=== PATIENT | female | born 1940 | race Caucasian/White ===

== ENCOUNTER → 2017-01-19 | Outpatient (CLI) | payer OTHER ==
[2016-07-16 15:19] VITALS: BP 112/56
[2017-01-19 09:59] LABS: BASOPHILS # (AUTO) 0.1 X10^3/uL (0.0-0.1); EOSINOPHILS # (AUTO) 0.2 x10^3/uL (0.0-0.2); EOSINOPHILS % (AUTO) 4.1 % (0.9-2.9); HEMATOCRIT 30.6 % (36.0-47.0); HEMOGLOBIN 10.1 g/dL (12.0-16.0); LYMPHOCYTES % (AUTO) 19.1 % (21.0-51.0); MEAN CORPUSCULAR HGB CONC 33.1 g/dL (33.0-35.0); MEAN CORPUSCULAR VOLUME 84.4 fL (80.0-100.0); MEAN PLATELET VOLUME 8.7 fL (7.4-11.0); MONOCYTES # (AUTO) 0.4 x10^3/uL (0.3-0.8); MONOCYTES % (AUTO) 8.5 % (0.0-13.0); NEUTROPHILS # (AUTO) 3.4 x10^3/uL (2.2-4.8); NEUTROPHILS % (AUTO) 67.3 % (42.0-75.0); PLATELET COUNT 241 X10^3/uL (150.0-450.0); RED BLOOD COUNT 3.62 X10^6/uL (3.5-5.4); RED CELL DISTRIBUTION WIDTH 13.2 % (11.6-16.5)
[2017-01-19 10:09] LABS: ALANINE AMINOTRANSFERASE 18 Units/L (12-78); ALBUMIN 3.9 g/dL (3.4-5.0); ALKALINE PHOSPHATASE 75 Units/L (46-116); ASPARTATE AMINO TRANSFERASE 23 Units/L (15-37); BLOOD UREA NITROGEN 26 mg/dL (7-18); CALCIUM 8.2 mg/dL (8.5-10.1); CARBON DIOXIDE 22.6 mmol/L (21-32); CHLORIDE 102 mmol/L (98-107); CHOLESTEROL 188 mg/dL (0-200); CREATININE 1.39 mg/dL (0.55-1.02); FREE T4 (FREE THYROXINE) 1.31 ng/dL (0.76-1.46); GLUCOSE 94 mg/dL (65-99); HDL CHOLESTEROL 62 mg/dL (40-60); SODIUM 135 mmol/L (136-145); TRIGLYCERIDES 146 mg/dL (0-150); TSH (3RD GENERATION) 2.003 uIU/mL (0.358-3.74); eGFR BLACK RACES 47 (>60); eGFR NON BLACK RACES 39 (>60)
== END ==
LOC: LAB 09:16
PROVIDERS: ATTEND Internal Medicine
DX: I10 Essential (primary) hypertension (principal); E78.4 Other hyperlipidemia; E03.8 Other specified hypothyroidism; E55.9 Vitamin D deficiency, unspecified; D51.8 Other vitamin B12 deficiency anemias
CPT/HCPCS: 36415; 80053; 80061; 82306; 82607; 84439; 84443; 85025

== ENCOUNTER → 2017-04-15 | Outpatient (CLI) | payer OTHER ==
[2016-07-16 15:19] VITALS: BP 112/56
--- NOTE | 2017-04-15 08:29 | RAD ---
HISTORY: Right arm pain Study: Right forearm two view Comparison: None Findings: Visible only on the AP view is a radial neck fracture. The remainder of the radius and ulna appear i ntact. IMPRESSION: Fracture radial neck Reported By:
== END ==
LOC: RAD 08:02
PROVIDERS: ATTEND Specialist
DX: M79.631 Pain in right forearm (principal); S52.134A Nondisplaced fracture of neck of right radius, initial encounter for closed fracture; X58.XXXA Exposure to other specified factors, initial encounter
CPT/HCPCS: 73090

== ENCOUNTER → 2017-04-22 | Outpatient (CLI) | payer OTHER ==
[2016-07-16 15:19] VITALS: BP 112/56
--- NOTE | 2017-04-22 09:30 | RAD ---
HISTORY: Follow up fracture Study: Right forearm two views Comparison: April 15, 2017 Findings: The ulna is intact. Once again noted is a radial neck fracture. The remainder of the radius is intac t. There is an elbow joint effusion present. IMPRESSION: No change radial neck fracture and small joint effusion Reported By:
== END | disposition home or self-care (01) ==
LOC: RAD 09:09
PROVIDERS: ATTEND Specialist
DX: M79.631 Pain in right forearm (principal); S52.134A Nondisplaced fracture of neck of right radius, initial encounter for closed fracture; X58.XXXA Exposure to other specified factors, initial encounter
CPT/HCPCS: 73090

== ENCOUNTER → 2017-08-11 | Outpatient (CLI) | payer OTHER ==
[2016-07-16 15:19] VITALS: BP 112/56
[2017-08-11 13:22] LABS: CREATININE 1.53 mg/dL (0.55-1.02)
== END | disposition home or self-care (01) | DRG 812 ==
LOC: RAD 12:54
DX: D63.8 Anemia in other chronic diseases classified elsewhere (principal); E79.0 Hyperuricemia without signs of inflammatory arthritis and tophaceous disease; G47.8 Other sleep disorders; H16.223 Keratoconjunctivitis sicca, not specified as Sjogren's, bilateral; K11.7 Disturbances of salivary secretion; R06.09 Other forms of dyspnea; I34.0 Nonrheumatic mitral (valve) insufficiency; I50.30 Unspecified diastolic (congestive) heart failure; I27.0 Primary pulmonary hypertension
CPT/HCPCS: 36415; 82565; 84295; 93306

== ENCOUNTER → 2017-08-17 | Outpatient (CLI) | payer OTHER ==
[2016-07-16 15:19] VITALS: BP 112/56
[2017-08-17 14:18] LABS: BILIRUBIN,URINE NEGATIVE (NEGATIVE); BLOOD/HEMOGLOBIN,URINE NEGATIVE (NEGATIVE); COLOR,URINE YELLOW (YELLOW); GLUCOSE, URINE NEGATIVE (NEGATIVE); KETONES,URINE NEGATIVE (NEGATIVE); LEUKOCYTE ESTERASE ,URINE 1+ (NEGATIVE); NITRITES,URINE NEGATIVE (NEGATIVE); PROTEIN,URINE NEGATIVE (NEGATIVE); UROBILINOGEN,URINE NORMAL (NORMAL)
[2017-08-17 14:19] LABS: APPEARANCE,URINE CLEAR (CLEAR); BACTERIA,URINE TRACE /HPF (NEGATIVE); SQUAMOUS EPITHELIAL CELL,UR FEW /HPF (NEGATIVE)
== END ==
LOC: LAB 13:49
PROVIDERS: ATTEND Neurological Surgery
DX: D63.8 Anemia in other chronic diseases classified elsewhere (principal); E79.0 Hyperuricemia without signs of inflammatory arthritis and tophaceous disease; G47.8 Other sleep disorders; H16.223 Keratoconjunctivitis sicca, not specified as Sjogren's, bilateral; K11.7 Disturbances of salivary secretion
CPT/HCPCS: 81001; 87086

== ENCOUNTER 2017-08-19 00:35 | Inpatient (IN) | payer OTHER ==
--- NOTE | 2017-08-19 00:43 | DR.GENAD ---
HPI - HPI Comment HPI Comment: PATIENT STARTED HAVING INCREASE SOB AND CHEST PAIN TONIGHT. TOOK S/ L NTG TIMES 2 WITHOUT RELIEF. NO FEVER. CURRENTLY ON MEDICATION FOR BRONCHITIS. - Complaint/Symptoms Chief Complaint Doctors Comments: SOB, CHEST PAIN. - Nurses notes reviewed Nurses Notes Review: Yes - Source History Provided: Patient - Mode of Arrival Mode of Arrival: Stretcher - Timing Came on: Suddenly - Duration Duration: Constant Duration: Hours - Severity Severity: Moderate PMH - PMH Past Surgical History: Yes Surgical History: Appendectomy, Cholecystectomy, Hysterectomy, Joint Replacement , Tonsillectomy - Family History Family Medical History: Cancer, [place], Hypertension ROS - Review of Systems Constitutional: No Symptoms Reported, Weakness, Fatigue. negative: Chills, Fever Eyes: negative: Eye Pain, Discharge ENTM: Nose Congestion. negative: Ear Pain, Nose Discharge, Throat Pain Respiratoy: Productive Cough, Short of Breath, Wheezing. negative: Hemoptysis Cardiovascular: Chest Pain Gastrointestinal/Abdominal: Nausea. negative: Abdominal Pain Genitourinary: negative: Dysuria, Frequency, Hematuria Neurological: Headache, Weakness, Dizziness Musculoskeletal: Muscle Pain Hematologic/Lymphatic: No Symptoms Reported Endocrine: No Symptoms Reported PE - Vital Signs Vitals: Pulse Rate [Apical] 58 Pulse Rate 67 Respiratory Rate 20 Blood Pressure [Left Arm] 127/58 Blood Pressure [Right Arm] 159/72 Blood Pressure 226/93 O2 Sat by Pulse Oximetry 99 - General Limitations: No Limitations General Appearance: Alert, In Distress (ACUTE RESP DISTRESS.) - Head Head Exam: Normal Inspection - Eyes Eye exam: Normal Appearance, PERRL, EOMI. negative: Scleral Icterus, Conjunctival Injection - ENT ENT Exam: Normal External Ear Exam External Ear Exam: Normal External Inspection TM/Canal Exam: Bilateral Normal Nose Exam: Normal Nose Exam Mouth Exam: Normal Inspection Throat Exam: Normal Inspection - Neck Neck Exam: Normal Inspection - Chest Chest Inspection: Symmetric Chest Wall Rise - Respiratory Respiratory Exam: Normal Lung Sounds Bilat Respiratory Exam: Bilateral Wheezing, Bilateral Rhonchi, Upper Wheezing, Upper Rhonchi, Lower Wheezing, Lower Rhonchi - Cardiovascular Cardiovascular Exam: Regular Rate, Normal Rhythm, Normal Heart Sounds - Abdominal Exam Abdominal Exam: Normal Bowel Sounds, Soft. negative: Tenderness - Extremities Extremities Exam: Normal Inspection - Back Back Exam: Normal Inspection - Neurologic Neurological Exam: Alert, Oriented X3, CN II-XII Intact. negative: Motor Sensory Deficit - Psychiatric Psychiatric Exam: Normal Affect, Normal Mood - Skin Skin Exam: Erythema MDM - Additional Information Additional Information Obtained From: Family - Differential Diagnosis Differential Diagnosis: RESP DISTRESS, CHF, PNEUMOIA, BRONCHITIS, UTI Course - Treatment Treatment: SEE ORDERS. NRB RX IN ED. SOB IMPROVING. - Consultation Consultation Comments: DISCUSS PATIENT WITH DR. JENKINS. HE WILL ADMIT PATIENT. - Education/Counseling Education/Counseling: Patient, Family, Education Educated On: Treatment, Diagnosis ROR - Labs Reviewed Laboratory Results Reviewed?: Yes Result Diagrams: 08/19/17 00:40 08/19/17 00:40 Laboratory: WBC 4.4 X10^3/uL (3.6-10.0) 08/19/17 00:40 RBC 3.48 X10^6/uL (3.5-5.4) L 08/19/17 00:40 Hgb 10.1 g/dL (12.0-16.0) L 08/19/17 00:40 Hct 29.6 % (36.0-47.0) L 08/19/17 00:40 MCV 85.0 fL (80.0-100.0) 08/19/17 00:40 MCH 29.0 pg (27.0-34.0) 08/19/17 00:40 MCHC 34.1 g/dL (33.0-35.0) 08/19/17 00:40 RDW 12.9 % (11.6-16.5) 08/19/17 00:40 Plt Count 254 X10^3/uL (150.0-450.0) 08/19/17 00:40 MPV 8.7 fL (7.4-11.0) 08/19/17 00:40 Neut % 51.3 % (42.0-75.0) 08/19/17 00:40 Lymph % 27.1 % (21.0-51.0) 08/19/17 00:40 [place] % 12.6 % (0.0-13.0) 08/19/17 00:40 Eos % 7.7 % (0.9-2.9) H 10 00:40 Baso % 1.3 % (0.2-1.0) H 08/19/17 00:40 Neut # 2.3 x10^3/uL (2.2-4.8) 10 00:40 Lymph # 1.2 X10^3/uL (1.3-2.9) L 10 00:40 [place] # 0.6 x10^3/uL (0.3-0.8) 08/19/17 00:40 Eos # 0.3 x10^3/uL (0.0-0.2) H 08/19/17 00:40 Baso # 0.1 X10^3/uL (0.0-0.1) 08/19/17 00:40 Absolute Nucleated RBC 0.0 /100WBC 08/19/17 00:40 Sodium 136 mmol/L (136-145) 08/19/17 00:40 Corrected Sodium TNP 08/19/17 00:40 Potassium 4.4 mmol/L (3.5-5.1) 08/19/17 00:40 Chloride 104 mmol/L (98-107) 08/19/17 00:40 Carbon Dioxide 22.8 mmol/L (21-32) 08/19/17 00:40 BUN 18 mg/dL (7-18) 08/19/17 00:40 Creatinine 1.49 mg/dL (0.55-1.02) H 08/19/17 00:40 Est GFR (MDRD) Af Amer 44 (>60) L 08/19/17 00:40 Est GFR (MDRD) Non-Af 36 (>60) L 08/19/17 00:40 Glucose 103 mg/dL (65-99) H 08/19/17 00:40 Calcium 8.6 mg/dL (8.5-10.1) 08/19/17 00:40 Corrected Calcium TNP 08/19/17 00:40 Total Bilirubin 0.20 mg/dL (0.2-1.0) 08/19/17 00:40 AST 20 Units/L (15-37) 08/19/17 00:40 ALT 12 Units/L (12-78) 08/19/17 00:40 Alkaline Phosphatase 87 Units/L (46-116) 08/19/17 00:40 Creatine Kinase 81 Units/L (26-192) 08/19/17 00:40 CK-MB (CK-2) < 1.0 ng/mL (0-4.0) 08/19/17 00:40 CK/CKMB % Calc 1.2 % (<4) 08/19/17 00:40 Troponin I < 0.02 ng/mL (0-1.5) 08/19/17 00:40 B-Natriuretic Peptide 929 pg/mL (0-79) H* 08/19/17 00:40 Total Protein 7.6 g/dL (6.4-8.2) 08/19/17 00:40 Albumin 3.8 g/dL (3.4-5.0) 08/19/17 00:40 Globulin 3.8 g/dL (2.5-4.5) 08/19/17 00:40 Albumin/Globulin Ratio 1.0 Ratio (1.1-2.1) L 08/19/17 00:40 - XRAY XRAY Interpreted by: Radiologist XRAY Findings: REPORT DISCUSS WITH PATIENT. - EKG Rhythm: NSR (EKG NOTED.) - Diagnosis Discharge Problem: Respiratory distress, Bronchitis CHF (congestive heart failure) Qualifiers: Congestive heart failure type: combined Congestive heart failure chronicity: acute on chronic Qualified Code(s): I50.43 - Acute on chronic combined systolic (congestive) and diastolic (congestive) heart failure Hypertension Qualifiers: Hypertension type: essential hypertension Qualified Code(s): I10 - Essential ( primary) hypertension - Discharge Plan Disposition: ADMITTED INPATIENT Condition: Stable - Follow ups/Referrals - Instructions
[2017-08-19] MEDS ORDERED: DUONEB 0.5 MG/3 MG ONE (00:56)
[2017-08-19] MEDS ORDERED: SOLU-Medrol 125 MG VIAL IVP ONE (00:59)
[2017-08-19] MEDS ORDERED: SOLU-Medrol 125 MG VIAL ONE (01:00)
[2017-08-19] MEDS ORDERED: DUONEB 0.5 MG/3 MG NEB ONE (01:00)
[2017-08-19 01:04] LABS: BASOPHILS # (AUTO) 0.1 X10^3/uL (0.0-0.1); BASOPHILS % (AUTO) 1.3 % (0.2-1.0); EOSINOPHILS # (AUTO) 0.3 x10^3/uL (0.0-0.2); EOSINOPHILS % (AUTO) 7.7 % (0.9-2.9); HEMATOCRIT 29.6 % (36.0-47.0); HEMOGLOBIN 10.1 g/dL (12.0-16.0); LYMPHOCYTES # (AUTO) 1.2 X10^3/uL (1.3-2.9); LYMPHOCYTES % (AUTO) 27.1 % (21.0-51.0); MEAN CORPUSCULAR HGB CONC 34.1 g/dL (33.0-35.0); MEAN PLATELET VOLUME 8.7 fL (7.4-11.0); MONOCYTES # (AUTO) 0.6 x10^3/uL (0.3-0.8); MONOCYTES % (AUTO) 12.6 % (0.0-13.0); NEUTROPHILS # (AUTO) 2.3 x10^3/uL (2.2-4.8); NEUTROPHILS % (AUTO) 51.3 % (42.0-75.0); PLATELET COUNT 254 X10^3/uL (150.0-450.0); RED BLOOD COUNT 3.48 X10^6/uL (3.5-5.4); RED CELL DISTRIBUTION WIDTH 12.9 % (11.6-16.5); WHITE BLOOD COUNT 4.4 X10^3/uL (3.6-10.0)
[2017-08-19] MEDS ORDERED: NIFEDIPINE CAP 10 MG PO ONE (01:07)
[2017-08-19] MEDS ORDERED: NIFEDIPINE CAP 10 MG ONE (01:10)
[2017-08-19 01:18] LABS: BLOOD UREA NITROGEN 18 mg/dL (7-18); CALCIUM 8.6 mg/dL (8.5-10.1); CARBON DIOXIDE 22.8 mmol/L (21-32); CHLORIDE 104 mmol/L (98-107); CREATININE 1.49 mg/dL (0.55-1.02); SODIUM 136 mmol/L (136-145); TROPONIN I < 0.02 ng/mL (0-1.5); eGFR BLACK RACES 44 (>60); eGFR NON BLACK RACES 36 (>60)
[2017-08-19 01:22] LABS: ALANINE AMINOTRANSFERASE 12 Units/L (12-78); ALBUMIN 3.8 g/dL (3.4-5.0); ALKALINE PHOSPHATASE 87 Units/L (46-116); ASPARTATE AMINO TRANSFERASE 20 Units/L (15-37); CKMB % 1.2 % (<4); CREATINE KINASE 81 Units/L (26-192); CREATINE KINASE MB < 1.0 ng/mL (0-4.0); TOTAL PROTEIN 7.6 g/dL (6.4-8.2)
[2017-08-19] MEDS ORDERED: ROCEPHIN VIAL 1 GM 1 GM in NS 50 ML IV + SPIKE MINIBAG* 50 ML IV ONE (01:33)
[2017-08-19] MEDS ORDERED: ROCEPHIN VIAL 1 GM ONE (01:39)
[2017-08-19] MEDS ORDERED: NS 50 ML IV + SPIKE MINIBAG* 50 ML IV ONE (01:39)
[2017-08-19] MEDS ORDERED: NS 250 ML IV 250 ML IV ONE ×2 (01:43→01:52)
--- NOTE | 2017-08-19 02:25 | RAD ---
Chest AP portable Indication: Cough. Findings: There is no pneumothorax or effusion. There is cardiomegaly. Mild increased interstitial ma rkings noted. Impression: Cardiomegaly and borderline edema suggesting CHF. Reported By:
[2017-08-19 03:29] LABS: BILIRUBIN,URINE NEGATIVE (NEGATIVE); BLOOD/HEMOGLOBIN,URINE NEGATIVE (NEGATIVE); GLUCOSE, URINE NEGATIVE (NEGATIVE); KETONES,URINE NEGATIVE (NEGATIVE); LEUKOCYTE ESTERASE ,URINE NEGATIVE (NEGATIVE); NITRITES,URINE NEGATIVE (NEGATIVE); PROTEIN,URINE 1+ (NEGATIVE); UROBILINOGEN,URINE NORMAL (NORMAL)
[2017-08-19 03:32] VITALS: BMI 42.7
[2017-08-19] MEDS ORDERED: FLUVIRIN IM ONE ×2 (03:32→11:20)
[2017-08-19 03:38] LABS: APPEARANCE,URINE CLEAR (CLEAR); BACTERIA,URINE NEGATIVE /HPF (NEGATIVE); COLOR,URINE YELLOW (YELLOW); RBC,URINE 0-3 /HPF (NEGATIVE); SQUAMOUS EPITHELIAL CELL,UR RARE /HPF (NEGATIVE)
[2017-08-19] MEDS: DUONEB 0.5 MG/3 MG NEB SCH ×5 (05:09→21:32)
[2017-08-19 05:34] LABS: BASOPHILS % (AUTO) 0.9 % (0.2-1.0); EOSINOPHILS # (AUTO) 0.1 x10^3/uL (0.0-0.2); EOSINOPHILS % (AUTO) 1.3 % (0.9-2.9); HEMATOCRIT 28.5 % (36.0-47.0); HEMOGLOBIN 9.8 g/dL (12.0-16.0); LYMPHOCYTES # (AUTO) 0.7 X10^3/uL (1.3-2.9); LYMPHOCYTES % (AUTO) 14.3 % (21.0-51.0); MEAN CORPUSCULAR HEMOGLOBIN 29.2 pg (27.0-34.0); MEAN CORPUSCULAR HGB CONC 34.5 g/dL (33.0-35.0); MEAN CORPUSCULAR VOLUME 84.6 fL (80.0-100.0); MONOCYTES # (AUTO) 0.2 x10^3/uL (0.3-0.8); MONOCYTES % (AUTO) 3.5 % (0.0-13.0); NEUTROPHILS # (AUTO) 3.7 x10^3/uL (2.2-4.8); PLATELET COUNT 219 X10^3/uL (150.0-450.0); RED BLOOD COUNT 3.38 X10^6/uL (3.5-5.4); RED CELL DISTRIBUTION WIDTH 13.1 % (11.6-16.5); WHITE BLOOD COUNT 4.7 X10^3/uL (3.6-10.0)
[2017-08-19 05:41] LABS: ALANINE AMINOTRANSFERASE 10 Units/L (12-78); ALBUMIN 3.9 g/dL (3.4-5.0); ALKALINE PHOSPHATASE 76 Units/L (46-116); ASPARTATE AMINO TRANSFERASE 19 Units/L (15-37); BLOOD UREA NITROGEN 18 mg/dL (7-18); CALCIUM 8.9 mg/dL (8.5-10.1); CARBON DIOXIDE 24.3 mmol/L (21-32); CHLORIDE 103 mmol/L (98-107); COR NA(FOR HYPERGLY) 137 mmol/L (136-145); MAGNESIUM 1.9 mg/dL (1.7-2.9); SODIUM 137 mmol/L (136-145); TOTAL PROTEIN 7.3 g/dL (6.4-8.2); eGFR BLACK RACES 43 (>60); eGFR NON BLACK RACES 36 (>60)
[2017-08-19 05:49] LABS: CKMB % 1.5 % (<4); CREATINE KINASE 67 Units/L (26-192); CREATINE KINASE MB < 1.0 ng/mL (0-4.0); TROPONIN I < 0.02 ng/mL (0-1.5)
[2017-08-19] MEDS ORDERED: PATIENT'S HOME MEDICATION EACHEYE PRN (08:26)
[2017-08-19] MEDS ORDERED: CIPRO IV 200 MG PREMIX* 200 MG/100 ML BAG IV SCH (09:00)
[2017-08-19] MEDS ORDERED: ROCEPHIN VIAL 1 GM 1 GM in NS 50 ML IV + SPIKE MINIBAG* 50 ML IV SCH (09:00)
[2017-08-19] MEDS: LASIX IVP SCH ×2 (11:26→21:12)
[2017-08-19] MEDS: LEVAQUIN PREMIX IV 750 MG 750 MG/150 ML BAG IV SCH (11:26)
[2017-08-19] MEDS: MUCINEX DM PO SCH ×2 (11:26→21:10)
[2017-08-19] MEDS: TESSALON PERLES PO SCH ×3 (11:26→21:09)
[2017-08-19] MEDS: FORTAZ or TAZICEF INJ 1 GM in NS 50 ML IV + SPIKE MINIBAG* 50 ML IV SCH ×3 (11:27→21:10)
[2017-08-19] MEDS ORDERED: ATARAX TAB 25 MG PO PRN (11:33)
[2017-08-19] MEDS ORDERED: ONDANSETRON 8 MG PO PRN (11:33)
[2017-08-19] MEDS ORDERED: PILOCARPINE HCL 5 MG PO PRN (11:33)
[2017-08-19] MEDS ORDERED: PATIENT'S HOME MEDICATION (Meclizine Hcl [Meclizine Hcl] 12.5 MG) PO PRN (11:33)
[2017-08-19] MEDS ORDERED: LEVOCETIRIZINE DIHYDROCHLORIDE 5 MG PO PRN (11:33)
[2017-08-19] MEDS ORDERED: NITROSTAT SL PRN (11:33)
[2017-08-19] MEDS ORDERED: DICYCLOMINE HCL 20 MG PO PRN (11:33)
[2017-08-19] MEDS ORDERED: LIBRIUM PO PRN (11:33)
[2017-08-19] MEDS: COREG TAB 25 MG PO SCH ×2 (11:42→21:09)
[2017-08-19] MEDS ORDERED: FOLIC ACID PO SCH (11:45)
[2017-08-19] MEDS ORDERED: TIZANIDINE HCL PO SCH (11:45)
[2017-08-19] MEDS ORDERED: HYDROXYCHLOROQUINE SULFATE 200 MG PO SCH (11:45)
[2017-08-19 11:46] LABS: CKMB % 1.6 % (<4); CREATINE KINASE 61 Units/L (26-192); CREATINE KINASE MB < 1.0 ng/mL (0-4.0); TROPONIN I < 0.02 ng/mL (0-1.5)
[2017-08-19] MEDS ORDERED: NEURONTIN CAP 100 MG PO SCH (12:00)
[2017-08-19] MEDS ORDERED: COZAAR PO SCH (12:00)
[2017-08-19] MEDS ORDERED: BENTYL CAP 10 MG PO PRN (12:04)
[2017-08-19] MEDS ORDERED: ANTIVERT TAB 25 MG PO PRN (12:06)
[2017-08-19] MEDS: PROTONIX TAB 40 MG PO SCH ×2 (12:45→21:10)
[2017-08-19] MEDS: SYNTHROID 137 mcg TAB PO SCH (12:45)
[2017-08-19] MEDS: SINGULAIR TAB 10 MG PO SCH (12:45)
[2017-08-19] MEDS: PEPCID TAB 20 MG PO SCH ×2 (12:45→21:09)
[2017-08-19] MEDS: PLAVIX PO SCH (12:46)
[2017-08-19] MEDS: FOLIC ACID TAB 1 MG PO SCH (12:46)
[2017-08-19] MEDS: ZANTAC PO SCH (12:46)
[2017-08-19] MEDS ORDERED: MORPHINE SULFATE INJ 2 MG INJ ONE (13:23)
[2017-08-19] MEDS: MORPHINE SULFATE INJ 2 MG INJ IVP PRN (13:35)
[2017-08-19] MEDS: TEMOVATE SOLN TOP SCH ×2 (14:07→21:27)
[2017-08-19] MEDS: SOLU-Medrol 40 MG VIAL IVP SCH ×2 (14:08→21:12)
[2017-08-19] MEDS: MAGIC MOUTHWASH MT SCH ×3 (14:08→21:26)
[2017-08-19] MEDS: DIOVAN TAB 160 MG PO SCH (14:45)
[2017-08-19] MEDS ORDERED: CATAPRES-TTS-3 TD SCH (15:00)
[2017-08-19] MEDS ORDERED: APRESOLINE INJ 20 MG VIAL IVP PRN (18:05)
[2017-08-19] MEDS: TYLENOL 325 MG TAB PO PRN (18:18)
[2017-08-19] MEDS: NORVASC TAB 5 MG PO SCH (18:18)
[2017-08-19] MEDS: ZOFRAN TAB 4 MG PO PRN (19:45)
--- NOTE | 2017-08-19 20:48 | DR.H&P ---
H&P - History & Physical for Day of: H&P Date: 08/19/17 - Chief Complaint Chief Complaint: SHORT OF BREATH - Allergies Allergies/Adverse Reactions: Allergies Allergy/AdvReac Type Severity Reaction Status Date / Time hydrocodone Allergy Intermediate CONFUSION Verified 08/19/17 00:53 - History of Present Illness History of Present Illness: IS A 76 YEAR OLD PATIENT OF OURS WHO PRESENTED TO THE EMERGENCY ROOM WITH COMPLAINTS OF SHORTNESS OF BREATH AND CHEST PAIN. PATIENT REPORTS CURRENTLY BEING TREATED FOR BRONCHITIS WITH CEFDINIR AND TESSALON PERLES SINCE 08/11/17. SHE STATES THAT THE SHORTNESS OF BREATH HAS STEADILY INCREASED SINCE THEN. PATIENT REPORTS TAKING TWO SUBLINGUAL NITROGLYCERIN TABLET WITHOUT RELIEF OF PAIN. SHE DENIES FEVER. ASSOCIATED SYMPTOMS ARE PRODUCTIVE COUGH, NASAL CONGESTION, WEAKNESS, NAUSEA, HEADACHE, DIZZINESS, AND MUSCLE PAIN. ON EXAMINATION, LUNGS ARE NOTED WITH WHEEZING AND RHONCHI BILATERALLY TO AUSCULTATION. ABDOMEN IN SOFT, ROUND, AND NON-TENDER WITH NORMAL BOWEL SOUNDS NOTED IN ALL QUADRANTS. ON ARRIVAL TO ER, VITALS WERE 98.2-69-17-97%-226-93. LABS AND XRAYS WERE OBTAINED. ABNORMAL LAB VALUES INCLUDE THE FOLLOWING: RBC 3.48, HGB 10.1, HCT 29.6, CREATININE 1.49, GFR 36, GLUCOSE 103, BNP 929. CHEST XRAY REPORTED CARDIOMEGALY AND BORDERLINE EDEMA SUGGESTING CHF. SHE WAS GIVEN SOLU-MEDROL 125MG IV X 1, DUONEB X 1, ROCEPHIN 1GM IV, AND NIFEDIPINE X 1 IN THE ER. A DECREASE IN BLOOD PRESSURE WAS NOTED AT 159/72. WE ADMITTED PATIENT FOR FURTHER EVALUATION AND TREATMENT OF CHF AND ACUTE BRONCHITIS. WE PLAN TO FOLLOW UP WITH AM LABS AND CONTINUE TO MONITOR PATIENT. - Past Medical History Past Medical History: Angina, Arthritis, CHF, Coronary Artery Disease, Dyslipidemia, Hypertension - Past Surgical History Surgical History: Appendectomy, Cholecystectomy, Hysterectomy, Joint Replacement , Tonsillectomy - Family History Family Medical History: Cancer, [place], Hypertension - Social History Does patient currently use any type of tobacco product: No Have you used tobacco products in the last 12 months: No Type of Tobacco Use: None Does any household member use tobacco: No Alcohol Use: None Drug Use: None - Review of Systems Constitutional: Weakness Eyes: No Symptoms Reported ENT: Nose Discharge Respiratory: Cough, Shortness of Breath, SOB with Excertion, Sputum, Wheezing Cardiovascular: Chest Pain Gastrointestinal: Nausea Genitourinary: No Symptoms Reported Musculoskeletal: No Symptoms Reported Skin: No Symptoms Reported Neurological: Weakness - Physical Exam Vital Signs: Temperature 97.7 F Pulse Rate [Right Brachial] 62 Pulse Rate [Apical] 71 Pulse Rate 63 Respiratory Rate 20 Blood Pressure [Left Arm] 127/58 Blood Pressure [Right Arm] 191/74 Blood Pressure 226/93 O2 Sat by Pulse Oximetry 97 Oriented: Normal Eyes: Normal Ear: Normal Nose: Normal Throat: Normal Respiratory: Rhonchi Throughout, Wheezes Throughout Cardiovascular: Normal : Normal Auscultation: Bowel Sounds: Normal Palpation: Normal Tenderness: Normal Skin: Normal Musculoskeletal: Normal Psychiatric: Normal Mood Description: Calm Affect: Normal Speech Pattern: Clear - Assessment/Plan (1) Bronchitis Status: Acute (2) CHF (congestive heart failure) Qualifiers: Congestive heart failure type: combined Congestive heart failure chronicity : acute on chronic Qualified Code(s): I50.43 - Acute on chronic combined systolic (congestive) and diastolic (congestive) heart failure Status: Acute (3) Respiratory distress Status: Acute
[2017-08-19] MEDS ORDERED: ESTRADIOL 1 MG PO SCH (21:00)
[2017-08-19] MEDS: CRESTOR TAB 10 MG PO SCH (21:08)
[2017-08-19] MEDS: ESTRACE PO SCH (21:08)
[2017-08-19] MEDS: PLAQUENIL PO SCH (21:09)
[2017-08-19] MEDS: NEURONTIN CAP 300 MG PO SCH (21:10)
[2017-08-19] MEDS: LEVSIN/MAALOX/LIDOC VISC PO PRN (21:32)
[2017-08-19] MEDS: COLACE CAP 100 MG PO SCH (22:02)
[2017-08-20] MEDS: DUONEB 0.5 MG/3 MG NEB SCH ×6 (00:40→21:01)
[2017-08-20] MEDS: SOLU-Medrol 40 MG VIAL IVP SCH ×3 (05:24→21:22)
[2017-08-20] MEDS: FORTAZ or TAZICEF INJ 1 GM in NS 50 ML IV + SPIKE MINIBAG* 50 ML IV SCH ×3 (05:24→21:14)
[2017-08-20] MEDS: TESSALON PERLES PO SCH ×3 (05:24→21:13)
[2017-08-20 06:09] LABS: ALANINE AMINOTRANSFERASE 11 Units/L (12-78); ALBUMIN 3.5 g/dL (3.4-5.0); ALKALINE PHOSPHATASE 68 Units/L (46-116); ASPARTATE AMINO TRANSFERASE 17 Units/L (15-37); BLOOD UREA NITROGEN 20 mg/dL (7-18); CALCIUM 8.3 mg/dL (8.5-10.1); CARBON DIOXIDE 24.5 mmol/L (21-32); CHLORIDE 96 mmol/L (98-107); COR NA(FOR HYPERGLY) 133 mmol/L (136-145); CREATININE 1.51 mg/dL (0.55-1.02); SODIUM 132 mmol/L (136-145); TOTAL PROTEIN 7.5 g/dL (6.4-8.2); eGFR BLACK RACES 43 (>60); eGFR NON BLACK RACES 35 (>60)
[2017-08-20 06:12] LABS: BASOPHILS % (AUTO) 0.1 % (0.2-1.0); HEMATOCRIT 28.6 % (36.0-47.0); HEMOGLOBIN 9.9 g/dL (12.0-16.0); LYMPHOCYTES # (AUTO) 0.5 X10^3/uL (1.3-2.9); LYMPHOCYTES % (AUTO) 7.4 % (21.0-51.0); MEAN CORPUSCULAR HEMOGLOBIN 29.3 pg (27.0-34.0); MEAN CORPUSCULAR HGB CONC 34.6 g/dL (33.0-35.0); MEAN CORPUSCULAR VOLUME 84.7 fL (80.0-100.0); MEAN PLATELET VOLUME 9.5 fL (7.4-11.0); MONOCYTES # (AUTO) 0.1 x10^3/uL (0.3-0.8); NEUTROPHILS # (AUTO) 5.5 x10^3/uL (2.2-4.8); NEUTROPHILS % (AUTO) 90.5 % (42.0-75.0); PLATELET COUNT 234 X10^3/uL (150.0-450.0); RED BLOOD COUNT 3.37 X10^6/uL (3.5-5.4); RED CELL DISTRIBUTION WIDTH 12.7 % (11.6-16.5); WHITE BLOOD COUNT 6.1 X10^3/uL (3.6-10.0)
[2017-08-20 07:29] LABS: BAND NEUTROPHILS % 3 % (0-10)
[2017-08-20 07:30] LABS: PLATELET MORPHOLOGY COMMENT NORMAL (NORMAL)
[2017-08-20] MEDS: FOLIC ACID TAB 1 MG PO SCH (08:44)
[2017-08-20] MEDS: PLAQUENIL PO SCH ×2 (08:44→21:12)
[2017-08-20] MEDS: MUCINEX DM PO SCH ×2 (08:44→21:13)
[2017-08-20] MEDS: SINGULAIR TAB 10 MG PO SCH (08:45)
[2017-08-20] MEDS: ZANAFLEX PO SCH (08:45)
[2017-08-20] MEDS: DIOVAN TAB 160 MG PO SCH (08:45)
[2017-08-20] MEDS: NORVASC TAB 5 MG PO SCH (08:45)
[2017-08-20] MEDS: ZANTAC PO SCH (08:45)
[2017-08-20] MEDS: COREG TAB 25 MG PO SCH ×2 (08:45→21:12)
[2017-08-20] MEDS: PROTONIX TAB 40 MG PO SCH ×2 (08:46→21:12)
[2017-08-20] MEDS: PEPCID TAB 20 MG PO SCH ×2 (08:46→21:12)
[2017-08-20] MEDS: MAGIC MOUTHWASH MT SCH ×4 (08:47→21:14)
[2017-08-20] MEDS: TEMOVATE SOLN TOP SCH ×2 (08:47→21:14)
[2017-08-20] MEDS: PLAVIX PO SCH (08:47)
[2017-08-20] MEDS: SYNTHROID 137 mcg TAB PO SCH (08:47)
[2017-08-20] MEDS: LEVAQUIN PREMIX IV 750 MG 750 MG/150 ML BAG IV SCH (08:48)
[2017-08-20] MEDS ORDERED: SOLU-Medrol 40 MG VIAL IVP SCH (09:00)
[2017-08-20] MEDS: TYLENOL 325 MG TAB PO PRN (11:38)
[2017-08-20] MEDS: PILOCARPINE HCL 5 MG PO SCH ×2 (14:31→21:15)
[2017-08-20] MEDS ORDERED: CATAPRES TAB 0.1 MG PO PRN (16:49)
[2017-08-20] MEDS: LASIX IVP SCH (17:05)
[2017-08-20] MEDS: NEURONTIN CAP 300 MG PO SCH (21:12)
[2017-08-20] MEDS: CRESTOR TAB 10 MG PO SCH (21:12)
[2017-08-20] MEDS: ESTRACE PO SCH (21:13)
[2017-08-20] MEDS: COLACE CAP 100 MG PO SCH (21:13)
--- NOTE | 2017-08-20 22:22 | PCM.PROG ---
Progress Note - Progress Note for Day of Date: 08/20/17 - Subjective Subjective: IS A 76 YEAR OLD PATIENT WHO PRESENTED TO THE EMERGENCY ROOM WITH COMPLAINTS OF SHORTNESS OF BREATH AND CHEST PAIN. PATIENT REPORTS CURRENTLY BEING TREATED FOR BRONCHITIS WITH CEFDINIR AND TESSALON PERLES SINCE 08/11/17. PATIENT CONTINUES TO BE DYSPNEIC WITH ACTIVITY OR CONVERSATION. DENIES PRODUCTIVE COUGH. - Past Medical Family Social History Past Med/Fam/Surg Hx: No changes since H&P Allergies: Allergies hydrocodone Allergy (Intermediate, Verified 08/19/17 00:53) CONFUSION - Review of Systems ROS: No change since H&P - Vital Signs and I&O's Vital Signs: Temperature 97.4 F Pulse Rate [Right Brachial] 68 Pulse Rate [Apical] 71 Pulse Rate 68 Respiratory Rate 20 Blood Pressure [Left Arm] 127/58 Blood Pressure [Right Arm] 180/74 Blood Pressure 226/93 O2 Sat by Pulse Oximetry 97 Intake and Output: Intake & Output 08/18/17 08/19/17 08/20/17 08/21/17 11:59 11:59 11:59 11:59 Intake Total 1368 1030 Balance 1368 1030 - Physical Exam Oriented: Normal Eyes: Normal Ear: Normal Nose: Normal Throat: Normal Respiratory: Diminished, [place] Cardiovascular: Normal : Normal Auscultation: Bowel Sounds: Normal Palpation: Normal Tenderness: Normal Skin: Normal Musculoskeletal: Normal Psychiatric: Normal Mood Description: Calm Affect: Normal Speech Pattern: Clear, Appropriate - Laboratory and Diagnostics Result Diagrams: 08/20/17 03:10 08/20/17 03:10 Labs: 08/19/17 14:18 Sputum - Expectorated Sputum Sputum Culture - Preliminary 08/19/17 14:18 Sputum - Expectorated Sputum - Final Laboratory WBC 6.1 X10^3/uL (3.6-10.0) 08/20/17 03:10 RBC 3.37 X10^6/uL (3.5-5.4) L 08/20/17 03:10 Hgb 9.9 g/dL (12.0-16.0) L 08/20/17 03:10 Hct 28.6 % (36.0-47.0) L 08/20/17 03:10 MCV 84.7 fL (80.0-100.0) 08/20/17 03:10 MCH 29.3 pg (27.0-34.0) 08/20/17 03:10 MCHC 34.6 g/dL (33.0-35.0) 08/20/17 03:10 RDW 12.7 % (11.6-16.5) 08/20/17 03:10 Plt Count 234 X10^3/uL (150.0-450.0) 08/20/17 03:10 Plt Count Comment Adequate (ADEQUATE) 08/20/17 03:10 MPV 9.5 fL (7.4-11.0) 08/20/17 03:10 Neut % 90.5 % (42.0-75.0) H 08/20/17 03:10 Lymph % 7.4 % (21.0-51.0) L 08/20/17 03:10 [place] % 2.0 % (0.0-13.0) 08/20/17 03:10 Eos % 0.0 % (0.9-2.9) L 08/20/17 03:10 Baso % 0.1 % (0.2-1.0) L 08/20/17 03:10 Neut # 5.5 x10^3/uL (2.2-4.8) H 08/20/17 03:10 Lymph # 0.5 X10^3/uL (1.3-2.9) L 08/20/17 03:10 [place] # 0.1 x10^3/uL (0.3-0.8) L 08/20/17 03:10 Eos # 0.0 x10^3/uL (0.0-0.2) 08/20/17 03:10 Baso # 0.0 X10^3/uL (0.0-0.1) 08/20/17 03:10 Absolute Nucleated RBC 0.0 /100WBC 08/20/17 03:10 Total Counted 100 08/20/17 03:10 Neutrophils % (Manual) 88 % (39-76) H 08/20/17 03:10 Band Neutrophils % 3 % (0-10) 08/20/17 03:10 Lymphocytes % (Manual) 6 % (13-43) L 08/20/17 03:10 Monocytes % (Manual) 3 % (4-9) L 08/20/17 03:10 Plt Morphology Comment Normal (NORMAL) 08/20/17 03:10 RBC Morphology Normal (NORMAL) 08/20/17 03:10 Sodium 132 mmol/L (136-145) L 08/20/17 03:10 Corrected Sodium 133 mmol/L (136-145) L 08/20/17 03:10 Potassium 4.4 mmol/L (3.5-5.1) 08/20/17 03:10 Chloride 96 mmol/L (98-107) L 08/20/17 03:10 Carbon Dioxide 24.5 mmol/L (21-32) 08/20/17 03:10 BUN 20 mg/dL (7-18) H 08/20/17 03:10 Creatinine 1.51 mg/dL (0.55-1.02) H 08/20/17 03:10 Est GFR (MDRD) Af Amer 43 (>60) L 08/20/17 03:10 Est GFR (MDRD) Non-Af 35 (>60) L 08/20/17 03:10 Glucose 129 mg/dL (65-99) H 08/20/17 03:10 Lactic Acid 1.7 mmol/L (0.4-2.0) 08/19/17 01:46 Calcium 8.3 mg/dL (8.5-10.1) L 08/20/17 03:10 Corrected Calcium TNP 08/20/17 03:10 Magnesium 1.9 mg/dL (1.7-2.9) 08/19/17 04:40 Total Bilirubin 0.30 mg/dL (0.2-1.0) 08/20/17 03:10 AST 17 Units/L (15-37) 08/20/17 03:10 ALT 11 Units/L (12-78) L 08/20/17 03:10 Alkaline Phosphatase 68 Units/L (46-116) 08/20/17 03:10 Creatine Kinase 61 Units/L (26-192) 08/19/17 10:51 CK-MB (CK-2) < 1.0 ng/mL (0-4.0) 08/19/17 10:51 CK/CKMB % Calc 1.6 % (<4) 08/19/17 10:51 Troponin I < 0.02 ng/mL (0-1.5) 08/19/17 10:51 B-Natriuretic Peptide 1180 pg/mL (0-79) H* 08/20/17 05:10 Total Protein 7.5 g/dL (6.4-8.2) 08/20/17 03:10 Albumin 3.5 g/dL (3.4-5.0) 08/20/17 03:10 Globulin 4.0 g/dL (2.5-4.5) 08/20/17 03:10 Albumin/Globulin Ratio 0.9 Ratio (1.1-2.1) L 08/20/17 03:10 Specimen Type Random urine 08/19/17 03:12 Urine Color Yellow (YELLOW) 08/19/17 03:12 Urine Appearance Clear (CLEAR) 08/19/17 03:12 Urine pH 5.0 (5.0 - 8.0) 08/19/17 03:12 Ur Specific [place] 1.020 (1.000-1.030) 08/19/17 03:12 Urine Protein 1+ (NEGATIVE) 08/19/17 03:12 Urine Glucose (UA) Negative (NEGATIVE) 08/19/17 03:12 Urine Ketones Negative (NEGATIVE) 08/19/17 03:12 Urine Occult Blood Negative (NEGATIVE) 08/19/17 03:12 Urine Nitrite Negative (NEGATIVE) 08/19/17 03:12 Urine Bilirubin Negative (NEGATIVE) 08/19/17 03:12 Urine Urobilinogen Normal (NORMAL) 08/19/17 03:12 Ur Leukocyte Esterase Negative (NEGATIVE) 08/19/17 03:12 Urine RBC 0-3 /HPF (NEGATIVE) 08/19/17 03:12 Urine WBC 0-3 /HPF (NEGATIVE) 08/19/17 03:12 Ur Squamous Epith Cells Rare /HPF (NEGATIVE) 08/19/17 03:12 Urine Bacteria Negative /HPF (NEGATIVE) 08/19/17 03:12 Ur Culture Indicated? No/not indicated 08/19/17 03:12 Radiology Reviewed: Yes - Plan (1) Bronchitis Status: Acute Plan: IV ANTIBIOTICS, NEBS, OXYGEN (2) CHF (congestive heart failure) Status: Acute Qualifiers: Congestive heart failure type: combined Congestive heart failure chronicity : acute on chronic Qualified Code(s): I50.43 - Acute on chronic combined systolic (congestive) and diastolic (congestive) heart failure Plan: LASIX 20MG IV Q 12 HRS X 3 DOSES. MONITOR CXR. (3) Hypertension Status: Acute Qualifiers: Hypertension type: essential hypertension Qualified Code(s): I10 - Essential (primary) hypertension Plan: CLONIDINE 0.1MG PRN, MONITOR BP. (4) Chest discomfort Status: Acute Plan: MONITOR S/S. PLEURITIC IN ORIGIN (5) Chronic renal disease Status: Chronic Plan: MONITOR BUN.CR.GFR. (6) Essential hypertension Status: Chronic
[2017-08-21] MEDS: DUONEB 0.5 MG/3 MG NEB SCH ×6 (00:48→21:00)
[2017-08-21] MEDS: FORTAZ or TAZICEF INJ 1 GM in NS 50 ML IV + SPIKE MINIBAG* 50 ML IV SCH ×3 (05:13→22:14)
[2017-08-21] MEDS: TESSALON PERLES PO SCH ×3 (05:14→21:07)
[2017-08-21] MEDS: PILOCARPINE HCL 5 MG PO SCH ×3 (05:14→21:07)
[2017-08-21 05:23] LABS: BASOPHILS % (AUTO) 0.1 % (0.2-1.0); HEMATOCRIT 27.2 % (36.0-47.0); HEMOGLOBIN 9.5 g/dL (12.0-16.0); LYMPHOCYTES # (AUTO) 0.7 X10^3/uL (1.3-2.9); LYMPHOCYTES % (AUTO) 10.3 % (21.0-51.0); MEAN CORPUSCULAR HEMOGLOBIN 29.4 pg (27.0-34.0); MEAN CORPUSCULAR VOLUME 84.1 fL (80.0-100.0); MEAN PLATELET VOLUME 9.5 fL (7.4-11.0); MONOCYTES # (AUTO) 0.4 x10^3/uL (0.3-0.8); MONOCYTES % (AUTO) 6.5 % (0.0-13.0); NEUTROPHILS # (AUTO) 5.6 x10^3/uL (2.2-4.8); NEUTROPHILS % (AUTO) 83.1 % (42.0-75.0); PLATELET COUNT 212 X10^3/uL (150.0-450.0); RED BLOOD COUNT 3.24 X10^6/uL (3.5-5.4); RED CELL DISTRIBUTION WIDTH 12.9 % (11.6-16.5); WHITE BLOOD COUNT 6.7 X10^3/uL (3.6-10.0)
[2017-08-21 05:30] LABS: ALANINE AMINOTRANSFERASE 10 Units/L (12-78); ALBUMIN 3.3 g/dL (3.4-5.0); ALKALINE PHOSPHATASE 62 Units/L (46-116); ASPARTATE AMINO TRANSFERASE 16 Units/L (15-37); BLOOD UREA NITROGEN 23 mg/dL (7-18); CALCIUM 8.2 mg/dL (8.5-10.1); CARBON DIOXIDE 27.1 mmol/L (21-32); CHLORIDE 93 mmol/L (98-107); COR CA(FOR HYPOALB) 8.8 mg/dL (8.5-10.1); CREATININE 1.61 mg/dL (0.55-1.02); SODIUM 129 mmol/L (136-145); TOTAL PROTEIN 6.9 g/dL (6.4-8.2); eGFR BLACK RACES 40 (>60); eGFR NON BLACK RACES 33 (>60)
[2017-08-21 05:34] LABS: B-TYPE NATRIURETIC PEPTIDE 436 pg/mL (0-79)
[2017-08-21] MEDS: LEVAQUIN PREMIX IV 750 MG 750 MG/150 ML BAG IV SCH (08:31)
[2017-08-21] MEDS: NORVASC TAB 5 MG PO SCH (08:32)
[2017-08-21] MEDS: ZANTAC PO SCH (08:32)
[2017-08-21] MEDS: DIOVAN TAB 160 MG PO SCH (08:32)
[2017-08-21] MEDS: PROTONIX TAB 40 MG PO SCH ×2 (08:32→20:52)
[2017-08-21] MEDS: MUCINEX DM PO SCH ×2 (08:32→20:51)
[2017-08-21] MEDS: SYNTHROID 137 mcg TAB PO SCH (08:32)
[2017-08-21] MEDS: ZANAFLEX PO SCH (08:33)
[2017-08-21] MEDS: COREG TAB 25 MG PO SCH ×2 (08:33→22:13)
[2017-08-21] MEDS: FOLIC ACID TAB 1 MG PO SCH (08:33)
[2017-08-21] MEDS: PEPCID TAB 20 MG PO SCH ×2 (08:33→20:52)
[2017-08-21] MEDS: SINGULAIR TAB 10 MG PO SCH (08:34)
[2017-08-21] MEDS: PLAQUENIL PO SCH ×2 (08:34→20:52)
[2017-08-21] MEDS: LASIX IVP SCH (08:34)
[2017-08-21] MEDS: PLAVIX PO SCH (08:35)
[2017-08-21] MEDS: TEMOVATE SOLN TOP SCH ×2 (08:37→20:53)
[2017-08-21] MEDS: MAGIC MOUTHWASH MT SCH ×4 (08:37→20:52)
[2017-08-21] MEDS: ZOFRAN TAB 4 MG PO PRN (20:04)
[2017-08-21] MEDS: COLACE CAP 100 MG PO SCH (20:50)
[2017-08-21] MEDS: CRESTOR TAB 10 MG PO SCH (20:51)
[2017-08-21] MEDS: NEURONTIN CAP 300 MG PO SCH (20:51)
[2017-08-21] MEDS: ESTRACE PO SCH (20:52)
--- NOTE | 2017-08-21 21:49 | PCM.PROG ---
Progress Note - Progress Note for Day of Date: 08/21/17 - Subjective Subjective: IS A 76 YEAR OLD PATIENT WHO PRESENTED TO THE EMERGENCY ROOM WITH COMPLAINTS OF SHORTNESS OF BREATH AND CHEST PAIN. PATIENT REPORTS CURRENTLY BEING TREATED FOR BRONCHITIS WITH CEFDINIR AND TESSALON PERLES SINCE 08/11/17. PATIENT DYSPNEA HAS IMPROVED. CR MILD INCREASE TO 1.61. STATES SHE FELT LIKE SHE WAS ABOUT TO PASS OUT WHEN SHE GOT UP THIS AM. SBP 119. AM BP MEDS WERE HELD. - Past Medical Family Social History Past Med/Fam/Surg Hx: No changes since H&P Allergies: Allergies hydrocodone Allergy (Intermediate, Verified 08/19/17 00:53) CONFUSION - Review of Systems ROS: No change since H&P - Vital Signs and I&O's Vital Signs: Temperature 96.2 F Pulse Rate [Right Brachial] 54 Pulse Rate [Apical] 71 Pulse Rate 58 Respiratory Rate 18 Blood Pressure [Left Arm] 127/58 Blood Pressure [Right Arm] 127/59 Blood Pressure 226/93 O2 Sat by Pulse Oximetry 98 Intake and Output: Intake & Output 08/19/17 08/20/17 08/21/17 08/22/17 11:59 11:59 11:59 11:59 Intake Total 1368 2060 680 Balance 1368 2060 680 - Physical Exam Oriented: Normal Eyes: Normal Ear: Normal Nose: Normal Throat: Normal Respiratory: Diminished Cardiovascular: Normal : Normal Auscultation: Bowel Sounds: Normal Palpation: Normal Tenderness: Normal Skin: Normal Musculoskeletal: Normal Psychiatric: Normal Mood Description: Calm Affect: Normal Speech Pattern: Clear, Appropriate - Laboratory and Diagnostics Result Diagrams: 08/21/17 03:10 08/21/17 03:10 Labs: 08/19/17 14:18 Sputum - Expectorated Sputum Sputum Culture - Preliminary 08/19/17 14:18 Sputum - Expectorated Sputum - Final 08/19/17 01:46 Blood Blood Culture - Preliminary 08/19/17 01:46 Blood Blood Culture - Preliminary Laboratory WBC 6.7 X10^3/uL (3.6-10.0) 08/21/17 03:10 RBC 3.24 X10^6/uL (3.5-5.4) L 08/21/17 03:10 Hgb 9.5 g/dL (12.0-16.0) L 08/21/17 03:10 Hct 27.2 % (36.0-47.0) L 08/21/17 03:10 MCV 84.1 fL (80.0-100.0) 08/21/17 03:10 MCH 29.4 pg (27.0-34.0) 08/21/17 03:10 MCHC 35.0 g/dL (33.0-35.0) 08/21/17 03:10 RDW 12.9 % (11.6-16.5) 08/21/17 03:10 Plt Count 212 X10^3/uL (150.0-450.0) 08/21/17 03:10 Plt Count Comment Adequate (ADEQUATE) 08/20/17 03:10 MPV 9.5 fL (7.4-11.0) 08/21/17 03:10 Neut % 83.1 % (42.0-75.0) H 08/21/17 03:10 Lymph % 10.3 % (21.0-51.0) L 08/21/17 03:10 [place] % 6.5 % (0.0-13.0) 08/21/17 03:10 Eos % 0.0 % (0.9-2.9) L 08/21/17 03:10 Baso % 0.1 % (0.2-1.0) L 08/21/17 03:10 Neut # 5.6 x10^3/uL (2.2-4.8) H 08/21/17 03:10 Lymph # 0.7 X10^3/uL (1.3-2.9) L 08/21/17 03:10 [place] # 0.4 x10^3/uL (0.3-0.8) 08/21/17 03:10 Eos # 0.0 x10^3/uL (0.0-0.2) 08/21/17 03:10 Baso # 0.0 X10^3/uL (0.0-0.1) 08/21/17 03:10 Absolute Nucleated RBC 0.0 /100WBC 08/21/17 03:10 Total Counted 100 08/20/17 03:10 Neutrophils % (Manual) 88 % (39-76) H 08/20/17 03:10 Band Neutrophils % 3 % (0-10) 08/20/17 03:10 Lymphocytes % (Manual) 6 % (13-43) L 08/20/17 03:10 Monocytes % (Manual) 3 % (4-9) L 08/20/17 03:10 Plt Morphology Comment Normal (NORMAL) 08/20/17 03:10 RBC Morphology Normal (NORMAL) 08/20/17 03:10 Sodium 129 mmol/L (136-145) L 08/21/17 03:10 Corrected Sodium TNP 08/21/17 03:10 Potassium 4.1 mmol/L (3.5-5.1) 08/21/17 03:10 Chloride 93 mmol/L (98-107) L 08/21/17 03:10 Carbon Dioxide 27.1 mmol/L (21-32) 08/21/17 03:10 BUN 23 mg/dL (7-18) H 08/21/17 03:10 Creatinine 1.61 mg/dL (0.55-1.02) H 08/21/17 03:10 Est GFR (MDRD) Af Amer 40 (>60) L 08/21/17 03:10 Est GFR (MDRD) Non-Af 33 (>60) L 08/21/17 03:10 Glucose 110 mg/dL (65-99) H 08/21/17 03:10 Lactic Acid 1.7 mmol/L (0.4-2.0) 08/19/17 01:46 Calcium 8.2 mg/dL (8.5-10.1) L 08/21/17 03:10 Corrected Calcium 8.8 mg/dL (8.5-10.1) 08/21/17 03:10 Magnesium 1.9 mg/dL (1.7-2.9) 08/19/17 04:40 Total Bilirubin 0.30 mg/dL (0.2-1.0) 08/21/17 03:10 AST 16 Units/L (15-37) 08/21/17 03:10 ALT 10 Units/L (12-78) L 08/21/17 03:10 Alkaline Phosphatase 62 Units/L (46-116) 08/21/17 03:10 Creatine Kinase 61 Units/L (26-192) 08/19/17 10:51 CK-MB (CK-2) < 1.0 ng/mL (0-4.0) 08/19/17 10:51 CK/CKMB % Calc 1.6 % (<4) 08/19/17 10:51 Troponin I < 0.02 ng/mL (0-1.5) 08/19/17 10:51 B-Natriuretic Peptide 436 pg/mL (0-79) H 08/21/17 03:10 Total Protein 6.9 g/dL (6.4-8.2) 08/21/17 03:10 Albumin 3.3 g/dL (3.4-5.0) L 08/21/17 03:10 Globulin 3.6 g/dL (2.5-4.5) 08/21/17 03:10 Albumin/Globulin Ratio 0.9 Ratio (1.1-2.1) L 08/21/17 03:10 Specimen Type Random urine 08/19/17 03:12 Urine Color Yellow (YELLOW) 08/19/17 03:12 Urine Appearance Clear (CLEAR) 08/19/17 03:12 Urine pH 5.0 (5.0 - 8.0) 08/19/17 03:12 Ur Specific [place] 1.020 (1.000-1.030) 08/19/17 03:12 Urine Protein 1+ (NEGATIVE) 08/19/17 03:12 Urine Glucose (UA) Negative (NEGATIVE) 08/19/17 03:12 Urine Ketones Negative (NEGATIVE) 08/19/17 03:12 Urine Occult Blood Negative (NEGATIVE) 08/19/17 03:12 Urine Nitrite Negative (NEGATIVE) 08/19/17 03:12 Urine Bilirubin Negative (NEGATIVE) 08/19/17 03:12 Urine Urobilinogen Normal (NORMAL) 08/19/17 03:12 Ur Leukocyte Esterase Negative (NEGATIVE) 08/19/17 03:12 Urine RBC 0-3 /HPF (NEGATIVE) 08/19/17 03:12 Urine WBC 0-3 /HPF (NEGATIVE) 08/19/17 03:12 Ur Squamous Epith Cells Rare /HPF (NEGATIVE) 08/19/17 03:12 Urine Bacteria Negative /HPF (NEGATIVE) 08/19/17 03:12 Ur Culture Indicated? No/not indicated 08/19/17 03:12 - Plan (1) Bronchitis Status: Acute Plan: IV ANTIBIOTICS, NEBS, OXYGEN (2) CHF (congestive heart failure) Status: Acute Qualifiers: Congestive heart failure type: combined Congestive heart failure chronicity : acute on chronic Qualified Code(s): I50.43 - Acute on chronic combined systolic (congestive) and diastolic (congestive) heart failure Plan: LASIX 20MG IV Q 12 HRS X 3 DOSES. MONITOR CXR. (3) Hypertension Status: Acute Qualifiers: Hypertension type: essential hypertension Qualified Code(s): I10 - Essential (primary) hypertension Plan: CLONIDINE 0.1MG PRN, MONITOR BP. (4) Chest discomfort Status: Acute Plan: MONITOR S/S. PLEURITIC IN ORIGIN (5) Chronic renal disease Status: Chronic Plan: MONITOR BUN.CR.GFR. (6) Essential hypertension Status: Chronic (7) Hyponatremia Status: Acute Plan: MONITOR SODIUM. DECREASE H2O INTAKE.
[2017-08-22] MEDS: DUONEB 0.5 MG/3 MG NEB SCH ×5 (01:17→20:45)
[2017-08-22] MEDS: FORTAZ or TAZICEF INJ 1 GM in NS 50 ML IV + SPIKE MINIBAG* 50 ML IV SCH (05:13)
[2017-08-22] MEDS: TESSALON PERLES PO SCH ×4 (05:13→22:22)
[2017-08-22 05:15] LABS: BASOPHILS % (AUTO) 0.1 % (0.2-1.0); EOSINOPHILS # (AUTO) 0.1 x10^3/uL (0.0-0.2); EOSINOPHILS % (AUTO) 2.1 % (0.9-2.9); HEMATOCRIT 26.8 % (36.0-47.0); HEMOGLOBIN 9.4 g/dL (12.0-16.0); LYMPHOCYTES # (AUTO) 1.2 X10^3/uL (1.3-2.9); LYMPHOCYTES % (AUTO) 20.9 % (21.0-51.0); MEAN CORPUSCULAR HEMOGLOBIN 29.1 pg (27.0-34.0); MEAN CORPUSCULAR HGB CONC 34.9 g/dL (33.0-35.0); MEAN CORPUSCULAR VOLUME 83.5 fL (80.0-100.0); MEAN PLATELET VOLUME 9.3 fL (7.4-11.0); MONOCYTES # (AUTO) 0.7 x10^3/uL (0.3-0.8); MONOCYTES % (AUTO) 11.9 % (0.0-13.0); NEUTROPHILS # (AUTO) 3.8 x10^3/uL (2.2-4.8); PLATELET COUNT 207 X10^3/uL (150.0-450.0); RED BLOOD COUNT 3.21 X10^6/uL (3.5-5.4); RED CELL DISTRIBUTION WIDTH 12.9 % (11.6-16.5); WHITE BLOOD COUNT 5.9 X10^3/uL (3.6-10.0)
[2017-08-22] MEDS: PILOCARPINE HCL 5 MG PO SCH ×3 (05:35→22:22)
[2017-08-22 05:37] LABS: ALANINE AMINOTRANSFERASE 7 Units/L (12-78); ALKALINE PHOSPHATASE 56 Units/L (46-116); ASPARTATE AMINO TRANSFERASE 14 Units/L (15-37); BLOOD UREA NITROGEN 30 mg/dL (7-18); CALCIUM 7.5 mg/dL (8.5-10.1); CARBON DIOXIDE 26.2 mmol/L (21-32); CHLORIDE 88 mmol/L (98-107); COR CA(FOR HYPOALB) 8.3 mg/dL (8.5-10.1); CREATININE 1.86 mg/dL (0.55-1.02); TOTAL PROTEIN 6.4 g/dL (6.4-8.2); eGFR BLACK RACES 34 (>60); eGFR NON BLACK RACES 28 (>60)
[2017-08-22 05:41] LABS: SODIUM 123 mmol/L (136-145)
[2017-08-22] MEDS ORDERED: LEVAQUIN PREMIX IV 500 MG 500 MG/100 ML BAG IV SCH (08:00)
[2017-08-22] MEDS ORDERED: FORTAZ or TAZICEF INJ 1 GM in NS 50 ML IV + SPIKE MINIBAG* 50 ML IV SCH (09:00)
[2017-08-22] MEDS ORDERED: FORTAZ or TAZICEF INJ 1 GM in NS 50 ML IV 50 ML IV SCH (09:00)
[2017-08-22] MEDS: SINGULAIR TAB 10 MG PO SCH (09:15)
[2017-08-22] MEDS: PLAVIX PO SCH (09:16)
[2017-08-22] MEDS: NORVASC TAB 5 MG PO SCH (09:16)
[2017-08-22] MEDS: MUCINEX DM PO SCH ×2 (09:16→22:21)
[2017-08-22] MEDS: FOLIC ACID TAB 1 MG PO SCH (09:16)
[2017-08-22] MEDS: PROTONIX TAB 40 MG PO SCH ×2 (09:17→22:21)
[2017-08-22] MEDS: COREG TAB 25 MG PO SCH ×2 (09:17→20:49)
[2017-08-22] MEDS: SYNTHROID 137 mcg TAB PO SCH (09:17)
[2017-08-22] MEDS: PLAQUENIL PO SCH ×2 (09:18→22:21)
[2017-08-22] MEDS: PEPCID TAB 20 MG PO SCH (09:18)
[2017-08-22] MEDS: ZANAFLEX PO SCH (09:18)
[2017-08-22] MEDS: MAGIC MOUTHWASH MT SCH ×4 (09:50→22:20)
[2017-08-22] MEDS: TEMOVATE SOLN TOP SCH ×2 (09:51→22:22)
[2017-08-22] MEDS: MILK OF MAGNESIA PO SCH ×2 (09:51→22:21)
[2017-08-22] MEDS ORDERED: ANTIVERT TAB 25 MG PO PRN (10:00)
[2017-08-22] MEDS: MUCOMYST 20% 200 MG/ML NEB SCH ×2 (10:06→20:45)
[2017-08-22] MEDS: NS 1000 ML 1,000 ML IV SCH (11:15)
[2017-08-22] MEDS: PROCALAMINE 3 % 1,000 ML with MVI INJ (ADULT) 10 ML IV SCH ×2 (11:15)
[2017-08-22] MEDS: ZOSYN VIAL 2.25 GM 2.25 GM in NS 100 ML IV + SPIKE MINIBAG* 100 ML IV SCH ×2 (11:15→20:54)
[2017-08-22] MEDS ORDERED: CATAPRES-TTS-1 TD SCH (12:00)
[2017-08-22] MEDS: ZOFRAN TAB 4 MG PO PRN ×2 (12:42→19:36)
[2017-08-22 14:44] LABS: FREE T4 (FREE THYROXINE) 1.24 ng/dL (0.76-1.46); TSH (3RD GENERATION) 1.249 uIU/mL (0.358-3.74)
[2017-08-22] MEDS: LEVSIN/MAALOX/LIDOC VISC PO PRN (15:13)
[2017-08-22] MEDS: DIOVAN TAB 160 MG PO SCH (16:47)
[2017-08-22] MEDS: COLACE CAP 100 MG PO SCH (20:47)
[2017-08-22] MEDS: CRESTOR TAB 10 MG PO SCH (20:49)
[2017-08-22] MEDS: ESTRACE PO SCH (20:50)
[2017-08-22] MEDS: NEURONTIN CAP 300 MG PO SCH (20:51)
--- NOTE | 2017-08-22 21:13 | PCM.PROG ---
Progress Note - Progress Note for Day of Date: 08/22/17 - Subjective Subjective: IS A 76 YEAR OLD PATIENT WHO PRESENTED TO THE EMERGENCY ROOM WITH COMPLAINTS OF SHORTNESS OF BREATH AND CHEST PAIN. SHE WAS ADMITTED FOR FURTHER TREATMENT AND EVALUATION OF ACUTE BRONCHITIS, CHF, AND HTN. TODAY, SHE IS ALERT AND ORIENTED, LYING IN BED ON MORNING ROUNDS. PATIENTS DAUGHTER IS AT BEDSIDE. ON MORNING ROUNDS, SHE IS NOTED WITH COMPLAINTS OF SHORTNESS OF BREATH AND COUGH. SHE ALSO REPORTS DECREASE IN APPETITE. ON EXAMINATION, LUNG SOUNDS ARE DIMINISHED. ABDOMEN IS ROUND, SOFT, AND NON-TENDER WITH NORMAL BOWEL SOUNDS NOTED IN ALL QUADRANTS. PATIENT REPORTS WEAKNESS SINCE YESTERDAY, BUT SHORTNESS OF BREATH IMPROVING SINCE ADMISSION. HER VITAL SIGNS THIS MORNING ARE 97.5-62-18-99%-156/65. A CBC, CMP, AND CHEST XRAY WERE OBTAINED. ABNORMAL LAB VALUES INCLUDE THE FOLLOWING: RBC 3.21, HGB 9.4, HCT 26.8, SODIUM 123, CHLORIDE 88, BUN 30, CREATININE 1.86, CALCIUM 7.5, AST 14, ALT 7, ALBUMIN 3.0. TODAYS CHEST XRAY REPORTE MODERATE CARDIOMEGALY WITHOUT CHF. BLOOD CULTURES ARE PENDING. SPUTUM CULTURE REPORTS GROWTH OF STAPHYLOCOCCUS AUREUS. IT IS NOT SENSITIVE TO THE LEVAQUIN THAT SHE IS ON. TODAY WE WILL START PERIPHERAL TPN AT 40ML/HR AND NS AT 40ML/HR. WE WILL DISCONTINUE THE FORTAZ AND LEVAQUIN AND START ZOSYN TID. WE WILL ALSO ADD MUCOMYST TO NEB TREATMENTS. OTHERWISE, WE PLAN TO FOLLOW UP WITH AM LABS AND CONTINUE TO MONITOR PATIENT. - Past Medical Family Social History Past Med/Fam/Surg Hx: No changes since H&P Allergies: Allergies hydrocodone Allergy (Intermediate, Verified 08/19/17 00:53) CONFUSION - Review of Systems ROS: No change since H&P - Vital Signs and I&O's Vital Signs: Temperature 97.4 F Pulse Rate [Right Brachial] 54 Pulse Rate [Apical] 71 Pulse Rate 58 Respiratory Rate 18 Blood Pressure [Left Arm] 127/58 Blood Pressure [Right Arm] 158/60 Blood Pressure 226/93 O2 Sat by Pulse Oximetry 100 Intake and Output: Intake & Output 08/20/17 08/21/17 08/22/17 08/23/17 11:59 11:59 11:59 11:59 Intake Total 1368 2060 1270 955 Balance 1368 2060 1270 955 - Physical Exam Oriented: Normal Eyes: Normal Ear: Normal Nose: Normal Throat: Normal Respiratory: Diminished Cardiovascular: Normal : Normal Auscultation: Bowel Sounds: Normal Palpation: Normal Tenderness: Normal Skin: Normal Musculoskeletal: Normal Psychiatric: Normal Mood Description: Calm Affect: Normal Speech Pattern: Clear, Appropriate - Laboratory and Diagnostics Result Diagrams: 08/23/17 03:35 08/23/17 03:35 Labs: 08/19/17 14:18 Sputum - Expectorated Sputum Sputum Culture - Preliminary Staphylococcus Aureus 08/19/17 14:18 Sputum - Expectorated Sputum - Final 08/19/17 01:46 Blood Blood Culture - Preliminary 08/19/17 01:46 Blood Blood Culture - Preliminary Laboratory WBC 5.9 X10^3/uL (3.6-10.0) 08/22/17 03:50 RBC 3.21 X10^6/uL (3.5-5.4) L 08/22/17 03:50 Hgb 9.4 g/dL (12.0-16.0) L 08/22/17 03:50 Hct 26.8 % (36.0-47.0) L 08/22/17 03:50 MCV 83.5 fL (80.0-100.0) 08/22/17 03:50 MCH 29.1 pg (27.0-34.0) 08/22/17 03:50 MCHC 34.9 g/dL (33.0-35.0) 08/22/17 03:50 RDW 12.9 % (11.6-16.5) 08/22/17 03:50 Plt Count 207 X10^3/uL (150.0-450.0) 08/22/17 03:50 Plt Count Comment Adequate (ADEQUATE) 08/20/17 03:10 MPV 9.3 fL (7.4-11.0) 08/22/17 03:50 Neut % 65.0 % (42.0-75.0) 08/22/17 03:50 Lymph % 20.9 % (21.0-51.0) L 08/22/17 03:50 [place] % 11.9 % (0.0-13.0) 08/22/17 03:50 Eos % 2.1 % (0.9-2.9) 08/22/17 03:50 Baso % 0.1 % (0.2-1.0) L 08/22/17 03:50 Neut # 3.8 x10^3/uL (2.2-4.8) 08/22/17 03:50 Lymph # 1.2 X10^3/uL (1.3-2.9) L 08/22/17 03:50 [place] # 0.7 x10^3/uL (0.3-0.8) 08/22/17 03:50 Eos # 0.1 x10^3/uL (0.0-0.2) 08/22/17 03:50 Baso # 0.0 X10^3/uL (0.0-0.1) 08/22/17 03:50 Absolute Nucleated RBC 0.0 /100WBC 08/22/17 03:50 Total Counted 100 08/20/17 03:10 Neutrophils % (Manual) 88 % (39-76) H 08/20/17 03:10 Band Neutrophils % 3 % (0-10) 08/20/17 03:10 Lymphocytes % (Manual) 6 % (13-43) L 08/20/17 03:10 Monocytes % (Manual) 3 % (4-9) L 08/20/17 03:10 Plt Morphology Comment Normal (NORMAL) 08/20/17 03:10 RBC Morphology Normal (NORMAL) 08/20/17 03:10 Sodium 123 mmol/L (136-145) L* 08/22/17 03:50 Corrected Sodium TNP 08/22/17 03:50 Potassium 4.0 mmol/L (3.5-5.1) 08/22/17 03:50 Chloride 88 mmol/L (98-107) L 08/22/17 03:50 Carbon Dioxide 26.2 mmol/L (21-32) 08/22/17 03:50 BUN 30 mg/dL (7-18) H 08/22/17 03:50 Creatinine 1.86 mg/dL (0.55-1.02) H 08/22/17 03:50 Est GFR (MDRD) Af Amer 34 (>60) L 08/22/17 03:50 Est GFR (MDRD) Non-Af 28 (>60) L 08/22/17 03:50 Glucose 87 mg/dL (65-99) 08/22/17 03:50 Lactic Acid 1.7 mmol/L (0.4-2.0) 08/19/17 01:46 Calcium 7.5 mg/dL (8.5-10.1) L 08/22/17 03:50 Corrected Calcium 8.3 mg/dL (8.5-10.1) L 08/22/17 03:50 Magnesium 1.9 mg/dL (1.7-2.9) 08/19/17 04:40 Total Bilirubin 0.20 mg/dL (0.2-1.0) 08/22/17 03:50 AST 14 Units/L (15-37) L 08/22/17 03:50 ALT 7 Units/L (12-78) L 08/22/17 03:50 Alkaline Phosphatase 56 Units/L (46-116) 08/22/17 03:50 Creatine Kinase 61 Units/L (26-192) 08/19/17 10:51 CK-MB (CK-2) < 1.0 ng/mL (0-4.0) 08/19/17 10:51 CK/CKMB % Calc 1.6 % (<4) 08/19/17 10:51 Troponin I < 0.02 ng/mL (0-1.5) 08/19/17 10:51 B-Natriuretic Peptide 436 pg/mL (0-79) H 08/21/17 03:10 Total Protein 6.4 g/dL (6.4-8.2) 08/22/17 03:50 Albumin 3.0 g/dL (3.4-5.0) L 08/22/17 03:50 Globulin 3.4 g/dL (2.5-4.5) 08/22/17 03:50 Albumin/Globulin Ratio 0.9 Ratio (1.1-2.1) L 08/22/17 03:50 Prealbumin 28.4 mg/dL (18-35.7) 08/22/17 03:50 Free T4 1.24 ng/dL (0.76-1.46) 08/22/17 03:50 TSH 3rd Generation 1.249 uIU/mL (0.358-3.74) 08/22/17 03:50 Specimen Type Random urine 08/19/17 03:12 Urine Color Yellow (YELLOW) 08/19/17 03:12 Urine Appearance Clear (CLEAR) 08/19/17 03:12 Urine pH 5.0 (5.0 - 8.0) 08/19/17 03:12 Ur Specific [place] 1.020 (1.000-1.030) 08/19/17 03:12 Urine Protein 1+ (NEGATIVE) 08/19/17 03:12 Urine Glucose (UA) Negative (NEGATIVE) 08/19/17 03:12 Urine Ketones Negative (NEGATIVE) 08/19/17 03:12 Urine Occult Blood Negative (NEGATIVE) 08/19/17 03:12 Urine Nitrite Negative (NEGATIVE) 08/19/17 03:12 Urine Bilirubin Negative (NEGATIVE) 08/19/17 03:12 Urine Urobilinogen Normal (NORMAL) 08/19/17 03:12 Ur Leukocyte Esterase Negative (NEGATIVE) 08/19/17 03:12 Urine RBC 0-3 /HPF (NEGATIVE) 08/19/17 03:12 Urine WBC 0-3 /HPF (NEGATIVE) 08/19/17 03:12 Ur Squamous Epith Cells Rare /HPF (NEGATIVE) 08/19/17 03:12 Urine Bacteria Negative /HPF (NEGATIVE) 08/19/17 03:12 Ur Culture Indicated? No/not indicated 08/19/17 03:12 - Plan (1) Bronchitis Status: Acute Plan: IV ANTIBIOTICS, NEBS, OXYGEN (2) CHF (congestive heart failure) Status: Acute Qualifiers: Congestive heart failure type: combined Congestive heart failure chronicity : acute on chronic Qualified Code(s): I50.43 - Acute on chronic combined systolic (congestive) and diastolic (congestive) heart failure Plan: MONITOR CXR. (3) Respiratory distress Status: Acute Plan: DUONEBS, SUPPLEMENTAL OXYGEN, CONTINUE TO MONITOR
[2017-08-23] MEDS: DUONEB 0.5 MG/3 MG NEB SCH ×6 (01:17→21:02)
[2017-08-23] MEDS: ZOFRAN TAB 4 MG PO PRN ×2 (01:49→23:36)
[2017-08-23] MEDS ORDERED: NS 50 ML IV 0 ML IV ONE (02:56)
[2017-08-23 05:19] LABS: ALBUMIN 2.6 g/dL (3.4-5.0); ALKALINE PHOSPHATASE 53 Units/L (46-116); ASPARTATE AMINO TRANSFERASE 12 Units/L (15-37); BLOOD UREA NITROGEN 27 mg/dL (7-18); CALCIUM 7.2 mg/dL (8.5-10.1); CARBON DIOXIDE 25.1 mmol/L (21-32); CHLORIDE 90 mmol/L (98-107); COR CA(FOR HYPOALB) 8.3 mg/dL (8.5-10.1); CREATININE 1.48 mg/dL (0.55-1.02); TOTAL PROTEIN 5.7 g/dL (6.4-8.2); eGFR BLACK RACES 44 (>60); eGFR NON BLACK RACES 36 (>60)
[2017-08-23 05:25] LABS: BASOPHILS % (AUTO) 0.2 % (0.2-1.0); EOSINOPHILS # (AUTO) 0.2 x10^3/uL (0.0-0.2); EOSINOPHILS % (AUTO) 2.7 % (0.9-2.9); HEMATOCRIT 25.3 % (36.0-47.0); HEMOGLOBIN 8.9 g/dL (12.0-16.0); LYMPHOCYTES # (AUTO) 0.9 X10^3/uL (1.3-2.9); LYMPHOCYTES % (AUTO) 13.3 % (21.0-51.0); MEAN CORPUSCULAR HEMOGLOBIN 29.3 pg (27.0-34.0); MEAN CORPUSCULAR HGB CONC 35.3 g/dL (33.0-35.0); MEAN PLATELET VOLUME 9.3 fL (7.4-11.0); MONOCYTES # (AUTO) 0.6 x10^3/uL (0.3-0.8); MONOCYTES % (AUTO) 9.1 % (0.0-13.0); NEUTROPHILS % (AUTO) 74.7 % (42.0-75.0); PLATELET COUNT 185 X10^3/uL (150.0-450.0); RED BLOOD COUNT 3.05 X10^6/uL (3.5-5.4); RED CELL DISTRIBUTION WIDTH 12.7 % (11.6-16.5); WHITE BLOOD COUNT 6.7 X10^3/uL (3.6-10.0)
[2017-08-23 05:37] LABS: ALANINE AMINOTRANSFERASE 8 Units/L (12-78)
[2017-08-23 05:39] LABS: SODIUM 123 mmol/L (136-145)
[2017-08-23 06:18] LABS: ERYTHROCYTE SEDIMENTATION RATE 12 MM/HOUR (0-20)
[2017-08-23] MEDS: TESSALON PERLES PO SCH ×3 (08:06→22:24)
[2017-08-23] MEDS: MUCINEX DM PO SCH ×2 (09:10→20:54)
[2017-08-23] MEDS: PILOCARPINE HCL 5 MG PO SCH ×3 (09:10→22:24)
[2017-08-23] MEDS: FOLIC ACID TAB 1 MG PO SCH (09:10)
[2017-08-23] MEDS: PLAQUENIL PO SCH ×2 (09:11→20:53)
[2017-08-23] MEDS: PLAVIX PO SCH (09:12)
[2017-08-23] MEDS: COREG TAB 25 MG PO SCH ×3 (09:12→20:53)
[2017-08-23] MEDS: PROTONIX TAB 40 MG PO SCH ×2 (09:13→20:52)
[2017-08-23] MEDS: SINGULAIR TAB 10 MG PO SCH (09:13)
[2017-08-23] MEDS: ZOSYN VIAL 2.25 GM 2.25 GM in NS 100 ML IV + SPIKE MINIBAG* 100 ML IV SCH (09:13)
[2017-08-23] MEDS: SYNTHROID 137 mcg TAB PO SCH (09:13)
[2017-08-23] MEDS: NORVASC TAB 5 MG PO SCH (09:13)
[2017-08-23] MEDS: ZANAFLEX PO SCH (09:13)
[2017-08-23] MEDS: MAGIC MOUTHWASH MT SCH ×4 (09:15→22:23)
[2017-08-23] MEDS: MILK OF MAGNESIA PO SCH (09:15)
[2017-08-23] MEDS: NS 1000 ML 1,000 ML IV SCH (09:16)
[2017-08-23] MEDS: TEMOVATE SOLN TOP SCH ×2 (09:16→22:24)
[2017-08-23] MEDS: DIOVAN TAB 160 MG PO SCH (09:40)
--- NOTE | 2017-08-23 09:41 | PCM.PROG ---
Progress Note - Progress Note for Day of Date: 08/23/17 - Subjective Subjective: IS A 76 YEAR OLD PATIENT WHO PRESENTED TO THE EMERGENCY ROOM WITH COMPLAINTS OF SHORTNESS OF BREATH AND CHEST PAIN. SHE WAS ADMITTED FOR FURTHER TREATMENT AND EVALUATION OF ACUTE BRONCHITIS, CHF, AND HTN. TODAY, SHE IS LYING IN BED WITH EYES CLOSED. SHE AWAKENS AND RESPONDS TO VERBAL STIMULI. ON MORNING ROUNDS, SHE CONTINUES WITH COMPLAINTS OF SHORTNESS OF BREATH AND COUGH. ON EXAMINATION, LUNG SOUNDS ARE DIMINISHED. ABDOMEN IS ROUND, SOFT, AND NON-TENDER WITH NORMAL BOWEL SOUNDS NOTED IN ALL QUADRANTS. PATIENT CONTINUES WITH WEAKNESS. HER VITAL SIGNS THIS MORNING ARE 97.9-61-18-98%-136/ 53. A CBC, CMP, AND CHEST XRAY WERE OBTAINED. ABNORMAL LAB VALUES INCLUDE THE FOLLOWING: RBC 3.05, HGB 8.9, HCT 25.3, SODIUM 123, CHLORIDE 90, BUN 27, CREATININE 1.48, CALCIUM 7.2, AST 12, ALT 8, CRP 4.10, TOTAL PROTEIN 5.7, ALBUMIN 2.6. TODAYS CHEST XRAY REPORTS MODERATE CARDIOMEGALY WITHOU CHF, LUNGS CLEAR. PRELIMINARY BLOOD CULTURES REPORT NO GROWTH AT DAY 2. WE WILL CONTINUE WITH CURRENT PLAN OF CARE AND TREAT STAPHYLOCOCCUS AUREUS IN SPUTUM. OTHERWISE, WE PLAN TO FOLLOW UP WITH AM LABS AND CONTINUE TO MONITOR PATIENT. - Past Medical Family Social History Past Med/Fam/Surg Hx: No changes since H&P Allergies: Allergies hydrocodone Allergy (Intermediate, Verified 08/19/17 00:53) CONFUSION - Review of Systems ROS: No change since H&P - Vital Signs and I&O's Vital Signs: Temperature 97.9 F Pulse Rate [Right Brachial] 61 Pulse Rate [Apical] 71 Pulse Rate 58 Respiratory Rate 18 Blood Pressure [Left Arm] 127/58 Blood Pressure [Right Arm] 136/53 Blood Pressure 226/93 O2 Sat by Pulse Oximetry 98 Intake and Output: Intake & Output 08/20/17 08/21/17 08/22/17 08/23/17 11:59 11:59 11:59 11:59 Intake Total 1368 2060 1270 2735 Balance 1368 2060 1270 2735 - Physical Exam Oriented: Normal Eyes: Normal Ear: Normal Nose: Normal Throat: Normal Respiratory: Diminished Cardiovascular: Normal : Normal Auscultation: Bowel Sounds: Normal Palpation: Normal Tenderness: Normal Skin: Normal Musculoskeletal: Normal Psychiatric: Normal Mood Description: Calm Affect: Normal Speech Pattern: Clear, Appropriate - Laboratory and Diagnostics Result Diagrams: 08/23/17 03:35 08/23/17 03:35 Labs: 08/19/17 14:18 Sputum - Expectorated Sputum Sputum Culture - Preliminary Staphylococcus Aureus 08/19/17 14:18 Sputum - Expectorated Sputum - Final 08/19/17 01:46 Blood Blood Culture - Preliminary 08/19/17 01:46 Blood Blood Culture - Preliminary Laboratory WBC 6.7 X10^3/uL (3.6-10.0) 08/23/17 03:35 RBC 3.05 X10^6/uL (3.5-5.4) L 08/23/17 03:35 Hgb 8.9 g/dL (12.0-16.0) L 08/23/17 03:35 Hct 25.3 % (36.0-47.0) L 08/23/17 03:35 MCV 83.0 fL (80.0-100.0) 08/23/17 03:35 MCH 29.3 pg (27.0-34.0) 08/23/17 03:35 MCHC 35.3 g/dL (33.0-35.0) H 08/23/17 03:35 RDW 12.7 % (11.6-16.5) 08/23/17 03:35 Plt Count 185 X10^3/uL (150.0-450.0) 08/23/17 03:35 Plt Count Comment Adequate (ADEQUATE) 08/20/17 03:10 MPV 9.3 fL (7.4-11.0) 08/23/17 03:35 Neut % 74.7 % (42.0-75.0) 08/23/17 03:35 Lymph % 13.3 % (21.0-51.0) L 08/23/17 03:35 [place] % 9.1 % (0.0-13.0) 08/23/17 03:35 Eos % 2.7 % (0.9-2.9) 08/23/17 03:35 Baso % 0.2 % (0.2-1.0) 08/23/17 03:35 Neut # 5.0 x10^3/uL (2.2-4.8) H 08/23/17 03:35 Lymph # 0.9 X10^3/uL (1.3-2.9) L 08/23/17 03:35 [place] # 0.6 x10^3/uL (0.3-0.8) 08/23/17 03:35 Eos # 0.2 x10^3/uL (0.0-0.2) 08/23/17 03:35 Baso # 0.0 X10^3/uL (0.0-0.1) 08/23/17 03:35 Absolute Nucleated RBC 0.0 /100WBC 08/23/17 03:35 Total Counted 100 08/20/17 03:10 Neutrophils % (Manual) 88 % (39-76) H 08/20/17 03:10 Band Neutrophils % 3 % (0-10) 08/20/17 03:10 Lymphocytes % (Manual) 6 % (13-43) L 08/20/17 03:10 Monocytes % (Manual) 3 % (4-9) L 08/20/17 03:10 Plt Morphology Comment Normal (NORMAL) 08/20/17 03:10 RBC Morphology Normal (NORMAL) 08/20/17 03:10 ESR 12 MM/HOUR (0-20) 08/23/17 03:35 Sodium 123 mmol/L (136-145) L* 08/23/17 03:35 Corrected Sodium TNP 08/23/17 03:35 Potassium 4.1 mmol/L (3.5-5.1) 08/23/17 03:35 Chloride 90 mmol/L (98-107) L 08/23/17 03:35 Carbon Dioxide 25.1 mmol/L (21-32) 08/23/17 03:35 BUN 27 mg/dL (7-18) H 08/23/17 03:35 Creatinine 1.48 mg/dL (0.55-1.02) H 08/23/17 03:35 Est GFR (MDRD) Af Amer 44 (>60) L 08/23/17 03:35 Est GFR (MDRD) Non-Af 36 (>60) L 08/23/17 03:35 Glucose 89 mg/dL (65-99) 08/23/17 03:35 Lactic Acid 1.7 mmol/L (0.4-2.0) 08/19/17 01:46 Calcium 7.2 mg/dL (8.5-10.1) L 08/23/17 03:35 Corrected Calcium 8.3 mg/dL (8.5-10.1) L 08/23/17 03:35 Magnesium 1.9 mg/dL (1.7-2.9) 08/19/17 04:40 Total Bilirubin 0.20 mg/dL (0.2-1.0) 08/23/17 03:35 AST 12 Units/L (15-37) L 08/23/17 03:35 ALT 8 Units/L (12-78) L 08/23/17 03:35 Alkaline Phosphatase 53 Units/L (46-116) 08/23/17 03:35 Creatine Kinase 61 Units/L (26-192) 08/19/17 10:51 CK-MB (CK-2) < 1.0 ng/mL (0-4.0) 08/19/17 10:51 CK/CKMB % Calc 1.6 % (<4) 08/19/17 10:51 Troponin I < 0.02 ng/mL (0-1.5) 08/19/17 10:51 C-Reactive Protein 4.10 mg/L (0-3.0) H 08/23/17 03:35 B-Natriuretic Peptide 436 pg/mL (0-79) H 08/21/17 03:10 Total Protein 5.7 g/dL (6.4-8.2) L 08/23/17 03:35 Albumin 2.6 g/dL (3.4-5.0) L 08/23/17 03:35 Globulin 3.1 g/dL (2.5-4.5) 08/23/17 03:35 Albumin/Globulin Ratio 0.8 Ratio (1.1-2.1) L 08/23/17 03:35 Prealbumin 28.4 mg/dL (18-35.7) 08/22/17 03:50 Free T4 1.24 ng/dL (0.76-1.46) 08/22/17 03:50 TSH 3rd Generation 1.249 uIU/mL (0.358-3.74) 08/22/17 03:50 Specimen Type Random urine 08/19/17 03:12 Urine Color Yellow (YELLOW) 08/19/17 03:12 Urine Appearance Clear (CLEAR) 08/19/17 03:12 Urine pH 5.0 (5.0 - 8.0) 08/19/17 03:12 Ur Specific [place] 1.020 (1.000-1.030) 08/19/17 03:12 Urine Protein 1+ (NEGATIVE) 08/19/17 03:12 Urine Glucose (UA) Negative (NEGATIVE) 08/19/17 03:12 Urine Ketones Negative (NEGATIVE) 08/19/17 03:12 Urine Occult Blood Negative (NEGATIVE) 08/19/17 03:12 Urine Nitrite Negative (NEGATIVE) 08/19/17 03:12 Urine Bilirubin Negative (NEGATIVE) 08/19/17 03:12 Urine Urobilinogen Normal (NORMAL) 08/19/17 03:12 Ur Leukocyte Esterase Negative (NEGATIVE) 08/19/17 03:12 Urine RBC 0-3 /HPF (NEGATIVE) 08/19/17 03:12 Urine WBC 0-3 /HPF (NEGATIVE) 08/19/17 03:12 Ur Squamous Epith Cells Rare /HPF (NEGATIVE) 08/19/17 03:12 Urine Bacteria Negative /HPF (NEGATIVE) 08/19/17 03:12 Ur Culture Indicated? No/not indicated 08/19/17 03:12 - Plan (1) Bronchitis Status: Acute Plan: IV ANTIBIOTICS, NEBS, OXYGEN (2) CHF (congestive heart failure) Status: Acute Qualifiers: Qualified Code(s): I50.43 - Acute on chronic combined systolic (congestive) and diastolic (congestive) heart failure Plan: MONITOR CXR. (3) Respiratory distress Status: Acute Plan: DUONEBS, SUPPLEMENTAL OXYGEN, CONTINUE TO MONITOR
[2017-08-23] MEDS: MUCOMYST 20% 200 MG/ML NEB SCH ×2 (09:54→21:03)
[2017-08-23] MEDS: PROCALAMINE 3 % 1,000 ML with MVI INJ (ADULT) 10 ML IV SCH ×2 (12:26)
[2017-08-23] MEDS: LEVAQUIN PREMIX IV 500 MG 500 MG/100 ML BAG IV SCH (13:46)
[2017-08-23] MEDS ORDERED: MILK OF MAGNESIA PO PRN (15:08)
[2017-08-23] MEDS: COLACE CAP 100 MG PO SCH (20:52)
[2017-08-23] MEDS: CRESTOR TAB 10 MG PO SCH (20:52)
[2017-08-23] MEDS: NEURONTIN CAP 300 MG PO SCH (20:52)
[2017-08-23] MEDS: ESTRACE PO SCH (20:54)
[2017-08-23] MEDS: ZYVOX 600MG IV 600 MG/300 ML BAG IV SCH (20:55)
[2017-08-24] MEDS: DUONEB 0.5 MG/3 MG NEB SCH ×6 (00:22→20:46)
[2017-08-24] MEDS: LIBRIUM PO PRN ×2 (01:54→21:34)
[2017-08-24 05:14] LABS: BASOPHILS % (AUTO) 0.2 % (0.2-1.0); EOSINOPHILS # (AUTO) 0.2 x10^3/uL (0.0-0.2); EOSINOPHILS % (AUTO) 4.4 % (0.9-2.9); HEMATOCRIT 26.2 % (36.0-47.0); LYMPHOCYTES # (AUTO) 0.7 X10^3/uL (1.3-2.9); LYMPHOCYTES % (AUTO) 14.8 % (21.0-51.0); MEAN CORPUSCULAR HEMOGLOBIN 28.7 pg (27.0-34.0); MEAN CORPUSCULAR HGB CONC 34.2 g/dL (33.0-35.0); MEAN CORPUSCULAR VOLUME 83.9 fL (80.0-100.0); MEAN PLATELET VOLUME 9.2 fL (7.4-11.0); MONOCYTES # (AUTO) 0.6 x10^3/uL (0.3-0.8); NEUTROPHILS # (AUTO) 3.5 x10^3/uL (2.2-4.8); NEUTROPHILS % (AUTO) 68.6 % (42.0-75.0); PLATELET COUNT 181 X10^3/uL (150.0-450.0); RED BLOOD COUNT 3.12 X10^6/uL (3.5-5.4); RED CELL DISTRIBUTION WIDTH 12.6 % (11.6-16.5)
[2017-08-24 05:28] LABS: ALANINE AMINOTRANSFERASE 6 Units/L (12-78); ALBUMIN 2.6 g/dL (3.4-5.0); ALKALINE PHOSPHATASE 54 Units/L (46-116); ASPARTATE AMINO TRANSFERASE 13 Units/L (15-37); BLOOD UREA NITROGEN 23 mg/dL (7-18); CALCIUM 7.9 mg/dL (8.5-10.1); CARBON DIOXIDE 26.7 mmol/L (21-32); CHLORIDE 95 mmol/L (98-107); CREATININE 1.38 mg/dL (0.55-1.02); SODIUM 127 mmol/L (136-145); TOTAL PROTEIN 5.8 g/dL (6.4-8.2); eGFR BLACK RACES 48 (>60); eGFR NON BLACK RACES 39 (>60)
[2017-08-24] MEDS: PILOCARPINE HCL 5 MG PO SCH ×3 (05:38→21:39)
[2017-08-24] MEDS: TESSALON PERLES PO SCH ×3 (05:38→21:28)
[2017-08-24 06:25] LABS: ERYTHROCYTE SEDIMENTATION RATE 20 MM/HOUR (0-20)
[2017-08-24] MEDS: ZYVOX 600MG IV 600 MG/300 ML BAG IV SCH ×2 (08:43→21:29)
[2017-08-24] MEDS: SYNTHROID 137 mcg TAB PO SCH (08:44)
[2017-08-24] MEDS: COREG TAB 25 MG PO SCH ×2 (08:44→21:28)
[2017-08-24] MEDS: MUCINEX DM PO SCH ×2 (08:44→21:28)
[2017-08-24] MEDS: NORVASC TAB 5 MG PO SCH (08:44)
[2017-08-24] MEDS: PEPCID TAB 20 MG PO SCH (08:44)
[2017-08-24] MEDS: FOLIC ACID TAB 1 MG PO SCH (08:44)
[2017-08-24] MEDS: ZANAFLEX PO SCH (08:45)
[2017-08-24] MEDS: PLAVIX PO SCH (08:45)
[2017-08-24] MEDS: PLAQUENIL PO SCH ×2 (08:45→21:27)
[2017-08-24] MEDS: DIOVAN TAB 160 MG PO SCH (08:45)
[2017-08-24] MEDS: PROTONIX TAB 40 MG PO SCH ×2 (08:46→21:28)
[2017-08-24] MEDS: SINGULAIR TAB 10 MG PO SCH (08:47)
[2017-08-24] MEDS: MAGIC MOUTHWASH MT SCH ×4 (08:50→21:39)
[2017-08-24] MEDS: TEMOVATE SOLN TOP SCH ×2 (08:50→21:39)
[2017-08-24] MEDS: MUCOMYST 20% 200 MG/ML NEB SCH ×2 (09:05→20:46)
[2017-08-24] MEDS ORDERED: CIPRO IV 400 MG PREMIX* 400 MG/200 ML IV.SOLN. IV SCH (10:00)
--- NOTE | 2017-08-24 11:49 | PCM.PROG ---
Progress Note - Progress Note for Day of Date: 08/24/17 - Subjective Subjective: IS A 76 YEAR OLD PATIENT WHO PRESENTED TO THE EMERGENCY ROOM WITH COMPLAINTS OF SHORTNESS OF BREATH AND CHEST PAIN. SHE WAS ADMITTED FOR FURTHER TREATMENT AND EVALUATION OF ACUTE BRONCHITIS, CHF, AND HTN. TODAY, SHE IS ALERT AND ORIENTED, SITTING UP IN BED ON MORNING ROUNDS. SHE IS CURRENTLY EATING BREAKFAST AND REPORTS IMPROVEMENT IN LOSS OF APPETITE. PATIENT S FAMILY MEMBER IS AT BEDSIDE. SHE CONTINUES WITH COMPLAINTS OF SHORTNESS OF BREATH AND COUGH. ON EXAMINATION, LUNG SOUNDS ARE DIMINISHED. ABDOMEN IS ROUND, SOFT, AND NON-TENDER WITH NORMAL BOWEL SOUNDS NOTED IN ALL QUADRANTS. HER VITAL SIGNS THIS MORNING ARE 98.7-66-17-97%-144/65. A CBC, CMP, AND CHEST XRAY WERE OBTAINED. ABNORMAL LAB VALUES INCLUDE THE FOLLOWING: RBC 3.12, HGB 9.0, HCT 26.2 , SODIUM 127, CHLORIDE 95, BUN 23, CREATININE 1.38, CALCIUM 7.9, AST 13, ALT 6, CRP 10.90, TOTAL PROTEIN 5.8, ALBUMIN 2.6. CHEST XRAY REPORT IS PENDING. PRELIMINARY BLOOD CULTURES REPORT NO GROWTH AT DAY 3. TODAY, SPUTUM CULTURE REPORTED GROWTH OF SERRATIA MARCESCENS IN ADDITION TO STAPHYLOCOCCUS AUREUS. ANTIBIOTICS WERE CHANGED TO LEVAQUIN AND ZYVOXX. TODAY, WE WILL CONTINUE WITH CURRENT PLAN OF CARE. WE PLAN TO FOLLOW UP WITH AM LABS AND CONTINUE TO MONITOR PATIENT. - Past Medical Family Social History Past Med/Fam/Surg Hx: No changes since H&P Allergies: Allergies hydrocodone Allergy (Intermediate, Verified 08/19/17 00:53) CONFUSION - Review of Systems ROS: No change since H&P - Vital Signs and I&O's Vital Signs: Temperature 98.1 F Pulse Rate [Right Brachial] 63 Pulse Rate [Apical] 71 Pulse Rate 78 Respiratory Rate 20 Blood Pressure [Left Arm] 127/58 Blood Pressure [Right Arm] 162/68 Blood Pressure 226/93 O2 Sat by Pulse Oximetry 97 Intake and Output: Intake & Output 08/21/17 08/22/17 08/23/17 08/24/17 11:59 11:59 11:59 11:59 Intake Total 2059 1270 2735 2455 Balance 2059 1270 2735 2455 - Physical Exam Oriented: Normal Eyes: Normal Ear: Normal Nose: Normal Throat: Normal Respiratory: Diminished Cardiovascular: Normal : Normal Auscultation: Bowel Sounds: Normal Palpation: Normal Tenderness: Normal Skin: Normal Musculoskeletal: Normal Psychiatric: Normal Mood Description: Calm Affect: Normal Speech Pattern: Clear, Appropriate - Laboratory and Diagnostics Result Diagrams: 08/24/17 04:10 08/24/17 04:10 Labs: 08/19/17 01:46 Blood Blood Culture - Final 08/19/17 01:46 Blood Blood Culture - Final 08/19/17 14:18 Sputum - Expectorated Sputum Sputum Culture - Final Staphylococcus Aureus Serratia Marcescens 08/19/17 14:18 Sputum - Expectorated Sputum - Final Laboratory WBC 5.0 X10^3/uL (3.6-10.0) 08/24/17 04:10 RBC 3.12 X10^6/uL (3.5-5.4) L 08/24/17 04:10 Hgb 9.0 g/dL (12.0-16.0) L 08/24/17 04:10 Hct 26.2 % (36.0-47.0) L 08/24/17 04:10 MCV 83.9 fL (80.0-100.0) 08/24/17 04:10 MCH 28.7 pg (27.0-34.0) 08/24/17 04:10 MCHC 34.2 g/dL (33.0-35.0) 08/24/17 04:10 RDW 12.6 % (11.6-16.5) 08/24/17 04:10 Plt Count 181 X10^3/uL (150.0-450.0) 08/24/17 04:10 Plt Count Comment Adequate (ADEQUATE) 08/20/17 03:10 MPV 9.2 fL (7.4-11.0) 08/24/17 04:10 Neut % 68.6 % (42.0-75.0) 08/24/17 04:10 Lymph % 14.8 % (21.0-51.0) L 08/24/17 04:10 [place] % 12.0 % (0.0-13.0) 08/24/17 04:10 Eos % 4.4 % (0.9-2.9) H 08/24/17 04:10 Baso % 0.2 % (0.2-1.0) 08/24/17 04:10 Neut # 3.5 x10^3/uL (2.2-4.8) 08/24/17 04:10 Lymph # 0.7 X10^3/uL (1.3-2.9) L 08/24/17 04:10 [place] # 0.6 x10^3/uL (0.3-0.8) 08/24/17 04:10 Eos # 0.2 x10^3/uL (0.0-0.2) 08/24/17 04:10 Baso # 0.0 X10^3/uL (0.0-0.1) 08/24/17 04:10 Absolute Nucleated RBC 0.1 /100WBC 08/24/17 04:10 Total Counted 100 08/20/17 03:10 Neutrophils % (Manual) 88 % (39-76) H 08/20/17 03:10 Band Neutrophils % 3 % (0-10) 08/20/17 03:10 Lymphocytes % (Manual) 6 % (13-43) L 08/20/17 03:10 Monocytes % (Manual) 3 % (4-9) L 08/20/17 03:10 Plt Morphology Comment Normal (NORMAL) 08/20/17 03:10 RBC Morphology Normal (NORMAL) 08/20/17 03:10 ESR 20 MM/HOUR (0-20) 08/24/17 04:10 Sodium 127 mmol/L (136-145) L 08/24/17 04:10 Corrected Sodium TNP 08/24/17 04:10 Potassium 4.3 mmol/L (3.5-5.1) 08/24/17 04:10 Chloride 95 mmol/L (98-107) L 08/24/17 04:10 Carbon Dioxide 26.7 mmol/L (21-32) 08/24/17 04:10 BUN 23 mg/dL (7-18) H 08/24/17 04:10 Creatinine 1.38 mg/dL (0.55-1.02) H 08/24/17 04:10 Est GFR (MDRD) Af Amer 48 (>60) L 08/24/17 04:10 Est GFR (MDRD) Non-Af 39 (>60) L 08/24/17 04:10 Glucose 97 mg/dL (65-99) 08/24/17 04:10 Lactic Acid 1.7 mmol/L (0.4-2.0) 08/19/17 01:46 Calcium 7.9 mg/dL (8.5-10.1) L 08/24/17 04:10 Corrected Calcium 9.0 mg/dL (8.5-10.1) 08/24/17 04:10 Magnesium 1.9 mg/dL (1.7-2.9) 08/19/17 04:40 Total Bilirubin 0.20 mg/dL (0.2-1.0) 08/24/17 04:10 AST 13 Units/L (15-37) L 08/24/17 04:10 ALT 6 Units/L (12-78) L 08/24/17 04:10 Alkaline Phosphatase 54 Units/L (46-116) 08/24/17 04:10 Creatine Kinase 61 Units/L (26-192) 08/19/17 10:51 CK-MB (CK-2) < 1.0 ng/mL (0-4.0) 08/19/17 10:51 CK/CKMB % Calc 1.6 % (<4) 08/19/17 10:51 Troponin I < 0.02 ng/mL (0-1.5) 08/19/17 10:51 C-Reactive Protein 10.90 mg/L (0-3.0) H 08/24/17 04:10 B-Natriuretic Peptide 436 pg/mL (0-79) H 08/21/17 03:10 Total Protein 5.8 g/dL (6.4-8.2) L 08/24/17 04:10 Albumin 2.6 g/dL (3.4-5.0) L 08/24/17 04:10 Globulin 3.2 g/dL (2.5-4.5) 08/24/17 04:10 Albumin/Globulin Ratio 0.8 Ratio (1.1-2.1) L 08/24/17 04:10 Prealbumin 28.4 mg/dL (18-35.7) 08/22/17 03:50 Free T4 1.24 ng/dL (0.76-1.46) 08/22/17 03:50 TSH 3rd Generation 1.249 uIU/mL (0.358-3.74) 08/22/17 03:50 Specimen Type Random urine 08/19/17 03:12 Urine Color Yellow (YELLOW) 08/19/17 03:12 Urine Appearance Clear (CLEAR) 08/19/17 03:12 Urine pH 5.0 (5.0 - 8.0) 08/19/17 03:12 Ur Specific [place] 1.020 (1.000-1.030) 08/19/17 03:12 Urine Protein 1+ (NEGATIVE) 08/19/17 03:12 Urine Glucose (UA) Negative (NEGATIVE) 08/19/17 03:12 Urine Ketones Negative (NEGATIVE) 08/19/17 03:12 Urine Occult Blood Negative (NEGATIVE) 08/19/17 03:12 Urine Nitrite Negative (NEGATIVE) 08/19/17 03:12 Urine Bilirubin Negative (NEGATIVE) 08/19/17 03:12 Urine Urobilinogen Normal (NORMAL) 08/19/17 03:12 Ur Leukocyte Esterase Negative (NEGATIVE) 08/19/17 03:12 Urine RBC 0-3 /HPF (NEGATIVE) 08/19/17 03:12 Urine WBC 0-3 /HPF (NEGATIVE) 08/19/17 03:12 Ur Squamous Epith Cells Rare /HPF (NEGATIVE) 08/19/17 03:12 Urine Bacteria Negative /HPF (NEGATIVE) 08/19/17 03:12 Ur Culture Indicated? No/not indicated 08/19/17 03:12 - Plan (1) Bronchitis Status: Acute Plan: IV ANTIBIOTICS, NEBS, OXYGEN (2) CHF (congestive heart failure) Status: Acute Qualifiers: Congestive heart failure type: combined Congestive heart failure chronicity : acute on chronic Qualified Code(s): I50.43 - Acute on chronic combined systolic (congestive) and diastolic (congestive) heart failure Plan: MONITOR CXR. (3) Respiratory distress Status: Acute Plan: DUONEBS, SUPPLEMENTAL OXYGEN, CONTINUE TO MONITOR (4) Infection due to Serratia marcescens Status: Acute Plan: LEVAQUIN 500MG IV DAILY, ZYVOX 600MG IV Q12H, CONTINUE TO MONITOR (5) Infection due to Staphylococcus aureus Status: Acute Plan: LEVAQUIN 500MG IV DAILY, ZYVOX 600MG IV Q12H, CONTINUE TO MONITOR
[2017-08-24] MEDS ORDERED: ZOFRAN INJ 4 MG VIAL IVP PRN (12:37)
[2017-08-24] MEDS ORDERED: PHENERGAN INJ 25 MG IVP PRN (12:46)
[2017-08-24] MEDS: PROCALAMINE 3 % 1,000 ML with MVI INJ (ADULT) 10 ML IV SCH ×2 (14:20)
[2017-08-24] MEDS: REGLAN TAB 5 MG PO SCH ×2 (17:29→21:28)
[2017-08-24] MEDS: CRESTOR TAB 10 MG PO SCH (21:28)
[2017-08-24] MEDS: NEURONTIN CAP 300 MG PO SCH (21:28)
[2017-08-24] MEDS: ESTRACE PO SCH (21:28)
[2017-08-24] MEDS: COLACE CAP 100 MG PO SCH (21:28)
[2017-08-24] MEDS: NS 1000 ML 1,000 ML IV SCH (22:44)
[2017-08-25] MEDS: DUONEB 0.5 MG/3 MG NEB SCH ×6 (01:03→20:01)
[2017-08-25 05:15] LABS: BASOPHILS % (AUTO) 0.4 % (0.2-1.0); EOSINOPHILS # (AUTO) 0.3 x10^3/uL (0.0-0.2); EOSINOPHILS % (AUTO) 4.2 % (0.9-2.9); HEMATOCRIT 25.1 % (36.0-47.0); HEMOGLOBIN 8.8 g/dL (12.0-16.0); MEAN CORPUSCULAR HEMOGLOBIN 29.4 pg (27.0-34.0); MEAN CORPUSCULAR HGB CONC 35.1 g/dL (33.0-35.0); MEAN CORPUSCULAR VOLUME 83.7 fL (80.0-100.0); MEAN PLATELET VOLUME 9.4 fL (7.4-11.0); MONOCYTES # (AUTO) 0.8 x10^3/uL (0.3-0.8); MONOCYTES % (AUTO) 12.4 % (0.0-13.0); NEUTROPHILS # (AUTO) 4.3 x10^3/uL (2.2-4.8); PLATELET COUNT 161 X10^3/uL (150.0-450.0); RED CELL DISTRIBUTION WIDTH 12.6 % (11.6-16.5); WHITE BLOOD COUNT 6.4 X10^3/uL (3.6-10.0)
[2017-08-25 05:30] LABS: ALANINE AMINOTRANSFERASE 7 Units/L (12-78); ALBUMIN 2.7 g/dL (3.4-5.0); ALKALINE PHOSPHATASE 58 Units/L (46-116); ASPARTATE AMINO TRANSFERASE 15 Units/L (15-37); BLOOD UREA NITROGEN 19 mg/dL (7-18); CALCIUM 8.1 mg/dL (8.5-10.1); CARBON DIOXIDE 26.5 mmol/L (21-32); CHLORIDE 99 mmol/L (98-107); COR CA(FOR HYPOALB) 9.1 mg/dL (8.5-10.1); SODIUM 129 mmol/L (136-145); eGFR BLACK RACES 51 (>60); eGFR NON BLACK RACES 42 (>60)
[2017-08-25] MEDS: TESSALON PERLES PO SCH ×3 (05:35→21:42)
[2017-08-25] MEDS: PILOCARPINE HCL 5 MG PO SCH ×3 (05:35→21:52)
[2017-08-25] MEDS: REGLAN TAB 5 MG PO SCH ×4 (05:35→21:41)
[2017-08-25 06:05] LABS: ERYTHROCYTE SEDIMENTATION RATE 28 MM/HOUR (0-20)
[2017-08-25] MEDS ORDERED: BENADRYL CAP 50 MG PO PRN (07:38)
[2017-08-25] MEDS: MUCOMYST 20% 200 MG/ML NEB SCH ×2 (08:26→20:01)
[2017-08-25] MEDS: ZYVOX 600MG IV 600 MG/300 ML BAG IV SCH ×2 (09:43→21:43)
[2017-08-25] MEDS: MUCINEX DM PO SCH ×2 (09:45→21:42)
[2017-08-25] MEDS: SYNTHROID 137 mcg TAB PO SCH (09:45)
[2017-08-25] MEDS: ZANAFLEX PO SCH (09:45)
[2017-08-25] MEDS: FOLIC ACID TAB 1 MG PO SCH (09:45)
[2017-08-25] MEDS: PLAVIX PO SCH (09:47)
[2017-08-25] MEDS: SINGULAIR TAB 10 MG PO SCH (09:48)
[2017-08-25] MEDS: PROTONIX TAB 40 MG PO SCH ×2 (09:48→21:42)
[2017-08-25] MEDS: DIOVAN TAB 160 MG PO SCH (09:48)
[2017-08-25] MEDS: PLAQUENIL PO SCH ×2 (09:48→21:42)
[2017-08-25] MEDS: COREG TAB 25 MG PO SCH ×2 (09:48→21:42)
[2017-08-25] MEDS: NORVASC TAB 5 MG PO SCH (09:49)
[2017-08-25] MEDS: MAGIC MOUTHWASH MT SCH ×4 (09:55→21:42)
--- NOTE | 2017-08-25 10:46 | PCM.PROG ---
Progress Note - Progress Note for Day of Date: 08/25/17 - Subjective Subjective: IS A 76 YEAR OLD PATIENT WHO PRESENTED TO THE EMERGENCY ROOM WITH COMPLAINTS OF SHORTNESS OF BREATH AND CHEST PAIN. SHE WAS ADMITTED FOR FURTHER TREATMENT AND EVALUATION OF ACUTE BRONCHITIS, CHF, AND HTN. TODAY, SHE IS ALERT AND ORIENTED, SITTING UP IN BED ON MORNING ROUNDS. PATIENTS DAUGHTER AND SON ARE AT BEDSIDE. SHE CONTINUES WITH COMPLAINTS OF SHORTNESS OF BREATH AND COUGH. ON EXAMINATION, LUNG SOUNDS ARE DIMINISHED. ABDOMEN IS ROUND, SOFT, AND NON-TENDER WITH NORMAL BOWEL SOUNDS NOTED IN ALL QUADRANTS. HER VITAL SIGNS THIS MORNING ARE 98.0-64-12-96%-187/75. A CBC, CMP, AND CHEST XRAY WERE OBTAINED. ABNORMAL LAB VALUES INCLUDE THE FOLLOWING: RBC 3.00, HGB 8.8, HCT 25.1 , SODIUM 129, BUN 19, CREATININE 1.30, CALCIUM 8.1, ALT 7, CRP 16.50, TOTAL PROTEIN 6.0, ALBUMIN 2.7. CHEST XRAY REPORTED CARDIOMEGALY WITHOUT CHF, LUNGS CLEAR. BLOOD CULTURES REPORT NO GROWTH. PATIENTS HGB/HCT CONTINUES TO TREND LOW. TODAY, WE WILL START HEMOCYTE PLUS 1 CAPSULE DAILY. OTHERWISE, WE WILL CONTINUE WITH CURRENT PLAN OF CARE. WE PLAN TO FOLLOW UP WITH AM LABS AND CONTINUE TO MONITOR PATIENT. - Past Medical Family Social History Past Med/Fam/Surg Hx: No changes since H&P Allergies: Allergies hydrocodone Allergy (Intermediate, Verified 08/19/17 00:53) CONFUSION - Review of Systems ROS: No change since H&P - Vital Signs and I&O's Vital Signs: Temperature 97.9 F Pulse Rate [Right Brachial] 64 Pulse Rate [Apical] 71 Pulse Rate 70 Respiratory Rate 20 Blood Pressure [Left Arm] 127/58 Blood Pressure [Right Arm] 144/78 Blood Pressure 226/93 O2 Sat by Pulse Oximetry 97 Intake and Output: Intake & Output 08/22/17 08/23/17 08/24/17 08/25/17 11:59 11:59 11:59 11:59 Intake Total 1270 2735 2455 2860 Balance 1270 2735 2455 2860 - Physical Exam Oriented: Normal Eyes: Normal Ear: Normal Nose: Normal Throat: Normal Respiratory: Diminished Cardiovascular: Normal : Normal Auscultation: Bowel Sounds: Normal Palpation: Normal Tenderness: Normal Skin: Normal Musculoskeletal: Normal Psychiatric: Normal Mood Description: Calm Affect: Normal Speech Pattern: Clear, Appropriate - Laboratory and Diagnostics Result Diagrams: 08/25/17 04:05 08/25/17 04:05 Labs: 08/19/17 01:46 Blood Blood Culture - Final 08/19/17 01:46 Blood Blood Culture - Final 08/19/17 14:18 Sputum - Expectorated Sputum Sputum Culture - Final Staphylococcus Aureus Serratia Marcescens 08/19/17 14:18 Sputum - Expectorated Sputum - Final Laboratory WBC 6.4 X10^3/uL (3.6-10.0) 08/25/17 04:05 RBC 3.00 X10^6/uL (3.5-5.4) L 08/25/17 04:05 Hgb 8.8 g/dL (12.0-16.0) L 08/25/17 04:05 Hct 25.1 % (36.0-47.0) L 08/25/17 04:05 MCV 83.7 fL (80.0-100.0) 08/25/17 04:05 MCH 29.4 pg (27.0-34.0) 08/25/17 04:05 MCHC 35.1 g/dL (33.0-35.0) H 08/25/17 04:05 RDW 12.6 % (11.6-16.5) 08/25/17 04:05 Plt Count 161 X10^3/uL (150.0-450.0) 08/25/17 04:05 Plt Count Comment Adequate (ADEQUATE) 08/20/17 03:10 MPV 9.4 fL (7.4-11.0) 08/25/17 04:05 Neut % 68.0 % (42.0-75.0) 08/25/17 04:05 Lymph % 15.0 % (21.0-51.0) L 08/25/17 04:05 [place] % 12.4 % (0.0-13.0) 08/25/17 04:05 Eos % 4.2 % (0.9-2.9) H 08/25/17 04:05 Baso % 0.4 % (0.2-1.0) 08/25/17 04:05 Neut # 4.3 x10^3/uL (2.2-4.8) 08/25/17 04:05 Lymph # 1.0 X10^3/uL (1.3-2.9) L 08/25/17 04:05 [place] # 0.8 x10^3/uL (0.3-0.8) 08/25/17 04:05 Eos # 0.3 x10^3/uL (0.0-0.2) H 08/25/17 04:05 Baso # 0.0 X10^3/uL (0.0-0.1) 08/25/17 04:05 Absolute Nucleated RBC 0.0 /100WBC 08/25/17 04:05 Total Counted 100 08/20/17 03:10 Neutrophils % (Manual) 88 % (39-76) H 08/20/17 03:10 Band Neutrophils % 3 % (0-10) 08/20/17 03:10 Lymphocytes % (Manual) 6 % (13-43) L 08/20/17 03:10 Monocytes % (Manual) 3 % (4-9) L 08/20/17 03:10 Plt Morphology Comment Normal (NORMAL) 08/20/17 03:10 RBC Morphology Normal (NORMAL) 08/20/17 03:10 ESR 28 MM/HOUR (0-20) H 08/25/17 04:05 Sodium 129 mmol/L (136-145) L 08/25/17 04:05 Corrected Sodium TNP 08/25/17 04:05 Potassium 4.8 mmol/L (3.5-5.1) 08/25/17 04:05 Chloride 99 mmol/L (98-107) 08/25/17 04:05 Carbon Dioxide 26.5 mmol/L (21-32) 08/25/17 04:05 BUN 19 mg/dL (7-18) H 08/25/17 04:05 Creatinine 1.30 mg/dL (0.55-1.02) H 08/25/17 04:05 Est GFR (MDRD) Af Amer 51 (>60) L 08/25/17 04:05 Est GFR (MDRD) Non-Af 42 (>60) L 08/25/17 04:05 Glucose 86 mg/dL (65-99) 08/25/17 04:05 Lactic Acid 1.7 mmol/L (0.4-2.0) 08/19/17 01:46 Calcium 8.1 mg/dL (8.5-10.1) L 08/25/17 04:05 Corrected Calcium 9.1 mg/dL (8.5-10.1) 08/25/17 04:05 Magnesium 1.9 mg/dL (1.7-2.9) 08/19/17 04:40 Total Bilirubin 0.30 mg/dL (0.2-1.0) 08/25/17 04:05 AST 15 Units/L (15-37) 08/25/17 04:05 ALT 7 Units/L (12-78) L 08/25/17 04:05 Alkaline Phosphatase 58 Units/L (46-116) 08/25/17 04:05 Creatine Kinase 61 Units/L (26-192) 08/19/17 10:51 CK-MB (CK-2) < 1.0 ng/mL (0-4.0) 08/19/17 10:51 CK/CKMB % Calc 1.6 % (<4) 08/19/17 10:51 Troponin I < 0.02 ng/mL (0-1.5) 08/19/17 10:51 C-Reactive Protein 16.50 mg/L (0-3.0) H 08/25/17 04:05 B-Natriuretic Peptide 436 pg/mL (0-79) H 08/21/17 03:10 Total Protein 6.0 g/dL (6.4-8.2) L 08/25/17 04:05 Albumin 2.7 g/dL (3.4-5.0) L 08/25/17 04:05 Globulin 3.3 g/dL (2.5-4.5) 08/25/17 04:05 Albumin/Globulin Ratio 0.8 Ratio (1.1-2.1) L 08/25/17 04:05 Prealbumin 28.4 mg/dL (18-35.7) 08/22/17 03:50 Free T4 1.24 ng/dL (0.76-1.46) 08/22/17 03:50 TSH 3rd Generation 1.249 uIU/mL (0.358-3.74) 08/22/17 03:50 Specimen Type Random urine 08/19/17 03:12 Urine Color Yellow (YELLOW) 08/19/17 03:12 Urine Appearance Clear (CLEAR) 08/19/17 03:12 Urine pH 5.0 (5.0 - 8.0) 08/19/17 03:12 Ur Specific [place] 1.020 (1.000-1.030) 08/19/17 03:12 Urine Protein 1+ (NEGATIVE) 08/19/17 03:12 Urine Glucose (UA) Negative (NEGATIVE) 08/19/17 03:12 Urine Ketones Negative (NEGATIVE) 08/19/17 03:12 Urine Occult Blood Negative (NEGATIVE) 08/19/17 03:12 Urine Nitrite Negative (NEGATIVE) 08/19/17 03:12 Urine Bilirubin Negative (NEGATIVE) 08/19/17 03:12 Urine Urobilinogen Normal (NORMAL) 08/19/17 03:12 Ur Leukocyte Esterase Negative (NEGATIVE) 08/19/17 03:12 Urine RBC 0-3 /HPF (NEGATIVE) 08/19/17 03:12 Urine WBC 0-3 /HPF (NEGATIVE) 08/19/17 03:12 Ur Squamous Epith Cells Rare /HPF (NEGATIVE) 08/19/17 03:12 Urine Bacteria Negative /HPF (NEGATIVE) 08/19/17 03:12 Ur Culture Indicated? No/not indicated 08/19/17 03:12 - Plan (1) Bronchitis Status: Acute Plan: IV ANTIBIOTICS, NEBS, OXYGEN (2) CHF (congestive heart failure) Status: Acute Qualifiers: Congestive heart failure type: combined Congestive heart failure chronicity : acute on chronic Qualified Code(s): I50.43 - Acute on chronic combined systolic (congestive) and diastolic (congestive) heart failure Plan: MONITOR CXR. (3) Respiratory distress Status: Acute Plan: DUONEBS, SUPPLEMENTAL OXYGEN, CONTINUE TO MONITOR (4) Infection due to Serratia marcescens Status: Acute Plan: LEVAQUIN 500MG IV DAILY, ZYVOX 600MG IV Q12H, CONTINUE TO MONITOR (5) Infection due to Staphylococcus aureus Status: Acute Plan: LEVAQUIN 500MG IV DAILY, ZYVOX 600MG IV Q12H, CONTINUE TO MONITOR (6) Anemia Status: Chronic Qualifiers: Anemia type: iron deficiency Iron deficiency anemia type: unspecified iron deficiency Qualified Code(s): D50.9 - Iron deficiency anemia, unspecified Plan: HEMOCYTE PLUS DAILY, CONTINUE TO MONITOR
[2017-08-25] MEDS: NS 1000 ML 1,000 ML IV SCH (11:32)
[2017-08-25] MEDS: PROCALAMINE 3 % 1,000 ML with MVI INJ (ADULT) 10 ML IV SCH ×4 (11:32→16:22)
[2017-08-25] MEDS: HEMOCYTE-PLUS PO SCH (11:34)
[2017-08-25] MEDS: LEVAQUIN PREMIX IV 500 MG 500 MG/100 ML BAG IV SCH (13:05)
[2017-08-25] MEDS: TEMOVATE SOLN TOP SCH ×2 (13:05→21:43)
[2017-08-25] MEDS: TYLENOL 325 MG TAB PO PRN (17:55)
[2017-08-25] MEDS: MORPHINE SULFATE INJ 2 MG INJ IVP PRN (19:15)
[2017-08-25] MEDS: CRESTOR TAB 10 MG PO SCH (21:41)
[2017-08-25] MEDS: COLACE CAP 100 MG PO SCH (21:41)
[2017-08-25] MEDS: ESTRACE PO SCH (21:41)
[2017-08-25] MEDS: NEURONTIN CAP 300 MG PO SCH (21:41)
[2017-08-25] MEDS: LIBRIUM PO PRN (21:52)
[2017-08-26] MEDS: DUONEB 0.5 MG/3 MG NEB SCH ×3 (01:00→09:03)
[2017-08-26] MEDS: TESSALON PERLES PO SCH (05:38)
[2017-08-26] MEDS: REGLAN TAB 5 MG PO SCH (05:38)
[2017-08-26 05:48] LABS: BASOPHILS % (AUTO) 0.3 % (0.2-1.0); EOSINOPHILS # (AUTO) 0.3 x10^3/uL (0.0-0.2); EOSINOPHILS % (AUTO) 5.3 % (0.9-2.9); HEMATOCRIT 25.4 % (36.0-47.0); HEMOGLOBIN 8.8 g/dL (12.0-16.0); LYMPHOCYTES % (AUTO) 18.3 % (21.0-51.0); MEAN CORPUSCULAR HEMOGLOBIN 29.2 pg (27.0-34.0); MEAN CORPUSCULAR HGB CONC 34.5 g/dL (33.0-35.0); MEAN CORPUSCULAR VOLUME 84.5 fL (80.0-100.0); MEAN PLATELET VOLUME 9.4 fL (7.4-11.0); MONOCYTES # (AUTO) 0.8 x10^3/uL (0.3-0.8); MONOCYTES % (AUTO) 14.4 % (0.0-13.0); NEUTROPHILS # (AUTO) 3.3 x10^3/uL (2.2-4.8); NEUTROPHILS % (AUTO) 61.7 % (42.0-75.0); PLATELET COUNT 173 X10^3/uL (150.0-450.0); RED CELL DISTRIBUTION WIDTH 12.8 % (11.6-16.5); WHITE BLOOD COUNT 5.3 X10^3/uL (3.6-10.0)
[2017-08-26] MEDS: NS 1000 ML 1,000 ML IV SCH (05:51)
[2017-08-26] MEDS: PILOCARPINE HCL 5 MG PO SCH (06:15)
[2017-08-26 06:33] LABS: ERYTHROCYTE SEDIMENTATION RATE 40 MM/HOUR (0-20)
[2017-08-26 07:14] LABS: ALANINE AMINOTRANSFERASE 8 Units/L (12-78); ALBUMIN 2.7 g/dL (3.4-5.0); ALKALINE PHOSPHATASE 59 Units/L (46-116); ASPARTATE AMINO TRANSFERASE 15 Units/L (15-37); BLOOD UREA NITROGEN 17 mg/dL (7-18); CALCIUM 7.9 mg/dL (8.5-10.1); CARBON DIOXIDE 24.9 mmol/L (21-32); CHLORIDE 97 mmol/L (98-107); COR CA(FOR HYPOALB) 8.9 mg/dL (8.5-10.1); CREATININE 1.34 mg/dL (0.55-1.02); SODIUM 127 mmol/L (136-145); eGFR BLACK RACES 49 (>60); eGFR NON BLACK RACES 41 (>60)
[2017-08-26] MEDS ORDERED: DEXFERRUM or INFED 25 MG in NS 100 ML IV 100 ML IV ONE ×2 (07:54→09:00)
[2017-08-26] MEDS: SYNTHROID 137 mcg TAB PO SCH ×2 (07:54→08:04)
[2017-08-26] MEDS ORDERED: SOLU-Cortef INJ IVP PRN (07:55)
[2017-08-26] MEDS ORDERED: BENADRYL CAP 50 MG PO PRN (07:56)
[2017-08-26] MEDS: FOLIC ACID TAB 1 MG PO SCH (08:00)
[2017-08-26] MEDS: MUCINEX DM PO SCH (08:00)
[2017-08-26] MEDS: ZANAFLEX PO SCH (08:00)
[2017-08-26] MEDS: COREG TAB 25 MG PO SCH (08:01)
[2017-08-26] MEDS: PLAQUENIL PO SCH (08:01)
[2017-08-26] MEDS: SINGULAIR TAB 10 MG PO SCH (08:01)
[2017-08-26] MEDS: PLAVIX PO SCH (08:02)
[2017-08-26] MEDS: NORVASC TAB 5 MG PO SCH (08:02)
[2017-08-26] MEDS: DIOVAN TAB 160 MG PO SCH (08:02)
[2017-08-26] MEDS: PEPCID TAB 20 MG PO SCH (08:03)
[2017-08-26] MEDS: HEMOCYTE-PLUS PO SCH (08:03)
[2017-08-26] MEDS: PROTONIX TAB 40 MG PO SCH (08:03)
[2017-08-26] MEDS: ZYVOX 600MG IV 600 MG/300 ML BAG IV SCH (08:04)
[2017-08-26] MEDS: MAGIC MOUTHWASH MT SCH (08:05)
[2017-08-26] MEDS: TEMOVATE SOLN TOP SCH (08:05)
[2017-08-26] MEDS ORDERED: DEXFERRUM or INFED 1,000 MG in NS 500 ML IV 500 ML IV ONE (09:00)
[2017-08-26] MEDS ORDERED: NS 100 ML IV 100 ML with VENOFER 200 MG IV NR ×2 (09:00)
[2017-08-26] MEDS: MUCOMYST 20% 200 MG/ML NEB SCH (09:03)
[2017-08-26 12:29] VITALS: BP 106/70
== END 2017-08-26 13:05 | disposition home or self-care (01) | DRG 202 ==
LOC: ER 00:35 → MED/SURG 02:14 → OBSVTOIN 08-22 09:00
PROVIDERS: ADMIT Internal Medicine; ATTEND Internal Medicine
DX: J20.8 Acute bronchitis due to other specified organisms (principal); I50.43 Acute on chronic combined systolic (congestive) and diastolic (congestive) heart failure; B95.62 Methicillin resistant Staphylococcus aureus infection as the cause of diseases classified elsewhere; B96.89 Other specified bacterial agents as the cause of diseases classified elsewhere; R06.03 Acute respiratory distress; R06.02 Shortness of breath; R07.89 Other chest pain; I12.9 Hypertensive chronic kidney disease with stage 1 through stage 4 chronic kidney disease, or unspecified chronic kidney disease; R94.31 Abnormal electrocardiogram [ECG] [EKG]; I51.7 Cardiomegaly; M13.89 Other specified arthritis, multiple sites; E78.2 Mixed hyperlipidemia; N18.9 Chronic kidney disease, unspecified; E87.6 Hypokalemia; D50.9 Iron deficiency anemia, unspecified; R26.89 Other abnormalities of gait and mobility
CPT/HCPCS: 36415; 71010; 80053; 81001; 82550; 82553; 83605; 83735; 83880; 84134; 84439; 84443; 84484; 85025; 85652; 86140; 87040; 87070; 87077; 87186; 87205; 90686; 93005; 94640; 94760; 96365; 96374; 96375; 97535; 99284; A4222; B5200; S0181; G0378; J0360; J0696; J0713; J0744; J1940; J1956; J2020; J2270; J2405; J2543; J2550; J2920; J2930; J7608; J7620

== ENCOUNTER → 2017-12-05 | Outpatient (CLI) | payer OTHER ==
--- NOTE | 2017-12-06 16:03 | MG ---
HISTORY: SCREENING Comparison: November 27, 2015 and December 02, 2016 FINDINGS: Bilateral CC and MLO projections of the right and left breast were obtained. Heterogeneously dense f ibroglandular tissue is seen to be present without significant interval change. No suspicious niraj ectural distortion, mass or clustered microcalcifications can be observed to suggest malignancy. No skin thickening or nipple retraction is appreciated. No pathological lymphadenopathy can be identif ied. Benign-appearing calcifications are noted within the right and left breast. IMPRESSION: NO RADIOGRAPHIC EVIDENCE OF MALIGNANCY. ACR CATEGORY 2 - benign findings. FOLLOW-UP EXAM 1 YEAR. Diagnostic CAD was utilized and reviewed. * 0 (ZERO) - ASSESSMENT INCOMPLETE; ADDITIONAL IMAGING IS NEEDED. * 1/1 (ONE) - NEGATIVE. * 2/II (TWO) - BENIGN FINDINGS. * 3/III (THREE) - PROBABLY BENIGN FINDING; SHORT INTERVAL FOLLOW-UP SUGGESTED. * 4/IV (FOUR) - SUSPICIOUS ABNORMALITY; BIOPSY SHOULD BE CONSIDERED. * 5/V - HIGHLY SUSPICIOUS OF MALIGNANCY; BIOPSY SHOULD BE PERFORMED. A NEGATIVE X-RAY REPORT SHOULD NOT DELAY BIOPSY IF A DOMINANT OR CLINICALLY SUSPICIOUS MASS IS PRESENT; 4 TO 8 PERCENT OF CANCERS ARE NOT IDENTIFIED BY X-RAY. A NEGA TIVE REPORT MAY REINFORCE THE CLINICAL IMPRESSION. ADENOSIS AND DENSE BREASTS MAY OBSCURE AN UNDERLY ING NEOPLASM. Reported By:
== END ==
LOC: RAD 10:52
PROVIDERS: ATTEND Specialist
DX: Z12.31 Encounter for screening mammogram for malignant neoplasm of breast (principal)
CPT/HCPCS: 77067

== ENCOUNTER 2019-04-12 09:20 | Observation (INO) ==
--- NOTE | 2019-04-12 09:30 | DR.GENAD ---
HPI Time Seen Time Seen by Provider: 04/12/19 09:29 PCP Primary Care Physician: JOSÉ MIGUEL HPI Comment HPI Comment: PATIENT IS 78YR OLD FEMALE HERE IN ED WITH INCREASING GENERALIZE WEAKNESS, SOB AND NEAR SYNCOPAL EPISODES. NON PRODUCTIVE COUGH, NO FEVER OR DYSURIA. PATIENT DENIES CHEST PAIN. HAVE HAD DIZZINESS ON AND OFF. TAKES MECLIZINE NEEDED. TODAY, BEFORE COMING TO ED, ALMOST PASS OUT. EXERTIONAL DYSPNEA STARTED FEW DAYS AGO AND IS GETTING WORSE. Complaint/Symptoms Chief Complaint Doctors Comments: GENERALIZE WEAKNESS, NEAR SYNCOPAL EPISODES AND SOB. Chief Complaint:: PT. HAD A NEAR SYNCOPAL EPISODE AT HOME PRIOR TO ARRIVAL. PT. ALSO C/O SHORTNESS OF BREATH AND GENERALIZED WEAKNESS. Nurses notes reviewed Nurses Notes Review: Yes Source History Provided: Patient and Family Member Mode of Arrival Mode of Arrival: Wheelchair Timing Onset of Chief Complaint: 04/11/19 Came on: Suddenly Duration Duration: Intermittent Duration: Days Severity Severity: Moderate Modifying Factors Worsens:: EXERTION Improves:: LYING STILL. Associated Signs and Symptoms Associated Signs and Symptoms: SOB. Other History Other History: CHF. PMH PMH Past Medical History: Yes Past Medical History: Anemia, Angina, Arthritis, CHF, Coronary Artery Disease, Dyslipidemia and Hypertension Past Surgical History: Yes Surgical History: Appendectomy, Cholecystectomy, Hysterectomy, Joint Replacement and Tonsillectomy Family History History of Family Medical Conditions: Yes Family Medical History: Cancer, [place] and Hypertension Social History Does patient currently use any type of tobacco product: No Have you used tobacco products in the last 12 months: No Type of Tobacco Use: None Does any household member use tobacco: No Alcohol Use: None Do you use any recreational Drugs:: No Lives With: Family Lives Where: Home infectious screening In the last 2 months have you had wt loss of >10#?: NO Have you had fever, night sweats or hemotysis?: No Have you traveled outside the country in the last 6 months?: No Isolation: Standard ROS Review of Systems Constitutional: See HPI, Weakness and Fatigue; negative Chills, Diaphoresis, Fever and Loss of Appetite Eyes: See HPI; negative Eye Pain, Tearing and Discharge ENTM: No Symptoms Reported, See HPI and Pulling on Ears; negative Ear Pain, Ear Discharge, Hearing Loss, Nose Pain, Nose Discharge, Epistaxis, Nose Congestion, Throat Pain and Throat Swelling Respiratoy: Non-Productive Cough and Short of Breath; negative See HPI and Wheezing Cardiovascular: See HPI; negative Chest Pain, Edema, Palpitations and Syncope (NEAR SYNCOPAL EPISODES.) Gastrointestinal/Abdominal: No Symptoms Reported and See HPI; negative Abdominal Pain, Constipation, Diarrhea, Nausea and Vomiting Genitourinary: No Symptoms Reported and See HPI; negative Dysuria, Frequency and Hematuria Neurological: See HPI, Weakness and Dizziness; negative Headache Musculoskeletal: See HPI, Back Pain and Muscle Pain Integumentary: No Symptoms Reported and See HPI; negative Change in Color, Rash, Itching, Bruises and Juandice Hematologic/Lymphatic: See HPI, Anemia, Easy Bleeding and Easy Bruising; negative Swollen Glands and Lymphadenopathy Endocrine: No Symptoms Reported and See HPI; negative Increased Thirst, Increased Urine and Decreased Appetite Psychiatric: No Symptoms Reported and See HPI All Other Systems: Reviewed and Negative PE Vital Signs Vitals: Temperature 97.5 F Pulse Rate [Apical] 60 Pulse Rate 66 Respiratory Rate 24 Blood Pressure [Left Arm] 157/65 Blood Pressure [Right Arm] 178/62 Blood Pressure 174/74 O2 Sat by Pulse Oximetry 98 General Limitations: No Limitations General Appearance: Alert and In No Apparent Distress Head Head Exam: Normal Inspection, Atraumatic and Normocephalic Eyes Eye exam: Normal Appearance, PERRL and EOMI; negative Scleral Icterus and Conjunctival Injection ENT ENT Exam: Normal Exam, Normal Oropharynx, Normal External Ear Exam, Mucous Membranes Moist and TM's Normal Bilaterally External Ear Exam: Normal External Inspection; negative Mastoid Tenderness, Pain with Movement and External Tenderness TM/Canal Exam: Bilateral: Normal Nose Exam: Normal Nose Exam; negative Sinus Tenderness, Nasal Deviation and Septal Hematoma Mouth Exam: Normal Inspection; negative Trismus, Lip Swelling and Tongue Swelling Throat Exam: negative Tonsillar Erythema, Tonsillomegaly and Tonsillar Exudate Neck Neck Exam: Normal Inspection and Trachea Midline; negative Tenderness and Lymphadenopathy Chest Chest Inspection: Normal Inspection and Symmetric Chest Wall Rise; negative Tenderness Respiratory Respiratory Exam: Normal Lung Sounds Bilat; negative Accessory Muscle Use, Chest Wall Tenderness and Respiratory Distress Respiratory Exam: Bilateral: Rhonchi and Lower: Rhonchi Cardiovascular Cardiovascular Exam: Regular Rate and Normal Rhythm; negative Systolic Murmur, Diastolic Murmur, Rubs and Gallop Abdominal Exam Abdominal Exam: Normal Inspection, Normal Bowel Sounds and Soft; negative Tenderness Extremities Extremities Exam: Normal Inspection, Normal Capillary Refill and Joint Swelling; negative Tenderness, Edema and Calf Tenderness Back Back Exam: Paraspinal Tenderness; negative Tenderness, (R) CVA Tenderness, (L) CVA Tenderness and Vertebral Tenderness Neurologic Neurological Exam: Alert, Oriented X3 and CN II-XII Intact; negative Motor Sensory Deficit Psychiatric Psychiatric Exam: Normal Affect and Normal Mood Skin Skin Exam: Warm, Dry, Intact and Normal Color MDM Additional Information Additional Information Obtained From: Family Differential Diagnosis Differential Diagnosis: NEAR SYNCOPAL EPISODES, ANEMIA, LUPUS, UTI, PNEUMONIA, LA, COURSE Treatment Treatment: SEE ORDERS. Consultation Consultation Comments: DR. VALDEZ WILL ADMIT PATIENT FOR OBSERVATION PER HIS NURSE JOSE DANIEL. ADM ORDERS DONE. Education/Counseling Education/Counseling: Patient and Family Educated On: Diagnosis ROR Labs Reviewed Laboratory Results Reviewed?: Yes Result Diagrams: 04/12/19 09:47 04/12/19 09:47 Laboratory: WBC 3.5 X10^3/uL (3.6-10.0) L 04/12/19 09:47 RBC 3.98 X10^6/uL (3.5-5.4) 04/12/19 09:47 Hgb 10.6 g/dL (12.0-16.0) L 04/12/19 09:47 Hct 32.5 % (36.0-47.0) L 04/12/19 09:47 MCV 81.7 fL (80.0-100.0) 04/12/19 09:47 MCH 26.6 pg (27.0-34.0) L 04/12/19 09:47 MCHC 32.5 g/dL (33.0-35.0) L 04/12/19 09:47 RDW 15.6 % (11.6-16.5) 04/12/19 09:47 Plt Count 198 X10^3/uL (150.0-450.0) 04/12/19 09:47 MPV 8.3 fL (7.4-11.0) 04/12/19 09:47 Neut % (Auto) 63.9 % (42.0-75.0) 04/12/19 09:47 Lymph % (Auto) 14.3 % (21.0-51.0) L 04/12/19 09:47 [place] % (Auto) 16.4 % (0.0-13.0) H 04/12/19 09:47 Eos % (Auto) 4.2 % (0.9-2.9) H 04/12/19 09:47 Baso % (Auto) 1.2 % (0.2-1.0) H 04/12/19 09:47 Neut # (Auto) 2.2 x10^3/uL (2.2-4.8) 04/12/19 09:47 Lymph # (Auto) 0.5 X10^3/uL (1.3-2.9) L 04/12/19 09:47 [place] # (Auto) 0.6 x10^3/uL (0.3-0.8) 04/12/19 09:47 Eos # (Auto) 0.1 x10^3/uL (0.0-0.2) 04/12/19 09:47 Baso # (Auto) 0.0 X10^3/uL (0.0-0.1) 04/12/19 09:47 Absolute Nucleated RBC 0.0 /100WBC 04/12/19 09:47 Sodium 138 mmol/L (136-145) 04/12/19 09:47 Corrected Sodium TNP 04/12/19 09:47 Potassium 4.3 mmol/L (3.5-5.1) 04/12/19 09:47 Chloride 107 mmol/L (98-107) 04/12/19 09:47 Carbon Dioxide 18.0 mmol/L (21-32) L 04/12/19 09:47 BUN 31 mg/dL (7-18) H 04/12/19 09:47 Creatinine 1.90 mg/dL (0.55-1.02) H 04/12/19 09:47 Est GFR (MDRD) Af Amer 33 (>60) L 04/12/19 09:47 Est GFR (MDRD) Non-Af 27 (>60) L 04/12/19 09:47 Glucose 107 mg/dL (65-99) H 04/12/19 09:47 Calcium 8.7 mg/dL (8.5-10.1) 04/12/19 09:47 Corrected Calcium 9.3 mg/dL (8.5-10.1) 04/12/19 09:47 Total Bilirubin 0.40 mg/dL (0.2-1.0) 04/12/19 09:47 AST 21 Units/L (15-37) 04/12/19 09:47 ALT 15 Units/L (12-78) 04/12/19 09:47 Alkaline Phosphatase 67 Units/L (46-116) 04/12/19 09:47 Creatine Kinase 39 Units/L (26-192) 04/12/19 09:47 CK-MB (CK-2) 1.5 ng/mL (0-4.0) 04/12/19 09:47 CK/CKMB % Calc 3.9 % (<4) 04/12/19 09:47 Troponin I 0.03 ng/mL (0-1.5) 04/12/19 09:47 Total Protein 6.9 g/dL (6.4-8.2) 04/12/19 09:47 Albumin 3.3 g/dL (3.4-5.0) L 04/12/19 09:47 Globulin 3.6 g/dL (2.5-4.5) 04/12/19 09:47 Albumin/Globulin Ratio 0.9 Ratio (1.1-2.1) L 04/12/19 09:47 Blood Type O POSITIVE 04/12/19 09:47 Antibody Screen Negative 04/12/19 09:47 XRAY XRAY Interpreted by: Radiologist XRAY Findings: REPORT ON RECORD NOTED AND DISCUSS WITH PATIENT AND FAMILY. EKG Rate: 63 [place]: Normal Rhythm: NSR Block: LBBB (LAFB) Hypertrophy: None ST: Nonsp Opioid Opioid Risk Tool Total: 0 Total Score Risk Category: Low Risk Copyright: [facility] predicting aberrant behaviors Diagnosis Discharge Problem: Weakness, Near syncope Instructions Forms: Excuse From Work or School
--- NOTE | 2019-04-12 09:50 | RAD ---
HISTORY: Shortness of breath Study: Chest AP portable Comparison: 08/24/2017 Findings: The heart is upper limits normal in size. No congestive heart failure is noted. The lungs are well inflated and free of acute infiltrates. No pleural effusions are identified. The bony thorax is unremarkable. IMPRESSION: Lungs clear Reported By:
[2019-04-12 10:03] LABS: BASOPHILS % (AUTO) 1.2 % (0.2-1.0); EOSINOPHILS # (AUTO) 0.1 x10^3/uL (0.0-0.2); EOSINOPHILS % (AUTO) 4.2 % (0.9-2.9); HEMATOCRIT 32.5 % (36.0-47.0); HEMOGLOBIN 10.6 g/dL (12.0-16.0); LYMPHOCYTES # (AUTO) 0.5 X10^3/uL (1.3-2.9); LYMPHOCYTES % (AUTO) 14.3 % (21.0-51.0); MEAN CORPUSCULAR HEMOGLOBIN 26.6 pg (27.0-34.0); MEAN CORPUSCULAR HGB CONC 32.5 g/dL (33.0-35.0); MEAN CORPUSCULAR VOLUME 81.7 fL (80.0-100.0); MEAN PLATELET VOLUME 8.3 fL (7.4-11.0); MONOCYTES # (AUTO) 0.6 x10^3/uL (0.3-0.8); MONOCYTES % (AUTO) 16.4 % (0.0-13.0); NEUTROPHILS # (AUTO) 2.2 x10^3/uL (2.2-4.8); NEUTROPHILS % (AUTO) 63.9 % (42.0-75.0); PLATELET COUNT 198 X10^3/uL (150.0-450.0); RED BLOOD COUNT 3.98 X10^6/uL (3.5-5.4); RED CELL DISTRIBUTION WIDTH 15.6 % (11.6-16.5); WHITE BLOOD COUNT 3.5 X10^3/uL (3.6-10.0)
[2019-04-12 10:21] LABS: BLOOD UREA NITROGEN 31 mg/dL (7-18); CALCIUM 8.7 mg/dL (8.5-10.1); CHLORIDE 107 mmol/L (98-107); SODIUM 138 mmol/L (136-145); TROPONIN I 0.03 ng/mL (0-1.5); eGFR NON BLACK RACES 27 (>60)
[2019-04-12 10:26] LABS: ALANINE AMINOTRANSFERASE 15 Units/L (12-78); ALBUMIN 3.3 g/dL (3.4-5.0); ALKALINE PHOSPHATASE 67 Units/L (46-116); ASPARTATE AMINO TRANSFERASE 21 Units/L (15-37); CKMB % 3.9 % (<4); COR CA(FOR HYPOALB) 9.3 mg/dL (8.5-10.1); CREATINE KINASE 39 Units/L (26-192); CREATINE KINASE MB 1.5 ng/mL (0-4.0); TOTAL PROTEIN 6.9 g/dL (6.4-8.2)
[2019-04-12] MEDS: NS 1000 ML 1,000 ML IV SCH (10:49)
[2019-04-12 11:33] VITALS: BMI 30.8
[2019-04-12 13:27] LABS: BILIRUBIN,URINE NEGATIVE (NEGATIVE); BLOOD/HEMOGLOBIN,URINE NEGATIVE (NEGATIVE); GLUCOSE, URINE NEGATIVE (NEGATIVE); KETONES,URINE NEGATIVE (NEGATIVE); LEUKOCYTE ESTERASE ,URINE NEGATIVE (NEGATIVE); NITRITES,URINE NEGATIVE (NEGATIVE); PROTEIN,URINE 1+ (NEGATIVE); UROBILINOGEN,URINE NORMAL (NORMAL)
[2019-04-12 13:32] LABS: APPEARANCE,URINE CLEAR (CLEAR); BACTERIA,URINE NEGATIVE /HPF (NEGATIVE); COLOR,URINE YELLOW (YELLOW); MUCUS,URINE FEW /HPF (NEGATIVE); RBC,URINE NONE SEEN /HPF (NONE SEEN); SQUAMOUS EPITHELIAL CELL,UR FEW /HPF (NEGATIVE)
[2019-04-12] MEDS: NORVASC TAB 5 MG PO SCH (15:30)
[2019-04-12] MEDS ORDERED: NORVASC TAB 5 MG ONE (15:32)
[2019-04-12] MEDS ORDERED: TYLENOL 325 MG TAB PO ONE (15:43)
[2019-04-12] MEDS: TYLENOL 325 MG TAB PO PRN (15:50)
[2019-04-12 16:24] LABS: CKMB % 3.7 % (<4); CREATINE KINASE 41 Units/L (26-192); CREATINE KINASE MB 1.5 ng/mL (0-4.0); TROPONIN I < 0.02 ng/mL (0-1.5)
[2019-04-12] MEDS: XOPENEX 1.25 MG/3 ML NEBULE NEB PRN (21:03)
[2019-04-12] MEDS ORDERED: ANTIVERT TAB 25 MG PO PRN ×2 (21:35→22:19)
[2019-04-12] MEDS ORDERED: ULTRAM PO PRN (21:35)
[2019-04-12] MEDS ORDERED: ATARAX TAB 25 MG PO PRN (21:35)
[2019-04-12] MEDS ORDERED: PATIENT'S HOME MEDICATION (Cyclosporine [Restasis] 1 DROP) OP SCH (21:45)
[2019-04-12] MEDS ORDERED: PILOCARPINE HCL 5 MG PO SCH (21:45)
[2019-04-12] MEDS ORDERED: CARBOXYMETHYLCELLULOSE SODIUM OP SCH (21:45)
[2019-04-12] MEDS ORDERED: KENALOG CREAM TOP SCH ×2 (22:00→22:19)
[2019-04-12] MEDS ORDERED: LIBRIUM PO SCH (22:00)
[2019-04-12] MEDS ORDERED: NIZORAL CREAM TOP SCH (22:00)
[2019-04-12] MEDS ORDERED: CATAPRES-TTS-1 TD SCH (22:00)
[2019-04-12] MEDS ORDERED: COREG TAB 25 MG PO SCH (22:00)
[2019-04-12] MEDS ORDERED: PATIENT'S HOME MEDICATION (Levocetirizine [Levocetirizine] 5 MG) PO SCH (22:19)
[2019-04-12] MEDS ORDERED: LEVALBUTEROL HCL IN PRN (22:19)
[2019-04-12 22:31] LABS: CKMB % 3.3 % (<4); CREATINE KINASE MB 1.3 ng/mL (0-4.0); TROPONIN I 0.02 ng/mL (0-1.5)
[2019-04-12] MEDS: LIBRIUM PO SCH (22:45)
[2019-04-12] MEDS: COREG TAB 25 MG PO SCH (22:46)
[2019-04-12] MEDS: NEURONTIN CAP 300 MG PO SCH (22:46)
[2019-04-12] MEDS: MEGACE PO SCH (22:47)
[2019-04-12] MEDS: ZANAFLEX PO PRN (22:47)
[2019-04-12] MEDS: VITAMIN D3 PO SCH (22:52)
[2019-04-12] MEDS: BENADRYL CAP/TAB 25 MG PO SCH (22:52)
[2019-04-12] MEDS: BIOTIN 5000 MCG PO SCH (22:57)
[2019-04-12] MEDS: PLAQUENIL PO SCH (23:02)
[2019-04-12] MEDS: ZyrTEC TAB 10 MG PO SCH (23:02)
[2019-04-13] MEDS: ULTRAM PO PRN (03:50)
[2019-04-13 05:23] LABS: BASOPHILS % (AUTO) 1.3 % (0.2-1.0); EOSINOPHILS # (AUTO) 0.2 x10^3/uL (0.0-0.2); EOSINOPHILS % (AUTO) 4.8 % (0.9-2.9); HEMATOCRIT 31.4 % (36.0-47.0); HEMOGLOBIN 10.3 g/dL (12.0-16.0); LYMPHOCYTES # (AUTO) 0.8 X10^3/uL (1.3-2.9); LYMPHOCYTES % (AUTO) 21.9 % (21.0-51.0); MEAN CORPUSCULAR HEMOGLOBIN 27.2 pg (27.0-34.0); MEAN CORPUSCULAR HGB CONC 32.7 g/dL (33.0-35.0); MEAN CORPUSCULAR VOLUME 83.1 fL (80.0-100.0); MEAN PLATELET VOLUME 8.6 fL (7.4-11.0); MONOCYTES # (AUTO) 0.7 x10^3/uL (0.3-0.8); MONOCYTES % (AUTO) 19.5 % (0.0-13.0); NEUTROPHILS # (AUTO) 1.8 x10^3/uL (2.2-4.8); NEUTROPHILS % (AUTO) 52.5 % (42.0-75.0); PLATELET COUNT 187 X10^3/uL (150.0-450.0); RED BLOOD COUNT 3.78 X10^6/uL (3.5-5.4); RED CELL DISTRIBUTION WIDTH 15.5 % (11.6-16.5); WHITE BLOOD COUNT 3.5 X10^3/uL (3.6-10.0)
[2019-04-13 05:29] LABS: ALANINE AMINOTRANSFERASE 13 Units/L (12-78); ALKALINE PHOSPHATASE 62 Units/L (46-116); ASPARTATE AMINO TRANSFERASE 20 Units/L (15-37); BLOOD UREA NITROGEN 27 mg/dL (7-18); CALCIUM 8.3 mg/dL (8.5-10.1); CARBON DIOXIDE 19.6 mmol/L (21-32); CHLORIDE 109 mmol/L (98-107); COR CA(FOR HYPOALB) 9.1 mg/dL (8.5-10.1); CREATININE 1.62 mg/dL (0.55-1.02); MAGNESIUM 1.9 mg/dL (1.7-2.9); SODIUM 140 mmol/L (136-145); TOTAL PROTEIN 6.4 g/dL (6.4-8.2); eGFR NON BLACK RACES 32 (>60)
[2019-04-13] MEDS: NS 1000 ML 1,000 ML IV SCH ×3 (06:46→15:48)
[2019-04-13] MEDS: NEURONTIN CAP 100 MG PO SCH ×2 (06:46→12:37)
[2019-04-13] MEDS: SYNTHROID 137 mcg TAB PO SCH (06:47)
[2019-04-13] MEDS: PATIENT'S HOME MEDICATION (Cyclosporine [Restasis] 1 DROP) OP SCH ×3 (08:44→22:00)
[2019-04-13] MEDS: COREG TAB 25 MG PO SCH ×2 (08:45→21:57)
[2019-04-13] MEDS: MEGACE PO SCH ×2 (08:45→21:55)
[2019-04-13] MEDS: ESTRACE PO SCH (08:45)
[2019-04-13] MEDS: PLAVIX PO SCH (08:46)
[2019-04-13] MEDS: PROTONIX TAB 40 MG PO SCH (08:46)
[2019-04-13] MEDS: NORVASC TAB 5 MG PO SCH (08:46)
[2019-04-13] MEDS ORDERED: MEGACE PO SCH (09:00)
[2019-04-13] MEDS ORDERED: ESTRADIOL 2 MG PO SCH (09:00)
[2019-04-13] MEDS ORDERED: LEFLUNOMIDE 20 MG PO SCH (09:00)
[2019-04-13] MEDS ORDERED: ALDACTONE TAB 25 MG PO SCH ×2 (09:00)
[2019-04-13] MEDS ORDERED: MINOCYCLINE 50 MG PO SCH (09:00)
[2019-04-13] MEDS ORDERED: PROTONIX TAB 40 MG PO SCH (09:00)
[2019-04-13] MEDS ORDERED: CATAPRES-TTS-1 TD SCH (09:00)
[2019-04-13] MEDS ORDERED: PHARMACY CONSULT - DOSE _____ XX SCH (09:00)
[2019-04-13] MEDS ORDERED: FIORICET TAB ONE (09:27)
[2019-04-13] MEDS ORDERED: APRESOLINE TAB 25 MG ONE (09:27)
[2019-04-13] MEDS: LIBRIUM PO SCH ×2 (09:31→21:55)
[2019-04-13] MEDS: NIZORAL CREAM TOP SCH ×4 (09:51→21:58)
[2019-04-13] MEDS: CARBOXYMETHYLCELLULOSE SODIUM OP SCH ×3 (09:52→22:00)
[2019-04-13] MEDS: MINOCYCLINE 50 MG PO SCH ×3 (09:52→22:00)
[2019-04-13] MEDS: PILOCARPINE HCL 5 MG PO SCH ×3 (09:52→22:00)
[2019-04-13] MEDS ORDERED: FIORICET TAB PO PRN (10:20)
[2019-04-13] MEDS ORDERED: PERIACTIN TAB 4 MG PO PRN (10:20)
[2019-04-13] MEDS ORDERED: CATAPRES-TTS-2 TD SCH (11:00)
[2019-04-13] MEDS ORDERED: NORMODYNE INJ 100 MG VIAL ONE ×2 (11:02→11:40)
[2019-04-13] MEDS: LASIX IVP SCH ×2 (11:32→21:57)
[2019-04-13] MEDS: APRESOLINE TAB 25 MG PO SCH ×4 (11:32→21:57)
[2019-04-13] MEDS: PLAQUENIL PO SCH ×2 (11:47→21:55)
[2019-04-13] MEDS: NORMODYNE INJ 20 MG VIAL IVP PRN ×2 (11:58→18:28)
[2019-04-13] MEDS: LOVENOX INJ 30 MG SYR SC SCH (13:20)
[2019-04-13] MEDS: LEFLUNOMIDE 20 MG PO SCH (13:48)
[2019-04-13] MEDS: VIT C E ZINC CIT LUTEIN ZEAXAN PO SCH (13:50)
[2019-04-13] MEDS ORDERED: PROCRIT or EPOGEN SC NR (16:00)
[2019-04-13] MEDS: PATIENT'S HOME MEDICATION PO SCH ×2 (17:50→21:50)
[2019-04-13] MEDS ORDERED: ZOFRAN INJ 4 MG VIAL IVP PRN (19:36)
[2019-04-13 19:49] LABS: STOOL FOR WBC NEGATIVE (NEGATIVE)
[2019-04-13] MEDS ORDERED: CHOLECALCIFEROL 1000 UNIT PO SCH (21:00)
[2019-04-13] MEDS ORDERED: PATIENT'S HOME MEDICATION (Levocetirizine [Levocetirizine] 5 MG) PO SCH (21:00)
[2019-04-13] MEDS ORDERED: BENADRYL CAP/TAB 25 MG PO SCH (21:00)
[2019-04-13] MEDS ORDERED: BIOTIN 5000 MCG PO SCH (21:00)
[2019-04-13] MEDS: VITAMIN D3 PO SCH (21:55)
[2019-04-13] MEDS: BENADRYL CAP/TAB 25 MG PO SCH (21:56)
[2019-04-13] MEDS: NEURONTIN CAP 300 MG PO SCH (21:58)
[2019-04-13] MEDS: BIOTIN 5000 MCG PO SCH (21:59)
[2019-04-13] MEDS: ZyrTEC TAB 10 MG PO SCH (22:00)
[2019-04-13] MEDS: ZANAFLEX PO PRN (22:16)
[2019-04-13] MEDS: ATARAX TAB 25 MG PO PRN (22:17)
[2019-04-14] MEDS: NS 1000 ML 1,000 ML IV SCH ×2 (00:12→20:48)
[2019-04-14 06:13] LABS: BASOPHILS % (AUTO) 0.9 % (0.2-1.0); EOSINOPHILS # (AUTO) 0.2 x10^3/uL (0.0-0.2); EOSINOPHILS % (AUTO) 4.4 % (0.9-2.9); HEMATOCRIT 32.9 % (36.0-47.0); HEMOGLOBIN 10.7 g/dL (12.0-16.0); LYMPHOCYTES # (AUTO) 0.6 X10^3/uL (1.3-2.9); LYMPHOCYTES % (AUTO) 13.4 % (21.0-51.0); MEAN CORPUSCULAR HEMOGLOBIN 27.1 pg (27.0-34.0); MEAN CORPUSCULAR HGB CONC 32.6 g/dL (33.0-35.0); MEAN CORPUSCULAR VOLUME 83.2 fL (80.0-100.0); MEAN PLATELET VOLUME 9.5 fL (7.4-11.0); MONOCYTES # (AUTO) 0.8 x10^3/uL (0.3-0.8); MONOCYTES % (AUTO) 17.8 % (0.0-13.0); NEUTROPHILS % (AUTO) 63.5 % (42.0-75.0); PLATELET COUNT 194 X10^3/uL (150.0-450.0); RED BLOOD COUNT 3.96 X10^6/uL (3.5-5.4); RED CELL DISTRIBUTION WIDTH 15.6 % (11.6-16.5); WHITE BLOOD COUNT 4.7 X10^3/uL (3.6-10.0)
[2019-04-14 06:19] LABS: ALANINE AMINOTRANSFERASE 13 Units/L (12-78); ALBUMIN 3.1 g/dL (3.4-5.0); ALKALINE PHOSPHATASE 67 Units/L (46-116); ASPARTATE AMINO TRANSFERASE 20 Units/L (15-37); BLOOD UREA NITROGEN 31 mg/dL (7-18); CALCIUM 8.3 mg/dL (8.5-10.1); CHLORIDE 106 mmol/L (98-107); CREATININE 1.69 mg/dL (0.55-1.02); SODIUM 138 mmol/L (136-145); TOTAL PROTEIN 6.6 g/dL (6.4-8.2); eGFR NON BLACK RACES 31 (>60)
[2019-04-14] MEDS: NEURONTIN CAP 100 MG PO SCH ×2 (06:21→12:46)
[2019-04-14] MEDS: APRESOLINE TAB 25 MG PO SCH ×3 (06:21→21:22)
[2019-04-14] MEDS: SYNTHROID 137 mcg TAB PO SCH (06:22)
[2019-04-14] MEDS: CARBOXYMETHYLCELLULOSE SODIUM OP SCH ×2 (08:16→21:30)
[2019-04-14] MEDS: LEFLUNOMIDE 20 MG PO SCH (08:17)
[2019-04-14] MEDS: COREG TAB 25 MG PO SCH ×2 (08:17→08:25)
[2019-04-14] MEDS: PATIENT'S HOME MEDICATION (Cyclosporine [Restasis] 1 DROP) OP SCH ×2 (08:17→21:30)
[2019-04-14] MEDS: ESTRACE PO SCH (08:17)
[2019-04-14] MEDS: MEGACE PO SCH ×2 (08:18→21:22)
[2019-04-14] MEDS: LIBRIUM PO SCH ×2 (08:18→21:22)
[2019-04-14] MEDS: NIZORAL CREAM TOP SCH ×2 (08:19→21:29)
[2019-04-14] MEDS: MINOCYCLINE 50 MG PO SCH ×2 (08:19→21:23)
[2019-04-14] MEDS: LOVENOX INJ 30 MG SYR SC SCH (08:19)
[2019-04-14] MEDS: PILOCARPINE HCL 5 MG PO SCH ×2 (08:20→21:24)
[2019-04-14] MEDS: VIT C E ZINC CIT LUTEIN ZEAXAN PO SCH (08:21)
[2019-04-14] MEDS: PLAQUENIL PO SCH ×2 (08:24→21:22)
[2019-04-14] MEDS: NORVASC TAB 5 MG PO SCH (08:25)
[2019-04-14] MEDS: PROTONIX TAB 40 MG PO SCH (08:26)
[2019-04-14] MEDS: PATIENT'S HOME MEDICATION PO SCH ×2 (08:30→21:29)
[2019-04-14] MEDS: PLAVIX PO SCH (08:38)
[2019-04-14] MEDS ORDERED: TOPROL XL ONE (08:56)
[2019-04-14] MEDS: TOPROL XL PO SCH (09:00)
[2019-04-14] MEDS ORDERED: VIT C E ZINC CIT LUTEIN ZEAXAN PO SCH (09:00)
[2019-04-14] MEDS ORDERED: NYSTATIN POWDER ONE (10:20)
[2019-04-14] MEDS: NYSTATIN POWDER TOP SCH ×2 (11:15→21:29)
[2019-04-14] MEDS: BENADRYL CAP/TAB 25 MG PO SCH (21:21)
[2019-04-14] MEDS: NEURONTIN CAP 300 MG PO SCH (21:22)
[2019-04-14] MEDS: ZyrTEC TAB 10 MG PO SCH (21:22)
[2019-04-14] MEDS: VITAMIN D3 PO SCH (21:23)
[2019-04-14] MEDS: BIOTIN 5000 MCG PO SCH (21:30)
--- NOTE | 2019-04-14 21:58 | DR.H&P ---
H&P - History & Physical for Day of: H&P Date: 04/12/19 - Chief Complaint Chief Complaint: WEAKNESS, SHORTNESS OF BREATH, NEAR SYNCOPE - History of Present Illness History of Present Illness: IS A 78 YEAR OLD PATIENT OF OURS WHO PRES ENTED TO THE ER WITH COMPLAINTS OF WEAKNESS, SHORTNESS OF BREATH, NEAR SYNCOPE. SHE ALSO REPORTS A NON-PRODUCTIVE COUGH. ON ARRIVAL, VITALS WERE 97.5-66-16-99%-174/74. LABS WERE OBTAINED. ABNORMAL LAB VALUES INCLUDE THE FOLLOWING: WBC 3.5, HGB 10.6, HCT 32.5, CARBON DIOXIDE 18.0, BUN 31, CREATININE 1.90, GLUCOSE 107, ALBUMIN 3.3. CARDIAC ENZYMES WITHIN NORMAL LIMITS. AN EKG WAS OBTAINED AND REVEALED: SINUS RHYTHM WITH HR 63. A CHEST XRAY WAS OBTAINED AND REVEALED: LUNGS CLEAR. SHE WAS ADMITTED FOR FURTHER EVALUATION AND TREATMENT OF NEAR SYNCOPE, WEAKNESS, AND HYPERTENSION. SHE WAS STARTED ON NORMAL SALINE AT 50ML/HR AND HOME MEDICATIONS WERE RESUMED. WE PLAN TO FOLLOW UP WITH AM LABS AND CONTINUE TO MONITOR. - Past Medical History Past Medical History: Angina, Coronary Artery Disease, Hypertension, Dyslipidemia, Anemia, Arthritis, CHF - Past Surgical History Surgical History: Appendectomy, Cholecystectomy, Hysterectomy, Joint Replacement, Tonsillectomy - Family History Family Medical History: Cancer, [place], Hypertension - Social History Does patient currently use any type of tobacco product: No Have you used tobacco products in the last 12 months: No Type of Tobacco Use: None Does any household member use tobacco: No Alcohol Use: None Drug Use: None - Medications Home Medications: hydrocodone Allergy (Intermediate, Verified 04/12/19 09:23) CONFUSION CONTINUE taking the following medications biotin 5,000 mcg PO HS 04/12/19 [History] carboxymethylcellulose sodium 1 drp OPHTHALMIC (EYE) BID 04/12/19 [History] carvedilol 25 mg PO BID 04/12/19 [History] cholecalciferol (vitamin D3) [Vitamin D3] 1,000 units PO HS 04/12/19 [History] cyclosporine [Restasis] 1 drp OPHTHALMIC (EYE) BID 04/12/19 [History] diphenhydramine HCl [Benadryl] 25 mg PO HS 04/12/19 [History] ketoconazole 1 applic TOPICAL BID 04/12/19 [History] leflunomide 20 mg PO DAILY 04/12/19 [History] levalbuterol HCl 1 inh INHALATION PRN PRN 04/12/19 [History] levocetirizine 5 mg PO HS 04/12/19 [History] megestrol 40 mg PO BID 04/12/19 [History] minocycline 50 mg PO BID 04/12/19 [History] pantoprazole 40 mg PO DAILY 04/12/19 [History] spironolactone 25 mg PO DAILY 04/12/19 [History] tramadol 50 mg PO Q8H PRN 04/12/19 [History] triamcinolone acetonide 1 applic TOPICAL PRN 04/12/19 [History] vit C-E-zinc [id number] [StudyBlue] 1 tab PO DAILY 04/12/19 [History] - Review of Systems Constitutional: Weakness Eyes: No Symptoms Reported ENT: No Symptoms Reported Respiratory: Cough, Shortness of Breath Cardiovascular: Light Headedness Gastrointestinal: No Symptoms Reported Genitourinary: No Symptoms Reported Musculoskeletal: No Symptoms Reported Skin: No Symptoms Reported Neurological: Weakness - Physical Exam Vital Signs: Temperature 98.6 F Pulse Rate [Apical] 60 Pulse Rate 76 Respiratory Rate 14 Blood Pressure [Left Arm] 157/65 Blood Pressure [Right Arm] 178/62 Blood Pressure 187/77 O2 Sat by Pulse Oximetry 99 Oriented: Normal Eyes: Normal Ear: Normal Nose: Normal Throat: Normal Respiratory: Diminished Throughout Cardiovascular: Normal. negative: S3, S4, Murmur : Normal Auscultation: Bowel Sounds: Normal Palpation: Normal Tenderness: Normal Skin: Normal Musculoskeletal: Normal Psychiatric: Normal Mood Description: Calm Affect: Normal Speech Pattern: Clear - Assessment/Plan (1) Near syncope Status: Acute Plan: ADMIT, NORMAL SALINE AT 50ML/HR, CONTINUE TO MONITOR (2) Weakness Status: Acute (3) Hypertension Qualifiers: Hypertension type: essential hypertension Qualified Code(s): I10 - Essential (primary) hypertension Status: Acute Plan: CONTINUE HOME MEDS, CONTINUE TO MONITOR - Allergies Allergies/Adverse Reactions: Allergies Allergy/AdvReac Type Severity Reaction Status Date / Time hydrocodone Allergy Intermediate CONFUSION Verified 04/12/19 09:23
[2019-04-14] MEDS: ATARAX TAB 25 MG PO PRN (22:08)
[2019-04-15] MEDS: APRESOLINE TAB 25 MG PO SCH ×3 (06:07→21:00)
[2019-04-15] MEDS: SYNTHROID 137 mcg TAB PO SCH (06:07)
[2019-04-15] MEDS: NEURONTIN CAP 100 MG PO SCH ×2 (06:07→14:15)
[2019-04-15] MEDS: XOPENEX 1.25 MG/3 ML NEBULE NEB PRN ×3 (06:30→20:25)
[2019-04-15 07:46] LABS: ALANINE AMINOTRANSFERASE 8 Units/L (12-78); ALBUMIN 3.1 g/dL (3.4-5.0); ALKALINE PHOSPHATASE 79 Units/L (46-116); ASPARTATE AMINO TRANSFERASE 21 Units/L (15-37); BLOOD UREA NITROGEN 29 mg/dL (7-18); CALCIUM 8.3 mg/dL (8.5-10.1); CARBON DIOXIDE 16.8 mmol/L (21-32); CHLORIDE 110 mmol/L (98-107); SODIUM 139 mmol/L (136-145); TOTAL PROTEIN 6.7 g/dL (6.4-8.2); eGFR NON BLACK RACES 36 (>60)
[2019-04-15 07:50] LABS: BASOPHILS # (AUTO) 0.1 X10^3/uL (0.0-0.1); EOSINOPHILS # (AUTO) 0.4 x10^3/uL (0.0-0.2); MONOCYTES % (AUTO) 14.8 % (0.0-13.0); RED BLOOD COUNT 4.02 X10^6/uL (3.5-5.4)
[2019-04-15 07:58] LABS: BASOPHILS % (AUTO) 1.1 % (0.2-1.0); EOSINOPHILS % (AUTO) 6.1 % (0.9-2.9); HEMATOCRIT 33.1 % (36.0-47.0); HEMOGLOBIN 11.2 g/dL (12.0-16.0); LYMPHOCYTES # (AUTO) 1.4 X10^3/uL (1.3-2.9); LYMPHOCYTES % (AUTO) 21.9 % (21.0-51.0); MEAN CORPUSCULAR HEMOGLOBIN 27.8 pg (27.0-34.0); MEAN CORPUSCULAR HGB CONC 33.8 g/dL (33.0-35.0); MEAN CORPUSCULAR VOLUME 82.2 fL (80.0-100.0); MEAN PLATELET VOLUME 9.1 fL (7.4-11.0); NEUTROPHILS # (AUTO) 3.7 x10^3/uL (2.2-4.8); NEUTROPHILS % (AUTO) 56.1 % (42.0-75.0); PLATELET COUNT 167 X10^3/uL (150.0-450.0); RED CELL DISTRIBUTION WIDTH 15.6 % (11.6-16.5)
[2019-04-15] MEDS ORDERED: CATAPRES-TTS-2 TD SCH (08:00)
[2019-04-15 08:05] LABS: WHITE BLOOD COUNT 7.3 X10^3/uL (3.6-10.0)
[2019-04-15 08:10] LABS: BAND NEUTROPHILS % 5 % (0-10)
[2019-04-15 08:11] LABS: GIANT PLATELET FEW; PLATELET MORPHOLOGY COMMENT ABNORMAL (NORMAL)
[2019-04-15] MEDS: TOPROL XL PO SCH (08:27)
[2019-04-15] MEDS: CARBOXYMETHYLCELLULOSE SODIUM OP SCH ×2 (08:27→20:36)
[2019-04-15] MEDS: PATIENT'S HOME MEDICATION (Cyclosporine [Restasis] 1 DROP) OP SCH ×2 (08:27→20:36)
[2019-04-15] MEDS: VIT C E ZINC CIT LUTEIN ZEAXAN PO SCH (08:27)
[2019-04-15] MEDS: CHECK PATCH XX SCH ×2 (08:27→20:30)
[2019-04-15] MEDS: PROTONIX TAB 40 MG PO SCH (08:28)
[2019-04-15] MEDS: PLAVIX PO SCH (08:28)
[2019-04-15] MEDS: PLAQUENIL PO SCH ×2 (08:28→20:31)
[2019-04-15] MEDS: PATIENT'S HOME MEDICATION PO SCH ×2 (08:29→20:55)
[2019-04-15] MEDS: NYSTATIN POWDER TOP SCH ×2 (08:29→20:37)
[2019-04-15] MEDS: NORVASC TAB 5 MG PO SCH (08:29)
[2019-04-15] MEDS: PILOCARPINE HCL 5 MG PO SCH ×2 (08:29→20:35)
[2019-04-15] MEDS: NIZORAL CREAM TOP SCH ×2 (08:30→20:36)
[2019-04-15] MEDS: LOVENOX INJ 30 MG SYR SC SCH (08:30)
[2019-04-15] MEDS: MEGACE PO SCH ×2 (08:30→20:30)
[2019-04-15] MEDS: MINOCYCLINE 50 MG PO SCH ×2 (08:30→20:34)
[2019-04-15] MEDS: ESTRACE PO SCH (08:31)
[2019-04-15] MEDS: LIBRIUM PO SCH ×2 (08:31→20:30)
[2019-04-15] MEDS: LEFLUNOMIDE 20 MG PO SCH (08:31)
[2019-04-15] MEDS: ATARAX TAB 25 MG PO PRN (14:20)
[2019-04-15] MEDS: NS 1000 ML 1,000 ML IV SCH ×3 (15:57→23:32)
[2019-04-15] MEDS: ULTRAM PO PRN (15:58)
[2019-04-15] MEDS: MILK OF MAGNESIA PO SCH (18:09)
[2019-04-15] MEDS: COLACE CAP 100 MG PO SCH (18:09)
[2019-04-15] MEDS: ZyrTEC TAB 10 MG PO SCH (20:30)
[2019-04-15] MEDS: VITAMIN D3 PO SCH (20:30)
[2019-04-15] MEDS: BENADRYL CAP/TAB 25 MG PO SCH (20:30)
[2019-04-15] MEDS: NEURONTIN CAP 300 MG PO SCH (20:30)
--- NOTE | 2019-04-15 20:30 | PCM.PROG ---
Progress Note - Progress Note for Day of Date of Exam: 04/13/19 - Subjective Subjective: WAS ADMITTED FOR NEAR SYNCOPE, WEAKNESS, AND HYPERTENSION. TODAY, SHE IS ALERT AND ORIENTED, LYING IN BED ON MORNING ROUNDS. SHE COMPLAINS OF A SEVERE HEADACHE, DECREASED APPETITE, DIARRHEA, AND INCREASED BLOOD PRESSURE. STAFF REPORTS THAT BLOOD PRESSURE HAS BEEN ELEVATED THROUGHOUT THE NIGHT DESPITE TAKING HER HOME MEDICATIONS. ON MORNING ROUNDS, VITALS ARE 98.1-70-22-100%-224/93. LABS WERE OBTAINED. ABNORMAL LAB VALUES INCLUDE THE FOLLOWING: WBC 3.5, HGB 10.3, HCT 31.4, CHLORIDE 109, CARBON DIOXIDE 19.6, BUN 27, CREATININE 1.62, CALCIUM 8.3, ALBUMIN 3.0. TODAY, WE WILL HOLD HER ALDACTONE. WE WILL INCREASE HER CLONIDINE PATCH TO 0.2MG/HR PATCH, START PERIACTIN, HYDRALAZINE 50MG PO TID, FIORCET 1 TAB QID PRN, AND START THE LABETALOL PROTOCOL NEEDED. WE WILL OBTAIN AN ECHO. OTHERWISE, WE WILL CONTINUE TO MONITOR NIBP. WE WILL OBTAIN STOOL STUDIES AND FOLLOW UP WITH AM LABS. - Past Medical Family Social History Past Med/Fam/Surg Hx: No changes since H&P Allergies: Allergies hydrocodone Allergy (Intermediate, Verified 04/12/19 09:23) CONFUSION - Review of Systems ROS: No change since H&P - Vital Signs and I&O's Vital Signs: Temperature 97.9 F Pulse Rate [Left Brachial] 81 Pulse Rate [Apical] 79 Pulse Rate 75 Respiratory Rate 18 Blood Pressure [Left Arm] 197/76 Blood Pressure [Right Arm] 182/95 Blood Pressure 146/76 O2 Sat by Pulse Oximetry 95 Intake and Output: Intake & Output 04/13/19 04/14/19 04/15/19 04/16/19 11:59 11:59 11:59 11:59 Intake Total 1655 / 1655 2400 / 2400 2280 / 2280 480 / 480 Output Total 1350 / 1350 0 / 0 Balance 305 / 305 2400 / 2400 2280 / 2280 480 / 480 - Physical Exam Oriented: Normal Eyes: Normal Ear: Normal Nose: Normal Throat: Normal Cardiovascular: Normal. negative: S3, S4, Murmur : Normal Auscultation: Bowel Sounds: Normal Palpation: Normal Tenderness: Normal Skin: Normal Musculoskeletal: Normal Psychiatric: Normal Mood Description: Calm Affect: Normal Speech Pattern: Clear, Appropriate - Laboratory and Diagnostics Result Diagrams: 04/15/19 07:21 04/15/19 07:21 Labs: 04/13/19 18:00 Stool Stool Culture - Preliminary 04/13/19 18:00 Stool - Final Laboratory WBC 7.3 X10^3/uL (3.6-10.0) 04/15/19 07:21 RBC 4.02 X10^6/uL (3.5-5.4) 04/15/19 07:21 Hgb 11.2 g/dL (12.0-16.0) L 04/15/19 07:21 Hct 33.1 % (36.0-47.0) L 04/15/19 07:21 MCV 82.2 fL (80.0-100.0) 04/15/19 07:21 MCH 27.8 pg (27.0-34.0) 04/15/19 07:21 MCHC 33.8 g/dL (33.0-35.0) 04/15/19 07:21 RDW 15.6 % (11.6-16.5) 04/15/19 07:21 Plt Count 167 X10^3/uL (150.0-450.0) 04/15/19 07:21 Plt Count Comment Adequate (ADEQUATE) 04/15/19 07:21 MPV 9.1 fL (7.4-11.0) 04/15/19 07:21 Neut % (Auto) 56.1 % (42.0-75.0) 04/15/19 07:21 Lymph % (Auto) 21.9 % (21.0-51.0) 04/15/19 07:21 [place] % (Auto) 14.8 % (0.0-13.0) H 04/15/19 07:21 Eos % (Auto) 6.1 % (0.9-2.9) H 04/15/19 07:21 Baso % (Auto) 1.1 % (0.2-1.0) H 04/15/19 07:21 Neut # (Auto) 3.7 x10^3/uL (2.2-4.8) 04/15/19 07:21 Lymph # (Auto) 1.4 X10^3/uL (1.3-2.9) 04/15/19 07:21 [place] # (Auto) 1.0 x10^3/uL (0.3-0.8) H 04/15/19 07:21 Eos # (Auto) 0.4 x10^3/uL (0.0-0.2) H 04/15/19 07:21 Baso # (Auto) 0.1 X10^3/uL (0.0-0.1) 04/15/19 07:21 Absolute Nucleated RBC 0.8 /100WBC 04/15/19 07:21 Total Counted 100 04/15/19 07:21 Neutrophils % (Manual) 55 % (39-76) 04/15/19 07:21 Band Neutrophils % 5 % (0-10) 04/15/19 07:21 Lymphocytes % (Manual) 21 % (13-43) 04/15/19 07:21 Monocytes % (Manual) 8 % (4-9) 04/15/19 07:21 Eosinophils % (Manual) 10 % (0-6) H 04/15/19 07:21 Atypical Lymphocytes 1 04/15/19 07:21 Giant Platelets Few 04/15/19 07:21 Plt Morphology Comment Abnormal (NORMAL) A 04/15/19 07:21 RBC Morphology Normal (NORMAL) 04/15/19 07:21 INR Target Range - 04/13/19 04:27 INR 1.07 (0.8-1.3) 04/13/19 04:27 APTT 29.8 SECONDS (22.9-36.5) 04/13/19 04:27 PTT Comment - 04/13/19 04:27 Sodium 139 mmol/L (136-145) 04/15/19 07:21 Corrected Sodium TNP 04/15/19 07:21 Potassium 3.9 mmol/L (3.5-5.1) 04/15/19 07:21 Chloride 110 mmol/L (98-107) H 04/15/19 07:21 Carbon Dioxide 16.8 mmol/L (21-32) L 04/15/19 07:21 BUN 29 mg/dL (7-18) H 04/15/19 07:21 Creatinine 1.50 mg/dL (0.55-1.02) H 04/15/19 07:21 Est GFR (MDRD) Af Amer 43 (>60) L 04/15/19 07:21 Est GFR (MDRD) Non-Af 36 (>60) L 04/15/19 07:21 Glucose 101 mg/dL (65-99) H 04/15/19 07:21 Calcium 8.3 mg/dL (8.5-10.1) L 04/15/19 07:21 Corrected Calcium 9.0 mg/dL (8.5-10.1) 04/15/19 07:21 Magnesium 1.9 mg/dL (1.7-2.9) 04/13/19 04:27 Total Bilirubin 0.20 mg/dL (0.2-1.0) 04/15/19 07:21 AST 21 Units/L (15-37) 04/15/19 07:21 ALT 8 Units/L (12-78) L 04/15/19 07:21 Alkaline Phosphatase 79 Units/L (46-116) 04/15/19 07:21 Creatine Kinase 39 Units/L (26-192) 04/12/19 22:01 CK-MB (CK-2) 1.3 ng/mL (0-4.0) 04/12/19 22:01 CK/CKMB % Calc 3.3 % (<4) 04/12/19 22:01 Troponin I 0.02 ng/mL (0-1.5) 04/12/19 22:01 Total Protein 6.7 g/dL (6.4-8.2) 04/15/19 07:21 Albumin 3.1 g/dL (3.4-5.0) L 04/15/19 07:21 Globulin 3.6 g/dL (2.5-4.5) 04/15/19 07:21 Albumin/Globulin Ratio 0.9 Ratio (1.1-2.1) L 04/15/19 07:21 Specimen Type Clean catch urine 04/12/19 13:08 Urine Color Yellow (YELLOW) 04/12/19 13:08 Urine Appearance Clear (CLEAR) 04/12/19 13:08 Urine pH 5.0 (5.0 - 8.0) 04/12/19 13:08 Ur Specific [place] 1.015 (1.000-1.030) 04/12/19 13:08 Urine Protein 1+ (NEGATIVE) 04/12/19 13:08 Urine Glucose (UA) Negative (NEGATIVE) 04/12/19 13:08 Urine Ketones Negative (NEGATIVE) 04/12/19 13:08 Urine Occult Blood Negative (NEGATIVE) 04/12/19 13:08 Urine Nitrite Negative (NEGATIVE) 04/12/19 13:08 Urine Bilirubin Negative (NEGATIVE) 04/12/19 13:08 Urine Urobilinogen Normal (NORMAL) 04/12/19 13:08 Ur Leukocyte Esterase Negative (NEGATIVE) 04/12/19 13:08 Urine RBC None seen /HPF (NONE SEEN) 04/12/19 13:08 Urine WBC None seen /HPF (NONE SEEN) 04/12/19 13:08 Ur Squamous Epith Cells Few /HPF (NEGATIVE) 04/12/19 13:08 Urine Bacteria Negative /HPF (NEGATIVE) 04/12/19 13:08 Urine Mucus Few /HPF (NEGATIVE) 04/12/19 13:08 Ur Culture Indicated? No/not indicated 04/12/19 13:08 Stool Description 40g.unformed/brown 04/13/19 18:00 Stl Occult Blood (IFOB) Negative (NEGATIVE) 04/13/19 18:00 Stool for White Cells Negative (NEGATIVE) 04/13/19 18:00 Stl C. diff Tox B Gene Negative (NEGATIVE) 04/13/19 18:00 Stl C. diff [id number] Negative (NEGATIVE) 04/13/19 18:00 Blood Type O POSITIVE 04/12/19 09:47 Antibody Screen Negative 04/12/19 09:47 - Plan (1) Near syncope Status: Acute Plan: ADMIT, NORMAL SALINE AT 50ML/HR, CONTINUE TO MONITOR (2) Weakness Status: Acute (3) Hypertension Status: Acute Qualifiers: Hypertension type: essential hypertension Qualified Code(s): I10 - Essential (primary) hypertension Plan: CONTINUE HOME MEDS, HYDRALAZINE 50MG PO TID, LABETALOL PROTOCOL, CLONIDINE 0.2MG/HR TD PATCH, CONTINUE TO MONITOR
[2019-04-15] MEDS: BIOTIN 5000 MCG PO SCH (20:33)
[2019-04-16 05:20] LABS: BASOPHILS # (AUTO) 0.1 X10^3/uL (0.0-0.1); BASOPHILS % (AUTO) 1.3 % (0.2-1.0); EOSINOPHILS # (AUTO) 0.2 x10^3/uL (0.0-0.2); HEMATOCRIT 30.5 % (36.0-47.0); LYMPHOCYTES # (AUTO) 0.7 X10^3/uL (1.3-2.9); LYMPHOCYTES % (AUTO) 18.4 % (21.0-51.0); MEAN CORPUSCULAR HEMOGLOBIN 27.2 pg (27.0-34.0); MEAN CORPUSCULAR HGB CONC 32.7 g/dL (33.0-35.0); MEAN CORPUSCULAR VOLUME 83.1 fL (80.0-100.0); MEAN PLATELET VOLUME 9.5 fL (7.4-11.0); MONOCYTES # (AUTO) 0.7 x10^3/uL (0.3-0.8); MONOCYTES % (AUTO) 18.4 % (0.0-13.0); NEUTROPHILS # (AUTO) 2.3 x10^3/uL (2.2-4.8); NEUTROPHILS % (AUTO) 56.9 % (42.0-75.0); PLATELET COUNT 184 X10^3/uL (150.0-450.0); RED BLOOD COUNT 3.67 X10^6/uL (3.5-5.4); WHITE BLOOD COUNT 4.1 X10^3/uL (3.6-10.0)
[2019-04-16 05:33] LABS: ALANINE AMINOTRANSFERASE 13 Units/L (12-78); ALBUMIN 2.7 g/dL (3.4-5.0); ALKALINE PHOSPHATASE 67 Units/L (46-116); ASPARTATE AMINO TRANSFERASE 19 Units/L (15-37); BLOOD UREA NITROGEN 27 mg/dL (7-18); CALCIUM 8.2 mg/dL (8.5-10.1); CARBON DIOXIDE 19.6 mmol/L (21-32); CHLORIDE 110 mmol/L (98-107); COR CA(FOR HYPOALB) 9.2 mg/dL (8.5-10.1); CREATININE 1.43 mg/dL (0.55-1.02); SODIUM 141 mmol/L (136-145); TOTAL PROTEIN 6.2 g/dL (6.4-8.2); eGFR NON BLACK RACES 38 (>60)
[2019-04-16] MEDS: APRESOLINE TAB 25 MG PO SCH ×3 (06:12→21:29)
[2019-04-16] MEDS: COLACE CAP 100 MG PO SCH ×2 (06:12→21:29)
[2019-04-16] MEDS: NEURONTIN CAP 100 MG PO SCH ×2 (06:13→12:06)
[2019-04-16] MEDS: SYNTHROID 137 mcg TAB PO SCH (06:13)
[2019-04-16] MEDS: MILK OF MAGNESIA PO SCH (06:13)
[2019-04-16] MEDS: LOVENOX INJ 30 MG SYR SC SCH (08:48)
[2019-04-16] MEDS: PLAVIX PO SCH (08:48)
[2019-04-16] MEDS: MEGACE PO SCH ×2 (08:48→21:29)
[2019-04-16] MEDS: ESTRACE PO SCH (08:48)
[2019-04-16] MEDS: TOPROL XL PO SCH ×2 (08:49→10:41)
[2019-04-16] MEDS: PROTONIX TAB 40 MG PO SCH (08:49)
[2019-04-16] MEDS: PLAQUENIL PO SCH ×2 (08:49→21:30)
[2019-04-16] MEDS: LIBRIUM PO SCH ×2 (08:49→21:30)
[2019-04-16] MEDS: NORVASC TAB 5 MG PO SCH (08:49)
[2019-04-16] MEDS: CARBOXYMETHYLCELLULOSE SODIUM OP SCH ×2 (08:50→21:34)
[2019-04-16] MEDS: VIT C E ZINC CIT LUTEIN ZEAXAN PO SCH (08:51)
[2019-04-16] MEDS: NIZORAL CREAM TOP SCH ×2 (08:51→21:32)
[2019-04-16] MEDS: PILOCARPINE HCL 5 MG PO SCH ×2 (08:51→21:32)
[2019-04-16] MEDS: PATIENT'S HOME MEDICATION (Cyclosporine [Restasis] 1 DROP) OP SCH ×2 (08:52→21:34)
[2019-04-16] MEDS: MINOCYCLINE 50 MG PO SCH ×2 (08:52→21:33)
[2019-04-16] MEDS: LEFLUNOMIDE 20 MG PO SCH (08:52)
[2019-04-16] MEDS: PATIENT'S HOME MEDICATION PO SCH ×2 (08:52→21:35)
[2019-04-16] MEDS: CHECK PATCH XX SCH ×2 (08:53→21:33)
[2019-04-16] MEDS: NYSTATIN POWDER TOP SCH (08:53)
[2019-04-16] MEDS ORDERED: CATAPRES-TTS-3 TD SCH (10:00)
[2019-04-16] MEDS: TYLENOL 325 MG TAB PO PRN (10:30)
[2019-04-16] MEDS: XOPENEX 1.25 MG/3 ML NEBULE NEB PRN (12:05)
[2019-04-16] MEDS ORDERED: NYSTATIN POWDER TOP PRN (17:50)
--- NOTE | 2019-04-16 18:55 | PCM.PROG ---
Progress Note - Progress Note for Day of Date of Exam: 04/14/19 - Subjective Subjective: WAS ADMITTED FOR NEAR SYNCOPE, WEAKNESS, AND HYPERTENSION. TODAY, SHE IS ALERT AND ORIENTED, LYING IN BED ON MORNING ROUNDS. SHE CONTINUES WITH WEAKNESS, BUT DENIES HEADACHE TODAY. SHE CONTINUES TO BE HYPERTENSIVE TODAY DESPITE CHANGES IN HER MEDICATIONS. ON EXAMINATION, HEART REGULAR IN RATE AND RHYTHM. BILATERAL LUNGS NOTED WITH DIMINISHED LUNG SOUNDS THROUGHOUT. ABDOMEN IS ROUND, SOFT, AND NON-TENDER WITH NORMAL BOWEL SOUNDS NOTED IN ALL QUADRANTS. HER VITALS THIS MORNING ARE 98.4-84-25-100%-121/87. LABS WERE OBTAINED. ABNORMAL LAB VALUES INCLUDE THE FOLLOWING: HGB 10.7, HCT 32.9, CARBON DIOXIDE 18.0, BUN 31, CREATININE 1.69, CALCIUM 8.3, ALBUMIN 3.1. STOOL STUDIES WERE NEGATIVE. WE WILL INCREASE HER CLONIDINE PATCH TO 0.2MG/HR PATCH, START PERIACTIN, HYDRALAZINE 50MG PO TID, FIORCET 1 TAB QID PRN, AND START THE LABETALOL PROTOCOL NEEDED. ECHO REVEALED SEVERE CONCENTRIC HYPERTROPHY OF THE LEFT VENTRICLE. EJECTION FRACTION OF 57%. MILD AORTIC VALVE LEAFLET THICKENING WITH MILD CALCIFICATION. TODAY, WE WILL DISCONTINUE HER COREG AND START METOPROLOL XL 50MG PO DAILY. OTHERWISE, WE WILL CONTINUE TO MONITOR NIBP. WE WILL OBTAIN STOOL STUDIES AND FOLLOW UP WITH AM LABS. - Past Medical Family Social History Past Med/Fam/Surg Hx: No changes since H&P Allergies: Allergies hydrocodone Allergy (Intermediate, Verified 04/12/19 09:23) CONFUSION - Review of Systems ROS: No change since H&P - Vital Signs and I&O's Vital Signs: Temperature 98.6 F Pulse Rate [Right] 76 Pulse Rate [Left Brachial] 79 Pulse Rate [Apical] 79 Pulse Rate 75 Respiratory Rate 18 Blood Pressure [Left Arm] 175/79 Blood Pressure [Right Arm] 184/72 Blood Pressure 146/76 O2 Sat by Pulse Oximetry 99 Intake and Output: Intake & Output 04/14/19 04/15/19 04/16/19 04/17/19 11:59 11:59 11:59 11:59 Intake Total 2400 / 2400 2280 / 2280 1645 / 1645 720 / 720 Output Total 0 / 0 Balance 2400 / 2400 2280 / 2280 1645 / 1645 720 / 720 - Physical Exam Oriented: Normal Eyes: Normal Ear: Normal Nose: Normal Throat: Normal Respiratory: Generalized, Diminished Cardiovascular: Normal. negative: S3, S4, Murmur : Normal Auscultation: Bowel Sounds: Normal Palpation: Normal Tenderness: Normal Skin: Normal Musculoskeletal: Normal Psychiatric: Normal Mood Description: Calm Affect: Normal Speech Pattern: Clear, Appropriate - Laboratory and Diagnostics Result Diagrams: 04/16/19 04:11 04/16/19 04:11 Labs: 04/13/19 18:00 Stool Stool Culture - Final 04/13/19 18:00 Stool - Final Laboratory WBC 4.1 X10^3/uL (3.6-10.0) 04/16/19 04:11 RBC 3.67 X10^6/uL (3.5-5.4) 04/16/19 04:11 Hgb 10.0 g/dL (12.0-16.0) L 04/16/19 04:11 Hct 30.5 % (36.0-47.0) L 04/16/19 04:11 MCV 83.1 fL (80.0-100.0) 04/16/19 04:11 MCH 27.2 pg (27.0-34.0) 04/16/19 04:11 MCHC 32.7 g/dL (33.0-35.0) L 04/16/19 04:11 RDW 16.0 % (11.6-16.5) 04/16/19 04:11 Plt Count 184 X10^3/uL (150.0-450.0) 04/16/19 04:11 Plt Count Comment Adequate (ADEQUATE) 04/15/19 07:21 MPV 9.5 fL (7.4-11.0) 04/16/19 04:11 Neut % (Auto) 56.9 % (42.0-75.0) 04/16/19 04:11 Lymph % (Auto) 18.4 % (21.0-51.0) L 04/16/19 04:11 [place] % (Auto) 18.4 % (0.0-13.0) H 04/16/19 04:11 Eos % (Auto) 5.0 % (0.9-2.9) H 04/16/19 04:11 Baso % (Auto) 1.3 % (0.2-1.0) H 04/16/19 04:11 Neut # (Auto) 2.3 x10^3/uL (2.2-4.8) 04/16/19 04:11 Lymph # (Auto) 0.7 X10^3/uL (1.3-2.9) L 04/16/19 04:11 [place] # (Auto) 0.7 x10^3/uL (0.3-0.8) 04/16/19 04:11 Eos # (Auto) 0.2 x10^3/uL (0.0-0.2) 04/16/19 04:11 Baso # (Auto) 0.1 X10^3/uL (0.0-0.1) 04/16/19 04:11 Absolute Nucleated RBC 0.0 /100WBC 04/16/19 04:11 Total Counted 100 04/15/19 07:21 Neutrophils % (Manual) 55 % (39-76) 04/15/19 07:21 Band Neutrophils % 5 % (0-10) 04/15/19 07:21 Lymphocytes % (Manual) 21 % (13-43) 04/15/19 07:21 Monocytes % (Manual) 8 % (4-9) 04/15/19 07:21 Eosinophils % (Manual) 10 % (0-6) H 04/15/19 07:21 Atypical Lymphocytes 1 04/15/19 07:21 Giant Platelets Few 04/15/19 07:21 Plt Morphology Comment Abnormal (NORMAL) A 04/15/19 07:21 RBC Morphology Normal (NORMAL) 04/15/19 07:21 INR Target Range - 04/13/19 04:27 INR 1.07 (0.8-1.3) 04/13/19 04:27 APTT 29.8 SECONDS (22.9-36.5) 04/13/19 04:27 PTT Comment - 04/13/19 04:27 Sodium 141 mmol/L (136-145) 04/16/19 04:11 Corrected Sodium TNP 04/16/19 04:11 Potassium 4.2 mmol/L (3.5-5.1) 04/16/19 04:11 Chloride 110 mmol/L (98-107) H 04/16/19 04:11 Carbon Dioxide 19.6 mmol/L (21-32) L 04/16/19 04:11 BUN 27 mg/dL (7-18) H 04/16/19 04:11 Creatinine 1.43 mg/dL (0.55-1.02) H 04/16/19 04:11 Est GFR (MDRD) Af Amer 45 (>60) L 04/16/19 04:11 Est GFR (MDRD) Non-Af 38 (>60) L 04/16/19 04:11 Glucose 89 mg/dL (65-99) 04/16/19 04:11 Calcium 8.2 mg/dL (8.5-10.1) L 04/16/19 04:11 Corrected Calcium 9.2 mg/dL (8.5-10.1) 04/16/19 04:11 Magnesium 1.9 mg/dL (1.7-2.9) 04/13/19 04:27 Total Bilirubin 0.20 mg/dL (0.2-1.0) 04/16/19 04:11 AST 19 Units/L (15-37) 04/16/19 04:11 ALT 13 Units/L (12-78) 04/16/19 04:11 Alkaline Phosphatase 67 Units/L (46-116) 04/16/19 04:11 Creatine Kinase 39 Units/L (26-192) 04/12/19 22:01 CK-MB (CK-2) 1.3 ng/mL (0-4.0) 04/12/19 22:01 CK/CKMB % Calc 3.3 % (<4) 04/12/19 22:01 Troponin I 0.02 ng/mL (0-1.5) 04/12/19 22:01 Total Protein 6.2 g/dL (6.4-8.2) L 04/16/19 04:11 Albumin 2.7 g/dL (3.4-5.0) L 04/16/19 04:11 Globulin 3.5 g/dL (2.5-4.5) 04/16/19 04:11 Albumin/Globulin Ratio 0.8 Ratio (1.1-2.1) L 04/16/19 04:11 Specimen Type Clean catch urine 04/12/19 13:08 Urine Color Yellow (YELLOW) 04/12/19 13:08 Urine Appearance Clear (CLEAR) 04/12/19 13:08 Urine pH 5.0 (5.0 - 8.0) 04/12/19 13:08 Ur Specific [place] 1.015 (1.000-1.030) 04/12/19 13:08 Urine Protein 1+ (NEGATIVE) 04/12/19 13:08 Urine Glucose (UA) Negative (NEGATIVE) 04/12/19 13:08 Urine Ketones Negative (NEGATIVE) 04/12/19 13:08 Urine Occult Blood Negative (NEGATIVE) 04/12/19 13:08 Urine Nitrite Negative (NEGATIVE) 04/12/19 13:08 Urine Bilirubin Negative (NEGATIVE) 04/12/19 13:08 Urine Urobilinogen Normal (NORMAL) 04/12/19 13:08 Ur Leukocyte Esterase Negative (NEGATIVE) 04/12/19 13:08 Urine RBC None seen /HPF (NONE SEEN) 04/12/19 13:08 Urine WBC None seen /HPF (NONE SEEN) 04/12/19 13:08 Ur Squamous Epith Cells Few /HPF (NEGATIVE) 04/12/19 13:08 Urine Bacteria Negative /HPF (NEGATIVE) 04/12/19 13:08 Urine Mucus Few /HPF (NEGATIVE) 04/12/19 13:08 Ur Culture Indicated? No/not indicated 04/12/19 13:08 Stool Description 40g.unformed/brown 04/13/19 18:00 Stl Occult Blood (IFOB) Negative (NEGATIVE) 04/13/19 18:00 Stool for White Cells Negative (NEGATIVE) 04/13/19 18:00 Stl C. diff Tox B Gene Negative (NEGATIVE) 04/13/19 18:00 Stl C. diff [id number]-BI Negative (NEGATIVE) 04/13/19 18:00 Blood Type O POSITIVE 04/12/19 09:47 Antibody Screen Negative 04/12/19 09:47 - Plan (1) Near syncope Status: Acute Plan: ADMIT, NORMAL SALINE AT 50ML/HR, CONTINUE TO MONITOR (2) Weakness Status: Acute (3) Hypertension Status: Acute Qualifiers: Hypertension type: essential hypertension Qualified Code(s): I10 - Essent ial (primary) hypertension Plan: D/C COREG, START METOPROLOL XL 25MG PO DAILY, HYDRALAZINE 50MG PO TID, LABETALOL PROTOCOL, CLONIDINE 0.2MG/HR TD PATCH, CONTINUE TO MONITOR
--- NOTE | 2019-04-16 19:01 | PCM.PROG ---
Progress Note - Progress Note for Day of Date of Exam: 04/15/19 - Subjective Subjective: WAS ADMITTED FOR NEAR SYNCOPE, WEAKNESS, AND HYPERTENSION. TODAY, SHE IS ALERT AND ORIENTED, LYING IN BED ON MORNING ROUNDS. SHE CONTINUES WITH WEAKNESS, BUT DENIES HEADACHE TODAY. HER BLOOD PRESSURE HAS BEEN STABLE THROUGHOUT THE NIGHT. ON EXAMINATION, HEART REGULAR IN RATE AND RHYTHM. BILATERAL LUNGS NOTED WITH DIMINISHED LUNG SOUNDS THROUGHOUT. ABDOMEN IS ROUND, SOFT, AND NON-TENDER WITH NORMAL BOWEL SOUNDS NOTED IN ALL QUADRANTS. HER VITALS THIS MORNING ARE 99.0-74-26-98%-155/90. LABS WERE OBTAINED. ABNORMAL LAB VALUES INCLUDE THE FOLLOWING: HGB 11.2, HCT 33.1, CHLORIDE 110, CARBON DIOXIDE 16.8, BUN 29, CREATININE 1.50, CALCIUM 8.2, TOTAL PROTEIN 6.2, ALBUMIN 2.7. WE WILL CONTINUE WITH CURRENT PLAN OF CARE TODAY AND CONTINUE TO MONITOR NIBP. OTHERWISE, WE WILL FOLLOW UP WITH AM LABS. - Past Medical Family Social History Past Med/Fam/Surg Hx: No changes since H&P Allergies: Allergies hydrocodone Allergy (Intermediate, Verified 04/12/19 09:23) CONFUSION - Review of Systems ROS: No change since H&P - Vital Signs and I&O's Vital Signs: Temperature 98.6 F Pulse Rate [Right] 76 Pulse Rate [Left Brachial] 79 Pulse Rate [Apical] 79 Pulse Rate 75 Respiratory Rate 18 Blood Pressure [Left Arm] 175/79 Blood Pressure [Right Arm] 184/72 Blood Pressure 146/76 O2 Sat by Pulse Oximetry 99 Intake and Output: Intake & Output 04/14/19 04/15/19 04/16/19 04/17/19 11:59 11:59 11:59 11:59 Intake Total 2400 / 2400 2280 / 2280 1645 / 1645 720 / 720 Output Total 0 / 0 Balance 2400 / 2400 2280 / 2280 1645 / 1645 720 / 720 - Physical Exam Oriented: Normal Eyes: Normal Ear: Normal Nose: Normal Throat: Normal Respiratory: Generalized, Diminished Cardiovascular: Normal. negative: S3, S4, Murmur : Normal Auscultation: Bowel Sounds: Normal Palpation: Normal Tenderness: Normal Skin: Normal Musculoskeletal: Normal Psychiatric: Normal Mood Description: Calm Affect: Normal Speech Pattern: Clear, Appropriate - Laboratory and Diagnostics Result Diagrams: 04/16/19 04:11 06/10/19 04:11 Labs: 04/13/19 18:00 Stool Stool Culture - Final 04/13/19 18:00 Stool - Final Laboratory WBC 4.1 X10^3/uL (3.6-10.0) 04/16/19 04:11 RBC 3.67 X10^6/uL (3.5-5.4) 04/16/19 04:11 Hgb 10.0 g/dL (12.0-16.0) L 04/16/19 04:11 Hct 30.5 % (36.0-47.0) L 04/16/19 04:11 MCV 83.1 fL (80.0-100.0) 04/16/19 04:11 MCH 27.2 pg (27.0-34.0) 04/16/19 04:11 MCHC 32.7 g/dL (33.0-35.0) L 04/16/19 04:11 RDW 16.0 % (11.6-16.5) 04/16/19 04:11 Plt Count 184 X10^3/uL (150.0-450.0) 04/16/19 04:11 Plt Count Comment Adequate (ADEQUATE) 04/15/19 07:21 MPV 9.5 fL (7.4-11.0) 04/16/19 04:11 Neut % (Auto) 56.9 % (42.0-75.0) 04/16/19 04:11 Lymph % (Auto) 18.4 % (21.0-51.0) L 04/16/19 04:11 [place] % (Auto) 18.4 % (0.0-13.0) H 04/16/19 04:11 Eos % (Auto) 5.0 % (0.9-2.9) H 04/16/19 04:11 Baso % (Auto) 1.3 % (0.2-1.0) H 04/16/19 04:11 Neut # (Auto) 2.3 x10^3/uL (2.2-4.8) 04/16/19 04:11 Lymph # (Auto) 0.7 X10^3/uL (1.3-2.9) L 04/16/19 04:11 [place] # (Auto) 0.7 x10^3/uL (0.3-0.8) 04/16/19 04:11 Eos # (Auto) 0.2 x10^3/uL (0.0-0.2) 04/16/19 04:11 Baso # (Auto) 0.1 X10^3/uL (0.0-0.1) 04/16/19 04:11 Absolute Nucleated RBC 0.0 /100WBC 04/16/19 04:11 Total Counted 100 04/15/19 07:21 Neutrophils % (Manual) 55 % (39-76) 04/15/19 07:21 Band Neutrophils % 5 % (0-10) 04/15/19 07:21 Lymphocytes % (Manual) 21 % (13-43) 04/15/19 07:21 Monocytes % (Manual) 8 % (4-9) 04/15/19 07:21 Eosinophils % (Manual) 10 % (0-6) H 04/15/19 07:21 Atypical Lymphocytes 1 04/15/19 07:21 Giant Platelets Few 04/15/19 07:21 Plt Morphology Comment Abnormal (NORMAL) A 04/15/19 07:21 RBC Morphology Normal (NORMAL) 04/15/19 07:21 INR Target Range - 04/13/19 04:27 INR 1.07 (0.8-1.3) 04/13/19 04:27 APTT 29.8 SECONDS (22.9-36.5) 04/13/19 04:27 PTT Comment - 04/13/19 04:27 Sodium 141 mmol/L (136-145) 04/16/19 04:11 Corrected Sodium TNP 04/16/19 04:11 Potassium 4.2 mmol/L (3.5-5.1) 04/16/19 04:11 Chloride 110 mmol/L (98-107) H 04/16/19 04:11 Carbon Dioxide 19.6 mmol/L (21-32) L 04/16/19 04:11 BUN 27 mg/dL (7-18) H 04/16/19 04:11 Creatinine 1.43 mg/dL (0.55-1.02) H 04/16/19 04:11 Est GFR (MDRD) Af Amer 45 (>60) L 04/16/19 04:11 Est GFR (MDRD) Non-Af 38 (>60) L 04/16/19 04:11 Glucose 89 mg/dL (65-99) 04/16/19 04:11 Calcium 8.2 mg/dL (8.5-10.1) L 04/16/19 04:11 Corrected Calcium 9.2 mg/dL (8.5-10.1) 04/16/19 04:11 Magnesium 1.9 mg/dL (1.7-2.9) 04/13/19 04:27 Total Bilirubin 0.20 mg/dL (0.2-1.0) 04/16/19 04:11 AST 19 Units/L (15-37) 04/16/19 04:11 ALT 13 Units/L (12-78) 04/16/19 04:11 Alkaline Phosphatase 67 Units/L (46-116) 04/16/19 04:11 Creatine Kinase 39 Units/L (26-192) 04/12/19 22:01 CK-MB (CK-2) 1.3 ng/mL (0-4.0) 04/12/19 22:01 CK/CKMB % Calc 3.3 % (<4) 04/12/19 22:01 Troponin I 0.02 ng/mL (0-1.5) 04/12/19 22:01 Total Protein 6.2 g/dL (6.4-8.2) L 04/16/19 04:11 Albumin 2.7 g/dL (3.4-5.0) L 04/16/19 04:11 Globulin 3.5 g/dL (2.5-4.5) 04/16/19 04:11 Albumin/Globulin Ratio 0.8 Ratio (1.1-2.1) L 04/16/19 04:11 Specimen Type Clean catch urine 04/12/19 13:08 Urine Color Yellow (YELLOW) 04/12/19 13:08 Urine Appearance Clear (CLEAR) 04/12/19 13:08 Urine pH 5.0 (5.0 - 8.0) 04/12/19 13:08 Ur Specific Dickens 1.015 (1.000-1.030) 04/12/19 13:08 Urine Protein 1+ (NEGATIVE) 04/12/19 13:08 Urine Glucose (UA) Negative (NEGATIVE) 04/12/19 13:08 Urine Ketones Negative (NEGATIVE) 04/12/19 13:08 Urine Occult Blood Negative (NEGATIVE) 04/12/19 13:08 Urine Nitrite Negative (NEGATIVE) 04/12/19 13:08 Urine Bilirubin Negative (NEGATIVE) 04/12/19 13:08 Urine Urobilinogen Normal (NORMAL) 04/12/19 13:08 Ur Leukocyte Esterase Negative (NEGATIVE) 04/12/19 13:08 Urine RBC None seen /HPF (NONE SEEN) 04/12/19 13:08 Urine WBC None seen /HPF (NONE SEEN) 04/12/19 13:08 Ur Squamous Epith Cells Few /HPF (NEGATIVE) 04/12/19 13:08 Urine Bacteria Negative /HPF (NEGATIVE) 04/12/19 13:08 Urine Mucus Few /HPF (NEGATIVE) 04/12/19 13:08 Ur Culture Indicated? No/not indicated 04/12/19 13:08 Stool Description 40g.unformed/brown 04/13/19 18:00 Stl Occult Blood (IFOB) Negative (NEGATIVE) 04/13/19 18:00 Stool for White Cells Negative (NEGATIVE) 04/13/19 18:00 Stl C. diff Tox B Gene Negative (NEGATIVE) 04/13/19 18:00 Stl C. diff [id number] Negative (NEGATIVE) 04/13/19 18:00 Blood Type O POSITIVE 04/12/19 09:47 Antibody Screen Negative 04/12/19 09:47 - Plan (1) Near syncope Status: Acute Plan: ADMIT, NORMAL SALINE AT 50ML/HR, CONTINUE TO MONITOR (2) Weakness Status: Acute (3) Hypertension Status: Acute Qualifiers: Hypertension type: essential hypertension Qualified Code(s): I10 - Essential (primary) hypertension Plan: METOPROLOL XL 25MG PO DAILY, HYDRALAZINE 50MG PO TID, LABETALOL PROTOCOL, CLONIDINE 0.2MG/HR TD PATCH, CONTINUE TO MONITOR
[2019-04-16] MEDS: BENADRYL CAP/TAB 25 MG PO SCH (21:29)
[2019-04-16] MEDS: VITAMIN D3 PO SCH (21:30)
[2019-04-16] MEDS: NEURONTIN CAP 300 MG PO SCH (21:30)
[2019-04-16] MEDS: ZyrTEC TAB 10 MG PO SCH (21:30)
[2019-04-16] MEDS: BIOTIN 5000 MCG PO SCH (21:31)
[2019-04-17 05:18] LABS: BASOPHILS % (AUTO) 1.3 % (0.2-1.0); EOSINOPHILS # (AUTO) 0.2 x10^3/uL (0.0-0.2); EOSINOPHILS % (AUTO) 6.9 % (0.9-2.9); HEMATOCRIT 27.4 % (36.0-47.0); HEMOGLOBIN 8.9 g/dL (12.0-16.0); LYMPHOCYTES # (AUTO) 0.6 X10^3/uL (1.3-2.9); LYMPHOCYTES % (AUTO) 19.3 % (21.0-51.0); MEAN CORPUSCULAR HEMOGLOBIN 27.1 pg (27.0-34.0); MEAN CORPUSCULAR HGB CONC 32.5 g/dL (33.0-35.0); MEAN CORPUSCULAR VOLUME 83.4 fL (80.0-100.0); MEAN PLATELET VOLUME 9.3 fL (7.4-11.0); MONOCYTES # (AUTO) 0.5 x10^3/uL (0.3-0.8); MONOCYTES % (AUTO) 15.6 % (0.0-13.0); NEUTROPHILS # (AUTO) 1.9 x10^3/uL (2.2-4.8); NEUTROPHILS % (AUTO) 56.9 % (42.0-75.0); PLATELET COUNT 157 X10^3/uL (150.0-450.0); RED BLOOD COUNT 3.29 X10^6/uL (3.5-5.4); RED CELL DISTRIBUTION WIDTH 15.9 % (11.6-16.5); WHITE BLOOD COUNT 3.3 X10^3/uL (3.6-10.0)
[2019-04-17] MEDS: APRESOLINE TAB 25 MG PO SCH (05:26)
[2019-04-17] MEDS: MILK OF MAGNESIA PO SCH ×2 (05:26→11:10)
[2019-04-17] MEDS: NS 1000 ML 1,000 ML IV SCH (05:26)
[2019-04-17] MEDS: NEURONTIN CAP 100 MG PO SCH ×2 (05:27→11:16)
[2019-04-17] MEDS: COLACE CAP 100 MG PO SCH (05:27)
[2019-04-17 05:32] LABS: ALANINE AMINOTRANSFERASE 12 Units/L (12-78); ALBUMIN 2.4 g/dL (3.4-5.0); ALKALINE PHOSPHATASE 62 Units/L (46-116); ASPARTATE AMINO TRANSFERASE 18 Units/L (15-37); BLOOD UREA NITROGEN 21 mg/dL (7-18); CALCIUM 7.8 mg/dL (8.5-10.1); CARBON DIOXIDE 18.7 mmol/L (21-32); CHLORIDE 110 mmol/L (98-107); COR CA(FOR HYPOALB) 9.1 mg/dL (8.5-10.1); CREATININE 1.29 mg/dL (0.55-1.02); SODIUM 140 mmol/L (136-145); TOTAL PROTEIN 5.4 g/dL (6.4-8.2); eGFR NON BLACK RACES 42 (>60)
[2019-04-17] MEDS: SYNTHROID 137 mcg TAB PO SCH (06:14)
[2019-04-17] MEDS: ESTRACE PO SCH (08:29)
[2019-04-17] MEDS: ATARAX TAB 25 MG PO PRN (08:30)
[2019-04-17] MEDS: MEGACE PO SCH (08:30)
[2019-04-17] MEDS: LEFLUNOMIDE 20 MG PO SCH (08:30)
[2019-04-17] MEDS: PILOCARPINE HCL 5 MG PO SCH (08:30)
[2019-04-17] MEDS: PLAVIX PO SCH (08:30)
[2019-04-17] MEDS: TOPROL XL PO SCH (08:30)
[2019-04-17] MEDS: LIBRIUM PO SCH (08:30)
[2019-04-17] MEDS: CARBOXYMETHYLCELLULOSE SODIUM OP SCH (08:31)
[2019-04-17] MEDS: PROTONIX TAB 40 MG PO SCH (08:31)
[2019-04-17] MEDS: PLAQUENIL PO SCH (08:31)
[2019-04-17] MEDS: LOVENOX INJ 30 MG SYR SC SCH (08:31)
[2019-04-17] MEDS: NORVASC TAB 5 MG PO SCH (08:31)
[2019-04-17] MEDS: VIT C E ZINC CIT LUTEIN ZEAXAN PO SCH (08:37)
[2019-04-17] MEDS: CHECK PATCH XX SCH (08:37)
[2019-04-17] MEDS: PATIENT'S HOME MEDICATION (Cyclosporine [Restasis] 1 DROP) OP SCH (08:41)
[2019-04-17] MEDS: NIZORAL CREAM TOP SCH (08:42)
[2019-04-17] MEDS: MINOCYCLINE 50 MG PO SCH (08:42)
[2019-04-17] MEDS ORDERED: TOPROL XL PO SCH (09:00)
[2019-04-17 11:10] VITALS: BP 128/63
[2019-04-17] MEDS: PATIENT'S HOME MEDICATION PO SCH (11:11)
== END 2019-04-17 12:00 | disposition home health service (06) ==
LOC: ER 09:20 → ICU 09:20 → MED/SURG 04-15 09:40
PROVIDERS: ADMIT Internal Medicine; ATTEND Internal Medicine
DX: Z79.01 Long term (current) use of anticoagulants; R55 Syncope and collapse; R06.02 Shortness of breath; I10 Essential (primary) hypertension; R53.1 Weakness
CPT/HCPCS: 36415; 71010; 71045; 80053; 81001; 82270; 82550; 82553; 83630; 83735; 84484; 85025; 85610; 85730; 86850; 86900; 86901; 87045; 87427; 87449; 87493; 87899; 93005; 93306; 94640; 96365; 96367; 96372; 96374; 97162; 97166; 99284; A4222; S0179; G0378; J0885; J1650; J1940; J2405; J3490; J7030

== ENCOUNTER 2019-06-09 10:12 | Inpatient (IN) ==
[2019-06-09] MEDS ORDERED: NS 1000 ML 1,000 ML ONE (10:52)
--- NOTE | 2019-06-09 11:05 | DR.GENAD ---
HPI - Complaint/Symptoms Chief Complaint Doctors Comments: Patient is complaining of vomiting with stomach pain since last night with patient being so weak she can hardly set up. She took a dose of Phenergan at 5pm last night and 8 am today with little improvement. She is complaining of a severe headache on the left side and occipital area for several days getting worst today. She denies chest pain, SOB, wheezing, cold or cough. States she has breathing treatments she takes at home when she gets SOB. Family states she has had problems with constipation for seven days. She denies dysuria, hematuria or zoraida. States she took a half Percocet today before leaving home and the pain has improved. She denies any recent trauma. Family states she has Lupus and her skin rash is due to her lupus and she is seeing a urban anthropologist for that. Family states the patient has not had any medicines today. She is a patient of Dr. Zafar. - Nurses notes reviewed Nurses Notes Review: Yes - Source History Provided: Patient, Family Member - Mode of Arrival Mode of Arrival: Wheelchair - Timing Came on: Gradually - Duration Duration: Intermittent Duration: Days - Location Location: left pariental and occipital pain - Severity Severity: Moderate - Modifying Factors Worsens:: nothing Improves:: nothing PMH - PMH Past Medical History: Angina, Coronary Artery Disease, Hypertension, Dyslip idemia, Anemia, Arthritis, CHF Past Surgical History: Yes Surgical History: Appendectomy, Cholecystectomy, Hysterectomy, Joint Replacement, Tonsillectomy - Family History Family Medical History: Cancer, [place], Hypertension - Social History Do you use any recreational Drugs:: No ROS - Review of Systems Constitutional: No Symptoms Reported, Weakness. negative: See HPI, Chills, Diaphoresis, Fever, Malaise, Irritable, Fatigue, Loss of Appetite, Other Eyes: No Symptoms Reported ENTM: No Symptoms Reported, Mouth Pain (sores on her tongue and mouth that she i s using medicine for presently) Respiratoy: No Symptoms Reported. negative: See HPI, Productive Cough, Non- Productive Cough, Moist Cough, Dry Cough, Hacking Cough, Barking Cough, Brassy Cough, Orthopnea, Short of Breath, Stridor, Wheezing, Hemoptysis, Other Cardiovascular: No Symptoms Reported Gastrointestinal/Abdominal: No Symptoms Reported, Abdominal Pain, Constipation, Nausea, Vomiting Genitourinary: No Symptoms Reported. negative: See HPI, Discharge, Dysuria, Frequency, Hematuria, Pain, Bleeding, Other Neurological: No Symptoms Reported Musculoskeletal: No Symptoms Reported Integumentary: No Symptoms Reported, Change in Color (dark macular area arms and legs), Rash (macular hyperpigmented rash on all extremities) Hematologic/Lymphatic: No Symptoms Reported. negative: See HPI, Anemia, Blood Clots, Easy Bleeding, Easy Bruising, Swollen Glands, Lymphadenopathy, Other Endocrine: No Symptoms Reported Psychiatric: No Symptoms Reported. negative: See HPI, Anxiety, Depression, Hallucinations, Excessive crying, Suicidal, Other PE - General Limitations: No Limitations General Appearance: Alert, In Distress (moderate) - Head Head Exam: Normal Inspection, Atraumatic, Normocephalic - Eyes Eye exam: Normal Appearance, PERRL, EOMI. negative: Scleral Icterus, Conjunct ival Injection, Nystagmus, Miosis, Mydrasis, Periorbital Swelling, Periorbital Tenderness, Other - ENT ENT Exam: Normal Exam, Normal Oropharynx, Normal External Ear Exam, Mucous Membranes Moist, TM's Normal Bilaterally External Ear Exam: Normal External Inspection TM/Canal Exam: Bilateral Normal Nose Exam: Normal Nose Exam Mouth Exam: Normal Inspection. negative: Drooling (few red macular areas on the tongue with no swelling or bleeding), Trismus, Lip Swelling, Tongue Elevation, Tongue Swelling, Laceration, Other Throat Exam: Normal Inspection. negative: Tonsillar Erythema, Tonsillomegaly, Tonsillar Exudate, R Peritonsillar Mass, L Peritonsillar Mass, Muffled Voice, Other - Neck Neck Exam: Normal Inspection, Full ROM, Trachea Midline. negative: Tenderness, Meningismus, Lymphadenopathy, Thyromegaly, Other - Chest Chest Inspection: Normal Inspection, Symmetric Chest Wall Rise. negative: Tenderness, Rash, Abscess, Other - Respiratory Respiratory Exam: Normal Lung Sounds Bilat Respiratory Exam: Bilateral Clear to Auscultation - Cardiovascular Cardiovascular Exam: Regular Rate, Normal Rhythm, Normal Heart Sounds, Systolic Murmur - Abdominal Exam Abdominal Exam: Normal Inspection, Normal Bowel Sounds, Soft, Distention, Guarding, Rebound, Dimnished Bowel Sounds Abdominal Tenderness: RLQ, Suprapubic, Moderate - Extremities Extremities Exam: Normal Inspection, Full ROM, Normal Capillary Refill. negative: Tenderness, Edema, Joint Swelling, Calf Tenderness, Other - Back Back Exam: Normal Inspection, Full ROM. negative: Tenderness, (R) CVA Tenderness, (L) CVA Tenderness, Muscle Spasm, Paraspinal Tenderness, Vertebral Tenderness, Rashes, (R) Sciatic Notch Tenderness, (L) Sciatic Notch Tendern, (R) Straight Leg Raise, (L) Straight Leg Raise, Other - Neurologic Neurological Exam: Alert, Oriented X3, CN II-XII Intact, Reflexes Normal. negative: Normal Gait (gait not tested) - Psychiatric Psychiatric Exam: Normal Affect, Normal Mood. negative: Depressed, Agitated, Anxious, Flat Affect, Manic, Homicidal Ideation, Suicidal Ideation, Other - Skin Skin Exam: Warm, Dry, Intact, Normal Color, Rash (macular hyperpigmented rash arms and legs). negative: Cyanosis, Diaphoresis, Erythema, Pallor, Mottled, Other - Vital Signs Vitals: Temperature 98.6 F Pulse Rate 79 Respiratory Rate 31 Blood Pressure [Left Arm] 179/79 Blood Pressure [Right Arm] 216/87 Blood Pressure 156/69 O2 Sat by Pulse Oximetry 96 Course - Consultation Called: 13:32 Call Returned: 13:32 (Dr. Zafar to admit) - Education/Counseling Education/Counseling: Patient, Family, Education Educated On: Treatment, Diagnosis, Needs for Follow Up ROR - Labs Reviewed Laboratory Results Reviewed?: Yes (All labs and x-ray results reviewed and discussed with patient and family) Result Diagrams: 06/09/19 11:03 06/09/19 11:03 - XRAY XRAY Interpreted by: Radiologist (CXR: Left mid lung infiltrate consistent with pneumonia.), Both (CT abdomen and pelvis: No evidence of acute abdominal or pelvic abnormality. Focal airspace disease lingular segment.) XRAY Findings: CT head: No evidence of acute intracranial abnormality. Nonsp ecific white m - EKG Rate: 80 Partridge: Normal Rhythm: NSR Block: None Hypertrophy: None ST: Old, Inf, Infarct - Labs Reviewed Laboratory: WBC 18.4 X10^3/uL (3.6-10.0) H 06/09/19 11:03 RBC 4.07 X10^6/uL (3.5-5.4) 06/09/19 11:03 Hgb 10.8 g/dL (12.0-16.0) L 06/09/19 11:03 Hct 34.0 % (36.0-47.0) L 06/09/19 11:03 MCV 83.5 fL (80.0-100.0) 06/09/19 11:03 MCH 26.7 pg (27.0-34.0) L 06/09/19 11:03 MCHC 31.9 g/dL (33.0-35.0) L 06/09/19 11:03 RDW 16.0 % (11.6-16.5) 06/09/19 11:03 Plt Count 297 X10^3/uL (150.0-450.0) 06/09/19 11:03 Plt Count Comment Adequate (ADEQUATE) 06/09/19 11:03 MPV 8.1 fL (7.4-11.0) 06/09/19 11:03 Neut % (Auto) 89.1 % (42.0-75.0) H 06/09/19 11:03 Lymph % (Auto) 2.1 % (21.0-51.0) L 06/09/19 11:03 [place] % (Auto) 8.7 % (0.0-13.0) 06/09/19 11:03 Eos % (Auto) 0.1 % (0.9-2.9) L 06/09/19 11:03 Baso % (Auto) 0 % (0.2-1.0) L 06/09/19 11:03 Neut # (Auto) 16.4 x10^3/uL (2.2-4.8) H 06/09/19 11:03 Lymph # (Auto) 0.4 X10^3/uL (1.3-2.9) L 06/09/19 11:03 [place] # (Auto) 1.6 x10^3/uL (0.3-0.8) H 06/09/19 11:03 Eos # (Auto) 0.0 x10^3/uL (0.0-0.2) 06/09/19 11:03 Baso # (Auto) 0.0 X10^3/uL (0.0-0.1) 06/09/19 11:03 Absolute Nucleated RBC 0.0 /100WBC 06/09/19 11:03 Total Counted 100 06/09/19 11:03 Neutrophils % (Manual) 79 % (39-76) H 06/09/19 11:03 Band Neutrophils % 9 % (0-10) 06/09/19 11:03 Lymphocytes % (Manual) 3 % (13-43) L 06/09/19 11:03 Monocytes % (Manual) 9 % (4-9) 06/09/19 11:03 Plt Morphology Comment Normal (NORMAL) 06/09/19 11:03 RBC Morphology Normal (NORMAL) 06/09/19 11:03 INR Target Range - 06/09/19 11:03 INR 1.04 (0.8-1.3) 06/09/19 11:03 APTT 29.4 SECONDS (22.9-36.5) 06/09/19 11:03 PTT Comment - 06/09/19 11:03 Sodium 135 mmol/L (136-145) L 06/09/19 11:03 Corrected Sodium TNP 06/09/19 11:03 Potassium 4.7 mmol/L (3.5-5.1) 06/09/19 11:03 Chloride 103 mmol/L (98-107) 06/09/19 11:03 Carbon Dioxide 15.2 mmol/L (21-32) L 06/09/19 11:03 BUN 27 mg/dL (7-18) H 06/09/19 11:03 Creatinine 2.04 mg/dL (0.55-1.02) H 06/09/19 11:03 Est GFR (MDRD) Af Amer 30 (>60) L 06/09/19 11:03 Est GFR (MDRD) Non-Af 25 (>60) L 06/09/19 11:03 Glucose 103 mg/dL (65-99) H 06/09/19 11:03 Calcium 8.7 mg/dL (8.5-10.1) 06/09/19 11:03 Corrected Calcium 9.3 mg/dL (8.5-10.1) 06/09/19 11:03 Magnesium 1.8 mg/dL (1.7-2.9) 06/09/19 11:03 Total Bilirubin 0.50 mg/dL (0.2-1.0) 06/09/19 11:03 AST 28 Units/L (15-37) 06/09/19 11:03 ALT 25 Units/L (12-78) 06/09/19 11:03 Alkaline Phosphatase 136 Units/L (46-116) H 06/09/19 11:03 Creatine Kinase 33 Units/L (26-192) 06/09/19 11:03 CK-MB (CK-2) 1.0 ng/mL (0-4.0) 06/09/19 11:03 CK/CKMB % Calc 3.0 % (<4) 06/09/19 11:03 Troponin I < 0.02 ng/mL (0-1.5) 06/09/19 11:03 Total Protein 7.0 g/dL (6.4-8.2) 06/09/19 11:03 Albumin 3.2 g/dL (3.4-5.0) L 06/09/19 11:03 Globulin 3.8 g/dL (2.5-4.5) 06/09/19 11:03 Albumin/Globulin Ratio 0.8 Ratio (1.1-2.1) L 06/09/19 11:03 Amylase 15 Units/L (25-115) L 06/09/19 11:03 Lipase 153 Units/L (73-393) 06/09/19 11:03 Opioid - Opioid Risk Tool Total: 0 Total Score Risk Category: Low Risk - Diagnosis Discharge Problem: Acute pneumonia, Failure of outpatient treatment, Systemic lupus erythematosus Chronic kidney disease (CKD) Qualifiers: Chronic kidney disease stage: stage 3 (moderate) Qualified Code(s): N18.3 - Chronic kidney disease, stage 3 (moderate) Headache Qualifiers: Headache chronicity pattern: unspecified pattern Vomiting Qualifiers: Vomiting type: unspecified Vomiting Intractability: unspecified - Discharge Plan Disposition: ADMITTED INPATIENT Condition: Stable - Follow ups/Referrals Follow ups/Referrals: Carlito Zafar [Primary Care Provider] - 3 days - Instructions
[2019-06-09 11:17] LABS: BASOPHILS % (AUTO) 0 % (0.2-1.0); EOSINOPHILS % (AUTO) 0.1 % (0.9-2.9); HEMOGLOBIN 10.8 g/dL (12.0-16.0); LYMPHOCYTES # (AUTO) 0.4 X10^3/uL (1.3-2.9); LYMPHOCYTES % (AUTO) 2.1 % (21.0-51.0); MEAN CORPUSCULAR HEMOGLOBIN 26.7 pg (27.0-34.0); MEAN CORPUSCULAR HGB CONC 31.9 g/dL (33.0-35.0); MEAN CORPUSCULAR VOLUME 83.5 fL (80.0-100.0); MEAN PLATELET VOLUME 8.1 fL (7.4-11.0); MONOCYTES # (AUTO) 1.6 x10^3/uL (0.3-0.8); MONOCYTES % (AUTO) 8.7 % (0.0-13.0); NEUTROPHILS # (AUTO) 16.4 x10^3/uL (2.2-4.8); NEUTROPHILS % (AUTO) 89.1 % (42.0-75.0); PLATELET COUNT 297 X10^3/uL (150.0-450.0); RED BLOOD COUNT 4.07 X10^6/uL (3.5-5.4); WHITE BLOOD COUNT 18.4 X10^3/uL (3.6-10.0)
[2019-06-09 11:20] VITALS: BMI 31.4
[2019-06-09 11:27] LABS: BAND NEUTROPHILS % 9 % (0-10); PLATELET MORPHOLOGY COMMENT NORMAL (NORMAL)
[2019-06-09 11:32] LABS: BLOOD UREA NITROGEN 27 mg/dL (7-18); CALCIUM 8.7 mg/dL (8.5-10.1); CARBON DIOXIDE 15.2 mmol/L (21-32); CHLORIDE 103 mmol/L (98-107); CREATININE 2.04 mg/dL (0.55-1.02); SODIUM 135 mmol/L (136-145); TROPONIN I < 0.02 ng/mL (0-1.5); eGFR NON BLACK RACES 25 (>60)
[2019-06-09 11:36] LABS: ALANINE AMINOTRANSFERASE 25 Units/L (12-78); ALBUMIN 3.2 g/dL (3.4-5.0); ALKALINE PHOSPHATASE 136 Units/L (46-116); AMYLASE 15 Units/L (25-115); ASPARTATE AMINO TRANSFERASE 28 Units/L (15-37); COR CA(FOR HYPOALB) 9.3 mg/dL (8.5-10.1); CREATINE KINASE 33 Units/L (26-192); LIPASE 153 Units/L (73-393); MAGNESIUM 1.8 mg/dL (1.7-2.9)
[2019-06-09] MEDS ORDERED: NS 1000 ML 1,000 ML IV SCH (12:00)
[2019-06-09] MEDS ORDERED: ZOSYN VIAL 3.375 GRAMS 3.375 G in NS 100 ML IV + SPIKE MINIBAG* 100 ML IV ONE (12:41)
[2019-06-09] MEDS ORDERED: ZOSYN VIAL 3.375 GRAMS IV ONE (12:52)
[2019-06-09] MEDS ORDERED: NS 100 ML IV + SPIKE MINIBAG* 100 ML ONE (12:52)
[2019-06-09] MEDS ORDERED: TORADOL 30 MG VIAL IVP ONE (13:07)
[2019-06-09] MEDS ORDERED: TORADOL 30 MG VIAL ONE (13:09)
[2019-06-09] MEDS ORDERED: SALINE 3% 15 ML NEB TX NEB ONE (13:27)
[2019-06-09] MEDS ORDERED: SALINE 3% 15 ML NEB TX ONE (13:28)
[2019-06-09] MEDS ORDERED: TUSSIONEX PENNKINETIC SUSP PO PRN (13:36)
[2019-06-09 13:41] LABS: ABG BASE EXCESS -6.7 mmol/L (-2.0-2.0); ABG HCO3 16.7 mmol/L (22-26)
[2019-06-09] MEDS ORDERED: CATAPRES-TTS-3 TD SCH (14:00)
[2019-06-09] MEDS: ZOSYN VIAL 3.375 GRAMS 3.375 G in NS 100 ML IV + SPIKE MINIBAG* 100 ML IV SCH ×2 (15:37→22:03)
[2019-06-09] MEDS ORDERED: ROBITUSSIN DM ONE (15:41)
[2019-06-09] MEDS ORDERED: APRESOLINE TAB 25 MG ONE (15:41)
[2019-06-09] MEDS ORDERED: LEVAQUIN PREMIX IV 500 MG 500 MG/100 ML BAG ONE (15:41)
[2019-06-09] MEDS: APRESOLINE TAB 25 MG PO SCH ×2 (15:51→22:03)
[2019-06-09] MEDS: ROBITUSSIN DM PO SCH ×3 (15:51→22:03)
[2019-06-09] MEDS: LEVAQUIN PREMIX IV 500 MG 500 MG/100 ML BAG IV SCH (15:52)
[2019-06-09] MEDS: NS 1/2 1000 ML IV 1,000 ML IV SCH (15:55)
[2019-06-09] MEDS: XOPENEX 1.25 MG/3 ML NEBULE NEB SCH (16:11)
[2019-06-09] MEDS ORDERED: MAGIC MOUTHWASH ONE (18:21)
[2019-06-09] MEDS: MAGIC MOUTHWASH MT PRN ×2 (18:23→22:58)
[2019-06-09] MEDS ORDERED: ZOFRAN INJ 4 MG VIAL IVP PRN (19:06)
[2019-06-09] MEDS: PEPCID 20 MG IV PREMIX* 20 MG/50 ML BAG IV SCH ×2 (19:20→21:00)
[2019-06-09] MEDS: PATIENT'S HOME MEDICATION (Cyclosporine [Restasis] 1 DROP) OP SCH (21:00)
[2019-06-09] MEDS ORDERED: PEPCID 20 MG IV PREMIX* 50 ML IV SCH (21:00)
[2019-06-09] MEDS: ARTIFICIAL TEARS DROPS OP SCH (22:01)
[2019-06-09] MEDS: NEURONTIN CAP 300 MG PO SCH (22:02)
[2019-06-09 22:18] LABS: BILIRUBIN,URINE NEGATIVE (NEGATIVE); BLOOD/HEMOGLOBIN,URINE NEGATIVE (NEGATIVE); GLUCOSE, URINE NEGATIVE (NEGATIVE); KETONES,URINE NEGATIVE (NEGATIVE); LEUKOCYTE ESTERASE ,URINE 1+ (NEGATIVE); NITRITES,URINE NEGATIVE (NEGATIVE); PROTEIN,URINE 2+ (NEGATIVE); UROBILINOGEN,URINE NORMAL (NORMAL)
[2019-06-09 22:21] LABS: APPEARANCE,URINE CLEAR (CLEAR); BACTERIA,URINE NEGATIVE /HPF (NEGATIVE); COLOR,URINE YELLOW (YELLOW); RBC,URINE NONE SEEN /HPF (NONE SEEN); SQUAMOUS EPITHELIAL CELL,UR FEW /HPF (NEGATIVE)
[2019-06-10] MEDS: XOPENEX 1.25 MG/3 ML NEBULE NEB SCH ×4 (00:15→16:45)
[2019-06-10] MEDS: NS 1/2 1000 ML IV 1,000 ML IV SCH ×2 (05:07→17:46)
[2019-06-10] MEDS: ZOSYN VIAL 3.375 GRAMS 3.375 G in NS 100 ML IV + SPIKE MINIBAG* 100 ML IV SCH ×3 (05:25→21:06)
[2019-06-10] MEDS: APRESOLINE TAB 25 MG PO SCH ×3 (05:25→21:06)
[2019-06-10 05:38] LABS: BASOPHILS # (AUTO) 0.1 X10^3/uL (0.0-0.1); BASOPHILS % (AUTO) 0.5 % (0.2-1.0); EOSINOPHILS # (AUTO) 0.1 x10^3/uL (0.0-0.2); EOSINOPHILS % (AUTO) 0.6 % (0.9-2.9); HEMATOCRIT 27.7 % (36.0-47.0); LYMPHOCYTES # (AUTO) 0.6 X10^3/uL (1.3-2.9); LYMPHOCYTES % (AUTO) 4.8 % (21.0-51.0); MEAN CORPUSCULAR HGB CONC 31.8 g/dL (33.0-35.0); MEAN CORPUSCULAR VOLUME 84.9 fL (80.0-100.0); MEAN PLATELET VOLUME 7.9 fL (7.4-11.0); MONOCYTES # (AUTO) 1.1 x10^3/uL (0.3-0.8); MONOCYTES % (AUTO) 9.2 % (0.0-13.0); NEUTROPHILS # (AUTO) 10.4 x10^3/uL (2.2-4.8); NEUTROPHILS % (AUTO) 84.9 % (42.0-75.0); PLATELET COUNT 214 X10^3/uL (150.0-450.0); RED BLOOD COUNT 3.26 X10^6/uL (3.5-5.4); RED CELL DISTRIBUTION WIDTH 16.1 % (11.6-16.5); WHITE BLOOD COUNT 12.2 X10^3/uL (3.6-10.0)
[2019-06-10 05:53] LABS: ALANINE AMINOTRANSFERASE 21 Units/L (12-78); ALBUMIN 2.5 g/dL (3.4-5.0); ALKALINE PHOSPHATASE 96 Units/L (46-116); ASPARTATE AMINO TRANSFERASE 20 Units/L (15-37); BLOOD UREA NITROGEN 28 mg/dL (7-18); CALCIUM 7.9 mg/dL (8.5-10.1); CARBON DIOXIDE 16.9 mmol/L (21-32); CHLORIDE 105 mmol/L (98-107); COR CA(FOR HYPOALB) 9.1 mg/dL (8.5-10.1); CREATININE 2.03 mg/dL (0.55-1.02); SODIUM 134 mmol/L (136-145); TOTAL PROTEIN 5.9 g/dL (6.4-8.2); eGFR NON BLACK RACES 25 (>60)
[2019-06-10] MEDS ORDERED: NS 1/2 1000 ML IV 1,000 ML ONE (05:55)
[2019-06-10 06:07] LABS: HEMOGLOBIN 8.8 g/dL (12.0-16.0)
[2019-06-10] MEDS ORDERED: TOPROL XL ONE (08:26)
[2019-06-10] MEDS: PEPCID 20 MG IV PREMIX* 20 MG/50 ML BAG IV SCH ×2 (08:34→20:53)
[2019-06-10] MEDS: ROBITUSSIN DM PO SCH ×4 (08:34→20:53)
[2019-06-10] MEDS: TOPROL XL PO SCH (08:35)
[2019-06-10] MEDS: SYNTHROID 137 mcg TAB PO SCH (08:35)
[2019-06-10] MEDS: NORVASC TAB 5 MG PO SCH (08:36)
[2019-06-10] MEDS: VSL#3 PO SCH (08:36)
[2019-06-10] MEDS: PLAVIX PO SCH (08:41)
[2019-06-10] MEDS: MAGIC MOUTHWASH MT PRN ×3 (08:46→20:00)
[2019-06-10] MEDS: ARTIFICIAL TEARS DROPS OP SCH ×2 (08:50→20:52)
[2019-06-10] MEDS: PATIENT'S HOME MEDICATION (Cyclosporine [Restasis] 1 DROP) OP SCH ×2 (09:03→20:53)
--- NOTE | 2019-06-10 12:57 | DR.H&P ---
H&P - History & Physical for Day of: H&P Date: 06/09/19 - Chief Complaint Chief Complaint: N/V/ABDOMINAL PAIN, SOB, HEADACHE - History of Present Illness History of Present Illness: IS A 78 YEAR OLD PATIENT OF OURS WHO PRESENTED TO THE ER WITH COMPLAINTS OF NAUSEA, VOMITING, ABDOMINAL PAIN, SHORNTESS OF BREATH, AND HEADACHE. SHE REPORTS THAT SYMPTOMS STARTED AT APPROXIMATELY 5PM THE DAY BEFORE AND HAS PROGRESSIVELY GOTTEN WORSE. SHE REPORTS TAKING PHENERGAN, PERCOCET, AND BREATHING TREATMENTS AT HOME WITHOUT MUCH IMPROVEMENT. FAMILY MEMBERS REPORT THAT SHE HAS BEEN CONSTIPATED FOR THE PAST WEEK. ON ARRIVAL, VITALS WERE 98.6-79-16-90%-152/92. LABS WERE OBTAINED. ABNORMAL LAB VALUES INCLUDE THE FOLLOWING: WBC 18.4, HGB 10.8, HCT 34.0, SODIUM 135, CARBON DIOXIDE 15.2, BUN 27, CREATININE 2.04, GLUCOSE 103, ALK PHOS 136, ALBUMIN 3.2, AMYLASE 15. AN ABG WAS OBTAINED AND REVEALED: PH 7.400, PC02 27.0, P02 82.0, HC03 16.7, 02 SATURATION 96.0, BASE EXCESS -6.7. BLOOD CULTURES PENDING. EKG OBTAINED AND REVEALED: SINUS RHYTHM WITH HR 80. A CHEST XRAY WAS OBTAINED AND REVEALED A LEFT MID LUNG INFILTRATE CONSISTENT WITH PNEUMONIA. A BRAIN CT WAS OBTAINED AND REVEALED: NO EVIDENCE OF ACUTE INTRACRANIAL ABNORMALITY. AN ABDOMEN/PELVIS CT WAS OBTAINED AND REVEALED: NO EVIDENCE OF PELVIC ABNORMALITY. SMALL HIATAL HERNIA. SHE WAS GIVEN ZOSYN 3.375G IV X 1 AND TORADOL 30M IV X 1 IN THE ER. SHE WAS ADMITTED FOR FURTHER EVALUATION AND TREATMENT OF PNEUMONIA, CHRONIC KIDNEY DISEASE, HEADACHE, AND VOMITING. SHE WILL BE STARTED ON THE PNEUMONIA PROTOCOL WITH NS AT 75ML/HR, IV ZOSYN, IV LEVAQUIN, RESPIRATORY TX, AND SUPPLEMENTAL OXYGEN. WE WILL ALSO START PEPCID 20MG IV Q12H AND WILL RESUME HOME MEDICATIONS. OTHERWISE, WE PLAN TO FOLLOW UP WITH AM LABS AND CHEST XRAY AND CONTINUE TO MONITOR. - Past Medical History Past Medical History: Angina, Coronary Artery Disease, Hypertension, Dyslipidemia, Anemia, Arthritis, CHF - Past Surgical History Surgical History: Appendectomy, Cholecystectomy, Hysterectomy, Joint Replacement, Tonsillectomy - Family History Family Medical History: Cancer, [place], Hypertension - Social History Does patient currently use any type of tobacco product: No Have you used tobacco products in the last 12 months: No Type of Tobacco Use: None Does any household member use tobacco: No Alcohol Use: None - Medications Home Medications: hydrocodone Allergy (Intermediate, Verified 04/12/19 09:23) CONFUSION CONTINUE taking the following medications fluocinonide 1 applic TOPICAL BID 06/09/19 [History] hydralazine 25 mg PO TID 06/09/19 [History] metoprolol succinate 100 mg PO DAILY 06/09/19 [History] oxycodone-acetaminophen 1 tab PO QID PRN 06/09/19 [History] triamcinolone acetonide 1 applic TOPICAL DAILY 06/09/19 [History] - Review of Systems Constitutional: No Symptoms Reported, Weakness Eyes: No Symptoms Reported ENT: No Symptoms Reported Respiratory: Shortness of Breath Cardiovascular: No Symptoms Reported Gastrointestinal: See HPI, Nausea, Vomiting, Abdominal Pain, Constipation Genitourinary: No Symptoms Reported Musculoskeletal: No Symptoms Reported Skin: No Symptoms Reported Neurological: Weakness - Physical Exam Vital Signs: Temperature 97.9 F Pulse Rate 78 Respiratory Rate 31 Blood Pressure [Left Arm] 179/79 Blood Pressure [Right Arm] 216/87 Blood Pressure 162/70 O2 Sat by Pulse Oximetry 99 Oriented: Normal Eyes: Normal Ear: Normal Nose: Normal Throat: Normal Respiratory: Diminished Throughout Cardiovascular: Normal. negative: S3, S4, Murmur : Normal Auscultation: Bowel Sounds: Normal Palpation: Normal Tenderness: Normal Skin: Normal Musculoskeletal: Normal Psychiatric: Normal Mood Description: Calm Affect: Normal Speech Pattern: Clear - Assessment/Plan (1) Pneumonia Qualifiers: Pneumonia type: due to unspecified organism Lung location: unspecified part of lung Status: Acute Plan: IV ZOSYN, IV LEVAQUIN, RESPIRATORY TX, SUPPLEMENTAL OXYGEN, CONTINUE TO MONITOR (2) Nausea & vomiting Qualifiers: Vomiting Intractability: unspecified Status: Acute Plan: IV PEPCID, ZOFRAN, CONTINUE TO MONITOR (3) Anemia Qualifiers: Anemia type: iron deficiency Iron deficiency anemia type: unspecified iron deficiency Qualified Code(s): D50.9 - Iron deficiency anemia, unspecified Status: Chronic (4) History of CVA (cerebrovascular accident) Status: Chronic (5) GERD (gastroesophageal reflux disease) Qualifiers: Esophagitis presence: esophagitis presence not specified Qualified Code(s): K21.9 - Gastro-esophageal reflux disease without esophagitis Status: Chronic (6) Essential hypertension Status: Chronic (7) Chronic renal disease Qualifiers: Chronic kidney disease stage: stage 3 (moderate) Qualified Code(s): N18.3 - Chronic kidney disease, stage 3 (moderate) Status: Chronic (8) Systemic lupus erythematosus Qualifiers: Systemic lupus erythematosus type: unspecified Systemic lupus erythematosus organ involvement: unspecified Qualified Code(s): M32.9 - Systemic lupus erythematosus, unspecified Status: Chronic - Allergies Allergies/Adverse Reactions: Allergies Allergy/AdvReac Type Severity Reaction Status Date / Time hydrocodone Allergy Intermediate CONFUSION Verified 04/12/19 09:23
[2019-06-10] MEDS ORDERED: PHARMACY CONSULT - DOSE _____ XX SCH (13:00)
[2019-06-10] MEDS: FIORICET TAB PO PRN (14:06)
[2019-06-10] MEDS: LOVENOX INJ 30 MG SYR SC SCH (18:09)
[2019-06-10] MEDS: NEURONTIN CAP 300 MG PO SCH (20:53)
[2019-06-11] MEDS: XOPENEX 1.25 MG/3 ML NEBULE NEB SCH ×5 (00:31→23:53)
[2019-06-11] MEDS: FIORICET TAB PO PRN ×2 (01:41→09:53)
[2019-06-11] MEDS ORDERED: NS 1/2 1000 ML IV 1,000 ML ONE ×2 (03:02→18:31)
[2019-06-11] MEDS ORDERED: XANAX ONE (03:32)
[2019-06-11] MEDS: XANAX PO PRN ×2 (03:36→20:17)
[2019-06-11] MEDS: NS 1/2 1000 ML IV 1,000 ML IV SCH ×3 (05:02→22:05)
[2019-06-11] MEDS: ZOSYN VIAL 3.375 GRAMS 3.375 G in NS 100 ML IV + SPIKE MINIBAG* 100 ML IV SCH ×3 (05:02→21:01)
[2019-06-11] MEDS: APRESOLINE TAB 25 MG PO SCH ×3 (05:02→21:01)
[2019-06-11 06:23] LABS: BASOPHILS # (AUTO) 0.1 X10^3/uL (0.0-0.1); BASOPHILS % (AUTO) 0.7 % (0.2-1.0); EOSINOPHILS # (AUTO) 0.2 x10^3/uL (0.0-0.2); EOSINOPHILS % (AUTO) 1.9 % (0.9-2.9); HEMOGLOBIN 8.7 g/dL (12.0-16.0); LYMPHOCYTES # (AUTO) 0.7 X10^3/uL (1.3-2.9); LYMPHOCYTES % (AUTO) 8.7 % (21.0-51.0); MEAN CORPUSCULAR HGB CONC 32.2 g/dL (33.0-35.0); MEAN CORPUSCULAR VOLUME 83.8 fL (80.0-100.0); MEAN PLATELET VOLUME 8.3 fL (7.4-11.0); MONOCYTES % (AUTO) 12.5 % (0.0-13.0); NEUTROPHILS # (AUTO) 5.9 x10^3/uL (2.2-4.8); NEUTROPHILS % (AUTO) 76.2 % (42.0-75.0); PLATELET COUNT 235 X10^3/uL (150.0-450.0); RED BLOOD COUNT 3.23 X10^6/uL (3.5-5.4); RED CELL DISTRIBUTION WIDTH 16.5 % (11.6-16.5); WHITE BLOOD COUNT 7.8 X10^3/uL (3.6-10.0)
[2019-06-11 06:36] LABS: ALBUMIN 2.7 g/dL (3.4-5.0); CARBON DIOXIDE 15.3 mmol/L (21-32); CREATININE 1.75 mg/dL (0.55-1.02); TOTAL PROTEIN 6.2 g/dL (6.4-8.2)
[2019-06-11] MEDS ORDERED: TOPROL XL ONE (07:45)
[2019-06-11] MEDS: LOVENOX INJ 30 MG SYR SC SCH ×3 (07:55→08:17)
[2019-06-11] MEDS: NORVASC TAB 5 MG PO SCH ×2 (07:57→08:08)
[2019-06-11] MEDS: PEPCID 20 MG IV PREMIX* 20 MG/50 ML BAG IV SCH ×2 (08:08→20:14)
[2019-06-11] MEDS: ROBITUSSIN DM PO SCH ×4 (08:08→20:16)
[2019-06-11] MEDS: PLAVIX PO SCH (08:08)
[2019-06-11] MEDS: VSL#3 PO SCH (08:09)
[2019-06-11] MEDS: TOPROL XL PO SCH (08:09)
[2019-06-11] MEDS: ARTIFICIAL TEARS DROPS OP SCH ×2 (08:11→20:14)
[2019-06-11] MEDS: PATIENT'S HOME MEDICATION (Cyclosporine [Restasis] 1 DROP) OP SCH (08:12)
[2019-06-11] MEDS: SYNTHROID 137 mcg TAB PO SCH (08:12)
[2019-06-11] MEDS ORDERED: PROCRIT or EPOGEN SC ONE (10:51)
[2019-06-11] MEDS ORDERED: VALIUM PO ONE (10:52)
[2019-06-11] MEDS: NEURONTIN CAP 100 MG PO SCH (11:40)
[2019-06-11] MEDS: TORADOL 30 MG VIAL IVP SCH ×2 (11:40→20:16)
[2019-06-11] MEDS ORDERED: ANTIVERT TAB 25 MG PO PRN (12:00)
[2019-06-11] MEDS ORDERED: ULTRAM PO PRN (12:00)
[2019-06-11] MEDS ORDERED: ZANAFLEX PO PRN (12:00)
[2019-06-11] MEDS: VIT C E ZINC CIT LUTEIN ZEAXAN PO SCH (12:32)
[2019-06-11] MEDS ORDERED: KENALOG CREAM TOP SCH (13:00)
[2019-06-11] MEDS ORDERED: MEGACE PO SCH ×2 (13:00→17:00)
[2019-06-11] MEDS: ALDACTONE TAB 25 MG PO SCH (14:05)
[2019-06-11] MEDS: LEVAQUIN PREMIX IV 500 MG 500 MG/100 ML BAG IV SCH (14:06)
[2019-06-11] MEDS: PERIACTIN TAB 4 MG PO SCH ×2 (14:06→21:01)
[2019-06-11] MEDS: PROTONIX TAB 40 MG PO SCH (14:10)
[2019-06-11] MEDS ORDERED: COLACE CAP 100 MG PO PRN (19:54)
[2019-06-11] MEDS ORDERED: MILK OF MAGNESIA PO PRN (19:54)
[2019-06-11] MEDS: PILOCARPINE HCL 5 MG PO SCH (20:15)
[2019-06-11] MEDS: NEURONTIN CAP 300 MG PO SCH (20:18)
--- NOTE | 2019-06-11 20:52 | PCM.PROG ---
Progress Note - Progress Note for Day of Date of Exam: 06/10/19 - Subjective Subjective: WAS ADMITTED FOR LEFT LUNG PNEUMONIA, CHRONIC KIDNEY DISEASE, HEADACHE, NAUSEA, AND VOMITING. TODAY, SHE IS ALERT AND ORIENTED, LYING IN BED ON MORNING ROUNDS. SHE CONTINUES WITH SHORTNESS OF BREATH AND A SEVERE HEADACHE TODAY. ON EXAMINATION, HEART IS REGULAR IN RATE AND RHYTHM. BILATERAL LUNGS ARE NOTED WITH DIMINISHED LUNG SOUNDS. ABDOMEN IS ROUND, SOFT, AND NON- TENDER. NORMAL BOWEL SOUNDS NOTED IN ALL QUADRANTS. HER VITALS THIS MORNING ARE: 98.1-93-28-98%-132/60. LABS WERE OBTAINED. ABNORMAL LAB VALUES INCLUDE THE FOLLOWING: WBC 12.2, RBC 3.26, HGB 8.8, HCT 27.7, SODIUM 134, CARBON DIOXIDE 16.9, BUN 28, CREATININE 2.03, CALCIUM 7.9, TOTAL PROTEIN 5.9, ALBUMIN 2.5. AN ABG WAS OBTAINED AND REVEALED: PH 7.400, P02 82.0, HC03 16.7, 02 SATURATION 96.0, BASE EXCESS -6.7. BLOOD CULTURES ARE PENDING. A CHEST XRAY WAS OBTAINED AND REVEALED: NO SIGNIFICANT CHANGE IN LEFT MIDDLE LOBE INFILTRATE. WE WILL CONTINUE WITH IV FLUIDS, IV ANTIBIOTICS, AND RESPIRATORY TREATMENTS TODAY. WE WILL START FIORCET 1 TAB Q4H PRN PAIN. OTHERWISE, WE WILL FOLLOW UP WITH AM LABS AND CHEST XRAY AND CONTINUE TO MONITOR. - Past Medical Family Social History Past Med/Fam/Surg Hx: No changes since H&P Allergies: Allergies hydrocodone Allergy (Intermediate, Verified 04/12/19 09:23) CONFUSION - Review of Systems ROS: No change since H&P - Vital Signs and I&O's Vital Signs: Temperature 97.5 F Pulse Rate 84 Respiratory Rate 17 Blood Pressure [Left Arm] 179/79 Blood Pressure [Right Arm] 216/87 Blood Pressure 190/89 O2 Sat by Pulse Oximetry 99 Intake and Output: Intake & Output 06/09/19 06/10/19 06/11/19 06/12/19 11:59 11:59 11:59 11:59 Intake Total 1600 / 1600 3635 / 3635 1690 / 1690 Output Total 100 / 100 1250 / 1250 550 / 550 Balance 1500 / 1500 2385 / 2385 1140 / 1140 - Physical Exam Oriented: Normal Eyes: Normal Ear: Normal Nose: Normal Throat: Normal Respiratory: Generalized, Diminished Cardiovascular: Normal. negative: S3, S4, Murmur : Normal Auscultation: Bowel Sounds: Normal Palpation: Normal Tenderness: Normal Skin: Normal Musculoskeletal: Normal Psychiatric: Normal Mood Description: Calm Affect: Normal Speech Pattern: Clear, Appropriate - Laboratory and Diagnostics Result Diagrams: 06/11/19 06:00 06/11/19 06:00 Labs: 06/09/19 13:36 Blood Blood Culture - Preliminary 06/09/19 13:27 Blood Blood Culture - Preliminary Laboratory WBC 7.8 X10^3/uL (3.6-10.0) 06/11/19 06:00 RBC 3.23 X10^6/uL (3.5-5.4) L 06/11/19 06:00 Hgb 8.7 g/dL (12.0-16.0) L 06/11/19 06:00 Hct 27.0 % (36.0-47.0) L 06/11/19 06:00 MCV 83.8 fL (80.0-100.0) 06/11/19 06:00 MCH 27.0 pg (27.0-34.0) 06/11/19 06:00 MCHC 32.2 g/dL (33.0-35.0) L 06/11/19 06:00 RDW 16.5 % (11.6-16.5) 06/11/19 06:00 Plt Count 235 X10^3/uL (150.0-450.0) 06/11/19 06:00 Plt Count Comment Adequate (ADEQUATE) 06/09/19 11:03 MPV 8.3 fL (7.4-11.0) 06/11/19 06:00 Neut % (Auto) 76.2 % (42.0-75.0) H 06/11/19 06:00 Lymph % (Auto) 8.7 % (21.0-51.0) L 06/11/19 06:00 [place] % (Auto) 12.5 % (0.0-13.0) 06/11/19 06:00 Eos % (Auto) 1.9 % (0.9-2.9) 06/11/19 06:00 Baso % (Auto) 0.7 % (0.2-1.0) 06/11/19 06:00 Neut # (Auto) 5.9 x10^3/uL (2.2-4.8) H 06/11/19 06:00 Lymph # (Auto) 0.7 X10^3/uL (1.3-2.9) L 06/11/19 06:00 [place] # (Auto) 1.0 x10^3/uL (0.3-0.8) H 06/11/19 06:00 Eos # (Auto) 0.2 x10^3/uL (0.0-0.2) 06/11/19 06:00 Baso # (Auto) 0.1 X10^3/uL (0.0-0.1) 06/11/19 06:00 Absolute Nucleated RBC 0.0 /100WBC 06/11/19 06:00 Total Counted 100 06/09/19 11:03 Neutrophils % (Manual) 79 % (39-76) H 06/09/19 11:03 Band Neutrophils % 9 % (0-10) 06/09/19 11:03 Lymphocytes % (Manual) 3 % (13-43) L 06/09/19 11:03 Monocytes % (Manual) 9 % (4-9) 06/09/19 11:03 Plt Morphology Comment Normal (NORMAL) 06/09/19 11:03 RBC Morphology Normal (NORMAL) 06/09/19 11:03 INR Target Range - 06/09/19 11:03 INR 1.04 (0.8-1.3) 06/09/19 11:03 APTT 29.4 SECONDS (22.9-36.5) 06/09/19 11:03 PTT Comment - 06/09/19 11:03 Sample Site Lbr 06/09/19 13:31 ABG pH 7.400 (7.35-7.45) 06/09/19 13:31 ABG pCO2 27.0 mmHg (35.0-45.0) L 06/09/19 13:31 ABG pO2 82.0 mmHg (80.0-100.0) 06/09/19 13:31 ABG HCO3 16.7 mmol/L (22-26) L* 06/09/19 13:31 ABG O2 Saturation 96.0 % (90-100) 06/09/19 13:31 ABG Base Excess -6.7 mmol/L (-2.0-2.0) L 06/09/19 13:31 Issa Test N/a 06/09/19 13:31 A-a Gradient 34.0 mmHg 06/09/19 13:31 FiO2 21.0 06/09/19 13:31 Blood Gas Comments Pt tanvi well elj 06/09/19 13:31 Sodium 136 mmol/L (136-145) 06/11/19 06:00 Corrected Sodium 136 mmol/L (136-145) 06/11/19 06:00 Potassium 4.7 mmol/L (3.5-5.1) 06/11/19 06:00 Chloride 106 mmol/L (98-107) 06/11/19 06:00 Carbon Dioxide 15.3 mmol/L (21-32) L 06/11/19 06:00 BUN 23 mg/dL (7-18) H 06/11/19 06:00 Creatinine 1.75 mg/dL (0.55-1.02) H 06/11/19 06:00 Est GFR (MDRD) Af Amer 36 (>60) L 06/11/19 06:00 Est GFR (MDRD) Non-Af 30 (>60) L 06/11/19 06:00 Glucose 113 mg/dL (65-99) H 06/11/19 06:00 Calcium 8.0 mg/dL (8.5-10.1) L 06/11/19 06:00 Corrected Calcium 9.0 mg/dL (8.5-10.1) 06/11/19 06:00 Magnesium 1.8 mg/dL (1.7-2.9) 06/09/19 11:03 Total Bilirubin 0.30 mg/dL (0.2-1.0) 06/11/19 06:00 AST 21 Units/L (15-37) 06/11/19 06:00 ALT 15 Units/L (12-78) 06/11/19 06:00 Alkaline Phosphatase 97 Units/L (46-116) 06/11/19 06:00 Creatine Kinase 33 Units/L (26-192) 06/09/19 11:03 CK-MB (CK-2) 1.0 ng/mL (0-4.0) 06/09/19 11:03 CK/CKMB % Calc 3.0 % (<4) 06/09/19 11:03 Troponin I < 0.02 ng/mL (0-1.5) 06/09/19 11:03 Total Protein 6.2 g/dL (6.4-8.2) L 06/11/19 06:00 Albumin 2.7 g/dL (3.4-5.0) L 06/11/19 06:00 Globulin 3.5 g/dL (2.5-4.5) 06/11/19 06:00 Albumin/Globulin Ratio 0.8 Ratio (1.1-2.1) L 06/11/19 06:00 Amylase 15 Units/L (25-115) L 06/09/19 11:03 Lipase 153 Units/L (73-393) 06/09/19 11:03 Specimen Type Clean catch urine 06/09/19 21:57 Urine Color Yellow (YELLOW) 06/09/19 21:57 Urine Appearance Clear (CLEAR) 06/09/19 21:57 Urine pH 5.0 (5.0 - 8.0) 06/09/19 21:57 Ur Specific [place] 1.020 (1.000-1.030) 06/09/19 21:57 Urine Protein 2+ (NEGATIVE) 06/09/19 21:57 Urine Glucose (UA) Negative (NEGATIVE) 06/09/19 21:57 Urine Ketones Negative (NEGATIVE) 06/09/19 21:57 Urine Occult Blood Negative (NEGATIVE) 06/09/19 21:57 Urine Nitrite Negative (NEGATIVE) 06/09/19 21:57 Urine Bilirubin Negative (NEGATIVE) 06/09/19 21:57 Urine Urobilinogen Normal (NORMAL) 06/09/19 21:57 Ur Leukocyte Esterase 1+ (NEGATIVE) 06/09/19 21:57 Urine RBC None seen /HPF (NONE SEEN) 06/09/19 21:57 Urine WBC 0-2 /HPF (NONE SEEN) 06/09/19 21:57 Ur Squamous Epith Cells Few /HPF (NEGATIVE) 06/09/19 21:57 Urine Bacteria Negative /HPF (NEGATIVE) 06/09/19 21:57 Ur Culture Indicated? No/not indicated 06/09/19 21:57 - Plan (1) Pneumonia Status: Acute Qualifiers: Pneumonia type: due to unspecified organism Lung location: unspecified part of lung Plan: IV ZOSYN, IV LEVAQUIN, RESPIRATORY TX, SUPPLEMENTAL OXYGEN, CONTINUE TO MONITOR (2) Nausea & vomiting Status: Acute Qualifiers: Vomiting Intractability: unspecified Plan: IV PEPCID, ZOFRAN, CONTINUE TO MONITOR (3) Anemia Status: Chronic Qualifiers: Anemia type: iron deficiency Iron deficiency anemia type: unspecified iron deficiency Qualified Code(s): D50.9 - Iron deficiency anemia, unspecified (4) History of CVA (cerebrovascular accident) Status: Chronic (5) GERD (gastroesophageal reflux disease) Status: Chronic Qualifiers: Esophagitis presence: esophagitis presence not specified Qualified Code(s): K21.9 - Gastro-esophageal reflux disease without esophagitis (6) Essential hypertension Status: Chronic (7) Chronic renal disease Status: Chronic Qualifiers: Chronic kidney disease stage: stage 3 (moderate) Qualified Code(s): N18.3 - Chronic kidney disease, stage 3 (moderate) (8) Systemic lupus erythematosus Status: Chronic Qualifiers: Systemic lupus erythematosus type: unspecified Systemic lupus erythematosus organ involvement: unspecified Qualified Code(s): M32.9 - Systemic lupus erythematosus, unspecified
[2019-06-11] MEDS ORDERED: FLUOCINONIDE TP SCH (21:00)
[2019-06-11] MEDS ORDERED: ZyrTEC TAB 10 MG PO SCH (21:00)
[2019-06-11] MEDS ORDERED: PATIENT'S HOME MEDICATION (Levocetirizine [Levocetirizine] 5 MG) PO SCH (21:00)
[2019-06-11] MEDS ORDERED: BENADRYL CAP/TAB 25 MG PO SCH (21:00)
[2019-06-11] MEDS ORDERED: NORMODYNE INJ 100 MG VIAL ONE (21:16)
[2019-06-11] MEDS: NORMODYNE INJ 20 MG VIAL IVP PRN ×2 (21:25→21:49)
[2019-06-12] MEDS: APRESOLINE TAB 25 MG PO SCH (05:02)
[2019-06-12] MEDS: PERIACTIN TAB 4 MG PO SCH (05:02)
[2019-06-12] MEDS: ZOSYN VIAL 3.375 GRAMS 3.375 G in NS 100 ML IV + SPIKE MINIBAG* 100 ML IV SCH (05:03)
[2019-06-12] MEDS: XOPENEX 1.25 MG/3 ML NEBULE NEB SCH ×2 (05:45→12:06)
[2019-06-12] MEDS ORDERED: NS 1/2 1000 ML IV 1,000 ML ONE (06:25)
[2019-06-12] MEDS: NORMODYNE INJ 20 MG VIAL IVP PRN (06:29)
--- NOTE | 2019-06-12 06:35 | RAD ---
HISTORY: Chest pain Study: Chest AP portable Comparison: 06/11/2019 Findings: The heart remains enlarged. No congestive heart failure is noted. The yana are normal. The right lung is clear. There has been improvement in the left perihilar infiltrate being followed. Minimal residual infiltrate remains. No pleural effusions are identified. The bony thorax is unremarkable. IMPRESSION: Significant improvement left perihilar infiltrate Continued cardiomegaly without congestive heart failure Reported By:
[2019-06-12 06:41] LABS: ALANINE AMINOTRANSFERASE 18 Units/L (12-78); ALBUMIN 2.6 g/dL (3.4-5.0); ALKALINE PHOSPHATASE 117 Units/L (46-116); ASPARTATE AMINO TRANSFERASE 25 Units/L (15-37); BLOOD UREA NITROGEN 20 mg/dL (7-18); CALCIUM 7.6 mg/dL (8.5-10.1); CARBON DIOXIDE 16.6 mmol/L (21-32); CHLORIDE 109 mmol/L (98-107); COR CA(FOR HYPOALB) 8.7 mg/dL (8.5-10.1); CREATININE 1.59 mg/dL (0.55-1.02); SODIUM 138 mmol/L (136-145); TOTAL PROTEIN 6.3 g/dL (6.4-8.2); eGFR NON BLACK RACES 33 (>60)
[2019-06-12 06:47] LABS: BASOPHILS # (AUTO) 0.1 X10^3/uL (0.0-0.1); BASOPHILS % (AUTO) 1.3 % (0.2-1.0); EOSINOPHILS # (AUTO) 0.2 x10^3/uL (0.0-0.2); EOSINOPHILS % (AUTO) 3.1 % (0.9-2.9); HEMATOCRIT 27.5 % (36.0-47.0); HEMOGLOBIN 8.9 g/dL (12.0-16.0); LYMPHOCYTES # (AUTO) 0.4 X10^3/uL (1.3-2.9); MEAN CORPUSCULAR HEMOGLOBIN 27.1 pg (27.0-34.0); MEAN CORPUSCULAR HGB CONC 32.5 g/dL (33.0-35.0); MEAN CORPUSCULAR VOLUME 83.5 fL (80.0-100.0); MONOCYTES # (AUTO) 0.7 x10^3/uL (0.3-0.8); MONOCYTES % (AUTO) 13.3 % (0.0-13.0); NEUTROPHILS # (AUTO) 3.7 x10^3/uL (2.2-4.8); NEUTROPHILS % (AUTO) 74.3 % (42.0-75.0); PLATELET COUNT 253 X10^3/uL (150.0-450.0); RED BLOOD COUNT 3.29 X10^6/uL (3.5-5.4); RED CELL DISTRIBUTION WIDTH 16.6 % (11.6-16.5); WHITE BLOOD COUNT 4.9 X10^3/uL (3.6-10.0)
[2019-06-12] MEDS ORDERED: TOPROL XL ONE (08:17)
[2019-06-12] MEDS: ARTIFICIAL TEARS DROPS OP SCH (08:21)
[2019-06-12] MEDS: ALDACTONE TAB 25 MG PO SCH (08:21)
[2019-06-12] MEDS: NEURONTIN CAP 100 MG PO SCH ×2 (08:22→12:00)
[2019-06-12] MEDS: PILOCARPINE HCL 5 MG PO SCH (08:23)
[2019-06-12] MEDS: NORVASC TAB 5 MG PO SCH (08:23)
[2019-06-12] MEDS: PEPCID 20 MG IV PREMIX* 20 MG/50 ML BAG IV SCH (08:23)
[2019-06-12] MEDS: PROTONIX TAB 40 MG PO SCH (08:24)
[2019-06-12] MEDS: VSL#3 PO SCH (08:24)
[2019-06-12] MEDS: SYNTHROID 137 mcg TAB PO SCH (08:25)
[2019-06-12] MEDS: ROBITUSSIN DM PO SCH (08:25)
[2019-06-12] MEDS: TOPROL XL PO SCH (08:25)
[2019-06-12] MEDS: LOVENOX INJ 30 MG SYR SC SCH (08:58)
[2019-06-12] MEDS: PLAVIX PO SCH (09:00)
[2019-06-12] MEDS: TORADOL 30 MG VIAL IVP SCH (09:00)
[2019-06-12] MEDS ORDERED: PEPCID 20 MG IV PREMIX* 20 MG/50 ML BAG IV SCH (09:00)
[2019-06-12] MEDS ORDERED: ESTRACE PO SCH (09:00)
[2019-06-12] MEDS: VIT C E ZINC CIT LUTEIN ZEAXAN PO SCH (09:01)
[2019-06-12] MEDS ORDERED: DULCOLAX SUPPOSITORY 10 MG RECTAL NR (09:45)
[2019-06-12 10:04] VITALS: BP 175/75
[2019-06-12] MEDS ORDERED: PROCRIT or EPOGEN SC NR ×2 (10:18→11:00)
[2019-06-12] MEDS: NS 1/2 1000 ML IV 1,000 ML IV SCH (12:00)
== END 2019-06-12 12:42 | disposition home or self-care (01) | DRG 195 ==
LOC: ER 10:12 → ICU 13:33
PROVIDERS: ADMIT Internal Medicine; ATTEND Internal Medicine
DX: R11.10 Vomiting, unspecified; D50.9 Iron deficiency anemia, unspecified; M32.9 Systemic lupus erythematosus, unspecified; K59.09 Other constipation; N18.3 Chronic kidney disease, stage 3 (moderate); R94.31 Abnormal electrocardiogram [ECG] [EKG]; I25.10 Atherosclerotic heart disease of native coronary artery without angina pectoris; I11.9 Hypertensive heart disease without heart failure; Z86.73 Personal history of transient ischemic attack (TIA), and cerebral infarction without residual deficits; R26.89 Other abnormalities of gait and mobility; E78.2 Mixed hyperlipidemia; R51 Headache; R06.02 Shortness of breath; K21.9 Gastro-esophageal reflux disease without esophagitis; J18.9 Pneumonia, unspecified organism
CPT/HCPCS: 36415; 36600; 70450; 70551; 71010; 71020; 71045; 71046; 72141; 74176; 80053; 81001; 82150; 82550; 82553; 82803; 83690; 83735; 84484; 85025; 85610; 85730; 87040; 93005; 94640; 96365; 96367; 96374; 96375; 97162; 97166; 99284; A4222; S0028; S0179; J0885; J1650; J1885; J1956; J2405; J2543; J3490; J7030; J7050

== ENCOUNTER 2019-07-09 08:35 | Inpatient (IN) ==
--- NOTE | 2019-07-09 08:41 | DR.GENAD ---
HPI Time Seen Time Seen by Provider: 07/09/19 08:39 HPI Comment HPI Comment: PATIENT IS 78YR OLD FEMALE IN THE EMERGENY ROOM WITH AMS CONFUSION AND GENERALIZED WEAKNESS. PATIENT FELL AND INJURED LEFT INDEX FINGER, RIGHT SHOULDER AND RIGHT FOREARM. PATIENT HAVE HISTORY OF CAD AND HYPERTENSION. NO FEVER OR DYSURIAPA. Complaint/Symptoms Chief Complaint Doctors Comments: AMS, CONFUSION AND GENERALIZE WEAKNESS. Nurses notes reviewed Nurses Notes Review: Yes Source History Provided: Patient and Family Member Mode of Arrival Mode of Arrival: Wheelchair Timing Came on: Suddenly Duration Duration: Constant Duration: Days Severity Severity: Moderate Modifying Factors Worsens:: NONE. Improves:: NONE. Other History Other History: CAD. PMH PMH Past Medical History: Anemia, Angina, Arthritis, CHF, Coronary Artery Disease, Dyslipidemia and Hypertension Surgical History: Appendectomy, Cholecystectomy, Hysterectomy, Joint Replacement and Tonsillectomy Family History Family Medical History: Cancer, [place] and Hypertension Social History Do you use any recreational Drugs:: No infectious screening Isolation: Standard ROS Review of Systems Constitutional: See HPI, Weakness and Fatigue; negative Fever Eyes: No Symptoms Reported, See HPI and Eye Pain; negative Blurred Vision, Photophobia and Diplopia ENTM: See HPI and Nose Congestion; negative Ear Pain, Nose Discharge and Throat Pain Respiratoy: See HPI and Non-Productive Cough; negative Short of Breath and Wheezing Cardiovascular: No Symptoms Reported and See HPI; negative Chest Pain, Edema and Palpitations Gastrointestinal/Abdominal: See HPI; negative Abdominal Pain, Constipation, Diarrhea, Nausea and Vomiting Genitourinary: No Symptoms Reported and See HPI; negative Dysuria, Frequency and Hematuria Neurological: See HPI and Weakness; negative Headache and Dizziness Musculoskeletal: No Symptoms Reported and See HPI; negative Back Pain Integumentary: No Symptoms Reported and See HPI; negative Change in Color, Rash and Juandice Hematologic/Lymphatic: No Symptoms Reported and See HPI; negative Easy Bleeding, Easy Bruising and Swollen Glands Endocrine: No Symptoms Reported and See HPI; negative Increased Thirst and Increased Urine Psychiatric: No Symptoms Reported and See HPI All Other Systems: Reviewed and Negative PE Vital Signs Vitals: Temperature 98.6 F Pulse Rate [Right Brachial] 85 Pulse Rate 77 Respiratory Rate 18 Blood Pressure [Left Arm] 148/72 Blood Pressure [Right Arm] 172/71 Blood Pressure 154/70 O2 Sat by Pulse Oximetry 94 General Limitations: Altered Mental Status General Appearance: Alert and In No Apparent Distress Head Head Exam: Normal Inspection, Atraumatic and Normocephalic Eyes Eye exam: Normal Appearance, PERRL and EOMI; negative Scleral Icterus and Conjunctival Injection ENT ENT Exam: Normal Exam, Normal Oropharynx, Normal External Ear Exam and TM's Normal Bilaterally External Ear Exam: Normal External Inspection; negative Mastoid Tenderness, Pain with Movement and External Tenderness TM/Canal Exam: Bilateral: Normal Nose Exam: Normal Nose Exam; negative Sinus Tenderness, Nasal Deviation and Septal Hematoma Mouth Exam: Normal Inspection, Lip Swelling and Tongue Swelling Throat Exam: Normal Inspection; negative Tonsillar Erythema, Tonsillomegaly and Tonsillar Exudate Neck Neck Exam: Normal Inspection and Trachea Midline; negative Tenderness and Lymphadenopathy Chest Chest Inspection: Normal Inspection and Symmetric Chest Wall Rise; negative Tenderness Respiratory Respiratory Exam: Normal Lung Sounds Bilat; negative Accessory Muscle Use, Chest Wall Tenderness and Respiratory Distress Respiratory Exam: Bilateral: Rhonchi and Lower: Rhonchi Cardiovascular Cardiovascular Exam: Regular Rate, Normal Rhythm and Normal Heart Sounds; negative Systolic Murmur and Diastolic Murmur Abdominal Exam Abdominal Exam: Normal Inspection, Normal Bowel Sounds and Soft; negative Tenderness Extremities Extremities Exam: Normal Inspection and Normal Capillary Refill; negative Tenderness, Edema and Calf Tenderness Back Back Exam: Normal Inspection; negative Tenderness, (R) CVA Tenderness, (L) CVA Tenderness, Paraspinal Tenderness and Vertebral Tenderness Neurologic Neurological Exam: Alert, Oriented X3, CN II-XII Intact and Motor Sensory Deficit Psychiatric Psychiatric Exam: Normal Affect and Normal Mood Skin Skin Exam: Warm, Dry, Intact and Normal Color MDM Additional Information Additional Information Obtained From: Family Differential Diagnosis Differential Diagnosis: AMS, CVA, [place], PNEUMONIS, DEHYDRATION, ELECTROLYTE IMBALANCE. COURSE Treatment Treatment: SEE ORDERS. Education/Counseling Education/Counseling: Patient Educated On: Diagnosis ROR Labs Reviewed Laboratory Results Reviewed?: Yes Result Diagrams: 07/15/19 05:05 07/15/19 05:05 Laboratory: 07/09/19 10:12 Urine,Clean Catch Urine Culture - Final Escherichia Coli WBC 4.3 X10^3/uL (3.6-10.0) 07/15/19 05:05 RBC 4.01 X10^6/uL (3.5-5.4) 07/15/19 05:05 Hgb 9.9 g/dL (12.0-16.0) L 07/15/19 05:05 Hct 30.7 % (36.0-47.0) L 07/15/19 05:05 MCV 76.5 fL (80.0-100.0) L 07/15/19 05:05 MCH 24.6 pg (27.0-34.0) L 07/15/19 05:05 MCHC 32.2 g/dL (33.0-35.0) L 07/15/19 05:05 RDW 18.9 % (11.6-16.5) H 07/15/19 05:05 Plt Count 273 X10^3/uL (150.0-450.0) 07/15/19 05:05 Plt Count Comment Adequate (ADEQUATE) 07/15/19 05:05 MPV 7.2 fL (7.4-11.0) L 07/15/19 05:05 Neut % (Auto) 64.3 % (42.0-75.0) 07/15/19 05:05 Lymph % (Auto) 13.1 % (21.0-51.0) L 07/15/19 05:05 Woodson % (Auto) 17.0 % (0.0-13.0) H 07/15/19 05:05 Eos % (Auto) 4.1 % (0.9-2.9) H 07/15/19 05:05 Baso % (Auto) 1.5 % (0.2-1.0) H 07/15/19 05:05 Neut # (Auto) 2.8 x10^3/uL (2.2-4.8) 07/15/19 05:05 Lymph # (Auto) 0.6 X10^3/uL (1.3-2.9) L 07/15/19 05:05 Woodson # (Auto) 0.7 x10^3/uL (0.3-0.8) 07/15/19 05:05 Eos # (Auto) 0.2 x10^3/uL (0.0-0.2) 07/15/19 05:05 Baso # (Auto) 0.1 X10^3/uL (0.0-0.1) 07/15/19 05:05 Absolute Nucleated RBC 0.0 /100WBC 07/15/19 05:05 Total Counted 100 07/13/19 06:15 Neutrophils % (Manual) 62 % (39-76) 07/13/19 06:15 Band Neutrophils % 4 % (0-10) 07/13/19 06:15 Lymphocytes % (Manual) 22 % (13-43) 07/13/19 06:15 Monocytes % (Manual) 12 % (4-9) H 07/13/19 06:15 Giant Platelets N 07/12/19 06:30 Plt Morphology Comment Normal (NORMAL) 07/15/19 05:05 RBC Morphology Abnormal (NORMAL) A 07/15/19 05:05 Hypochromasia Slight A 07/15/19 05:05 Anisocytosis Slight A 07/15/19 05:05 Microcytosis Slight A 07/15/19 05:05 PT 12.8 SECONDS (11.8-14.3) 07/12/19 06:30 INR Target Range - 07/12/19 06:30 INR 1.00 (0.8-1.3) 07/12/19 06:30 APTT 43.8 SECONDS (22.9-36.5) H 07/10/19 04:00 PTT Comment - 07/10/19 04:00 Sodium 132 mmol/L (136-145) L 07/15/19 05:05 Corrected Sodium TNP 07/15/19 05:05 Potassium 4.4 mmol/L (3.5-5.1) 07/15/19 05:05 Chloride 102 mmol/L (98-107) 07/15/19 05:05 Carbon Dioxide 19.4 mmol/L (21-32) L 07/15/19 05:05 BUN 19 mg/dL (7-18) H 07/15/19 05:05 Creatinine 1.32 mg/dL (0.55-1.02) H 07/15/19 05:05 Est GFR (MDRD) Af Amer 50 (>60) L 07/15/19 05:05 Est GFR (MDRD) Non-Af 41 (>60) L 07/15/19 05:05 Glucose 106 mg/dL (65-99) H 07/15/19 05:05 Calcium 8.4 mg/dL (8.5-10.1) L 07/15/19 05:05 Corrected Calcium 9.1 mg/dL (8.5-10.1) 07/15/19 05:05 Magnesium 1.9 mg/dL (1.7-2.9) 07/10/19 04:00 Total Bilirubin 0.30 mg/dL (0.2-1.0) 07/15/19 05:05 AST 25 Units/L (15-37) 07/15/19 05:05 ALT 17 Units/L (12-78) 07/15/19 05:05 Alkaline Phosphatase 102 Units/L (46-116) 07/15/19 05:05 Creatine Kinase 12 Units/L (26-192) L 07/09/19 21:51 CK-MB (CK-2) < 1.0 ng/mL (0-4.0) 07/09/19 21:51 CK/CKMB % Calc 8.3 % (<4) 07/09/19 21:51 Troponin I < 0.02 ng/mL (0-1.5) 07/09/19 21:51 Total Protein 6.5 g/dL (6.4-8.2) 07/15/19 05:05 Albumin 3.1 g/dL (3.4-5.0) L 07/15/19 05:05 Globulin 3.4 g/dL (2.5-4.5) 07/15/19 05:05 Albumin/Globulin Ratio 0.9 Ratio (1.1-2.1) L 07/15/19 05:05 Triglycerides 75 mg/dL (0-150) 07/10/19 04:00 Cholesterol 115 mg/dL (0-200) 07/10/19 04:00 LDL Cholesterol, Calc 74 mg/dL (0-100) 07/10/19 04:00 HDL Cholesterol 26 mg/dL (40-60) L 07/10/19 04:00 Cholesterol/HDL Ratio 4.4 (0.0-5.0) 07/10/19 04:00 Specimen Type Clean catch urine 07/09/19 10:12 Urine Color Yellow (YELLOW) 07/09/19 10:12 Urine Appearance Cloudy (CLEAR) 07/09/19 10:12 Urine pH 5.0 (5.0 - 8.0) 07/09/19 10:12 Ur Specific [place] 1.025 (1.000-1.030) 07/09/19 10:12 Urine Protein 3+ (NEGATIVE) 07/09/19 10:12 Urine Glucose (UA) Negative (NEGATIVE) 07/09/19 10:12 Urine Ketones Negative (NEGATIVE) 07/09/19 10:12 Urine Occult Blood 3+ (NEGATIVE) 07/09/19 10:12 Urine Nitrite Positive (NEGATIVE) 07/09/19 10:12 Urine Bilirubin Negative (NEGATIVE) 07/09/19 10:12 Urine Urobilinogen Normal (NORMAL) 07/09/19 10:12 Ur Leukocyte Esterase 3+ (NEGATIVE) 07/09/19 10:12 Urine RBC 5-10 /HPF (0-3) A 07/09/19 10:12 Urine WBC 20-30 /HPF (0-5) A 07/09/19 10:12 Ur Squamous Epith Cells Rare /HPF (NEGATIVE) 07/09/19 10:12 Urine Bacteria 1+ /HPF (NEGATIVE) 07/09/19 10:12 Urine Mucus Few /HPF (NEGATIVE) 07/09/19 10:12 Ur Culture Indicated? Yes/culture set up 07/09/19 10:12 XRAY XRAY Interpreted by: Radiologist XRAY Findings: REPORT NOTED AND DISCUSSED WITH PATIENT AND FAMILY. EKG Rate: 87 [place]: Normal Rhythm: NSR Block: LBBB Hypertrophy: LVH ST: Nonsp Opioid Opioid Risk Tool Age (Flavio box if 16-45): No History of Preadolescent Sexual Abuse: No Total: 0 Total Score Risk Category: Low Risk Copyright: Hussein CALABRESE predicting aberrant behaviors Diagnosis Discharge Problem: Altered mental status, UTI (urinary tract infection), Acute dehydration Acute renal failure Qualifiers: Acute renal failure type: unspecified Qualified Code(s): N17.9 - Acute kidney failure, unspecified
[2019-07-09] MEDS ORDERED: CATAPRES TAB 0.2 MG PO ONE (09:05)
[2019-07-09] MEDS ORDERED: MORPHINE SULFATE INJ 2 MG INJ IVP ONE (09:07)
[2019-07-09] MEDS ORDERED: ZOFRAN INJ 4 MG VIAL IVP ONE (09:07)
[2019-07-09] MEDS ORDERED: ZOFRAN INJ 4 MG VIAL ONE (09:14)
[2019-07-09] MEDS ORDERED: CATAPRES TAB 0.2 MG ONE (09:14)
[2019-07-09] MEDS ORDERED: MORPHINE SULFATE INJ 2 MG INJ ONE (09:15)
[2019-07-09 09:57] LABS: BASOPHILS # (AUTO) 0.1 X10^3/uL (0.0-0.1); EOSINOPHILS # (AUTO) 0.1 x10^3/uL (0.0-0.2); EOSINOPHILS % (AUTO) 0.6 % (0.9-2.9); HEMATOCRIT 33.2 % (36.0-47.0); HEMOGLOBIN 10.5 g/dL (12.0-16.0); LYMPHOCYTES # (AUTO) 0.5 X10^3/uL (1.3-2.9); LYMPHOCYTES % (AUTO) 4.8 % (21.0-51.0); MEAN CORPUSCULAR HEMOGLOBIN 24.8 pg (27.0-34.0); MEAN CORPUSCULAR HGB CONC 31.7 g/dL (33.0-35.0); MEAN CORPUSCULAR VOLUME 78.1 fL (80.0-100.0); MEAN PLATELET VOLUME 7.6 fL (7.4-11.0); MONOCYTES % (AUTO) 9.3 % (0.0-13.0); NEUTROPHILS # (AUTO) 8.7 x10^3/uL (2.2-4.8); NEUTROPHILS % (AUTO) 84.3 % (42.0-75.0); PLATELET COUNT 252 X10^3/uL (150.0-450.0); RED BLOOD COUNT 4.25 X10^6/uL (3.5-5.4); RED CELL DISTRIBUTION WIDTH 18.2 % (11.6-16.5); WHITE BLOOD COUNT 10.3 X10^3/uL (3.6-10.0)
--- NOTE | 2019-07-09 10:01 | CT ---
HISTORY: Altered mental status Study: CT head without contrast Comparison: 06/11/2019 Technique: Axial noncontrast images with coronal and sagittal reformats. Dose reduction procedures were used with mA/kv adjusted for body size. Findings: The ventricles, cortical sulci, and other CSF spaces are mildly enlarged consistent with mild generalized atrophy likely age related. There is slight decreased attenuation in the periventricular white matter suggestive of small vessel vascular disease. There is no evidence for recent or remote CVA, hemorrhage, mass lesion, or extra-axial fluid collection. The visualized sinuses are clear. The calvarium is intact. IMPRESSION: No acute intracranial abnormality Generalized atrophy likely age related Small vessel disease Reported By:
--- NOTE | 2019-07-09 10:03 | CT ---
HISTORY: Fall, neck pain Study: CT cervical spine without contrast Comparison: None Technique: Axial noncontrast images with coronal and sagittal reformats. Dose reduction procedures were used with mA/kv adjusted for body size. Findings: The prevertebral soft tissues are normal. The alignment is normal with the exception of slight anterolisthesis C2 on C3. The vertebral bodies are of average height. Degenerative disc disease is present C4-5, C5-6, C6-7. The pedicles, spinous processes, and posterior elements are intact. Diffuse bilateral spondylitic foraminal narrowing is present. Spondylitic canal stenosis is present at C5-6. Diffuse bilateral facet and uncovertebral joint degenerative joint disease is present. There is no definite evidence for fracture or dislocation. Atlantoaxial degenerative joint disease is present. 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
[2019-07-09 10:05] LABS: HYPOCHROMASIA SLIGHT; MICROCYTOSIS SLIGHT; PLATELET MORPHOLOGY COMMENT NORMAL (NORMAL)
--- NOTE | 2019-07-09 10:06 | RAD ---
HISTORY: Shortness of breath Study: Chest AP portable Comparison: 06/12/2019 Findings: The heart is mildly enlarged. No congestive heart failure is noted. The lungs are well inflated and clear. No pleural effusions are identified. The bony thorax is unremarkable. IMPRESSION: Mild cardiomegaly without congestive heart failure Lungs clear Reported By:
[2019-07-09 10:14] LABS: BLOOD UREA NITROGEN 41 mg/dL (7-18); CALCIUM 8.9 mg/dL (8.5-10.1); CARBON DIOXIDE 16.3 mmol/L (21-32); CHLORIDE 100 mmol/L (98-107); COR NA(FOR HYPERGLY) 130 mmol/L (136-145); SODIUM 129 mmol/L (136-145); TROPONIN I < 0.02 ng/mL (0-1.5); eGFR NON BLACK RACES 18 (>60)
[2019-07-09 10:15] LABS: ALANINE AMINOTRANSFERASE 24 Units/L (12-78); ALBUMIN 3.2 g/dL (3.4-5.0); ALKALINE PHOSPHATASE 135 Units/L (46-116); ASPARTATE AMINO TRANSFERASE 25 Units/L (15-37); CKMB % 6.3 % (<4); COR CA(FOR HYPOALB) 9.5 mg/dL (8.5-10.1); CREATINE KINASE 16 Units/L (26-192); CREATINE KINASE MB < 1.0 ng/mL (0-4.0); TOTAL PROTEIN 7.2 g/dL (6.4-8.2)
[2019-07-09 10:19] LABS: BILIRUBIN,URINE NEGATIVE (NEGATIVE); BLOOD/HEMOGLOBIN,URINE 3+ (NEGATIVE); GLUCOSE, URINE NEGATIVE (NEGATIVE); KETONES,URINE NEGATIVE (NEGATIVE); LEUKOCYTE ESTERASE ,URINE 3+ (NEGATIVE); NITRITES,URINE POSITIVE (NEGATIVE); PROTEIN,URINE 3+ (NEGATIVE); UROBILINOGEN,URINE NORMAL (NORMAL)
[2019-07-09 10:21] LABS: APPEARANCE,URINE CLOUDY (CLEAR); COLOR,URINE YELLOW (YELLOW)
[2019-07-09 10:30] LABS: BACTERIA,URINE 1+ /HPF (NEGATIVE); MUCUS,URINE FEW /HPF (NEGATIVE); SQUAMOUS EPITHELIAL CELL,UR RARE /HPF (NEGATIVE)
[2019-07-09] MEDS ORDERED: PROCRIT or EPOGEN SC ONE (11:12)
[2019-07-09] MEDS ORDERED: PROCRIT or EPOGEN ONE (11:14)
[2019-07-09] MEDS ORDERED: INVANZ INJ 1 GM VIAL 1 GM in NS 100 ML IV + SPIKE MINIBAG* 100 ML IV ONE (12:04)
[2019-07-09] MEDS: XOPENEX 1.25 MG/3 ML NEBULE NEB SCH ×3 (12:44→20:41)
[2019-07-09] MEDS ORDERED: NS 1000 ML 1,000 ML IV SCH (13:00)
[2019-07-09] MEDS ORDERED: CATAPRES-TTS-3 TD SCH (13:02)
[2019-07-09] MEDS ORDERED: ULTRAM PO PRN (13:02)
[2019-07-09] MEDS ORDERED: ZANAFLEX PO PRN (13:02)
[2019-07-09] MEDS ORDERED: FIORICET TAB PO PRN (13:02)
[2019-07-09] MEDS ORDERED: ANTIVERT TAB 25 MG PO PRN (13:02)
[2019-07-09] MEDS ORDERED: LEVALBUTEROL HCL IN PRN (13:02)
[2019-07-09] MEDS ORDERED: KENALOG CREAM TOP SCH (13:02)
[2019-07-09] MEDS ORDERED: PERCOCET TAB 5/325 MG PO PRN (13:02)
[2019-07-09] MEDS ORDERED: XOPENEX 1.25 MG/3 ML NEBULE NEB SCH (14:00)
--- NOTE | 2019-07-09 14:21 | RAD ---
HISTORY: Pain status post fall. Study: Two views of the right forearm. Comparison: Right forearm series dated April 22, 2017. Findings: Study limited secondary to lack of true lateral. No acute cortical disruption or dislocation can be identified. No significant soft tissue swelling or injury can be seen. Previously seen radial head fracture appears healed. IMPRESSION: No acute osseous abnormality. Reported By:
--- NOTE | 2019-07-09 14:23 | RAD ---
HISTORY: Pain status post fall. Study: Three views of the right shoulder. Comparison: Chest x-ray cyst dated June 11, 2019. Findings: No acute cortical disruption or dislocation can be identified. No significant soft tissue swelling or injury can be seen. Mild osteoarthritis of the right acromioclavicular and glenohumeral joints. The visualized lung is clear. IMPRESSION: No acute osseous abnormality. Reported By:
--- NOTE | 2019-07-09 14:26 | RAD ---
HISTORY: Left index finger pain status post fall. Study: Three views of the left hand. Comparison: None. Findings: No acute cortical disruption or dislocation can be identified. No significant soft tissue swelling or injury can be seen. Degenerative changes are seen about the hand and wrist. IMPRESSION: No acute osseous abnormality. Reported By:
[2019-07-09] MEDS: APRESOLINE TAB 25 MG PO SCH ×2 (14:59→22:14)
[2019-07-09] MEDS: PERIACTIN TAB 4 MG PO SCH ×2 (15:00→22:15)
[2019-07-09 15:04] VITALS: BMI 30.2
[2019-07-09] MEDS: MIRALAX POWDER (255 GRAMS BTL) PO SCH (15:05)
[2019-07-09 16:46] LABS: CKMB % 8.3 % (<4); CREATINE KINASE 12 Units/L (26-192); CREATINE KINASE MB < 1.0 ng/mL (0-4.0); TROPONIN I < 0.02 ng/mL (0-1.5)
[2019-07-09] MEDS: PERCOCET TAB 5/325 MG PO PRN (19:05)
[2019-07-09] MEDS: COLACE CAP 100 MG PO SCH (21:00)
[2019-07-09] MEDS: XANAX PO PRN (21:00)
[2019-07-09] MEDS: ARTIFICIAL TEARS DROPS OP SCH (21:00)
[2019-07-09] MEDS ORDERED: NEURONTIN CAP 100 MG PO SCH (21:00)
[2019-07-09] MEDS: PLAQUENIL PO SCH (21:00)
[2019-07-09] MEDS ORDERED: NEURONTIN CAP 400 MG PO SCH (21:00)
[2019-07-09] MEDS ORDERED: PATIENT'S HOME MEDICATION (Levocetirizine [Levocetirizine] 5 MG) PO SCH (21:00)
[2019-07-09] MEDS: PILOCARPINE HCL 5 MG PO SCH (21:00)
[2019-07-09] MEDS: MEGACE PO SCH (21:00)
[2019-07-09] MEDS: PATIENT'S HOME MEDICATION (Cyclosporine [Restasis] 1 DROP) OP SCH (21:00)
[2019-07-09] MEDS: BENADRYL CAP/TAB 25 MG PO SCH (21:00)
[2019-07-09] MEDS: ZyrTEC TAB 10 MG PO SCH (21:36)
[2019-07-09] MEDS: FLUOCINONIDE TP SCH (22:09)
[2019-07-09 22:25] LABS: CKMB % 8.3 % (<4); CREATINE KINASE 12 Units/L (26-192); CREATINE KINASE MB < 1.0 ng/mL (0-4.0); TROPONIN I < 0.02 ng/mL (0-1.5)
[2019-07-09] MEDS: NS 1000 ML 1,000 ML IV SCH (23:45)
[2019-07-10] MEDS: XOPENEX 1.25 MG/3 ML NEBULE NEB SCH ×4 (04:56→20:44)
[2019-07-10] MEDS: APRESOLINE TAB 25 MG PO SCH ×3 (05:00→20:45)
[2019-07-10 05:22] LABS: BASOPHILS % (AUTO) 0.7 % (0.2-1.0); EOSINOPHILS # (AUTO) 0.1 x10^3/uL (0.0-0.2); EOSINOPHILS % (AUTO) 1.4 % (0.9-2.9); HEMATOCRIT 32.2 % (36.0-47.0); LYMPHOCYTES # (AUTO) 0.6 X10^3/uL (1.3-2.9); LYMPHOCYTES % (AUTO) 8.4 % (21.0-51.0); MEAN CORPUSCULAR HEMOGLOBIN 24.6 pg (27.0-34.0); MEAN CORPUSCULAR HGB CONC 31.1 g/dL (33.0-35.0); MEAN PLATELET VOLUME 8.2 fL (7.4-11.0); MONOCYTES # (AUTO) 1.2 x10^3/uL (0.3-0.8); MONOCYTES % (AUTO) 16.6 % (0.0-13.0); NEUTROPHILS # (AUTO) 5.1 x10^3/uL (2.2-4.8); NEUTROPHILS % (AUTO) 72.9 % (42.0-75.0); PLATELET COUNT 231 X10^3/uL (150.0-450.0); RED BLOOD COUNT 4.07 X10^6/uL (3.5-5.4); RED CELL DISTRIBUTION WIDTH 18.4 % (11.6-16.5)
[2019-07-10 05:39] LABS: ALANINE AMINOTRANSFERASE 21 Units/L (12-78); ALBUMIN 2.9 g/dL (3.4-5.0); ALKALINE PHOSPHATASE 124 Units/L (46-116); ASPARTATE AMINO TRANSFERASE 20 Units/L (15-37); BLOOD UREA NITROGEN 37 mg/dL (7-18); CALCIUM 8.5 mg/dL (8.5-10.1); CARBON DIOXIDE 16.8 mmol/L (21-32); CHLORIDE 101 mmol/L (98-107); CHOL/HDL RATIO 4.4 (0.0-5.0); CHOLESTEROL 115 mg/dL (0-200); COR CA(FOR HYPOALB) 9.4 mg/dL (8.5-10.1); CREATININE 2.21 mg/dL (0.55-1.02); HDL CHOLESTEROL 26 mg/dL (40-60); MAGNESIUM 1.9 mg/dL (1.7-2.9); SODIUM 131 mmol/L (136-145); TOTAL PROTEIN 6.8 g/dL (6.4-8.2); TRIGLYCERIDES 75 mg/dL (0-150); eGFR NON BLACK RACES 23 (>60)
[2019-07-10 05:51] LABS: HYPOCHROMASIA 1+; PLATELET MORPHOLOGY COMMENT NORMAL (NORMAL)
[2019-07-10 05:52] LABS: MICROCYTOSIS SLIGHT
[2019-07-10] MEDS: PERIACTIN TAB 4 MG PO SCH ×3 (06:00→20:45)
[2019-07-10] MEDS: NEURONTIN CAP 100 MG PO SCH ×4 (06:00→20:45)
[2019-07-10] MEDS ORDERED: TOPROL XL ONE (08:26)
[2019-07-10] MEDS: PERCOCET TAB 5/325 MG PO PRN (09:10)
[2019-07-10] MEDS: ESTRACE PO SCH (09:12)
[2019-07-10] MEDS: PLAVIX PO SCH (09:12)
[2019-07-10] MEDS: PLAQUENIL PO SCH ×2 (09:12→20:45)
[2019-07-10] MEDS: PROTONIX TAB 40 MG PO SCH (09:13)
[2019-07-10] MEDS: COLACE CAP 100 MG PO SCH ×2 (09:13→20:45)
[2019-07-10] MEDS: NORVASC TAB 5 MG PO SCH (09:13)
[2019-07-10] MEDS: TOPROL XL PO SCH (09:13)
[2019-07-10] MEDS: MEGACE PO SCH ×2 (09:13→20:45)
[2019-07-10] MEDS: VSL#3 PO SCH (09:13)
[2019-07-10] MEDS: SYNTHROID 137 mcg TAB PO SCH (09:14)
[2019-07-10] MEDS: ROCEPHIN VIAL 1 GRAM IVP SCH (09:16)
[2019-07-10] MEDS: KENALOG CREAM TOP SCH (09:16)
[2019-07-10] MEDS: LEFLUNOMIDE 20 MG PO SCH (09:18)
[2019-07-10] MEDS: PATIENT'S HOME MEDICATION (Cyclosporine [Restasis] 1 DROP) OP SCH ×2 (09:20→20:45)
[2019-07-10] MEDS: ARTIFICIAL TEARS DROPS OP SCH ×2 (09:20→20:45)
[2019-07-10] MEDS: MIRALAX POWDER (255 GRAMS BTL) PO SCH (09:21)
[2019-07-10] MEDS: PILOCARPINE HCL 5 MG PO SCH ×2 (09:21→20:45)
[2019-07-10] MEDS: VIT C E ZINC CIT LUTEIN ZEAXAN PO SCH (09:34)
[2019-07-10] MEDS: FLUOCINONIDE TP SCH ×2 (09:35→20:45)
[2019-07-10] MEDS ORDERED: PHARMACY CONSULT - DOSE _____ XX SCH (10:00)
[2019-07-10] MEDS: NS 1000 ML 1,000 ML IV SCH (11:35)
[2019-07-10] MEDS: LOVENOX INJ 30 MG SYR SC SCH (15:20)
[2019-07-10] MEDS: BENADRYL CAP/TAB 25 MG PO SCH (20:45)
[2019-07-10] MEDS: XANAX PO PRN (20:45)
[2019-07-10] MEDS: ZyrTEC TAB 10 MG PO SCH (20:45)
--- NOTE | 2019-07-10 21:02 | DR.H&P ---
H&P - History & Physical for Day of: H&P Date: 07/09/19 - Chief Complaint Chief Complaint: AMS, FALL, NECK/ARM/SHOULDER PAIN - History of Present Illness History of Present Illness: IS A 78 YEAR OLD PATIENT OF OURS WHO PRESENTED TO THE ER WITH FAMILY REPORTING ALTERED MENTAL STATUS AND WEAKNESS THAT STARTED EARLIER IN THE DAY. THEY REPORT THAT SHE FELL AT HOME AND HAS BEEN COMPLAINING OF NECK, ARM, AND SHOULDER PAIN. ON ARRIVAL TO THE ER, PATIENT WAS NOTED TO BE DISORIENTED. VITALS ON ARRIVAL WERE 98.6-87-20-99%-221/91. LABS WERE OBTAINED. ABNORMAL LAB VALUES INCLUDE THE FOLLOWING: WBC 10.3, HGB 10.5, HCT 33.2, SODIUM 129, POTASSIUM 5.7, CARBON DIOXIDE 16.3, BUN 41, CREATININE 2.70, GLUCOSE 124, ALK PHOS 135, CREATINE KINASE 16, ALBUMIN 3.2. A URINALYSIS WAS OBTAINED AND REVEALED: WBC 20-30, RBC 5-10, BACTERIA 1+, LEUKOCYTES 3+, OCCULT BLOOD. A URINE CULTURE WAS SET UP. AN EKG WAS OBTAINED AND REVEALED: SINUS RHYTHM WITH HR 85. A BRAIN CT WAS OBTAINED AND REVEALED: NO ACUTE INTRACRANIL ABNORMALITY. GENERALIZED ATROPHY LIKELY AGE RELATED. SMALL VESSELL DISEASE. A CHEST XRAY WAS OBTAINED AND REVEALED: MILD CARDIOMEGALY WITHOUT CONGESTIVE HEART FAILURE. LUNGS CLEAR. A C-SPINE CT WAS OBTAINED AND REVEALED: No definite evidence for fracture or dislocation. Multilevel degenerative disc disease C5 4 5, C5-6, C6-7. Diffuse bilateral facet and uncovertebral joint degenerative joint disease. Diffuse bilateral spondylitic foraminal narrowing. 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 RIGHT FOREARM XRAY REVEALED: NO ACUTE OSSEOUS ABNORMALITY. LEFT HAND XRAY REVEALED: NO ACUTE OSSEOUS ABNORMALITY. RIGHT SHOULDER XRAY REVEALED: NO ACUTE OSSEOUS ABNORMALITY. SHE WAS GIVEN CLONIDINE 0.2MG PO X 1, MORPHINE 2MG IV X 1, ZOFRAN 4MG IV X 1, INVANZ 1G IV, AND PROCRIT 10,000 UNITS X 1 DOSE. SHE WAS ADMITTED FOR FURTHER EVALUATION AND TREATMENT OF AMS, DEHYDRATION, RENAL FAILURE, AND A URINARY TRACT INFECTION. SHE WAS STARTED ON NORMAL SALINE AT 50ML/HR, ROCEPHIN 1G IV DAILY, LOVENOX 30MG SC DAILY, AND HOME MEDICATIONS WERE RESUMED. WE PLAN TO FOLLOW UP WITH AM LABS AND CONTINUE TO MONITOR. - Past Medical History Past Medical History: Angina, Coronary Artery Disease, Hypertension, Dyslipi demia, Anemia, Arthritis, CHF - Past Surgical History Surgical History: Appendectomy, Cholecystectomy, Hysterectomy, Joint Replacement, Tonsillectomy - Family History Family Medical History: Cancer, [place], Hypertension - Social History Does patient currently use any type of tobacco product: No Have you used tobacco products in the last 12 months: No Type of Tobacco Use: None Does any household member use tobacco: No Alcohol Use: None Drug Use: None Prescription drug monitoring program results: PDMP was not reviewed - Medications Home Medications: hydrocodone Allergy (Intermediate, Verified 07/09/19 08:47) CONFUSION CONTINUE taking the following medications estradiol [Estrace] 1 mg PO DAILY 07/09/19 [History] gabapentin 200 mg PO HS 07/10/19 [History] gabapentin 200 mg PO TID 07/10/19 [History] - Review of Systems Constitutional: Weakness Eyes: No Symptoms Reported ENT: No Symptoms Reported Respiratory: No Symptoms Reported Cardiovascular: No Symptoms Reported Gastrointestinal: No Symptoms Reported Genitourinary: No Symptoms Reported Musculoskeletal: Shoulder Pain, Arm Pain, Neck Pain Skin: No Symptoms Reported Neurological: See HPI, Weakness, Confusion - Physical Exam Vital Signs: Temperature 98.2 F Pulse Rate [Right Brachial] 82 Pulse Rate 79 Respiratory Rate 20 Blood Pressure [Left Arm] 160/74 Blood Pressure [Right Arm] 151/72 Blood Pressure 154/70 O2 Sat by Pulse Oximetry 99 Oriented: Person Eyes: Normal Ear: Normal Nose: Normal Throat: Normal Respiratory: Diminished Throughout Cardiovascular: Normal. negative: S3, S4, Murmur : Normal Auscultation: Bowel Sounds: Normal Palpation: Normal Tenderness: Normal Skin: Decreased Turgur Musculoskeletal: Shoulder (RIGHT SHOULDER PAIN, LEFT HAND PAIN, RIGHT FOREARM PAIN ), Arm, Tender Psychiatric: Normal Mood Description: Calm Affect: Normal Speech Pattern: Inappropriate - Assessment/Plan (1) Urinary tract infection Qualifiers: Urinary tract infection type: acute cystitis Hematuria presence: with hematuria Qualified Code(s): N30.01 - Acute cystitis with hematuria Status: Acute Plan: IV FLUIDS, ROCEPHIN 1G IV DAILY, CONTINUE TO MONITOR (2) Altered mental status Qualifiers: Altered mental status type: transient alteration of awareness Qualified Code(s): R40.4 - Transient alteration of awareness Status: Acute (3) Dehydration Status: Acute Plan: NORMAL SALINE AT 50ML/HR, CONTINUE TO MONITOR. (4) Chronic renal disease Qualifiers: Chronic kidney disease stage: stage 3 (moderate) Qualified Code(s): N18.3 - Chronic kidney disease, stage 3 (moderate) Status: Chronic Plan: NORMAL SALINE AT 50ML/HR, CONTINUE TO MONITOR. - Allergies Allergies/Adverse Reactions: Allergies Allergy/AdvReac Type Severity Reaction Status Date / Time hydrocodone Allergy Intermediate CONFUSION Verified 07/09/19 08:47
[2019-07-11] MEDS ORDERED: RESTORIL CAP 15 MG PO ONE (00:45)
[2019-07-11] MEDS: RESTORIL CAP 15 MG PO PRN ×2 (00:50→00:51)
[2019-07-11] MEDS: NS 1000 ML 1,000 ML IV SCH (01:31)
[2019-07-11 05:18] LABS: BASOPHILS # (AUTO) 0.1 X10^3/uL (0.0-0.1); BASOPHILS % (AUTO) 1.1 % (0.2-1.0); EOSINOPHILS # (AUTO) 0.2 x10^3/uL (0.0-0.2); EOSINOPHILS % (AUTO) 3.2 % (0.9-2.9); HEMOGLOBIN 10.3 g/dL (12.0-16.0); LYMPHOCYTES # (AUTO) 0.6 X10^3/uL (1.3-2.9); LYMPHOCYTES % (AUTO) 8.5 % (21.0-51.0); MEAN CORPUSCULAR HEMOGLOBIN 24.5 pg (27.0-34.0); MEAN CORPUSCULAR HGB CONC 31.4 g/dL (33.0-35.0); MEAN CORPUSCULAR VOLUME 78.2 fL (80.0-100.0); MEAN PLATELET VOLUME 7.8 fL (7.4-11.0); MONOCYTES # (AUTO) 1.2 x10^3/uL (0.3-0.8); MONOCYTES % (AUTO) 16.8 % (0.0-13.0); NEUTROPHILS # (AUTO) 4.8 x10^3/uL (2.2-4.8); NEUTROPHILS % (AUTO) 70.4 % (42.0-75.0); PLATELET COUNT 258 X10^3/uL (150.0-450.0); RED BLOOD COUNT 4.21 X10^6/uL (3.5-5.4); RED CELL DISTRIBUTION WIDTH 18.7 % (11.6-16.5); WHITE BLOOD COUNT 6.8 X10^3/uL (3.6-10.0)
[2019-07-11 05:40] LABS: ALANINE AMINOTRANSFERASE 18 Units/L (12-78); ALBUMIN 2.8 g/dL (3.4-5.0); ALKALINE PHOSPHATASE 124 Units/L (46-116); ASPARTATE AMINO TRANSFERASE 18 Units/L (15-37); BLOOD UREA NITROGEN 28 mg/dL (7-18); CALCIUM 8.9 mg/dL (8.5-10.1); CARBON DIOXIDE 17.6 mmol/L (21-32); CHLORIDE 102 mmol/L (98-107); COR CA(FOR HYPOALB) 9.9 mg/dL (8.5-10.1); SODIUM 133 mmol/L (136-145); TOTAL PROTEIN 6.8 g/dL (6.4-8.2); eGFR NON BLACK RACES 33 (>60)
[2019-07-11] MEDS: XOPENEX 1.25 MG/3 ML NEBULE NEB SCH ×3 (05:51→21:01)
[2019-07-11] MEDS: PERIACTIN TAB 4 MG PO SCH ×3 (05:55→20:25)
[2019-07-11] MEDS: NEURONTIN CAP 100 MG PO SCH ×4 (05:55→20:25)
[2019-07-11] MEDS: APRESOLINE TAB 25 MG PO SCH ×3 (05:55→20:25)
[2019-07-11 05:57] LABS: HYPOCHROMASIA SLIGHT; PLATELET MORPHOLOGY COMMENT NORMAL (NORMAL)
[2019-07-11 05:58] LABS: MICROCYTOSIS SLIGHT
[2019-07-11] MEDS: PERCOCET TAB 5/325 MG PO PRN ×2 (06:00→20:15)
--- NOTE | 2019-07-11 09:02 | MRI ---
MRI SPINE CERVICAL WITHOUT CONTRAST CLINICAL HISTORY: 78-year-old female status post fall with neck pain. COMPARISON: CT cervical spine 07/09/2019. MR cervical spine 06/11/2019. Technique: Multiplanar, multisequence MRI images of the cervical spine were obtained without the administration of intravenous contrast. FINDINGS: Study is significantly degraded secondary to patient motion with axial sequences entirely nondiagnostic with minimal diagnostic quality of the sagittal imaging sequences. Straightening with reversal of the normal cervical lordosis apex C5 as imaged and likely positional. Alignment is grossly maintained with no significant interval change in degree of multilevel disc degeneration and spondyloarthropathy as compared to MR cervical spine dated 06/11/2019. No gross evidence of acute fracture or malalignment. IMPRESSION: 1. Near-complete nondiagnostic examination secondary to patient motion. 2. No gross evidence of acute fracture or malalignment. 3. No significant interval change as compared to study dated 06/11/2019. Reported By:
[2019-07-11] MEDS ORDERED: TOPROL XL ONE (09:03)
[2019-07-11] MEDS: VSL#3 PO SCH (09:40)
[2019-07-11] MEDS: COLACE CAP 100 MG PO SCH ×2 (09:41→20:25)
[2019-07-11] MEDS: MEGACE PO SCH ×2 (09:41→20:25)
[2019-07-11] MEDS: PLAQUENIL PO SCH ×2 (09:41→20:25)
[2019-07-11] MEDS: NORVASC TAB 5 MG PO SCH (09:43)
[2019-07-11] MEDS: ESTRACE PO SCH (09:43)
[2019-07-11] MEDS: PLAVIX PO SCH (09:44)
[2019-07-11] MEDS: ARTIFICIAL TEARS DROPS OP SCH ×2 (09:46→20:25)
[2019-07-11] MEDS: TOPROL XL PO SCH (09:47)
[2019-07-11] MEDS: PROTONIX TAB 40 MG PO SCH (09:47)
[2019-07-11] MEDS: PATIENT'S HOME MEDICATION (Cyclosporine [Restasis] 1 DROP) OP SCH ×2 (09:48→20:25)
[2019-07-11] MEDS: LEFLUNOMIDE 20 MG PO SCH (09:49)
[2019-07-11] MEDS: MIRALAX POWDER (255 GRAMS BTL) PO SCH (09:49)
[2019-07-11] MEDS: SYNTHROID 137 mcg TAB PO SCH (09:50)
[2019-07-11] MEDS: KENALOG CREAM TOP SCH (09:50)
[2019-07-11] MEDS: PILOCARPINE HCL 5 MG PO SCH ×2 (09:50→20:25)
[2019-07-11] MEDS: LOVENOX INJ 30 MG SYR SC SCH (09:51)
[2019-07-11] MEDS: ROCEPHIN VIAL 1 GRAM IVP SCH (09:52)
[2019-07-11] MEDS: FLUOCINONIDE TP SCH ×2 (09:59→20:25)
[2019-07-11] MEDS: VIT C E ZINC CIT LUTEIN ZEAXAN PO SCH (09:59)
[2019-07-11] MEDS ORDERED: NORVASC TAB 5 MG PO NR (10:30)
--- NOTE | 2019-07-11 10:55 | PCM.PROG ---
Progress Note - Progress Note for Day of Date of Exam: 07/10/19 - Subjective Subjective: WAS ADMITTED FOR DEHYDRATION, URINARY TRACT INFECTION, AMS, AND CHRONIC KIDNEY DISEASE. TODAY, SHE IS ALERT, LYING IN BED ON MORNING ROUNDS. FAMILY REPORTS THAT SHE CONTINUES WITH INTERMITTENT CONFUSION. PATIENT REPORTS SEVERE WEAKNESS. ON EXAMINATION, HEART IS REGULAR IN RATE AND RHYTHM. BILATERAL LUNGS ARE NOTED WITH DIMINISHED LUNG SOUNDS. ABDOMEN IS ROUND, SOFT, AND NON-TENDER. NORMAL BOWEL SOUNDS NOTED IN ALL QUADRANTS. HER VITALS THIS MORNING ARE: 97.9-89-20-98%-179/66. LABS WERE OBTAINED. ABNORMAL LAB VALUES INCLUDE THE FOLLOWING: RBC 10.0, HCT 32.2, SODIUM 131, POTASSIUM 5.5, CARBON DIOXIDE 16.8, BUN 37, CREATININE 2.21, ALK PHOS 124, ALBUMIN 2.9, HDL 26. A URINE CULTURE IS PENDING. NO CHANGES ARE NOTED ON EKGs. WE WILL CONTINUE WITH IV FLUIDS, IV ANTIBIOTICS, AND CURRENT PLAN OF CARE TODAY. OTHERWISE, WE WILL FOLLOW UP WITH AM LABS AND CHEST XRAY AND CONTINUE TO MONITOR. - Past Medical Family Social History Past Med/Fam/Surg Hx: No changes since H&P Allergies: Allergies hydrocodone Allergy (Intermediate, Verified 07/09/19 08:47) CONFUSION - Review of Systems ROS: No change since H&P - Vital Signs and I&O's Vital Signs: Temperature 97.9 F Pulse Rate [Right Brachial] 95 Pulse Rate 98 Respiratory Rate 18 Blood Pressure [Left Arm] 160/74 Blood Pressure [Right Arm] 180/74 Blood Pressure 154/70 O2 Sat by Pulse Oximetry 98 Intake and Output: Intake & Output 07/08/19 07/09/19 07/10/19 07/11/19 11:59 11:59 11:59 11:59 Intake Total 1590 / 1590 1250 / 1250 Output Total 0 / 0 Balance 1590 / 1590 1250 / 1250 - Physical Exam Oriented: Person Eyes: Normal Ear: Normal Nose: Normal Throat: Normal Respiratory: Generalized, Diminished Cardiovascular: Normal. negative: S3, S4, Murmur : Normal Auscultation: Bowel Sounds: Normal Palpation: Normal Tenderness: Normal Skin: Decreased Turgur Musculoskeletal: Shoulder (RIGHT SHOULDER PAIN, LEFT HAND PAIN, RIGHT FOREARM PAIN ), Arm, Tender Psychiatric: Normal Mood Description: Calm Affect: Normal Speech Pattern: Clear, Appropriate - Laboratory and Diagnostics Result Diagrams: 07/11/19 04:05 07/11/19 04:05 Labs: 07/09/19 10:12 Urine,Clean Catch Urine Culture - Final Escherichia Coli Laboratory WBC 6.8 X10^3/uL (3.6-10.0) 07/11/19 04:05 RBC 4.21 X10^6/uL (3.5-5.4) 07/11/19 04:05 Hgb 10.3 g/dL (12.0-16.0) L 07/11/19 04:05 Hct 33.0 % (36.0-47.0) L 07/11/19 04:05 MCV 78.2 fL (80.0-100.0) L 07/11/19 04:05 MCH 24.5 pg (27.0-34.0) L 07/11/19 04:05 MCHC 31.4 g/dL (33.0-35.0) L 07/11/19 04:05 RDW 18.7 % (11.6-16.5) H 07/11/19 04:05 Plt Count 258 X10^3/uL (150.0-450.0) 07/11/19 04:05 Plt Count Comment Adequate (ADEQUATE) 07/11/19 04:05 MPV 7.8 fL (7.4-11.0) 07/11/19 04:05 Neut % (Auto) 70.4 % (42.0-75.0) 07/11/19 04:05 Lymph % (Auto) 8.5 % (21.0-51.0) L 07/11/19 04:05 [place] % (Auto) 16.8 % (0.0-13.0) H 07/11/19 04:05 Eos % (Auto) 3.2 % (0.9-2.9) H 07/11/19 04:05 Baso % (Auto) 1.1 % (0.2-1.0) H 07/11/19 04:05 Neut # (Auto) 4.8 x10^3/uL (2.2-4.8) 07/11/19 04:05 Lymph # (Auto) 0.6 X10^3/uL (1.3-2.9) L 07/11/19 04:05 [place] # (Auto) 1.2 x10^3/uL (0.3-0.8) H 07/11/19 04:05 Eos # (Auto) 0.2 x10^3/uL (0.0-0.2) 07/11/19 04:05 Baso # (Auto) 0.1 X10^3/uL (0.0-0.1) 07/11/19 04:05 Absolute Nucleated RBC 0.0 /100WBC 07/11/19 04:05 Plt Morphology Comment Normal (NORMAL) 07/11/19 04:05 RBC Morphology Abnormal (NORMAL) A 07/11/19 04:05 Hypochromasia Slight A 07/11/19 04:05 Microcytosis Slight A 07/11/19 04:05 PT 14.3 SECONDS (11.8-14.3) 07/10/19 04:00 INR Target Range - 07/10/19 04:00 INR 1.15 (0.8-1.3) 07/10/19 04:00 APTT 43.8 SECONDS (22.9-36.5) H 07/10/19 04:00 PTT Comment - 07/10/19 04:00 Sodium 133 mmol/L (136-145) L 07/11/19 04:05 Corrected Sodium TNP 07/11/19 04:05 Potassium 5.5 mmol/L (3.5-5.1) H 07/11/19 04:05 Chloride 102 mmol/L (98-107) 07/11/19 04:05 Carbon Dioxide 17.6 mmol/L (21-32) L 07/11/19 04:05 BUN 28 mg/dL (7-18) H 07/11/19 04:05 Creatinine 1.60 mg/dL (0.55-1.02) H 07/11/19 04:05 Est GFR (MDRD) Af Amer 40 (>60) L 07/11/19 04:05 Est GFR (MDRD) Non-Af 33 (>60) L 07/11/19 04:05 Glucose 96 mg/dL (65-99) 07/11/19 04:05 Calcium 8.9 mg/dL (8.5-10.1) 07/11/19 04:05 Corrected Calcium 9.9 mg/dL (8.5-10.1) 07/11/19 04:05 Magnesium 1.9 mg/dL (1.7-2.9) 07/10/19 04:00 Total Bilirubin 0.40 mg/dL (0.2-1.0) 07/11/19 04:05 AST 18 Units/L (15-37) 07/11/19 04:05 ALT 18 Units/L (12-78) 07/11/19 04:05 Alkaline Phosphatase 124 Units/L (46-116) H 07/11/19 04:05 Creatine Kinase 12 Units/L (26-192) L 07/09/19 21:51 CK-MB (CK-2) < 1.0 ng/mL (0-4.0) 07/09/19 21:51 CK/CKMB % Calc 8.3 % (<4) 07/09/19 21:51 Troponin I < 0.02 ng/mL (0-1.5) 07/09/19 21:51 Total Protein 6.8 g/dL (6.4-8.2) 07/11/19 04:05 Albumin 2.8 g/dL (3.4-5.0) L 07/11/19 04:05 Globulin 4.0 g/dL (2.5-4.5) 07/11/19 04:05 Albumin/Globulin Ratio 0.7 Ratio (1.1-2.1) L 07/11/19 04:05 Triglycerides 75 mg/dL (0-150) 07/10/19 04:00 Cholesterol 115 mg/dL (0-200) 07/10/19 04:00 LDL Cholesterol, Calc 74 mg/dL (0-100) 07/10/19 04:00 HDL Cholesterol 26 mg/dL (40-60) L 07/10/19 04:00 Cholesterol/HDL Ratio 4.4 (0.0-5.0) 07/10/19 04:00 Specimen Type Clean catch urine 07/09/19 10:12 Urine Color Yellow (YELLOW) 07/09/19 10:12 Urine Appearance Cloudy (CLEAR) 07/09/19 10:12 Urine pH 5.0 (5.0 - 8.0) 07/09/19 10:12 Ur Specific [place] 1.025 (1.000-1.030) 07/09/19 10:12 Urine Protein 3+ (NEGATIVE) 07/09/19 10:12 Urine Glucose (UA) Negative (NEGATIVE) 07/09/19 10:12 Urine Ketones Negative (NEGATIVE) 07/09/19 10:12 Urine Occult Blood 3+ (NEGATIVE) 07/09/19 10:12 Urine Nitrite Positive (NEGATIVE) 07/09/19 10:12 Urine Bilirubin Negative (NEGATIVE) 07/09/19 10:12 Urine Urobilinogen Normal (NORMAL) 07/09/19 10:12 Ur Leukocyte Esterase 3+ (NEGATIVE) 07/09/19 10:12 Urine RBC 5-10 /HPF (0-3) A 07/09/19 10:12 Urine WBC 20-30 /HPF (0-5) A 07/09/19 10:12 Ur Squamous Epith Cells Rare /HPF (NEGATIVE) 07/09/19 10:12 Urine Bacteria 1+ /HPF (NEGATIVE) 07/09/19 10:12 Urine Mucus Few /HPF (NEGATIVE) 07/09/19 10:12 Ur Culture Indicated? Yes/culture set up 07/09/19 10:12 - Plan (1) Urinary tract infection Status: Acute Qualifiers: Urinary tract infection type: acute cystitis Hematuria presence: with hematuria Qualified Code(s): N30.01 - Acute cystitis with hematuria Plan: IV FLUIDS, ROCEPHIN 1G IV DAILY, CONTINUE TO MONITOR (2) Altered mental status Status: Acute Qualifiers: Altered mental status type: transient alteration of awareness Qualified Code(s): R40.4 - Transient alteration of awareness (3) Dehydration Status: Acute Plan: NORMAL SALINE AT 50ML/HR, CONTINUE TO MONITOR. (4) Chronic renal disease Status: Chronic Qualifiers: Chronic kidney disease stage: stage 3 (moderate) Qualified Code(s): N18.3 - Chronic kidney disease, stage 3 (moderate) Plan: NORMAL SALINE AT 50ML/HR, CONTINUE TO MONITOR. (5) Hyperkalemia Status: Acute (6) Hyponatremia Status: Acute
--- NOTE | 2019-07-11 14:23 | VAS ---
HISTORY: Neck pain, altered mental status, syncope Study: Carotid ultrasound Comparison: None Technique: Multiple peoples scale and color flow Doppler images of the right and left carotid arterial system were obtained. The vertebral arterial system was evaluated as well. Findings: The peak systolic velocity of the right ICA is 161 cm/sec. The peak systolic velocity of the left ICA is 44 cm/sec. The ICA/CCA ratio on the right is 2.4. The ICA/CCA ratio on the left is 0.8. Bilateral antegrade vertebral flow was noted. IMPRESSION: Estimated stenosis on the right in the range of 50-69% by velocity criteria. Estimated stenosis on the left in the range of 0-50% by velocity criteria. Reported By:
[2019-07-11] MEDS: BENADRYL CAP/TAB 25 MG PO SCH (20:25)
[2019-07-11] MEDS: XANAX PO PRN (20:25)
[2019-07-11] MEDS: ZyrTEC TAB 10 MG PO SCH (20:25)
[2019-07-11] MEDS ORDERED: AUGMENTIN 875 MG/125 MG TAB PO SCH (21:00)
--- NOTE | 2019-07-11 21:42 | PCM.PROG ---
Progress Note - Progress Note for Day of Date of Exam: 07/11/19 - Subjective Subjective: WAS ADMITTED FOR DEHYDRATION, URINARY TRACT INFECTION, AMS, AND CHRONIC KIDNEY DISEASE. TODAY, SHE IS ALERT, LYING IN BED ON MORNING ROUNDS. FAMILY REPORTS THAT SHE CONTINUES WITH INTERMITTENT CONFUSION. PATIENT CONTINUES WITH SEVERE WEAKNESS, DIZZINESS, AND NECK PAIN. ON EXAMINATION, HEART IS REGULAR IN RATE AND RHYTHM. BILATERAL LUNGS ARE NOTED WITH DIMINISHED LUNG SOUNDS. ABDOMEN IS ROUND, SOFT, AND NON-TENDER. NORMAL BOWEL SOUNDS NOTED IN ALL QUADRANTS. HER VITALS THIS MORNING ARE: 97.9-95-18-98%-180/74. LABS WERE OBTAINED. ABNORMAL LAB VALUES INCLUDE THE FOLLOWING: RBC 10.3, HCT 33.0, SODIUM 133, POTASSIUM 5.5, CARBON DIOXIDE 17.6, BUN 28, CREATININE 1.60, ALK PHOS 124, ALBUMIN 2.8. A URINE CULTURE REPORTED GROWTH OF E.COLI. IT IS SENSITIVE TO THE ANTIBIOTICS THAT SHE IS CURRENTLY RECEIVING. PHYSICAL THERAPY REPORTS THAT SHE IS REQUIRING MODERATE ASSISTANCE FOR AMBULATION. WE WILL CONTINUE WITH IV FLUIDS AND IV ANTIBIOTIC. WE WILL OBTAIN A CAROTID DOPPLER AND INCREASE NORVASC TO 10MG PO DAILY AND START ZYPREXA 2.5MG PO HS. OTHERWISE, WE WILL FOLLOW UP WITH AM L ABS AND CHEST XRAY AND CONTINUE TO MONITOR. - Past Medical Family Social History Past Med/Fam/Surg Hx: No changes since H&P Allergies: Allergies hydrocodone Allergy (Intermediate, Verified 07/09/19 08:47) CONFUSION - Review of Systems ROS: No change since H&P - Vital Signs and I&O's Vital Signs: Temperature 98.0 F Pulse Rate [Right Brachial] 88 Pulse Rate 83 Respiratory Rate 20 Blood Pressure [Left Arm] 160/74 Blood Pressure [Right Arm] 180/81 Blood Pressure 154/70 O2 Sat by Pulse Oximetry 97 Intake and Output: Intake & Output 07/09/19 07/10/19 07/11/19 07/12/19 11:59 11:59 11:59 11:59 Intake Total 1590 / 1590 1250 / 1250 480 / 480 Output Total 0 / 0 Balance 1590 / 1590 1250 / 1250 480 / 480 - Physical Exam Oriented: Person Eyes: Normal Ear: Normal Nose: Normal Throat: Normal Respiratory: Generalized, Diminished Cardiovascular: Normal. negative: S3, S4, Murmur : Normal Auscultation: Bowel Sounds: Normal Palpation: Normal Tenderness: Normal Skin: Decreased Turgur Musculoskeletal: Shoulder (RIGHT SHOULDER PAIN, LEFT HAND PAIN, RIGHT FOREARM PAIN ), Arm, Tender Psychiatric: Normal Mood Description: Calm Affect: Anxious Speech Pattern: Clear, Inappropriate - Laboratory and Diagnostics Result Diagrams: 07/11/19 04:05 07/11/19 04:05 Labs: 07/09/19 10:12 Urine,Clean Catch Urine Culture - Final Escherichia Coli Laboratory WBC 6.8 X10^3/uL (3.6-10.0) 07/11/19 04:05 RBC 4.21 X10^6/uL (3.5-5.4) 07/11/19 04:05 Hgb 10.3 g/dL (12.0-16.0) L 07/11/19 04:05 Hct 33.0 % (36.0-47.0) L 07/11/19 04:05 MCV 78.2 fL (80.0-100.0) L 07/11/19 04:05 MCH 24.5 pg (27.0-34.0) L 07/11/19 04:05 MCHC 31.4 g/dL (33.0-35.0) L 07/11/19 04:05 RDW 18.7 % (11.6-16.5) H 07/11/19 04:05 Plt Count 258 X10^3/uL (150.0-450.0) 07/11/19 04:05 Plt Count Comment Adequate (ADEQUATE) 07/11/19 04:05 MPV 7.8 fL (7.4-11.0) 07/11/19 04:05 Neut % (Auto) 70.4 % (42.0-75.0) 07/11/19 04:05 Lymph % (Auto) 8.5 % (21.0-51.0) L 07/11/19 04:05 [place] % (Auto) 16.8 % (0.0-13.0) H 07/11/19 04:05 Eos % (Auto) 3.2 % (0.9-2.9) H 07/11/19 04:05 Baso % (Auto) 1.1 % (0.2-1.0) H 07/11/19 04:05 Neut # (Auto) 4.8 x10^3/uL (2.2-4.8) 07/11/19 04:05 Lymph # (Auto) 0.6 X10^3/uL (1.3-2.9) L 07/11/19 04:05 [place] # (Auto) 1.2 x10^3/uL (0.3-0.8) H 07/11/19 04:05 Eos # (Auto) 0.2 x10^3/uL (0.0-0.2) 07/11/19 04:05 Baso # (Auto) 0.1 X10^3/uL (0.0-0.1) 07/11/19 04:05 Absolute Nucleated RBC 0.0 /100WBC 07/11/19 04:05 Plt Morphology Comment Normal (NORMAL) 07/11/19 04:05 RBC Morphology Abnormal (NORMAL) A 07/11/19 04:05 Hypochromasia Slight A 07/11/19 04:05 Microcytosis Slight A 07/11/19 04:05 PT 14.3 SECONDS (11.8-14.3) 07/10/19 04:00 INR Target Range - 07/10/19 04:00 INR 1.15 (0.8-1.3) 07/10/19 04:00 APTT 43.8 SECONDS (22.9-36.5) H 07/10/19 04:00 PTT Comment - 07/10/19 04:00 Sodium 133 mmol/L (136-145) L 07/11/19 04:05 Corrected Sodium TNP 07/11/19 04:05 Potassium 5.5 mmol/L (3.5-5.1) H 07/11/19 04:05 Chloride 102 mmol/L (98-107) 07/11/19 04:05 Carbon Dioxide 17.6 mmol/L (21-32) L 07/11/19 04:05 BUN 28 mg/dL (7-18) H 07/11/19 04:05 Creatinine 1.60 mg/dL (0.55-1.02) H 07/11/19 04:05 Est GFR (MDRD) Af Amer 40 (>60) L 07/11/19 04:05 Est GFR (MDRD) Non-Af 33 (>60) L 07/11/19 04:05 Glucose 96 mg/dL (65-99) 07/11/19 04:05 Calcium 8.9 mg/dL (8.5-10.1) 07/11/19 04:05 Corrected Calcium 9.9 mg/dL (8.5-10.1) 07/11/19 04:05 Magnesium 1.9 mg/dL (1.7-2.9) 07/10/19 04:00 Total Bilirubin 0.40 mg/dL (0.2-1.0) 07/11/19 04:05 AST 18 Units/L (15-37) 07/11/19 04:05 ALT 18 Units/L (12-78) 07/11/19 04:05 Alkaline Phosphatase 124 Units/L (46-116) H 07/11/19 04:05 Creatine Kinase 12 Units/L (26-192) L 07/09/19 21:51 CK-MB (CK-2) < 1.0 ng/mL (0-4.0) 07/09/19 21:51 CK/CKMB % Calc 8.3 % (<4) 07/09/19 21:51 Troponin I < 0.02 ng/mL (0-1.5) 07/09/19 21:51 Total Protein 6.8 g/dL (6.4-8.2) 07/11/19 04:05 Albumin 2.8 g/dL (3.4-5.0) L 07/11/19 04:05 Globulin 4.0 g/dL (2.5-4.5) 07/11/19 04:05 Albumin/Globulin Ratio 0.7 Ratio (1.1-2.1) L 07/11/19 04:05 Triglycerides 75 mg/dL (0-150) 07/10/19 04:00 Cholesterol 115 mg/dL (0-200) 07/10/19 04:00 LDL Cholesterol, Calc 74 mg/dL (0-100) 07/10/19 04:00 HDL Cholesterol 26 mg/dL (40-60) L 07/10/19 04:00 Cholesterol/HDL Ratio 4.4 (0.0-5.0) 07/10/19 04:00 Specimen Type Clean catch urine 07/09/19 10:12 Urine Color Yellow (YELLOW) 07/09/19 10:12 Urine Appearance Cloudy (CLEAR) 07/09/19 10:12 Urine pH 5.0 (5.0 - 8.0) 07/09/19 10:12 Ur Specific [place] 1.025 (1.000-1.030) 07/09/19 10:12 Urine Protein 3+ (NEGATIVE) 07/09/19 10:12 Urine Glucose (UA) Negative (NEGATIVE) 07/09/19 10:12 Urine Ketones Negative (NEGATIVE) 07/09/19 10:12 Urine Occult Blood 3+ (NEGATIVE) 07/09/19 10:12 Urine Nitrite Positive (NEGATIVE) 07/09/19 10:12 Urine Bilirubin Negative (NEGATIVE) 07/09/19 10:12 Urine Urobilinogen Normal (NORMAL) 07/09/19 10:12 Ur Leukocyte Esterase 3+ (NEGATIVE) 07/09/19 10:12 Urine RBC 5-10 /HPF (0-3) A 07/09/19 10:12 Urine WBC 20-30 /HPF (0-5) A 07/09/19 10:12 Ur Squamous Epith Cells Rare /HPF (NEGATIVE) 07/09/19 10:12 Urine Bacteria 1+ /HPF (NEGATIVE) 07/09/19 10:12 Urine Mucus Few /HPF (NEGATIVE) 07/09/19 10:12 Ur Culture Indicated? Yes/culture set up 07/09/19 10:12 - Plan (1) Urinary tract infection Status: Acute Qualifiers: Urinary tract infection type: acute cystitis Hematuria presence: with hematuria Qualified Code(s): N30.01 - Acute cystitis with hematuria Plan: IV FLUIDS, ROCEPHIN 1G IV DAILY, CONTINUE TO MONITOR (2) Altered mental status Status: Acute Qualifiers: Altered mental status type: transient alteration of awareness Qualified Code(s): R40.4 - Transient alteration of awareness Plan: ZYPREXA 2.5MG PO HS, CONTINUE TO MONITOR (3) Dehydration Status: Acute Plan: NORMAL SALINE AT 50ML/HR, CONTINUE TO MONITOR. (4) Chronic renal disease Status: Chronic Qualifiers: Chronic kidney disease stage: stage 3 (moderate) Qualified Code(s): N18.3 - Chronic kidney disease, stage 3 (moderate) Plan: NORMAL SALINE AT 50ML/HR, CONTINUE TO MONITOR. (5) Hyperkalemia Status: Acute (6) Hyponatremia Status: Acute (7) Hypertension Status: Chronic Qualifiers: Hypertension type: essential hypertension Qualified Code(s): I10 - Essential (primary) hypertension Plan: CATAPRES PATCH, NORVASC 10MG PO DAILY, METOPROLOL XL 100MG PO DAILY, CONTINUE TO MONITOR
[2019-07-12] MEDS: NS 1000 ML 1,000 ML IV SCH ×4 (01:41→17:22)
[2019-07-12] MEDS: AUGMENTIN 500 MG/125 MG TAB PO SCH ×3 (01:48→21:42)
[2019-07-12] MEDS: PERIACTIN TAB 4 MG PO SCH ×3 (05:33→21:41)
[2019-07-12] MEDS: APRESOLINE TAB 25 MG PO SCH ×3 (05:33→21:41)
[2019-07-12] MEDS: NEURONTIN CAP 100 MG PO SCH ×4 (05:33→21:48)
[2019-07-12] MEDS: XOPENEX 1.25 MG/3 ML NEBULE NEB SCH ×3 (05:45→20:48)
[2019-07-12 07:06] LABS: BASOPHILS # (AUTO) 0.1 X10^3/uL (0.0-0.1); BASOPHILS % (AUTO) 1.3 % (0.2-1.0); EOSINOPHILS # (AUTO) 0.1 x10^3/uL (0.0-0.2); EOSINOPHILS % (AUTO) 3.3 % (0.9-2.9); HEMATOCRIT 31.5 % (36.0-47.0); LYMPHOCYTES % (AUTO) 22.5 % (21.0-51.0); MEAN CORPUSCULAR HEMOGLOBIN 24.6 pg (27.0-34.0); MEAN CORPUSCULAR HGB CONC 31.9 g/dL (33.0-35.0); MEAN CORPUSCULAR VOLUME 77.2 fL (80.0-100.0); MONOCYTES # (AUTO) 0.7 x10^3/uL (0.3-0.8); MONOCYTES % (AUTO) 16.6 % (0.0-13.0); NEUTROPHILS # (AUTO) 2.5 x10^3/uL (2.2-4.8); NEUTROPHILS % (AUTO) 56.3 % (42.0-75.0); PLATELET COUNT 249 X10^3/uL (150.0-450.0); RED BLOOD COUNT 4.08 X10^6/uL (3.5-5.4); RED CELL DISTRIBUTION WIDTH 18.8 % (11.6-16.5); WHITE BLOOD COUNT 4.5 X10^3/uL (3.6-10.0)
[2019-07-12 07:11] LABS: ALANINE AMINOTRANSFERASE 15 Units/L (12-78); ALBUMIN 2.7 g/dL (3.4-5.0); ALKALINE PHOSPHATASE 114 Units/L (46-116); ASPARTATE AMINO TRANSFERASE 26 Units/L (15-37); BLOOD UREA NITROGEN 24 mg/dL (7-18); CALCIUM 9.2 mg/dL (8.5-10.1); CARBON DIOXIDE 16.8 mmol/L (21-32); CHLORIDE 102 mmol/L (98-107); COR CA(FOR HYPOALB) 10.2 mg/dL (8.5-10.1); CREATININE 1.49 mg/dL (0.55-1.02); SODIUM 132 mmol/L (136-145); TOTAL PROTEIN 6.4 g/dL (6.4-8.2); eGFR NON BLACK RACES 36 (>60)
[2019-07-12 07:40] LABS: GIANT PLATELET N; HYPOCHROMASIA SLIGHT; PLATELET MORPHOLOGY COMMENT NORMAL (NORMAL)
[2019-07-12] MEDS ORDERED: CATAPRES-TTS-3 TD SCH (09:00)
[2019-07-12] MEDS ORDERED: TOPROL XL ONE (09:56)
[2019-07-12] MEDS: ESTRACE PO SCH (10:02)
[2019-07-12] MEDS: PLAQUENIL PO SCH ×2 (10:02→21:43)
[2019-07-12] MEDS: PLAVIX PO SCH (10:03)
[2019-07-12] MEDS: SYNTHROID 137 mcg TAB PO SCH (10:03)
[2019-07-12] MEDS: MEGACE PO SCH ×2 (10:04→21:43)
[2019-07-12] MEDS: COLACE CAP 100 MG PO SCH ×2 (10:04→21:43)
[2019-07-12] MEDS: ROCEPHIN VIAL 1 GRAM IVP SCH (10:04)
[2019-07-12] MEDS: PROTONIX TAB 40 MG PO SCH (10:04)
[2019-07-12] MEDS: VSL#3 PO SCH (10:04)
[2019-07-12] MEDS: NORVASC TAB 5 MG PO SCH (10:05)
[2019-07-12] MEDS: TOPROL XL PO SCH (10:05)
[2019-07-12] MEDS: LOVENOX INJ 30 MG SYR SC SCH (10:05)
[2019-07-12] MEDS: ARTIFICIAL TEARS DROPS OP SCH ×2 (10:06→21:40)
[2019-07-12] MEDS: MIRALAX POWDER (255 GRAMS BTL) PO SCH (10:08)
[2019-07-12] MEDS: LEFLUNOMIDE 20 MG PO SCH (10:09)
[2019-07-12] MEDS: PILOCARPINE HCL 5 MG PO SCH (10:09)
[2019-07-12] MEDS: PATIENT'S HOME MEDICATION (Cyclosporine [Restasis] 1 DROP) OP SCH ×2 (10:35→21:44)
[2019-07-12] MEDS: KENALOG CREAM TOP SCH (10:35)
[2019-07-12] MEDS: VIT C E ZINC CIT LUTEIN ZEAXAN PO SCH (10:35)
[2019-07-12] MEDS: FLUOCINONIDE TP SCH ×2 (10:35→21:44)
[2019-07-12] MEDS ORDERED: XYLOCAINE 1 % (PLAIN) ONE (10:54)
[2019-07-12] MEDS ORDERED: PROCRIT or EPOGEN SC ONE (11:30)
[2019-07-12] MEDS ORDERED: LR 1000 ML IV 1,000 ML ONE (11:30)
[2019-07-12] MEDS ORDERED: ANCEF 1 GRAM IV PREMIX* 1 G/50 ML BAG IV ONE (11:31)
[2019-07-12] MEDS ORDERED: FENTANYL INJ 100 mcg ONE (11:48)
[2019-07-12] MEDS ORDERED: BACITRACIN VIAL ONE (12:11)
--- NOTE | 2019-07-12 12:59 | RAD ---
HISTORY: Port-A-Cath placement Study: Single-view of the chest Comparison: July 09, 2019 Findings: The patient is slightly rotated. The cardiac silhouette is enlarged. The lung apices are partially obscured by overlying soft tissues. Otherwise the visualized lungs are relatively clear without focal infiltrate or effusion. A left-sided Port-A-Cath is noted with the tip projecting over the SVC IMPRESSION: 1. Cardiomegaly. Reported By:
[2019-07-12] MEDS: MAGIC MOUTHWASH MT SCH ×3 (13:05→21:44)
[2019-07-12] MEDS ORDERED: LEXAPRO ONE (13:11)
[2019-07-12] MEDS: LEXAPRO PO SCH (13:12)
[2019-07-12] MEDS ORDERED: VERSED ONE (14:08)
--- NOTE | 2019-07-12 20:08 | PCM.PROG ---
Progress Note - Progress Note for Day of Date of Exam: 07/12/19 - Subjective Subjective: WAS ADMITTED FOR DEHYDRATION, URINARY TRACT INFECTION, AMS, AND CHRONIC KIDNEY DISEASE. TODAY, SHE IS ALERT, LYING IN BED ON MORNING ROUNDS. FAMILY REPORTS THAT SHE CONTINUES WITH INTERMITTENT CONFUSION. PATIENT CONTINUES WITH SEVERE WEAKNESS. FAMILY REPORTS THAT SHE HAS ALSO COMPLAINED OF A SORE THROAT. ON EXAMINATION, HEART IS REGULAR IN RATE AND RHYTHM. BILATERAL LUNGS ARE NOTED WITH DIMINISHED LUNG SOUNDS. ABDOMEN IS ROUND, SOFT, AND NON- TENDER. NORMAL BOWEL SOUNDS NOTED IN ALL QUADRANTS. HER VITALS THIS MORNING ARE: 97.7-106-20-97%-193/86. LABS WERE OBTAINED. ABNORMAL LAB VALUES INCLUDE THE FOLLOWING: RBC 10.0, HCT 31.5, SODIUM 132, POTASSIUM 5.4, CARBON DIOXIDE 16.8, BUN 24, CREATININE 1.49, ALBUMIN 2.7. A URINE CULTURE REPORTED GROWTH OF E.COLI. A CHEST XRAY WAS OBTAINED THIS MORNING AND REVEALED: CARDIOMEGALY. WE STARTED HER ON AUGMENTIN LAST NIGHT DUE TO HER IV COMING OUT AND STAFF NOT BEING ABLE TO OBTAIN ANOTHER. PHYSICAL THERAPY REPORTS THAT SHE IS REQUIRING MODERATE ASSISTANCE FOR AMBULATION. TODAY, WE WILL CONSULT WITH FOR PLACEMENT OF A PORT A CATH. WE WILL START MAGIC MOUHTWASH QID, LEXAPRO 10MG PO DAILY, AND WILL INCREASE ZYPREXA TO 2.5MG PO BID. OTHERWISE, WE WILL FOLLOW UP WITH AM LABS AND CHEST XRAY AND CONTINUE TO MONITOR. - Past Medical Family Social History Past Med/Fam/Surg Hx: No changes since H&P Allergies: Allergies hydrocodone Allergy (Intermediate, Verified 07/09/19 08:47) CONFUSION - Review of Systems ROS: No change since H&P - Vital Signs and I&O's Vital Signs: Temperature 98.2 F Pulse Rate [Right Brachial] 84 Pulse Rate 84 Respiratory Rate 18 Blood Pressure [Left Arm] 179/77 Blood Pressure [Right Arm] 129/63 Blood Pressure 154/70 O2 Sat by Pulse Oximetry 96 Intake and Output: Intake & Output 07/10/19 07/11/19 07/12/19 07/13/19 11:59 11:59 11:59 11:59 Intake Total 1590 / 1590 1250 / 1250 1060 / 1060 1100 / 1100 Output Total 0 / 0 995 / 995 Balance 1590 / 1590 1250 / 1250 1060 / 1060 105 / 105 - Physical Exam Oriented: Person Eyes: Normal Ear: Normal Nose: Normal Throat: Normal Respiratory: Generalized, Diminished Cardiovascular: Normal. negative: S3, S4, Murmur : Normal Auscultation: Bowel Sounds: Normal Palpation: Normal Tenderness: Normal Skin: Decreased Turgur Musculoskeletal: Shoulder (RIGHT SHOULDER PAIN, LEFT HAND PAIN, RIGHT FOREARM PAIN ), Arm, Tender Psychiatric: Normal Mood Description: Calm Affect: Anxious Speech Pattern: Clear, Appropriate - Laboratory and Diagnostics Result Diagrams: 07/12/19 06:30 07/12/19 06:30 Labs: 07/09/19 10:12 Urine,Clean Catch Urine Culture - Final Escherichia Coli Laboratory WBC 4.5 X10^3/uL (3.6-10.0) 07/12/19 06:30 RBC 4.08 X10^6/uL (3.5-5.4) 07/12/19 06:30 Hgb 10.0 g/dL (12.0-16.0) L 07/12/19 06:30 Hct 31.5 % (36.0-47.0) L 07/12/19 06:30 MCV 77.2 fL (80.0-100.0) L 07/12/19 06:30 MCH 24.6 pg (27.0-34.0) L 07/12/19 06:30 MCHC 31.9 g/dL (33.0-35.0) L 07/12/19 06:30 RDW 18.8 % (11.6-16.5) H 07/12/19 06:30 Plt Count 249 X10^3/uL (150.0-450.0) 07/12/19 06:30 Plt Count Comment Adequate (ADEQUATE) 07/12/19 06:30 MPV 7.0 fL (7.4-11.0) L 07/12/19 06:30 Neut % (Auto) 56.3 % (42.0-75.0) 07/12/19 06:30 Lymph % (Auto) 22.5 % (21.0-51.0) 07/12/19 06:30 [place] % (Auto) 16.6 % (0.0-13.0) H 07/12/19 06:30 Eos % (Auto) 3.3 % (0.9-2.9) H 07/12/19 06:30 Baso % (Auto) 1.3 % (0.2-1.0) H 07/12/19 06:30 Neut # (Auto) 2.5 x10^3/uL (2.2-4.8) 07/12/19 06:30 Lymph # (Auto) 1.0 X10^3/uL (1.3-2.9) L 07/12/19 06:30 [place] # (Auto) 0.7 x10^3/uL (0.3-0.8) 07/12/19 06:30 Eos # (Auto) 0.1 x10^3/uL (0.0-0.2) 07/12/19 06:30 Baso # (Auto) 0.1 X10^3/uL (0.0-0.1) 07/12/19 06:30 Absolute Nucleated RBC 0.0 /100WBC 07/12/19 06:30 Giant Platelets N 07/12/19 06:30 Plt Morphology Comment Normal (NORMAL) 07/12/19 06:30 RBC Morphology Abnormal (NORMAL) A 07/12/19 06:30 Hypochromasia Slight A 07/12/19 06:30 Microcytosis Slight A 07/11/19 04:05 PT 12.8 SECONDS (11.8-14.3) 07/12/19 06:30 INR Target Range - 07/12/19 06:30 INR 1.00 (0.8-1.3) 07/12/19 06:30 APTT 43.8 SECONDS (22.9-36.5) H 07/10/19 04:00 PTT Comment - 07/10/19 04:00 Sodium 132 mmol/L (136-145) L 07/12/19 06:30 Corrected Sodium TNP 07/12/19 06:30 Potassium 5.4 mmol/L (3.5-5.1) H 07/12/19 06:30 Chloride 102 mmol/L (98-107) 07/12/19 06:30 Carbon Dioxide 16.8 mmol/L (21-32) L 07/12/19 06:30 BUN 24 mg/dL (7-18) H 07/12/19 06:30 Creatinine 1.49 mg/dL (0.55-1.02) H 07/12/19 06:30 Est GFR (MDRD) Af Amer 43 (>60) L 07/12/19 06:30 Est GFR (MDRD) Non-Af 36 (>60) L 07/12/19 06:30 Glucose 85 mg/dL (65-99) 07/12/19 06:30 Calcium 9.2 mg/dL (8.5-10.1) 07/12/19 06:30 Corrected Calcium 10.2 mg/dL (8.5-10.1) H 07/12/19 06:30 Magnesium 1.9 mg/dL (1.7-2.9) 07/10/19 04:00 Total Bilirubin 0.40 mg/dL (0.2-1.0) 07/12/19 06:30 AST 26 Units/L (15-37) 07/12/19 06:30 ALT 15 Units/L (12-78) 07/12/19 06:30 Alkaline Phosphatase 114 Units/L (46-116) 07/12/19 06:30 Creatine Kinase 12 Units/L (26-192) L 07/09/19 21:51 CK-MB (CK-2) < 1.0 ng/mL (0-4.0) 07/09/19 21:51 CK/CKMB % Calc 8.3 % (<4) 07/09/19 21:51 Troponin I < 0.02 ng/mL (0-1.5) 07/09/19 21:51 Total Protein 6.4 g/dL (6.4-8.2) 07/12/19 06:30 Albumin 2.7 g/dL (3.4-5.0) L 07/12/19 06:30 Globulin 3.7 g/dL (2.5-4.5) 07/12/19 06:30 Albumin/Globulin Ratio 0.7 Ratio (1.1-2.1) L 07/12/19 06:30 Triglycerides 75 mg/dL (0-150) 07/10/19 04:00 Cholesterol 115 mg/dL (0-200) 07/10/19 04:00 LDL Cholesterol, Calc 74 mg/dL (0-100) 07/10/19 04:00 HDL Cholesterol 26 mg/dL (40-60) L 07/10/19 04:00 Cholesterol/HDL Ratio 4.4 (0.0-5.0) 07/10/19 04:00 Specimen Type Clean catch urine 07/09/19 10:12 Urine Color Yellow (YELLOW) 07/09/19 10:12 Urine Appearance Cloudy (CLEAR) 07/09/19 10:12 Urine pH 5.0 (5.0 - 8.0) 07/09/19 10:12 Ur Specific [place] 1.025 (1.000-1.030) 07/09/19 10:12 Urine Protein 3+ (NEGATIVE) 07/09/19 10:12 Urine Glucose (UA) Negative (NEGATIVE) 07/09/19 10:12 Urine Ketones Negative (NEGATIVE) 07/09/19 10:12 Urine Occult Blood 3+ (NEGATIVE) 07/09/19 10:12 Urine Nitrite Positive (NEGATIVE) 07/09/19 10:12 Urine Bilirubin Negative (NEGATIVE) 07/09/19 10:12 Urine Urobilinogen Normal (NORMAL) 07/09/19 10:12 Ur Leukocyte Esterase 3+ (NEGATIVE) 07/09/19 10:12 Urine RBC 5-10 /HPF (0-3) A 07/09/19 10:12 Urine WBC 20-30 /HPF (0-5) A 07/09/19 10:12 Ur Squamous Epith Cells Rare /HPF (NEGATIVE) 07/09/19 10:12 Urine Bacteria 1+ /HPF (NEGATIVE) 07/09/19 10:12 Urine Mucus Few /HPF (NEGATIVE) 07/09/19 10:12 Ur Culture Indicated? Yes/culture set up 07/09/19 10:12 - Plan (1) Urinary tract infection Status: Acute Qualifiers: Urinary tract infection type: acute cystitis Hematuria presence: with hematuria Qualified Code(s): N30.01 - Acute cystitis with hematuria Plan: IV FLUIDS, AUGMENTIN 875/125 1 TAB PO BID, CONTINUE TO MONITOR (2) Altered mental status Status: Acute Qualifiers: Altered mental status type: transient alteration of awareness Qualified Code(s): R40.4 - Transient alteration of awareness Plan: ZYPREXA 2.5MG PO HS, CONTINUE TO MONITOR (3) Dehydration Status: Acute Plan: NORMAL SALINE AT 50ML/HR, CONTINUE TO MONITOR. (4) Chronic renal disease Status: Chronic Qualifiers: Chronic kidney disease stage: stage 3 (moderate) Qualified Code(s): N18.3 - Chronic kidney disease, stage 3 (moderate) Plan: NORMAL SALINE AT 50ML/HR, CONTINUE TO MONITOR. (5) Hyperkalemia Status: Acute (6) Hyponatremia Status: Acute (7) Hypertension Status: Chronic Qualifiers: Hypertension type: essential hypertension Qualified Code(s): I10 - Essential (primary) hypertension Plan: CATAPRES PATCH, NORVASC 10MG PO DAILY, METOPROLOL XL 100MG PO DAILY, CONTINUE TO MONITOR (8) Depression Status: Acute Qualifiers: Depression Type: major depressive disorder Major depression recurrence: unspecified whether recurrent Active/Remission status: currently active Major depression episode severity: mild Qualified Code(s): F32.0 - Major depressive disorder, single episode, mild Plan: LEXAPRO 10MG PO DAILY, CONTINUE TO MONITOR
[2019-07-12] MEDS: BENADRYL CAP/TAB 25 MG PO SCH (21:41)
[2019-07-12] MEDS: ZyrTEC TAB 10 MG PO SCH (21:42)
[2019-07-13] MEDS: PILOCARPINE HCL 5 MG PO SCH ×3 (02:07→21:33)
[2019-07-13] MEDS: NS 1000 ML 1,000 ML IV SCH ×3 (04:18→18:27)
[2019-07-13] MEDS: APRESOLINE TAB 25 MG PO SCH ×3 (06:15→21:37)
[2019-07-13] MEDS: NEURONTIN CAP 100 MG PO SCH ×4 (06:16→21:36)
[2019-07-13] MEDS: PERIACTIN TAB 4 MG PO SCH ×3 (06:16→21:37)
[2019-07-13] MEDS: XOPENEX 1.25 MG/3 ML NEBULE NEB SCH ×3 (06:24→20:23)
[2019-07-13 06:32] LABS: BASOPHILS # (AUTO) 0.1 X10^3/uL (0.0-0.1); BASOPHILS % (AUTO) 1.6 % (0.2-1.0); EOSINOPHILS # (AUTO) 0.2 x10^3/uL (0.0-0.2); EOSINOPHILS % (AUTO) 4.3 % (0.9-2.9); HEMATOCRIT 29.7 % (36.0-47.0); HEMOGLOBIN 9.6 g/dL (12.0-16.0); LYMPHOCYTES # (AUTO) 0.5 X10^3/uL (1.3-2.9); LYMPHOCYTES % (AUTO) 13.4 % (21.0-51.0); MEAN CORPUSCULAR HEMOGLOBIN 24.8 pg (27.0-34.0); MEAN CORPUSCULAR HGB CONC 32.3 g/dL (33.0-35.0); MEAN CORPUSCULAR VOLUME 76.7 fL (80.0-100.0); MEAN PLATELET VOLUME 7.1 fL (7.4-11.0); MONOCYTES # (AUTO) 0.7 x10^3/uL (0.3-0.8); MONOCYTES % (AUTO) 20.9 % (0.0-13.0); NEUTROPHILS # (AUTO) 2.1 x10^3/uL (2.2-4.8); NEUTROPHILS % (AUTO) 59.8 % (42.0-75.0); PLATELET COUNT 262 X10^3/uL (150.0-450.0); RED BLOOD COUNT 3.87 X10^6/uL (3.5-5.4); RED CELL DISTRIBUTION WIDTH 18.6 % (11.6-16.5); WHITE BLOOD COUNT 3.5 X10^3/uL (3.6-10.0)
[2019-07-13 06:49] LABS: ALANINE AMINOTRANSFERASE 15 Units/L (12-78); ALBUMIN 2.6 g/dL (3.4-5.0); ALKALINE PHOSPHATASE 105 Units/L (46-116); ASPARTATE AMINO TRANSFERASE 22 Units/L (15-37); BLOOD UREA NITROGEN 23 mg/dL (7-18); CALCIUM 8.5 mg/dL (8.5-10.1); CARBON DIOXIDE 17.7 mmol/L (21-32); CHLORIDE 103 mmol/L (98-107); COR CA(FOR HYPOALB) 9.6 mg/dL (8.5-10.1); SODIUM 133 mmol/L (136-145); eGFR NON BLACK RACES 36 (>60)
[2019-07-13 07:00] LABS: ANISOCYTOSIS 1+; BAND NEUTROPHILS % 4 % (0-10); HYPOCHROMASIA 1+; MICROCYTOSIS SLIGHT; PLATELET MORPHOLOGY COMMENT NORMAL (NORMAL)
[2019-07-13] MEDS ORDERED: TOPROL XL ONE (09:46)
[2019-07-13] MEDS ORDERED: LEXAPRO ONE (09:47)
[2019-07-13] MEDS: PROCALAMINE 3 % 1,000 ML IV SCH (10:10)
[2019-07-13] MEDS: LOVENOX INJ 30 MG SYR SC SCH (10:11)
[2019-07-13] MEDS: MAGIC MOUTHWASH MT SCH ×4 (10:11→21:40)
[2019-07-13] MEDS: ROCEPHIN VIAL 1 GRAM IVP SCH (10:11)
[2019-07-13] MEDS: VSL#3 PO SCH (10:12)
[2019-07-13] MEDS: LEXAPRO PO SCH (10:13)
[2019-07-13] MEDS: ESTRACE PO SCH (10:13)
[2019-07-13] MEDS: SYNTHROID 137 mcg TAB PO SCH (10:14)
[2019-07-13] MEDS: PLAVIX PO SCH (10:15)
[2019-07-13] MEDS: MEGACE PO SCH ×2 (10:15→21:37)
[2019-07-13] MEDS: PROTONIX TAB 40 MG PO SCH (10:15)
[2019-07-13] MEDS: NORVASC TAB 5 MG PO SCH (10:16)
[2019-07-13] MEDS: ARTIFICIAL TEARS DROPS OP SCH ×2 (10:17→21:34)
[2019-07-13] MEDS: COLACE CAP 100 MG PO SCH ×2 (10:17→21:35)
[2019-07-13] MEDS: PLAQUENIL PO SCH ×2 (10:17→21:35)
[2019-07-13] MEDS: PATIENT'S HOME MEDICATION (Cyclosporine [Restasis] 1 DROP) OP SCH ×2 (10:18→21:38)
[2019-07-13] MEDS: TOPROL XL PO SCH (10:19)
[2019-07-13] MEDS: KENALOG CREAM TOP SCH (10:19)
[2019-07-13] MEDS: FLUOCINONIDE TP SCH ×2 (10:20→21:39)
[2019-07-13] MEDS: MIRALAX POWDER (255 GRAMS BTL) PO SCH (10:20)
[2019-07-13] MEDS: LEFLUNOMIDE 20 MG PO SCH (10:30)
[2019-07-13] MEDS: ALBUMIN HUMAN 25%- 100 ML 100 ML IV SCH (10:54)
[2019-07-13] MEDS: VIT C E ZINC CIT LUTEIN ZEAXAN PO SCH (11:14)
[2019-07-13] MEDS ORDERED: CHLORASEPTIC SPRAY ONE (12:22)
[2019-07-13] MEDS ORDERED: CHLORASEPTIC SPRAY MT PRN (12:41)
[2019-07-13] MEDS: BENADRYL CAP/TAB 25 MG PO SCH (21:35)
[2019-07-13] MEDS: ZyrTEC TAB 10 MG PO SCH (21:36)
[2019-07-14] MEDS: NS 1000 ML 1,000 ML IV SCH ×3 (00:27→21:46)
[2019-07-14] MEDS: XOPENEX 1.25 MG/3 ML NEBULE NEB SCH ×3 (05:18→20:08)
[2019-07-14] MEDS: PERIACTIN TAB 4 MG PO SCH ×3 (05:31→21:45)
[2019-07-14] MEDS: NEURONTIN CAP 100 MG PO SCH (05:31)
[2019-07-14] MEDS: APRESOLINE TAB 25 MG PO SCH ×3 (05:31→21:45)
[2019-07-14 05:48] LABS: BASOPHILS # (AUTO) 0.1 X10^3/uL (0.0-0.1); BASOPHILS % (AUTO) 1.5 % (0.2-1.0); EOSINOPHILS # (AUTO) 0.2 x10^3/uL (0.0-0.2); EOSINOPHILS % (AUTO) 4.2 % (0.9-2.9); HEMATOCRIT 29.3 % (36.0-47.0); HEMOGLOBIN 9.5 g/dL (12.0-16.0); LYMPHOCYTES # (AUTO) 0.6 X10^3/uL (1.3-2.9); LYMPHOCYTES % (AUTO) 17.4 % (21.0-51.0); MEAN CORPUSCULAR HEMOGLOBIN 24.8 pg (27.0-34.0); MEAN CORPUSCULAR HGB CONC 32.3 g/dL (33.0-35.0); MEAN CORPUSCULAR VOLUME 76.9 fL (80.0-100.0); MEAN PLATELET VOLUME 6.7 fL (7.4-11.0); MONOCYTES # (AUTO) 0.7 x10^3/uL (0.3-0.8); MONOCYTES % (AUTO) 19.8 % (0.0-13.0); NEUTROPHILS # (AUTO) 2.1 x10^3/uL (2.2-4.8); NEUTROPHILS % (AUTO) 57.1 % (42.0-75.0); PLATELET COUNT 223 X10^3/uL (150.0-450.0); RED BLOOD COUNT 3.81 X10^6/uL (3.5-5.4); RED CELL DISTRIBUTION WIDTH 19.2 % (11.6-16.5); WHITE BLOOD COUNT 3.7 X10^3/uL (3.6-10.0)
[2019-07-14 06:02] LABS: ALANINE AMINOTRANSFERASE 13 Units/L (12-78); ALBUMIN 2.9 g/dL (3.4-5.0); ALKALINE PHOSPHATASE 97 Units/L (46-116); ASPARTATE AMINO TRANSFERASE 20 Units/L (15-37); BLOOD UREA NITROGEN 20 mg/dL (7-18); CALCIUM 8.4 mg/dL (8.5-10.1); CARBON DIOXIDE 19.6 mmol/L (21-32); CHLORIDE 103 mmol/L (98-107); COR CA(FOR HYPOALB) 9.3 mg/dL (8.5-10.1); CREATININE 1.37 mg/dL (0.55-1.02); SODIUM 133 mmol/L (136-145); TOTAL PROTEIN 6.1 g/dL (6.4-8.2); eGFR NON BLACK RACES 39 (>60)
[2019-07-14 06:39] LABS: ANISOCYTOSIS SLIGHT; HYPOCHROMASIA SLIGHT; PLATELET MORPHOLOGY COMMENT NORMAL (NORMAL)
[2019-07-14 06:40] LABS: MICROCYTOSIS SLIGHT
[2019-07-14] MEDS ORDERED: TOPROL XL ONE (07:56)
[2019-07-14] MEDS ORDERED: LEXAPRO ONE (07:57)
[2019-07-14] MEDS: LEXAPRO PO SCH (09:40)
[2019-07-14] MEDS: TOPROL XL PO SCH (09:40)
[2019-07-14] MEDS: VSL#3 PO SCH (09:40)
[2019-07-14] MEDS: PROTONIX TAB 40 MG PO SCH (09:40)
[2019-07-14] MEDS: ESTRACE PO SCH (09:41)
[2019-07-14] MEDS: COLACE CAP 100 MG PO SCH ×2 (09:41→21:45)
[2019-07-14] MEDS: PLAVIX PO SCH (09:41)
[2019-07-14] MEDS: MEGACE PO SCH ×2 (09:41→21:44)
[2019-07-14] MEDS: PILOCARPINE HCL 5 MG PO SCH ×2 (09:41→21:43)
[2019-07-14] MEDS: NORVASC TAB 5 MG PO SCH (09:41)
[2019-07-14] MEDS: MAGIC MOUTHWASH MT SCH ×4 (09:42→21:47)
[2019-07-14] MEDS: LOVENOX INJ 30 MG SYR SC SCH (09:42)
[2019-07-14] MEDS: PLAQUENIL PO SCH ×2 (09:42→21:44)
[2019-07-14] MEDS: LEFLUNOMIDE 20 MG PO SCH (09:47)
[2019-07-14] MEDS: ARTIFICIAL TEARS DROPS OP SCH ×2 (09:48→21:42)
[2019-07-14] MEDS: MIRALAX POWDER (255 GRAMS BTL) PO SCH (09:51)
[2019-07-14] MEDS: SYNTHROID 137 mcg TAB PO SCH (09:51)
[2019-07-14] MEDS: PATIENT'S HOME MEDICATION (Cyclosporine [Restasis] 1 DROP) OP SCH ×2 (10:00→21:46)
[2019-07-14] MEDS: KENALOG CREAM TOP SCH (10:00)
[2019-07-14] MEDS: ROCEPHIN VIAL 1 GRAM IVP SCH (10:00)
[2019-07-14] MEDS: FLUOCINONIDE TP SCH ×2 (10:02→21:47)
[2019-07-14] MEDS: ALBUMIN HUMAN 25%- 100 ML 100 ML IV SCH (10:56)
[2019-07-14] MEDS: PERCOCET TAB 5/325 MG PO PRN (10:59)
[2019-07-14] MEDS: PROCALAMINE 3 % 1,000 ML IV SCH (17:32)
[2019-07-14] MEDS ORDERED: ZyPREXA TAB 5 MG PO SCH (21:00)
[2019-07-14] MEDS: ZyrTEC TAB 10 MG PO SCH (21:44)
[2019-07-14] MEDS: BENADRYL CAP/TAB 25 MG PO SCH (21:45)
[2019-07-15] MEDS: XANAX PO PRN (04:40)
[2019-07-15 05:55] LABS: BASOPHILS # (AUTO) 0.1 X10^3/uL (0.0-0.1); BASOPHILS % (AUTO) 1.5 % (0.2-1.0); EOSINOPHILS # (AUTO) 0.2 x10^3/uL (0.0-0.2); EOSINOPHILS % (AUTO) 4.1 % (0.9-2.9); HEMATOCRIT 30.7 % (36.0-47.0); HEMOGLOBIN 9.9 g/dL (12.0-16.0); LYMPHOCYTES # (AUTO) 0.6 X10^3/uL (1.3-2.9); LYMPHOCYTES % (AUTO) 13.1 % (21.0-51.0); MEAN CORPUSCULAR HEMOGLOBIN 24.6 pg (27.0-34.0); MEAN CORPUSCULAR HGB CONC 32.2 g/dL (33.0-35.0); MEAN CORPUSCULAR VOLUME 76.5 fL (80.0-100.0); MEAN PLATELET VOLUME 7.2 fL (7.4-11.0); MONOCYTES # (AUTO) 0.7 x10^3/uL (0.3-0.8); NEUTROPHILS # (AUTO) 2.8 x10^3/uL (2.2-4.8); NEUTROPHILS % (AUTO) 64.3 % (42.0-75.0); PLATELET COUNT 273 X10^3/uL (150.0-450.0); RED BLOOD COUNT 4.01 X10^6/uL (3.5-5.4); RED CELL DISTRIBUTION WIDTH 18.9 % (11.6-16.5); WHITE BLOOD COUNT 4.3 X10^3/uL (3.6-10.0)
[2019-07-15 06:01] LABS: ALANINE AMINOTRANSFERASE 17 Units/L (12-78); ALBUMIN 3.1 g/dL (3.4-5.0); ALKALINE PHOSPHATASE 102 Units/L (46-116); ASPARTATE AMINO TRANSFERASE 25 Units/L (15-37); BLOOD UREA NITROGEN 19 mg/dL (7-18); CALCIUM 8.4 mg/dL (8.5-10.1); CARBON DIOXIDE 19.4 mmol/L (21-32); CHLORIDE 102 mmol/L (98-107); COR CA(FOR HYPOALB) 9.1 mg/dL (8.5-10.1); CREATININE 1.32 mg/dL (0.55-1.02); SODIUM 132 mmol/L (136-145); TOTAL PROTEIN 6.5 g/dL (6.4-8.2); eGFR NON BLACK RACES 41 (>60)
[2019-07-15] MEDS: XOPENEX 1.25 MG/3 ML NEBULE NEB SCH (06:14)
[2019-07-15] MEDS: APRESOLINE TAB 25 MG PO SCH (06:29)
[2019-07-15] MEDS: PERIACTIN TAB 4 MG PO SCH (06:30)
[2019-07-15 07:08] LABS: ANISOCYTOSIS SLIGHT; HYPOCHROMASIA SLIGHT; MICROCYTOSIS SLIGHT; PLATELET MORPHOLOGY COMMENT NORMAL (NORMAL)
[2019-07-15] MEDS ORDERED: TOPROL XL ONE (08:15)
[2019-07-15] MEDS ORDERED: LEXAPRO ONE (08:16)
[2019-07-15] MEDS: PERCOCET TAB 5/325 MG PO PRN (09:13)
[2019-07-15] MEDS: ESTRACE PO SCH (09:15)
[2019-07-15] MEDS: NORVASC TAB 5 MG PO SCH (09:15)
[2019-07-15] MEDS: PROTONIX TAB 40 MG PO SCH (09:15)
[2019-07-15] MEDS: MEGACE PO SCH (09:16)
[2019-07-15] MEDS: TOPROL XL PO SCH (09:16)
[2019-07-15] MEDS: PLAVIX PO SCH (09:16)
[2019-07-15] MEDS: LEXAPRO PO SCH (09:17)
[2019-07-15] MEDS: PLAQUENIL PO SCH (09:18)
[2019-07-15] MEDS: PILOCARPINE HCL 5 MG PO SCH (09:18)
[2019-07-15] MEDS: COLACE CAP 100 MG PO SCH (09:18)
[2019-07-15] MEDS: LEFLUNOMIDE 20 MG PO SCH (09:19)
[2019-07-15] MEDS: VSL#3 PO SCH (09:20)
[2019-07-15] MEDS: SYNTHROID 137 mcg TAB PO SCH (09:21)
[2019-07-15] MEDS: LOVENOX INJ 30 MG SYR SC SCH (09:22)
[2019-07-15] MEDS ORDERED: ZOFRAN INJ 4 MG VIAL IVP ONE (09:23)
[2019-07-15] MEDS: ROCEPHIN VIAL 1 GRAM IVP SCH (09:23)
[2019-07-15] MEDS ORDERED: ZOFRAN INJ 4 MG VIAL ONE (09:24)
[2019-07-15] MEDS: FLUOCINONIDE TP SCH (09:30)
[2019-07-15] MEDS: KENALOG CREAM TOP SCH (10:00)
[2019-07-15] MEDS: ALBUMIN HUMAN 25%- 100 ML 100 ML IV SCH (10:15)
[2019-07-15] MEDS: ARTIFICIAL TEARS DROPS OP SCH (11:14)
[2019-07-15] MEDS: MIRALAX POWDER (255 GRAMS BTL) PO SCH (11:15)
[2019-07-15] MEDS: MAGIC MOUTHWASH MT SCH (11:15)
[2019-07-15] MEDS: PATIENT'S HOME MEDICATION (Cyclosporine [Restasis] 1 DROP) OP SCH (11:18)
[2019-07-15] MEDS ORDERED: PROCRIT or EPOGEN SC ONE (11:35)
--- NOTE | 2019-07-15 11:38 | PCM.PROG ---
Progress Note - Progress Note for Day of Date of Exam: 07/13/19 - Subjective Subjective: WAS ADMITTED FOR DEHYDRATION, URINARY TRACT INFECTION, AMS, AND CHRONIC KIDNEY DISEASE. TODAY, SHE IS ALERT, LYING IN BED ON MORNING ROUNDS. FAMILY REPORTS THAT SHE CONTINUES WITH INTERMITTENT CONFUSION AND WEAKNESS. INSERTED A PORT A CATH YESTERDAY. ON EXAMINATION, HEART IS REGULAR IN RATE AND RHYTHM. BILATERAL LUNGS ARE NOTED WITH DIMINISHED LUNG SOUNDS. ABDOMEN IS ROUND, SOFT, AND NON-TENDER. NORMAL BOWEL SOUNDS NOTED IN ALL QUADRANTS. HER VITALS THIS MORNING ARE: 98.3-88-20-93%-181/70. LABS WERE OBTAINED. ABNORMAL LAB VALUES INCLUDE THE FOLLOWING: HGB 9.5, HCT 29.3, SODIUM 133, CARBON DIOXIDE 19.6, BUN 20, CREATININE 1.37, GLUCOSE 103, CALCIUM 8.4, TOTAL PROTEIN 6.1, ALBUMIN 2.9. A URINE CULTURE REPORTED GROWTH OF E.COLI. SHE IS COOPERATING WELL WITH PHYSICAL THERAPY. TODAY, WE WILL START ALBUMIN 25% IV DAILY AND PROCALAMINE AT 40ML/HR. OTHERWISE, WE WILL CONTINUE WITH CURRENT PLAN OF CARE. WE WILL FOLLOW UP WITH AM LABS AND CONTINUE TO MONITOR. - Past Medical Family Social History Past Med/Fam/Surg Hx: No changes since H&P Allergies: Allergies hydrocodone Allergy (Intermediate, Verified 07/09/19 08:47) CONFUSION - Review of Systems ROS: No change since H&P - Vital Signs and I&O's Vital Signs: Temperature 98.3 F Pulse Rate [Right Brachial] 100 Pulse Rate 77 Respiratory Rate 18 Blood Pressure [Left Arm] 148/72 Blood Pressure [Right Arm] 167/75 Blood Pressure 154/70 O2 Sat by Pulse Oximetry 96 Intake and Output: Intake & Output 07/12/19 07/13/19 07/14/19 07/15/19 11:59 11:59 11:59 11:59 Intake Total 1060 / 1060 1440 / 1440 2106 / 2106 880 / 880 Output Total 995 / 995 Balance 1060 / 1060 445 / 445 210 / 2106 880 / 880 - Physical Exam Oriented: Person Eyes: Normal Ear: Normal Nose: Normal Throat: Normal Respiratory: Generalized, Diminished Cardiovascular: Normal. negative: S3, S4, Murmur : Normal Auscultation: Bowel Sounds: Normal Tenderness: Normal Skin: Decreased Turgur Musculoskeletal: Shoulder (RIGHT SHOULDER PAIN, LEFT HAND PAIN, RIGHT FOREARM PAIN ), Arm, Tender Psychiatric: Normal Mood Description: Calm Affect: Anxious Speech Pattern: Clear, Appropriate - Laboratory and Diagnostics Result Diagrams: 07/15/19 05:05 07/15/19 05:05 Labs: 07/09/19 10:12 Urine,Clean Catch Urine Culture - Final Escherichia Coli Laboratory WBC 4.3 X10^3/uL (3.6-10.0) 07/15/19 05:05 RBC 4.01 X10^6/uL (3.5-5.4) 07/15/19 05:05 Hgb 9.9 g/dL (12.0-16.0) L 07/15/19 05:05 Hct 30.7 % (36.0-47.0) L 07/15/19 05:05 MCV 76.5 fL (80.0-100.0) L 07/15/19 05:05 MCH 24.6 pg (27.0-34.0) L 07/15/19 05:05 MCHC 32.2 g/dL (33.0-35.0) L 07/15/19 05:05 RDW 18.9 % (11.6-16.5) H 07/15/19 05:05 Plt Count 273 X10^3/uL (150.0-450.0) 07/15/19 05:05 Plt Count Comment Adequate (ADEQUATE) 07/15/19 05:05 MPV 7.2 fL (7.4-11.0) L 07/15/19 05:05 Neut % (Auto) 64.3 % (42.0-75.0) 07/15/19 05:05 Lymph % (Auto) 13.1 % (21.0-51.0) L 07/15/19 05:05 Dare % (Auto) 17.0 % (0.0-13.0) H 07/15/19 05:05 Eos % (Auto) 4.1 % (0.9-2.9) H 07/15/19 05:05 Baso % (Auto) 1.5 % (0.2-1.0) H 07/15/19 05:05 Neut # (Auto) 2.8 x10^3/uL (2.2-4.8) 07/15/19 05:05 Lymph # (Auto) 0.6 X10^3/uL (1.3-2.9) L 07/15/19 05:05 Dare # (Auto) 0.7 x10^3/uL (0.3-0.8) 07/15/19 05:05 Eos # (Auto) 0.2 x10^3/uL (0.0-0.2) 07/15/19 05:05 Baso # (Auto) 0.1 X10^3/uL (0.0-0.1) 07/15/19 05:05 Absolute Nucleated RBC 0.0 /100WBC 07/15/19 05:05 Total Counted 100 07/13/19 06:15 Neutrophils % (Manual) 62 % (39-76) 07/13/19 06:15 Band Neutrophils % 4 % (0-10) 07/13/19 06:15 Lymphocytes % (Manual) 22 % (13-43) 07/13/19 06:15 Monocytes % (Manual) 12 % (4-9) H 07/13/19 06:15 Giant Platelets N 07/12/19 06:30 Plt Morphology Comment Normal (NORMAL) 07/15/19 05:05 RBC Morphology Abnormal (NORMAL) A 07/15/19 05:05 Hypochromasia Slight A 07/15/19 05:05 Anisocytosis Slight A 07/15/19 05:05 Microcytosis Slight A 07/15/19 05:05 PT 12.8 SECONDS (11.8-14.3) 07/12/19 06:30 INR Target Range - 07/12/19 06:30 INR 1.00 (0.8-1.3) 07/12/19 06:30 APTT 43.8 SECONDS (22.9-36.5) H 07/10/19 04:00 PTT Comment - 07/10/19 04:00 Sodium 132 mmol/L (136-145) L 07/15/19 05:05 Corrected Sodium TNP 07/15/19 05:05 Potassium 4.4 mmol/L (3.5-5.1) 07/15/19 05:05 Chloride 102 mmol/L (98-107) 07/15/19 05:05 Carbon Dioxide 19.4 mmol/L (21-32) L 07/15/19 05:05 BUN 19 mg/dL (7-18) H 07/15/19 05:05 Creatinine 1.32 mg/dL (0.55-1.02) H 07/15/19 05:05 Est GFR (MDRD) Af Amer 50 (>60) L 07/15/19 05:05 Est GFR (MDRD) Non-Af 41 (>60) L 07/15/19 05:05 Glucose 106 mg/dL (65-99) H 07/15/19 05:05 Calcium 8.4 mg/dL (8.5-10.1) L 07/15/19 05:05 Corrected Calcium 9.1 mg/dL (8.5-10.1) 07/15/19 05:05 Magnesium 1.9 mg/dL (1.7-2.9) 07/10/19 04:00 Total Bilirubin 0.30 mg/dL (0.2-1.0) 07/15/19 05:05 AST 25 Units/L (15-37) 07/15/19 05:05 ALT 17 Units/L (12-78) 07/15/19 05:05 Alkaline Phosphatase 102 Units/L (46-116) 07/15/19 05:05 Creatine Kinase 12 Units/L (26-192) L 07/09/19 21:51 CK-MB (CK-2) < 1.0 ng/mL (0-4.0) 07/09/19 21:51 CK/CKMB % Calc 8.3 % (<4) 07/09/19 21:51 Troponin I < 0.02 ng/mL (0-1.5) 07/09/19 21:51 Total Protein 6.5 g/dL (6.4-8.2) 07/15/19 05:05 Albumin 3.1 g/dL (3.4-5.0) L 07/15/19 05:05 Globulin 3.4 g/dL (2.5-4.5) 07/15/19 05:05 Albumin/Globulin Ratio 0.9 Ratio (1.1-2.1) L 07/15/19 05:05 Triglycerides 75 mg/dL (0-150) 07/10/19 04:00 Cholesterol 115 mg/dL (0-200) 07/10/19 04:00 LDL Cholesterol, Calc 74 mg/dL (0-100) 07/10/19 04:00 HDL Cholesterol 26 mg/dL (40-60) L 07/10/19 04:00 Cholesterol/HDL Ratio 4.4 (0.0-5.0) 07/10/19 04:00 Specimen Type Clean catch urine 07/09/19 10:12 Urine Color Yellow (YELLOW) 07/09/19 10:12 Urine Appearance Cloudy (CLEAR) 07/09/19 10:12 Urine pH 5.0 (5.0 - 8.0) 07/09/19 10:12 Ur Specific [place] 1.025 (1.000-1.030) 07/09/19 10:12 Urine Protein 3+ (NEGATIVE) 07/09/19 10:12 Urine Glucose (UA) Negative (NEGATIVE) 07/09/19 10:12 Urine Ketones Negative (NEGATIVE) 07/09/19 10:12 Urine Occult Blood 3+ (NEGATIVE) 07/09/19 10:12 Urine Nitrite Positive (NEGATIVE) 07/09/19 10:12 Urine Bilirubin Negative (NEGATIVE) 07/09/19 10:12 Urine Urobilinogen Normal (NORMAL) 07/09/19 10:12 Ur Leukocyte Esterase 3+ (NEGATIVE) 07/09/19 10:12 Urine RBC 5-10 /HPF (0-3) A 07/09/19 10:12 Urine WBC 20-30 /HPF (0-5) A 07/09/19 10:12 Ur Squamous Epith Cells Rare /HPF (NEGATIVE) 07/09/19 10:12 Urine Bacteria 1+ /HPF (NEGATIVE) 07/09/19 10:12 Urine Mucus Few /HPF (NEGATIVE) 07/09/19 10:12 Ur Culture Indicated? Yes/culture set up 07/09/19 10:12 - Plan (1) Urinary tract infection Status: Acute Qualifiers: Urinary tract infection type: acute cystitis Hematuria presence: with hematuria Qualified Code(s): N30.01 - Acute cystitis with hematuria Plan: IV FLUIDS, AUGMENTIN 875/125 1 TAB PO BID, CONTINUE TO MONITOR (2) Altered mental status Status: Acute Qualifiers: Altered mental status type: transient alteration of awareness Qualified Code(s): R40.4 - Transient alteration of awareness Plan: ZYPREXA 2.5MG PO HS, CONTINUE TO MONITOR (3) Dehydration Status: Acute Plan: NORMAL SALINE AT 50ML/HR, CONTINUE TO MONITOR. (4) Chronic renal disease Status: Chronic Qualifiers: Chronic kidney disease stage: stage 3 (moderate) Qualified Code(s): N18.3 - Chronic kidney disease, stage 3 (moderate) Plan: NORMAL SALINE AT 50ML/HR, CONTINUE TO MONITOR. (5) Hyperkalemia Status: Acute (6) Hyponatremia Status: Acute (7) Hypertension Status: Chronic Qualifiers: Hypertension type: essential hypertension Qualified Code(s): I10 - Essential (primary) hypertension Plan: CATAPRES PATCH, NORVASC 10MG PO DAILY, METOPROLOL XL 100MG PO DAILY, CONTINUE TO MONITOR (8) Depression Status: Acute Qualifiers: Depression Type: major depressive disorder Major depression recurrence: unspecified whether recurrent Active/Remission status: currently active Major depression episode severity: mild Qualified Code(s): F32.0 - Major depressive disorder, single episode, mild Plan: LEXAPRO 10MG PO DAILY, CONTINUE TO MONITOR (9) Hypoproteinemia Status: Acute Plan: PROCAL AT 40ML/HR, ALBUMIN 25% IV DAILY, CONTINUE TO MONITOR
[2019-07-15] MEDS ORDERED: PROCRIT or EPOGEN ONE (11:45)
[2019-07-15 12:25] VITALS: BP 172/71
== END 2019-07-15 12:20 | disposition home or self-care (01) | DRG 690 ==
LOC: ER 08:35 → MED/SURG 08:35 → OBSVTOIN 11:42 → MED/SURG 12:23
PROVIDERS: ADMIT Internal Medicine; ATTEND Internal Medicine
DX: E86.0 Dehydration; N30.01 Acute cystitis with hematuria; B96.20 Unspecified Escherichia coli [E. coli] as the cause of diseases classified elsewhere; E87.1 Hypo-osmolality and hyponatremia; I87.2 Venous insufficiency (chronic) (peripheral); R40.4 Transient alteration of awareness; W19.XXXA Unspecified fall, initial encounter; S50.11XA Contusion of right forearm, initial encounter; M50.30 Other cervical disc degeneration, unspecified cervical region; Y92.9 Unspecified place or not applicable; Y99.9 Unspecified external cause status; E87.5 Hyperkalemia; Z91.81 History of falling; F32.9 Major depressive disorder, single episode, unspecified; I12.9 Hypertensive chronic kidney disease with stage 1 through stage 4 chronic kidney disease, or unspecified chronic kidney disease; R55 Syncope and collapse; S60.022A Contusion of left index finger without damage to nail, initial encounter; R26.81 Unsteadiness on feet; E77.8 Other disorders of glycoprotein metabolism; S40.011A Contusion of right shoulder, initial encounter; N18.9 Chronic kidney disease, unspecified
CPT/HCPCS: 36415; 70450; 71010; 71045; 72125; 72141; 73030; 73090; 73130; 76000; 80053; 80061; 81001; 82550; 82553; 83735; 84484; 85025; 85610; 85730; 87086; 87088; 87186; 93005; 93880; 94640; 94760; 96365; 96372; 96374; 96375; 97110; 97116; 97162; 97166; 97530; 97535; 99100; 99284; A4222; B5200; J3490; P9047; S0179; J0690; J0696; J0885; J1335; J1642; J1650; J2250; J2270; J2405; J3010; J7030; J7050; J7120

== ENCOUNTER 2019-07-25 10:40 | Inpatient (IN) ==
[2019-07-25] MEDS ORDERED: LEVAQUIN PREMIX IV 500 MG 500 MG/100 ML BAG IV SCH (12:14)
[2019-07-25 13:06] LABS: BASOPHILS # (AUTO) 0.1 X10^3/uL (0.0-0.1); BASOPHILS % (AUTO) 0.6 % (0.2-1.0); HEMATOCRIT 30.5 % (36.0-47.0); HEMOGLOBIN 9.7 g/dL (12.0-16.0); LYMPHOCYTES # (AUTO) 0.7 X10^3/uL (1.3-2.9); LYMPHOCYTES % (AUTO) 5.7 % (21.0-51.0); MEAN CORPUSCULAR HEMOGLOBIN 23.8 pg (27.0-34.0); MEAN CORPUSCULAR HGB CONC 31.8 g/dL (33.0-35.0); MEAN PLATELET VOLUME 7.4 fL (7.4-11.0); MONOCYTES # (AUTO) 0.9 x10^3/uL (0.3-0.8); MONOCYTES % (AUTO) 7.5 % (0.0-13.0); NEUTROPHILS # (AUTO) 10.7 x10^3/uL (2.2-4.8); NEUTROPHILS % (AUTO) 86.2 % (42.0-75.0); PLATELET COUNT 247 X10^3/uL (150.0-450.0); RED BLOOD COUNT 4.06 X10^6/uL (3.5-5.4); RED CELL DISTRIBUTION WIDTH 19.7 % (11.6-16.5); WHITE BLOOD COUNT 12.4 X10^3/uL (3.6-10.0)
[2019-07-25] MEDS: NS 1000 ML 1,000 ML IV SCH (13:10)
[2019-07-25] MEDS: ZOFRAN INJ 4 MG VIAL IVP PRN ×2 (13:11→18:05)
[2019-07-25 13:12] LABS: ALANINE AMINOTRANSFERASE 16 Units/L (12-78); ALBUMIN 2.9 g/dL (3.4-5.0); ALKALINE PHOSPHATASE 92 Units/L (46-116); ASPARTATE AMINO TRANSFERASE 21 Units/L (15-37); BLOOD UREA NITROGEN 26 mg/dL (7-18); CALCIUM 8.3 mg/dL (8.5-10.1); CARBON DIOXIDE 18.7 mmol/L (21-32); CHLORIDE 98 mmol/L (98-107); COR CA(FOR HYPOALB) 9.2 mg/dL (8.5-10.1); CREATININE 2.12 mg/dL (0.55-1.02); SODIUM 128 mmol/L (136-145); TOTAL PROTEIN 6.1 g/dL (6.4-8.2); eGFR NON BLACK RACES 24 (>60)
[2019-07-25 13:16] LABS: PLATELET MORPHOLOGY COMMENT NORMAL (NORMAL)
[2019-07-25 13:17] LABS: HYPOCHROMASIA SLIGHT
[2019-07-25] MEDS ORDERED: PROCRIT or EPOGEN SC ONE (13:35)
[2019-07-25 14:41] LABS: BILIRUBIN,URINE NEGATIVE (NEGATIVE); BLOOD/HEMOGLOBIN,URINE NEGATIVE (NEGATIVE); GLUCOSE, URINE NEGATIVE (NEGATIVE); KETONES,URINE NEGATIVE (NEGATIVE); LEUKOCYTE ESTERASE ,URINE NEGATIVE (NEGATIVE); NITRITES,URINE NEGATIVE (NEGATIVE); PROTEIN,URINE 1+ (NEGATIVE); UROBILINOGEN,URINE NORMAL (NORMAL)
[2019-07-25 14:48] LABS: APPEARANCE,URINE CLEAR (CLEAR); COLOR,URINE YELLOW (YELLOW); RBC,URINE NONE SEEN /HPF (0-3); SQUAMOUS EPITHELIAL CELL,UR FEW /HPF (NEGATIVE)
[2019-07-25 14:49] LABS: BACTERIA,URINE TRACE /HPF (NEGATIVE)
[2019-07-25] MEDS ORDERED: PHENERGAN INJ 25 MG IM PRN (15:02)
--- NOTE | 2019-07-25 15:31 | RAD ---
History: Shortness of breath Study: Portable upright AP chest Comparison: July 20, 2019 Findings: There is a new infiltrate at the left lung base partially obscuring the left hemidiaphragm. The right lung remains grossly clear. There is an unchanged Port-A-Cath via the left subclavian vein. The heart size is normal. Impression: New left basilar infiltrate compatible with pneumonia Reported By:
[2019-07-25] MEDS ORDERED: SALINE 3% 15 ML NEB TX NEB ONE (18:30)
[2019-07-25] MEDS ORDERED: MIRALAX POWDER (255 GRAMS BTL) PO PRN (19:39)
[2019-07-25] MEDS ORDERED: ZANAFLEX PO PRN (19:39)
[2019-07-25] MEDS ORDERED: ANTIVERT TAB 25 MG PO PRN (19:39)
[2019-07-25] MEDS ORDERED: XANAX PO PRN (19:39)
[2019-07-25] MEDS ORDERED: FIORICET TAB PO PRN (19:39)
[2019-07-25] MEDS ORDERED: PERCOCET TAB 5/325 MG PO PRN (19:39)
[2019-07-25] MEDS ORDERED: ULTRAM PO PRN (19:39)
[2019-07-25] MEDS ORDERED: FORTAZ or TAZICEF VIAL INJ 1 G in NS 100 ML IV + SPIKE MINIBAG* 100 ML IV SCH (20:00)
[2019-07-25] MEDS ORDERED: CARBOXYMETHYLCELLULOSE SODIUM OP SCH (21:00)
[2019-07-25] MEDS ORDERED: PATIENT'S HOME MEDICATION (Levocetirizine [Levocetirizine] 5 MG) PO SCH (21:00)
[2019-07-25] MEDS ORDERED: ZyrTEC TAB 10 MG PO SCH (21:00)
[2019-07-25] MEDS ORDERED: BENADRYL CAP/TAB 25 MG PO SCH (21:00)
[2019-07-25] MEDS ORDERED: HYDROXYCHLOROQUINE SULFATE 200 MG PO SCH (21:00)
[2019-07-25] MEDS: FORTAZ or TAZICEF VIAL INJ 1 G in NS 100 ML IV + SPIKE MINIBAG* 100 ML IV SCH (21:58)
[2019-07-25] MEDS: PERIACTIN TAB 4 MG PO SCH (21:59)
[2019-07-25] MEDS: PATIENT'S HOME MEDICATION (Cyclosporine [Restasis] 1 DROP) OP SCH (21:59)
[2019-07-25] MEDS: MEGACE PO SCH (21:59)
[2019-07-25] MEDS: COLACE CAP 100 MG PO SCH (21:59)
[2019-07-25] MEDS: APRESOLINE TAB 25 MG PO SCH (21:59)
[2019-07-25] MEDS: FLUOCINONIDE TP SCH (22:00)
[2019-07-25] MEDS: PILOCARPINE HCL 5 MG PO SCH (22:01)
[2019-07-26] MEDS: NS 1000 ML 1,000 ML IV SCH ×3 (00:01→14:23)
[2019-07-26] MEDS: XOPENEX 1.25 MG/3 ML NEBULE NEB SCH ×4 (00:39→17:12)
[2019-07-26] MEDS: APRESOLINE TAB 25 MG PO SCH ×3 (05:35→22:36)
[2019-07-26] MEDS: PILOCARPINE HCL 5 MG PO SCH ×3 (05:36→22:36)
[2019-07-26] MEDS: PERIACTIN TAB 4 MG PO SCH ×3 (05:36→22:36)
--- NOTE | 2019-07-26 06:05 | RAD ---
HISTORY: Shortness of breath Study: Chest AP portable Comparison: 07/25/2019 Findings: There is a port present on the left. The heart remains enlarged. No congestive heart failure is noted. The yana are normal. The right lung and left upper lung juarez are clear. There has been some improvement in the left basilar infiltrate being followed. No pleural effusions are identified. The bony thorax is unremarkable IMPRESSION: Some improvement in the left basilar infiltrate noted on the prior examination Continued minimal cardiomegaly without congestive heart failure Reported By:
[2019-07-26 06:20] LABS: BASOPHILS # (AUTO) 0.1 X10^3/uL (0.0-0.1); BASOPHILS % (AUTO) 0.7 % (0.2-1.0); EOSINOPHILS # (AUTO) 0.1 x10^3/uL (0.0-0.2); HEMATOCRIT 26.9 % (36.0-47.0); HEMOGLOBIN 8.6 g/dL (12.0-16.0); LYMPHOCYTES # (AUTO) 0.9 X10^3/uL (1.3-2.9); LYMPHOCYTES % (AUTO) 10.3 % (21.0-51.0); MEAN CORPUSCULAR HEMOGLOBIN 24.3 pg (27.0-34.0); MEAN CORPUSCULAR HGB CONC 32.1 g/dL (33.0-35.0); MEAN CORPUSCULAR VOLUME 75.5 fL (80.0-100.0); MEAN PLATELET VOLUME 7.9 fL (7.4-11.0); MONOCYTES # (AUTO) 0.7 x10^3/uL (0.3-0.8); MONOCYTES % (AUTO) 8.1 % (0.0-13.0); NEUTROPHILS # (AUTO) 6.6 x10^3/uL (2.2-4.8); NEUTROPHILS % (AUTO) 79.9 % (42.0-75.0); PLATELET COUNT 213 X10^3/uL (150.0-450.0); RED BLOOD COUNT 3.56 X10^6/uL (3.5-5.4); WHITE BLOOD COUNT 8.3 X10^3/uL (3.6-10.0)
[2019-07-26 06:59] LABS: ALANINE AMINOTRANSFERASE 14 Units/L (12-78); ALBUMIN 2.7 g/dL (3.4-5.0); ALKALINE PHOSPHATASE 78 Units/L (46-116); BLOOD UREA NITROGEN 22 mg/dL (7-18); CALCIUM 7.8 mg/dL (8.5-10.1); CARBON DIOXIDE 16.9 mmol/L (21-32); COR CA(FOR HYPOALB) 8.8 mg/dL (8.5-10.1); TOTAL PROTEIN 5.8 g/dL (6.4-8.2); eGFR NON BLACK RACES 31 (>60)
[2019-07-26 07:29] LABS: HYPOCHROMASIA SLIGHT; PLATELET MORPHOLOGY COMMENT NORMAL (NORMAL)
[2019-07-26 07:46] LABS: ASPARTATE AMINO TRANSFERASE 20 Units/L (15-37); CHLORIDE 102 mmol/L (98-107); SODIUM 131 mmol/L (136-145)
[2019-07-26] MEDS ORDERED: CATAPRES-TTS-3 TD SCH (09:00)
[2019-07-26] MEDS: LEVAQUIN PREMIX IV 250 MG 250 MG/50 ML BAG IV SCH (09:51)
[2019-07-26] MEDS: VSL#3 PO SCH (09:52)
[2019-07-26] MEDS: NORVASC TAB 5 MG PO SCH (09:52)
[2019-07-26] MEDS: TOPROL XL PO SCH (09:53)
[2019-07-26] MEDS: PROTONIX TAB 40 MG PO SCH (09:53)
[2019-07-26] MEDS: ALDACTONE TAB 25 MG PO SCH (09:53)
[2019-07-26] MEDS: SYNTHROID 137 mcg TAB PO SCH (09:53)
[2019-07-26] MEDS: PLAQUENIL PO SCH ×2 (09:53→20:28)
[2019-07-26] MEDS: PLAVIX PO SCH (09:53)
[2019-07-26] MEDS: MEGACE PO SCH ×2 (09:53→20:27)
[2019-07-26] MEDS: COLACE CAP 100 MG PO SCH ×2 (09:53→20:28)
[2019-07-26] MEDS: KENALOG CREAM TOP SCH (09:54)
[2019-07-26] MEDS: VIT C E ZINC CIT LUTEIN ZEAXAN PO SCH (09:54)
[2019-07-26] MEDS: PATIENT'S HOME MEDICATION (Cyclosporine [Restasis] 1 DROP) OP SCH ×2 (09:56→20:31)
[2019-07-26] MEDS ORDERED: PHARMACY CONSULT - DOSE _____ XX SCH (10:00)
[2019-07-26 10:30] VITALS: BMI 30.9
[2019-07-26] MEDS ORDERED: PROCALAMINE 3 % 1,000 ML IV SCH (11:00)
[2019-07-26] MEDS: LEFLUNOMIDE 20 MG PO SCH (12:07)
[2019-07-26] MEDS: FLUOCINONIDE TP SCH ×2 (12:08→20:31)
[2019-07-26] MEDS: LOVENOX INJ 30 MG SYR SC SCH (13:33)
[2019-07-26] MEDS: ARTIFICIAL TEARS DROPS OP SCH ×2 (16:55→20:31)
[2019-07-26] MEDS: FORTAZ or TAZICEF VIAL INJ 1 G in NS 100 ML IV + SPIKE MINIBAG* 100 ML IV SCH (20:27)
[2019-07-26] MEDS: ZyrTEC TAB 10 MG PO SCH ×2 (20:29)
[2019-07-26] MEDS ORDERED: NEURONTIN CAP 100 MG PO SCH (21:00)
[2019-07-27] MEDS: XOPENEX 1.25 MG/3 ML NEBULE NEB SCH ×2 (00:55→05:27)
[2019-07-27 05:27] LABS: BASOPHILS # (AUTO) 0.1 X10^3/uL (0.0-0.1); BASOPHILS % (AUTO) 1.4 % (0.2-1.0); EOSINOPHILS # (AUTO) 0.1 x10^3/uL (0.0-0.2); EOSINOPHILS % (AUTO) 2.5 % (0.9-2.9); HEMATOCRIT 26.8 % (36.0-47.0); HEMOGLOBIN 8.6 g/dL (12.0-16.0); LYMPHOCYTES # (AUTO) 0.7 X10^3/uL (1.3-2.9); LYMPHOCYTES % (AUTO) 15.5 % (21.0-51.0); MEAN CORPUSCULAR HEMOGLOBIN 24.2 pg (27.0-34.0); MEAN CORPUSCULAR HGB CONC 32.2 g/dL (33.0-35.0); MEAN CORPUSCULAR VOLUME 75.2 fL (80.0-100.0); MONOCYTES # (AUTO) 0.7 x10^3/uL (0.3-0.8); MONOCYTES % (AUTO) 14.5 % (0.0-13.0); NEUTROPHILS % (AUTO) 66.1 % (42.0-75.0); PLATELET COUNT 232 X10^3/uL (150.0-450.0); RED BLOOD COUNT 3.56 X10^6/uL (3.5-5.4); RED CELL DISTRIBUTION WIDTH 19.9 % (11.6-16.5); WHITE BLOOD COUNT 4.6 X10^3/uL (3.6-10.0)
[2019-07-27 05:41] LABS: ALANINE AMINOTRANSFERASE 16 Units/L (12-78); ALBUMIN 2.6 g/dL (3.4-5.0); ALKALINE PHOSPHATASE 78 Units/L (46-116); ASPARTATE AMINO TRANSFERASE 19 Units/L (15-37); BLOOD UREA NITROGEN 18 mg/dL (7-18); CALCIUM 7.9 mg/dL (8.5-10.1); CARBON DIOXIDE 17.3 mmol/L (21-32); CHLORIDE 104 mmol/L (98-107); CREATININE 1.46 mg/dL (0.55-1.02); SODIUM 133 mmol/L (136-145); TOTAL PROTEIN 5.9 g/dL (6.4-8.2); eGFR NON BLACK RACES 37 (>60)
[2019-07-27 05:49] LABS: PLATELET MORPHOLOGY COMMENT NORMAL (NORMAL)
[2019-07-27 05:50] LABS: ANISOCYTOSIS SLIGHT; HYPOCHROMASIA SLIGHT
[2019-07-27] MEDS: NS 1000 ML 1,000 ML IV SCH (06:09)
[2019-07-27] MEDS: APRESOLINE TAB 25 MG PO SCH (06:10)
[2019-07-27] MEDS: PILOCARPINE HCL 5 MG PO SCH (06:10)
[2019-07-27] MEDS: PERIACTIN TAB 4 MG PO SCH (06:10)
--- NOTE | 2019-07-27 06:22 | RAD ---
HISTORY: Shortness of breath Study: Chest AP portable Comparison: 07/26/2019 Findings: There is a port present on the left. The heart remains enlarged. No congestive heart failure is noted. The yana are normal. The lung juarez are clear. Previously noted left basilar lung infiltrate has resolved. The bony thorax is unremarkable. IMPRESSION: Continued cardiomegaly without congestive heart failure Lungs clear. The previously noted left basilar lung infiltrate appears to have resolved Reported By:
[2019-07-27] MEDS: LOVENOX INJ 30 MG SYR SC SCH (08:19)
[2019-07-27] MEDS: VSL#3 PO SCH (08:23)
[2019-07-27] MEDS: VIT C E ZINC CIT LUTEIN ZEAXAN PO SCH (08:23)
[2019-07-27] MEDS: PATIENT'S HOME MEDICATION (Cyclosporine [Restasis] 1 DROP) OP SCH (08:23)
[2019-07-27] MEDS: PLAVIX PO SCH (08:24)
[2019-07-27] MEDS: NORVASC TAB 5 MG PO SCH (08:25)
[2019-07-27] MEDS: PLAQUENIL PO SCH (08:25)
[2019-07-27] MEDS: TOPROL XL PO SCH (08:26)
[2019-07-27] MEDS: SYNTHROID 137 mcg TAB PO SCH (08:26)
[2019-07-27] MEDS: MEGACE PO SCH (08:27)
[2019-07-27] MEDS: COLACE CAP 100 MG PO SCH (08:27)
[2019-07-27] MEDS: PROTONIX TAB 40 MG PO SCH (08:33)
[2019-07-27] MEDS: LEFLUNOMIDE 20 MG PO SCH (08:34)
[2019-07-27] MEDS: KENALOG CREAM TOP SCH (08:34)
[2019-07-27] MEDS: LEVAQUIN PREMIX IV 250 MG 250 MG/50 ML BAG IV SCH (08:34)
[2019-07-27] MEDS: FLUOCINONIDE TP SCH (08:34)
[2019-07-27] MEDS: ARTIFICIAL TEARS DROPS OP SCH (08:34)
[2019-07-27] MEDS: ALDACTONE TAB 25 MG PO SCH (08:35)
[2019-07-27 09:27] VITALS: BP 190/77
== END 2019-07-27 11:20 | disposition home or self-care (01) | DRG 194 ==
LOC: MED/SURG → OBSVTOIN 11:51
PROVIDERS: ADMIT Internal Medicine; ATTEND Internal Medicine
DX: J18.9 Pneumonia, unspecified organism; R41.82 Altered mental status, unspecified; E86.0 Dehydration; E87.1 Hypo-osmolality and hyponatremia; R50.9 Fever, unspecified
CPT/HCPCS: 36415; 71010; 71045; 80053; 81001; 85025; 87040; 87086; 87502; 94640; 94760; 97110; 97116; 97162; 97166; A4222; B5200; S0179; J0713; J0885; J1642; J1650; J1956; J2405; J2550; J7030; J7050